=== PATIENT | male | born 1950 | race Hispanic/Latino ===

== ENCOUNTER 2019-10-04 20:14 | Inpatient (IN) | payer OTHER ==
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
--- OUTSIDE RECORDS SUMMARY | 2019-10-04 21:34 | XMS REPORT | Continuity of Care Document ---
Author Author [facility] t Organization [facility] Address [address] [place] [address] Phone Unavailable Care Team Providers Care Long Term Name Role Phone Unavailable Unavailable Payers Payer Name Policy Type Policy Number Effective Date Expiration Date S ource Problems This patient has no known problems. Allergies, Adverse Reactions, Alerts Allergy Name Allergy Type Status Severity Reaction(s) Onset Date Inacti ve Date Treating Clinician Comments Source No Known Allergies DA Active U 2014-02-12 00:00:00 [facility] Medications This patient has no known medications. Procedures This patient has no known procedures. Results Test Description Test Time Test Comments Results Result Comments Source BASIC METABOLIC PANEL 2019-08-18 16:20:00 Test Item SODIUM (test code = NA) 143 mEq/L 134-147 N POTASSIUM (test code = K) 3.0 mEq/L 3.4-5.0 L CHLORIDE (test code = CL) 104 mEq/L 100-108 N CARBON DIOXIDE (test code = CO2) 34 mEq/L 21-33 H ANION GAP (test code = GAP) 8 0-20 N GLUCOSE (test code = GLU) 89 mg/dL 70-110 N BLOOD UREA NITROGEN (test code = BUN) 21 mg/dL 7-18 H GLOMERULAR FILTRATION RATE (test code = GFR) 95.6 70-80 H Units of measure = ml/min/1.73 m2 CREATININE (test code = CREAT) 0.8 mg/dL 0.6-1.3 N CALCIUM (test code = CA) 8.4 mg/dL 8.0-10.5 N [id number] 16:20:00* Test Item Value Reference Range Interpretation Comments PHOSPHOROUS (test code = PHOS) 3.2 MG/DL 2.5-4.9 N [id number] 16:20:00* Test Item Value Reference Range Interpretation Comments MAGNESIUM (test code = MAG) 1.60 mg/dL 1.8-2.4 L BASIC METABOLIC [id number] 16:17:00* Test Item Value Reference Range Interpretation Comments SODIUM (test code = NA) 143 mEq/L 134-147 N POTASSIUM (test code = K) 3.0 mEq/L 3.4-5.0 L CHLORIDE (test code = CL) 104 mEq/L 100-108 N CARBON DIOXIDE (test code = CO2) 34 mEq/L 21-33 H ANION GAP (test code = GAP) 8 0-20 N GLUCOSE (test code = GLU) 89 mg/dL 70-110 N BLOOD UREA NITROGEN (test code = BUN) 21 mg/dL 7-18 H GLOMERULAR FILTRATION RATE (test code = GFR) 70-80 CREATININE (test code = CREAT) mg/dL 0.6-1.3 CALCIUM (test code = CA) 8.4 mg/dL 8.0-10.5 N [id number] 16:17:00* Test Item Value Reference Range Interpretation Comments PHOSPHOROUS (test code = PHOS) MG/DL 2.5-4.9 [id number] 16:17:00* Test Item Value Reference Range Interpretation Comments MAGNESIUM (test code = MAG) 1.60 mg/dL 1.8-2.4 L [id number] 12:29:00* Test Item Value Reference Range Interpretation Comments GLUBED (test code = GLUBED) 131 MG/DL 70-110 H Performed by 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 [facility] [id number] 06:52:00* Test Item Value Reference Range Interpretation Comments GLUBED (test code = GLUBED) 84 MG/DL 70-110 N Performed by 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 [facility] - XR CHEST 1 [id number] 06:35:00 FAX: Sherif Hickman MD [phone] [place]: St: ADM FAX: Izabel Fallon NP [phone] Name: DEYSI FRANCISCO [facility] [place] : 1950 Age/S: 69/M [address] [place] [address] Unit #: [id number] Loc: G[address] [place] [address] Phys: Izabel Fallon NP Acct: [id number] Dis Date: Status: ADM IN PHONE #: [phone] Exam Date: 08/18/2019 0550 FAX #: [phone] Reason: resp failure EXAMS: CPT CODE: [id number] XR CHEST 1 V 15195 EXAM: CR, XR chest one view: 08/18/2019, 0421 hours HISTORY: resp failure TECHNIQUE: 1 view of the chest. COMPARISON: 08/17/2019, 0409 hours FINDINGS: Tracheostomy tube, cardiomediastinal silhouette and osseous structures are stable. Previously seen catheter in the right apical chest is no longer visualized. There is no pneumothorax. Bilateral lung opacities, not significantly changed since prior study.. Lucency overlying the left upper abdomen pelvis stomach distended with air. IMPRESSION: 1. Previously seen catheter overlying the right apical chest is no longer present. Tracheostomy tube is stable. 2. Bilateral lung opacities, not significantly changed since prior study. SL: [[id number]] at 0635 Reported and signed by: Bryan Woo M.D. CC: Sherif Wren M.D.; Izabel Fallon NP Technologist: Derek Underwood RT(R) Trnscrd Date/Time/By: 08/18/2019 (35) : By: [email or web address] Orig Print D/T: S: 08/18/2019 (637) PAGE 1 Signed Report COMPREHENSIVE METABOLIC [id number] 05:52:00* Test Item Value Reference Range Interpretation Comments SODIUM (test code = NA) 143 mEq/L 134-147 N POTASSIUM (test code = K) 2.6 mEq/L 3.4-5.0 LL CHLORIDE (test code = CL) 104 mEq/L 100-108 N CARBON DIOXIDE (test code = CO2) 32 mEq/L 21-33 N ANION GAP (test code = GAP) 10 0-20 N GLUCOSE (test code = GLU) 78 mg/dL 70-110 N BLOOD UREA NITROGEN (test code = BUN) 23 mg/dL 7-18 H GLOMERULAR FILTRATION RATE (test code = GFR) 83.4 70-80 H Units of measure = ml/min/1.73 m2 CREATININE (test code = CREAT) 0.9 mg/dL 0.6-1.3 N TOTAL PROTEIN (test code = PROT) 6.6 g/dL 6.4-8.2 N ALBUMIN (test code = ALB) 1.80 g/dL 3.4-5.0 L CALCIUM (test code = CA) 8.3 mg/dL 8.0-10.5 N BILIRUBIN TOTAL (test code = BILT) 0.4 MG/DL <1.5 N SGOT/AST (test code = AST) 15 IUnit/L 15-37 N SGPT/ALT (test code = ALT) < 6 IUnit/L 15-65 L ALKALINE PHOSPHATASE TOTAL (test code = ALKP) 97 IUnit/L 20-125 N [id number] 05:52:00* Test Item Value Reference Range Interpretation Comments PHOSPHOROUS (test code = PHOS) 3.3 MG/DL 2.5-4.9 N [id number] 05:52:00* Test Item Value Reference Range Interpretation Comments MAGNESIUM (test code = MAG) 1.40 mg/dL 1.8-2.4 L CALCIUM [id number] 05:52:00* Test Item Value Reference Range Interpretation Comments CALCIUM IONIZED (test code = SEAMUS) 1.20 MMOL/L 1.12-1.32 N COMPREHENSIVE METABOLIC [id number] 05:39:00* Test Item Value Reference Range Interpretation Comments SODIUM (test code = NA) mEq/L 134-147 POTASSIUM (test code = K) mEq/L 3.4-5.0 CHLORIDE (test code = CL) mEq/L 100-108 CARBON DIOXIDE (test code = CO2) mEq/L 21-33 ANION GAP (test code = GAP) 0-20 GLUCOSE (test code = GLU) mg/dL 70-110 BLOOD UREA NITROGEN (test code = BUN) mg/dL 7-18 GLOMERULAR FILTRATION RATE (test code = GFR) 70-80 CREATININE (test code = CREAT) mg/dL 0.6-1.3 TOTAL PROTEIN (test code = PROT) g/dL 6.4-8.2 ALBUMIN (test code = ALB) g/dL 3.4-5.0 CALCIUM (test code = CA) mg/dL 8.0-10.5 BILIRUBIN TOTAL (test code = BILT) MG/DL <1.5 SGOT/AST (test code = AST) IUnit/L 15-37 SGPT/ALT (test code = ALT) IUnit/L 15-65 ALKALINE PHOSPHATASE TOTAL (test code = ALKP) IUnit/L 20-125 [id number] 05:39:00* Test Item Value Reference Range Interpretation Comments PHOSPHOROUS (test code = PHOS) MG/DL 2.5-4.9 [id number] 05:39:00* Test Item Value Reference Range Interpretation Comments MAGNESIUM (test code = MAG) mg/dL 1.8-2.4 CALCIUM [id number] 05:39:00* Test Item Value Reference Range Interpretation Comments CALCIUM IONIZED (test code = SEAMUS) 1.20 MMOL/L 1.12-1.32 N PROTHROMBIN [id number] 05:37:00* Test Item Value Reference Range Interpretation Comments PROTHROMBIN TIME PATIENT (test code = PTP) 13.9 SECONDS 9.3-12.9 H INTERNATIONAL NORMAL RATIO (test code = INR) 1.3 0.8-1.2 H TARGET INR BY INDICATION Indication INR1. Prophylaxis of venous thrombosis 2.0 - 3.0 (orthopedic surgery), Prophylaxis of venous thrombosis (other than high-risk surgery), Treatment of Deep Vein Thrombosis/Pulmonary Embolism, Prevention of systemic embolism - Tissue heart valves, Acute Myocardial Infarction (to prevent systemic embolism), Valvular heart disease, Atrial Fibrillation, Bileaflet mechanical valve in aortic position.2. Mechanical prosthetic valves (high risk), 2.5 - 3.5 Presence of Lupus Anticoagulant or Antiphospholipid Antibodies, Prevention of systemic embolism - Acute Myocardial Infarction (to prevent recurrent infarct). CBC W/AUTO [id number] 05:27:00* Test Item Value Reference Range Interpretation Comments WHITE BLOOD CELL (test code = WBC) 12.00 x10 3/uL 4.5-11.0 H RED BLOOD CELL (test code = RBC) 3.09 x10 6/uL 4.00-5.60 L HEMOGLOBIN (test code = HGB) 8.9 g/dL 12.5-16.9 L HEMATOCRIT (test code = HCT) 27.9 % 37.5-50.7 L MEAN CELL VOLUME (test code = MCV) 90.3 fL 81.0-99.0 N MEAN CELL HGB (test code = MCH) 28.8 pg 27.0-33.0 N MEAN CELL HGB CONCETRATION (test code = MCHC) 31.9 g/dL 33.0-37. 0 L RED CELL DISTRIBUTION WIDTH CV (test code = RDW) 14.6 % 11.5- 14.5 H RED CELL DISTRIBUTION WIDTH SD (test code = RDW-SD) 48.7 fL 37 .0-54.0 N PLATELET COUNT (test code = PLT) 370 x10 3/uL 150-400 N MEAN PLATELET VOLUME (test code = MPV) 9.5 fL 7.0-9.0 H NEUTROPHIL % (test code = NT%) 66.7 % 56.0-77.0 N IMMATURE GRANULOCYTE % (test code = IG%) 1.0 % 0.0-2.0 N LYMPHOCYTE % (test code = LY%) 18.1 % 14.0-32.0 N MONOCYTE % (test code = MO%) 9.6 % 4.8-9.0 H EOSINOPHIL % (test code = EO%) 4.3 % 0.3-3.7 H BASOPHIL % (test code = BA%) 0.3 % 0.0-2.0 N NUCLEATED RBC % (test code = NRBC%) 0.0 % 0-0 N NEUTROPHIL # (test code = NT#) 8.01 x10 3/uL 2.0-7.6 H IMMATURE GRANULOCYTE # (test code = IG#) 0.12 x10 3/uL 0.00-0.03 H LYMPHOCYTE # (test code = LY#) 2.17 x10 3/uL 1.0-3.8 N MONOCYTE # (test code = MO#) 1.15 x10 3/uL 0.1-0.8 H EOSINOPHIL # (test code = EO#) 0.51 x10 3/uL 0.0-0.2 H BASOPHIL # (test code = BA#) 0.04 x10 3/uL 0.0-0.2 N NUCLEATED RBC # (test code = NRBC#) 0.00 x10 3/uL 0.0-0.1 N MANUAL DIFF REQUIRED (test code = MDIFF) NO ARTERIAL BLOOD [id number] 04:44:00* Test Item Value Reference Range Interpretation Comments ARTERIAL BLOOD GAS PH (test code = PHA) 7.444 7.35-7.45 N ARTERIAL BLOOD GAS PCO2 (test code = PCO2A) 45.5 mmHg 35-45 H ARTERIAL BLOOD GAS PO2 (test code = PO2A) 131 mmHg 80-100 H BICARBONATE TOTAL HCO3 (test code = HCO3) 31.2 mmol/L 22.0-26.0 H BASE EXCESS (test code = SUNDAR) 7.0 mmol/L -4-4 H ABG O2 SATURATION (test code = SATA) 99 % 90-100 N FIO2 (test code = FIO2A) 40 % ABG DELIVERY (test code = KESHAV) Vent ABG VENT MODE (test code = MODEA) Other ABG TIDAL VOLUME (test code = TVA) 487 ml ABG PEEP (test code = PEEPA) 5 cmH2O ABG PRESSURE SUPPORT (test code = PSABG) 10 cmH2O Performed by 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 [facility] ABG TEMPERATURE (test code = TEMPA) 98.5 F ABG SITE (test code = SITEA) L Rad PREDICTED AA GRADIENT (test code = AP) 59 PREDICTED PO2 (test code = OP) 171 a/A RATIO (test code = RATIO) 0.57 TCO2 ARTERIAL (test code = TCO2A) 33 A-A GRADIENT (test code = AAGRADE) 100 [id number] 22:48:00* Test Item Value Reference Range Interpretation Comments GLUBED (test code = GLUBED) 116 MG/DL 70-110 H Performed by 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 [facility] [id number] 22:48:00* Test Item Value Reference Range Interpretation Comments GLUBED (test code = GLUBED) 82 MG/DL 70-110 N Performed by 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 [facility] [id number] 22:48:00* Test Item Value Reference Range Interpretation Comments GLUBED (test code = GLUBED) 74 MG/DL 70-110 N Performed by 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 [facility] [id number] 19:51:00* Test Item Value Reference Range Interpretation Comments GLUBED (test code = GLUBED) 66 MG/DL 70-110 L Performed by 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 [facility] [id number] 15:44:00* Test Item Value Reference Range Interpretation Comments GLUBED (test code = GLUBED) 130 MG/DL 70-110 H Performed by 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 [facility] - CT ABD PELVIS W/O [id number] 08:31:00 Name: DEYSI FRANCISCO [facility] : 1950 Age/S: 69 / M [address] [place] [address] Unit #: [id number] Loc: [place] [address] Phys: Samuel Bradshaw MD Acct: [id number] Dis Date: Status: ADM IN PHONE #: [phone] Exam Date: 08/17/2019527 FAX #: [phone] Reason: vomiting, r/o obstruction EXAMS: CPT CODE: [id number] CT ABD PELVIS W/O CONT 75420 CT abdomen pelvis without contrast: Multiplanar helical imaging acquired from diaphragm to symphysis pubis without IV contrast. Oral contrast was given. CT imaging performed at this location utilizes radiation dose optimization techniques which include one or more of the following: -Automated exposure control - Adjustment of the mA and/or kV according to patient size -Use of iterative reconstruction technique CT Radiation Dose DLP 758 mGy-cm HISTORY: Vomiting, evaluate for bowel obstruction. COMPARISON: None. FINDINGS: Atelectatic changes are found in each lung base. In addition there are bilateral hazy interstitial infiltrates in each lung base which could be pneumonia or edema. Trace right pleural fluid collection. 2.5 cm hypodense lesion in the lateral right lobe of the liver. Density measurement slightly greater than that appear fluid. This may be a cyst but ultrasound confirmation might be useful. No other focal liver lesion or dilated ducts. The gallbladder is absent. Spleen, pancreas and adrenal glands unremarkable. The abdominal aorta is normal caliber. Unenhanced kidneys unremarkable. No stone or hydron ephrosis in either kidney. A PEG tube is in place with attention b alloon in the gastric lumen. Oral contrast passes from the stomach to non dilated small bowel loops and into the distal colon without obstruction. There are scattered left colonic diverticula without diverticulitis. No f luid in the abdomen or pelvis. No retroperitoneal or pelvic adenopathy. Reis catheter in the bladder. The prostate is enlarged. Mild scoliosis with multiple level degenerative change in the thoracolumbar spine. No acute vertebral compression. IMPRESSION: 1. Distal colonic diverticulosis without diverticulitis. No evidence of bowel obstruction. 2. 2.5 cm hypodense lesion right lobe of the liver, suggest ultrasound to confirm possible cyst. 3. Cholecystectomy , prostate enlargement, PEG tube in place. 4. Bibasilar atelectasis. A dditional interstitial infiltrate in each PAGE 1 Sign ed Report (CONTINUED) Name: DEYSI FRANCISCO [facility] : 1950 Age/S: 69 / M [address] [place] [address] Blvd Unit #: [id number] Loc: [place] [address] Phys: Samuel Bradshaw MD Acct: [id number] Dis Date: Status: ADM IN PHONE #: [phone] Exam Date: 08/17/2019527 FAX #: [phone] Reason: vomiting, r/o obstruct ion EXAMS: CPT CODE: [id number] CT ABD PELVIS W/O CONT 51615 <Continued> lung base could be edema or pneumonia. SL: [id number] at 0831 Reported and signed by: Lebron Wharton M.D. CC: Sherif Wren M.D.; Samuel Bradshaw MD Technologist:Jethro De La Fuente, RT(R)(CT) CTDI: DLP: Trnscb Date/Time: 08/17/2019 (08) [email or web address] Orig Print D/T: S: 08/17/2019 (0834) PAGE 2 Signed Report - XR CHEST 1 [id number] 08:06:00 FAX: Sherif Hickman MD [phone] [place]: St: ADM FAX: Frances Lindsey NP [phone] Name: DEYSI FRANCISCO [facility] : 1950 Age/S: 69/M [address] [place] [address] Blvd Unit #: [id number] Loc: G[address] [place] [address] Phys: TrudygardeniaDrewFrances DATA WAREHOUSE SPECIALIST Acct: [id number] Dis Date: Status: ADM IN PHONE #: [phone] Exam Date: 08/17/2019545 FAX #: [phone] Reason: resp failure EXAMS: CPT CODE: [id number] XR CHEST 1 V 85808 PROCEDURE: CHEST SINGLE VIEW INDICATION: Respiratory failure COMPARISON: Multiple priors, most recent 08/16/2019 at 1906 hours FINDINGS: TUBES AND LINES: Tracheostomy tube tip is midline. Right subclavian central venous catheter retracted to the level of subclavian vein near the expected insertion site, stable in position as demonstrated 08/16/2019. Multiple EKG leads overlie the chest. CHEST: Extensive bilateral indistinct pulmonary opacities somewhat patchy in distribution are without significant change. Hemidiaphragms remain p artially visible. No pneumothorax or gross pleural effusion. The cardiomed iastinal silhouette is stable. IMPRESSION: 1. Stable exam. 2. Right central venous catheter tip near the expected subclavian insertion site. 3. Stable pulmonary opacities. SL: [id number] at 0806 Reported and signed by: Burton Mccoy M.D. CC: Sherif Wren M.D.; Frances Lindsey NP Technologist: RT Heath(Alexandrea) Trnscrd Date/Time/By: 08/17/2019 (805) : By: Ethan Orig Print D/T: S: 08/17/2019 (0319) PAGE 1 Signed Report BASIC METABOLIC [id number] 05:10:00* Test Item Value Reference Range Interpretation Comments SODIUM (test code = NA) 144 mEq/L 134-147 N POTASSIUM (test code = K) 3.1 mEq/L 3.4-5.0 L CHLORIDE (test code = CL) 106 mEq/L 100-108 N CARBON DIOXIDE (test code = CO2) 31 mEq/L 21-33 N ANION GAP (test code = GAP) 10 0-20 N GLUCOSE (test code = GLU) 83 mg/dL 70-110 N BLOOD UREA NITROGEN (test code = BUN) 34 mg/dL 7-18 H GLOMERULAR FILTRATION RATE (test code = GFR) 59.9 70-80 L Units of measure = ml/min/1.73 m2 CREATININE (test code = CREAT) 1.2 mg/dL 0.6-1.3 N CALCIUM (test code = CA) 8.5 mg/dL 8.0-10.5 N [id number] 05:10:00* Test Item Value Reference Range Interpretation Comments PHOSPHOROUS (test code = PHOS) 4.1 MG/DL 2.5-4.9 N [id number] 05:10:00* Test Item Value Reference Range Interpretation Comments MAGNESIUM (test code = MAG) 1.40 mg/dL 1.8-2.4 L CALCIUM [id number] 05:10:00* Test Item Value Reference Range Interpretation Comments CALCIUM IONIZED (test code = SEAMUS) 1.18 MMOL/L 1.12-1.32 N LACTIC [id number] 05:01:00* Test Item Value Reference Range Interpretation Comments LACTIC ACID (test code = LACT) 0.6 mmol/L 0.4-1.9 N [id number] 04:54:00* Test Item Value Reference Range Interpretation Comments GLUBED (test code = GLUBED) 77 MG/DL 70-110 N Performed by 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 [facility] BASIC METABOLIC [id number] 04:52:00* Test Item Value Reference Range Interpretation Comments SODIUM (test code = NA) mEq/L 134-147 POTASSIUM (test code = K) mEq/L 3.4-5.0 CHLORIDE (test code = CL) mEq/L 100-108 CARBON DIOXIDE (test code = CO2) mEq/L 21-33 ANION GAP (test code = GAP) 0-20 GLUCOSE (test code = GLU) mg/dL 70-110 BLOOD UREA NITROGEN (test code = BUN) mg/dL 7-18 GLOMERULAR FILTRATION RATE (test code = GFR) 70-80 CREATININE (test code = CREAT) mg/dL 0.6-1.3 CALCIUM (test code = CA) mg/dL 8.0-10.5 [id number] 04:52:00* Test Item Value Reference Range Interpretation Comments PHOSPHOROUS (test code = PHOS) MG/DL 2.5-4.9 [id number] 04:52:00* Test Item Value Reference Range Interpretation Comments MAGNESIUM (test code = MAG) mg/dL 1.8-2.4 CALCIUM [id number] 04:52:00* Test Item Value Reference Range Interpretation Comments CALCIUM IONIZED (test code = SEAMUS) 1.18 MMOL/L 1.12-1.32 N CBC W/AUTO [id number] 04:51:00* Test Item Value Reference Range Interpretation Comments WHITE BLOOD CELL (test code = WBC) 12.02 x10 3/uL 4.5-11.0 H RED BLOOD CELL (test code = RBC) 3.05 x10 6/uL 4.00-5.60 L HEMOGLOBIN (test code = HGB) 8.8 g/dL 12.5-16.9 L HEMATOCRIT (test code = HCT) 28.1 % 37.5-50.7 L MEAN CELL VOLUME (test code = MCV) 92.1 fL 81.0-99.0 N MEAN CELL HGB (test code = MCH) 28.9 pg 27.0-33.0 N MEAN CELL HGB CONCETRATION (test code = MCHC) 31.3 g/dL 33.0-37. 0 L RED CELL DISTRIBUTION WIDTH CV (test code = RDW) 14.9 % 11.5- 14.5 H RED CELL DISTRIBUTION WIDTH SD (test code = RDW-SD) 50.4 fL 37 .0-54.0 N PLATELET COUNT (test code = PLT) 324 x10 3/uL 150-400 N MEAN PLATELET VOLUME (test code = MPV) 9.6 fL 7.0-9.0 H NEUTROPHIL % (test code = NT%) 65.7 % 56.0-77.0 N IMMATURE GRANULOCYTE % (test code = IG%) 1.9 % 0.0-2.0 N LYMPHOCYTE % (test code = LY%) 18.6 % 14.0-32.0 N MONOCYTE % (test code = MO%) 9.8 % 4.8-9.0 H EOSINOPHIL % (test code = EO%) 3.6 % 0.3-3.7 N BASOPHIL % (test code = BA%) 0.4 % 0.0-2.0 N NUCLEATED RBC % (test code = NRBC%) 0.0 % 0-0 N NEUTROPHIL # (test code = NT#) 7.89 x10 3/uL 2.0-7.6 H IMMATURE GRANULOCYTE # (test code = IG#) 0.23 x10 3/uL 0.00-0.03 H LYMPHOCYTE # (test code = LY#) 2.24 x10 3/uL 1.0-3.8 N MONOCYTE # (test code = MO#) 1.18 x10 3/uL 0.1-0.8 H EOSINOPHIL # (test code = EO#) 0.43 x10 3/uL 0.0-0.2 H BASOPHIL # (test code = BA#) 0.05 x10 3/uL 0.0-0.2 N NUCLEATED RBC # (test code = NRBC#) 0.00 x10 3/uL 0.0-0.1 N MANUAL DIFF REQUIRED (test code = MDIFF) NO ARTERIAL BLOOD [id number] 04:36:00* Test Item Value Reference Range Interpretation Comments ARTERIAL BLOOD GAS PH (test code = PHA) 7.410 7.35-7.45 N ARTERIAL BLOOD GAS PCO2 (test code = PCO2A) 52.6 mmHg 35-45 H ARTERIAL BLOOD GAS PO2 (test code = PO2A) 149 mmHg 80-100 H BICARBONATE TOTAL HCO3 (test code = HCO3) 33.5 mmol/L 22.0-26.0 H BASE EXCESS (test code = SUNDAR) 9.0 mmol/L -4-4 H ABG O2 SATURATION (test code = SATA) 99 % 90-100 N FIO2 (test code = FIO2A) 40 % ABG DELIVERY (test code = KESHAV) Vent ABG VENT MODE (test code = MODEA) AC v con ABG VENT RESP RATE (test code = RRA) 24 /MIN ABG TIDAL VOLUME (test code = TVA) 450 ml ABG PEEP (test code = PEEPA) 5 cmH2O Performed by 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 [facility] ABG TEMPERATURE (test code = TEMPA) 97.8 F ABG SITE (test code = SITEA) L Rad PREDICTED AA GRADIENT (test code = AP) 57 PREDICTED PO2 (test code = OP) 164 a/A RATIO (test code = RATIO) 0.67 TCO2 ARTERIAL (test code = TCO2A) 35 A-A GRADIENT (test code = AAGRADE) 73 [id number] 23:38:00* Test Item Value Reference Range Interpretation Comments GLUBED (test code = GLUBED) 112 MG/DL 70-110 H Performed by 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 [facility] - XR CHEST 1 [id number] 19:31:00 FAX: Sherif Hickman MD [phone] [place]: St: ADM FAX: Frances Lindsey NP [phone] Name: DEYSI FRANCISCO [facility] : 1950 Age/S: 69/M [address] [place] [address] Unit #: [id number] Loc: G[address] [place] [address] Phys: Frances Lindsey NP Acct: [id number] Dis Date: Status: ADM IN PHONE #: [phone] Exam Date: 08/16/20191919 FAX #: [phone] Reason: right subclavian line assessment EXAMS: CPT CODE: [id number] XR CHEST 1 V 55857 SINGLE VIEW RADIOGRAPH CHEST INDICATION: right subclavian line assessment. Hemorrhagic stroke. TECHNIQUE: A single view frontal radiograph of the chest was obtained. COMPARISONS: Chest x-ray 08/16/2019 at 0440 hours, chest x-ray 08/15/2019 FINDINGS: There is a stable normally positioned tracheostomy cannula. A right subclavian access central venous catheter has been retracted with tip now overlying the clavicle, and no longer in a central venous location. This could be terminating in the right subclavian vein or soft tissues. There are surgical clips in right upper abdomen. There is no subdiaphragmatic free gas. The heart size appears normal. There is stable dense opacity in the right perihilar region and thickening of the right paratracheal stripe. There are diffuse severe reticulonodular and hazy pulmonary opacities that are not significantly changed from prior. There is no pneumothorax. There is a probable small left pleural effusion that is stable. IMPRESSION: 1. The right subclavian access central venous catheter has been retracted. The tip now overlies the right clavicle and is no longer central venous in location. This catheter could still be in the right subclavian vein or in the soft tissues. 2. Essentially stable diffuse reticulonodular and hazy pulmonary infiltrates. This could be multifocal pneumonia, edema or respiratory distress syndrome. 3. Stable small left pl eural effusion. at 1931 Reported and signed by: Michael Lugo D.O. PAGE 1 Signed Report (CONTINUED) FAX: Sherif Hickman MD [phone] [place]: St: ADM FAX: Frances Lindsey NP [phone] Name: DEYSI FRANCISCO [facility] : 1950 Age/S: 69/M [address] [place] [address] Blvd Unit #: [id number] Loc: [id number] [place] [address] Phys : Frances Lindsey NP Acct: [id number] Dis Date: Status: ADM IN PHONE #: [phone] Exam Date: 08/16/2019 1920 F AX #: [phone] Reason: right subclavian line assessment EXAMS: CPT CODE: [id number] XR CHEST 1 V 34585 <Continued> CC: Sherif Wren M.D.; Frances Lindsey NP Technologist: Peter Quan RT(R) Trnscrd Date/Time/By: 08/16/2019 (1930) : By: [email or web address] Orig Print D/T: S: 08/16/2019 (1933) PAGE 2 Signed Report [id number] 17:19:00* Test Item Value Reference Range Interpretation Comments GLUBED (test code = GLUBED) 81 MG/DL 70-110 N Performed by 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 [facility] [id number] 12:01:00* Test Item Value Reference Range Interpretation Comments GLUBED (test code = GLUBED) 102 MG/DL 70-110 N Performed by 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 [facility] [id number] 10:32:00* Test Item Value Reference Range Interpretation Comments GLUBED (test code = GLUBED) 125 MG/DL 70-110 H Performed by 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 [facility] - XR CHEST 1 [id number] 08:31:00 FAX: Sherif Hickman MD [phone] [place]: St: ADM FAX: Frances Lindsey NP [phone] Name: DEYSI FRANCISCO [facility] : 1950 Age/S: 69/M [address] [place] [address] Unit #: [id number] Loc: G.M314 [place] [address] Phys: Frances Lindsey NP Acct: [id number] Dis Date: Status: ADM IN PHONE #: [phone] Exam Date: 08/16/2019 0554 FAX #: [phone] Reason: resp failure EXAMS: CPT CODE: [id number] XR CHEST 1 V 99178 Clinical Indication: Respiratory failure. Comparison: 08/15/2019. Impression: Chest, single view. Stable position of support apparatus. Bilateral airspace opacities, not significantly changed since prior. No new pleural effusion or pneumothorax. Heart size normal. Overall appearance is similar to prior. SL: [id number] at 0831 Reported and signed by: Marcy Ortiz M.D. CC: Sherif Wren M.D.; Frances Lindsey NP Technologist: RT Farhana(Alexandrea) Trnscrd Date/Time/By: 08/16/2019 (830) : By: [id number] Orig Print D/T: S: 08/16/2019 (34) PAGE 1 Signed Report GLUBED 2019-08-16 08:20:00* Test Item Value Reference Range Interpretation Comments GLUBED (test code = GLUBED) 96 MG/DL 70-110 N Performed by 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 [facility] [id number] 07:23:00* Test Item Value Reference Range Interpretation Comments GLUBED (test code = GLUBED) 168 MG/DL 70-110 H Performed by 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 [facility] [id number] 06:24:00* Test Item Value Reference Range Interpretation Comments AMMONIA (test code = AMM) 24 umol/L 0-35 N BASIC METABOLIC [id number] 05:50:00* Test Item Value Reference Range Interpretation Comments SODIUM (test code = NA) 144 mEq/L 134-147 N POTASSIUM (test code = K) 3.1 mEq/L 3.4-5.0 L CHLORIDE (test code = CL) 106 mEq/L 100-108 N CARBON DIOXIDE (test code = CO2) 33 mEq/L 21-33 N ANION GAP (test code = GAP) 8 0-20 N GLUCOSE (test code = GLU) 96 mg/dL 70-110 N BLOOD UREA NITROGEN (test code = BUN) 44 mg/dL 7-18 H GLOMERULAR FILTRATION RATE (test code = GFR) 42.9 70-80 L Units of measure = ml/min/1.73 m2 CREATININE (test code = CREAT) 1.6 mg/dL 0.6-1.3 H CALCIUM (test code = CA) 8.4 mg/dL 8.0-10.5 N [id number] 05:50:00* Test Item Value Reference Range Interpretation Comments PHOSPHOROUS (test code = PHOS) 4.5 MG/DL 2.5-4.9 N [id number] 05:50:00* Test Item Value Reference Range Interpretation Comments MAGNESIUM (test code = MAG) 1.60 mg/dL 1.8-2.4 L CALCIUM [id number] 05:50:00* Test Item Value Reference Range Interpretation Comments CALCIUM IONIZED (test code = SEAMUS) 1.19 MMOL/L 1.12-1.32 N CBC W/AUTO [id number] 05:40:00* Test Item Value Reference Range Interpretation Comments WHITE BLOOD CELL (test code = WBC) 8.85 x10 3/uL 4.5-11.0 N RED BLOOD CELL (test code = RBC) 3.70 x10 6/uL 4.00-5.60 L HEMOGLOBIN (test code = HGB) 10.6 g/dL 12.5-16.9 L HEMATOCRIT (test code = HCT) 33.6 % 37.5-50.7 L MEAN CELL VOLUME (test code = MCV) 90.8 fL 81.0-99.0 N MEAN CELL HGB (test code = MCH) 28.6 pg 27.0-33.0 N MEAN CELL HGB CONCETRATION (test code = MCHC) 31.5 g/dL 33.0-37. 0 L RED CELL DISTRIBUTION WIDTH CV (test code = RDW) 15.2 % 11.5- 14.5 H RED CELL DISTRIBUTION WIDTH SD (test code = RDW-SD) 50.3 fL 37 .0-54.0 N PLATELET COUNT (test code = PLT) 266 x10 3/uL 150-400 N MEAN PLATELET VOLUME (test code = MPV) 9.8 fL 7.0-9.0 H NEUTROPHIL % (test code = NT%) 61.9 % 56.0-77.0 N IMMATURE GRANULOCYTE % (test code = IG%) 4.6 % 0.0-2.0 H LYMPHOCYTE % (test code = LY%) 17.1 % 14.0-32.0 N MONOCYTE % (test code = MO%) 12.0 % 4.8-9.0 H EOSINOPHIL % (test code = EO%) 3.7 % 0.3-3.7 N BASOPHIL % (test code = BA%) 0.7 % 0.0-2.0 N NUCLEATED RBC % (test code = NRBC%) 0.0 % 0-0 N NEUTROPHIL # (test code = NT#) 5.48 x10 3/uL 2.0-7.6 N IMMATURE GRANULOCYTE # (test code = IG#) 0.41 x10 3/uL 0.00-0.03 H LYMPHOCYTE # (test code = LY#) 1.51 x10 3/uL 1.0-3.8 N MONOCYTE # (test code = MO#) 1.06 x10 3/uL 0.1-0.8 H EOSINOPHIL # (test code = EO#) 0.33 x10 3/uL 0.0-0.2 H BASOPHIL # (test code = BA#) 0.06 x10 3/uL 0.0-0.2 N NUCLEATED RBC # (test code = NRBC#) 0.00 x10 3/uL 0.0-0.1 N MANUAL DIFF REQUIRED (test code = MDIFF) NO BASIC METABOLIC [id number] 05:39:00* Test Item Value Reference Range Interpretation Comments SODIUM (test code = NA) mEq/L 134-147 POTASSIUM (test code = K) mEq/L 3.4-5.0 CHLORIDE (test code = CL) mEq/L 100-108 CARBON DIOXIDE (test code = CO2) mEq/L 21-33 ANION GAP (test code = GAP) 0-20 GLUCOSE (test code = GLU) mg/dL 70-110 BLOOD UREA NITROGEN (test code = BUN) mg/dL 7-18 GLOMERULAR FILTRATION RATE (test code = GFR) 70-80 CREATININE (test code = CREAT) mg/dL 0.6-1.3 CALCIUM (test code = CA) mg/dL 8.0-10.5 [id number] 05:39:00* Test Item Value Reference Range Interpretation Comments PHOSPHOROUS (test code = PHOS) MG/DL 2.5-4.9 [id number] 05:39:00* Test Item Value Reference Range Interpretation Comments MAGNESIUM (test code = MAG) mg/dL 1.8-2.4 CALCIUM [id number] 05:39:00* Test Item Value Reference Range Interpretation Comments CALCIUM IONIZED (test code = SEAMUS) 1.19 MMOL/L 1.12-1.32 N ARTERIAL BLOOD [id number] 05:03:00* Test Item Value Reference Range Interpretation Comments ARTERIAL BLOOD GAS PH (test code = PHA) 7.370 7.35-7.45 N ARTERIAL BLOOD GAS PCO2 (test code = PCO2A) 53.3 mmHg 35-45 H ARTERIAL BLOOD GAS PO2 (test code = PO2A) 127 mmHg 80-100 H BICARBONATE TOTAL HCO3 (test code = HCO3) 30.7 mmol/L 22.0-26.0 H BASE EXCESS (test code = SUNDAR) 5.0 mmol/L -4-4 H ABG O2 SATURATION (test code = SATA) 99 % 90-100 N FIO2 (test code = FIO2A) 40 % ABG DELIVERY (test code = KESHAV) Vent ABG VENT MODE (test code = MODEA) AC v con ABG VENT RESP RATE (test code = RRA) 24 /MIN ABG TIDAL VOLUME (test code = TVA) 450 ml ABG PEEP (test code = PEEPA) 5 cmH2O Performed by 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 [facility] ABG TEMPERATURE (test code = TEMPA) 98.9 F ABG SITE (test code = SITEA) Art line PREDICTED AA GRADIENT (test code = AP) 57 PREDICTED PO2 (test code = OP) 164 a/A RATIO (test code = RATIO) 0.57 TCO2 ARTERIAL (test code = TCO2A) 32 A-A GRADIENT (test code = AAGRADE) 94 [id number] 17:42:00* Test Item Value Reference Range Interpretation Comments GLUBED (test code = GLUBED) 103 MG/DL 70-110 N Performed by 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 [facility] [id number] 17:08:00* Test Item Value Reference Range Interpretation Comments HAPTOGLOBIN (test code = HAPT) 280 mg/dL 32-363 Performed At: [facility] [id number] Sanjai MD Ph:[phone] [id number] 11:42:00* Test Item Value Reference Range Interpretation Comments GLUBED (test code = GLUBED) 143 MG/DL 70-110 H Performed by 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 [facility] - XR CHEST 1 [id number] 08:33:00 FAX: Sherif Hickman MD [phone] [place]: St: ADM FAX: Frances Lindsey NP [phone] Name: DEYSI FRANCISCO [facility] : 1950 Age/S: 69/M [address] [place] [address] Unit #: [id number] Loc: [address] [address] Phys: Frances Lindsey NP Acct: [id number] Dis Date: Status: ADM IN PHONE #: [phone] Exam Date: 08/15/2019613 FAX #: [phone] Reason: resp failure EXAMS: CPT CODE: [id number] XR CHEST 1 V 19063 PROCEDURE: CHEST SINGLE VIEW INDICATION: Respiratory failure COMPARISON: Multiple priors, most recent 08/14/2019 FINDINGS: TUBES AND LINES: Interval placement of tracheostomy tube, tip is midline in the tracheal air shadow. Right subclavian central venous catheter tip at the level of central SVC. EKG leads overlie the lower chest. CHEST: Bilateral ill-defined pulmonary opacities more dense in the central lung zones with air bronchograms present. Opacification of the lung bases with partial obscuration of the hemidiaphragms. No pneumothorax. The cardiomediastinal silhouette is stable. The pulmonary vasculature is indistinct. No acute skeletal abnormality. IMPRESSION: 1. Tracheostomy tube placement. 2. Otherwise stable exam with extensive bilateral interstitial and airspace opacities. RDS, edema, infection in the differential. SL: [id number] at 0833 R eported and signed by: Burton Mccoy M.D. CC: Sherif Mayfield; Frances Lindsey NP Technologist: RIAZ DelcidRYessi Trnscrd Date/Time/By: 08/15/2019 (832) : By: Ethan Orig Print D/T: S: 08/15/2019 (7416) PAGE 1 Signed Report BASIC METABOLIC [id number] 06:30:00* Test Item Value Reference Range Interpretation Comments SODIUM (test code = NA) 145 mEq/L 134-147 N POTASSIUM (test code = K) 3.1 mEq/L 3.4-5.0 L CHLORIDE (test code = CL) 106 mEq/L 100-108 N CARBON DIOXIDE (test code = CO2) 34 mEq/L 21-33 H ANION GAP (test code = GAP) 8 0-20 N GLUCOSE (test code = GLU) 100 mg/dL 70-110 N BLOOD UREA NITROGEN (test code = BUN) 46 mg/dL 7-18 H GLOMERULAR FILTRATION RATE (test code = GFR) 40.0 70-80 L Units of measure = ml/min/1.73 m2 CREATININE (test code = CREAT) 1.7 mg/dL 0.6-1.3 H CALCIUM (test code = CA) 8.6 mg/dL 8.0-10.5 N [id number] 06:30:00* Test Item Value Reference Range Interpretation Comments PHOSPHOROUS (test code = PHOS) 3.8 MG/DL 2.5-4.9 N [id number] 06:30:00* Test Item Value Reference Range Interpretation Comments MAGNESIUM (test code = MAG) 1.70 mg/dL 1.8-2.4 L CALCIUM [id number] 06:30:00* Test Item Value Reference Range Interpretation Comments CALCIUM IONIZED (test code = SEAMUS) 1.21 MMOL/L 1.12-1.32 N ARTERIAL BLOOD [id number] 05:59:00* Test Item Value Reference Range Interpretation Comments ARTERIAL BLOOD GAS PH (test code = PHA) 7.411 7.35-7.45 N ARTERIAL BLOOD GAS PCO2 (test code = PCO2A) 50.3 mmHg 35-45 H ARTERIAL BLOOD GAS PO2 (test code = PO2A) 88 mmHg 80-100 N BICARBONATE TOTAL HCO3 (test code = HCO3) 32.1 mmol/L 22.0-26.0 H BASE EXCESS (test code = SUNDAR) 7.0 mmol/L -4-4 H ABG O2 SATURATION (test code = SATA) 97 % 90-100 N FIO2 (test code = FIO2A) 40 % ABG DELIVERY (test code = KESHAV) Vent ABG VENT MODE (test code = MODEA) AC v con ABG VENT RESP RATE (test code = RRA) 24 /MIN ABG TIDAL VOLUME (test code = TVA) 450 ml ABG PEEP (test code = PEEPA) 5 cmH2O Performed by 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 [facility] ABG TEMPERATURE (test code = TEMPA) 97.7 F ABG SITE (test code = SITEA) Art line PREDICTED AA GRADIENT (test code = AP) 58 PREDICTED PO2 (test code = OP) 166 a/A RATIO (test code = RATIO) 0.39 TCO2 ARTERIAL (test code = TCO2A) 34 A-A GRADIENT (test code = AAGRADE) 137 [id number] 05:31:00* Test Item Value Reference Range Interpretation Comments GLUBED (test code = GLUBED) 103 MG/DL 70-110 N Performed by 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 [facility] BASIC METABOLIC [id number] 05:29:00* Test Item Value Reference Range Interpretation Comments SODIUM (test code = NA) 145 mEq/L 134-147 N POTASSIUM (test code = K) 3.1 mEq/L 3.4-5.0 L CHLORIDE (test code = CL) 106 mEq/L 100-108 N CARBON DIOXIDE (test code = CO2) 34 mEq/L 21-33 H ANION GAP (test code = GAP) 8 0-20 N GLUCOSE (test code = GLU) 100 mg/dL 70-110 N BLOOD UREA NITROGEN (test code = BUN) 46 mg/dL 7-18 H GLOMERULAR FILTRATION RATE (test code = GFR) 40.0 70-80 L Units of measure = ml/min/1.73 m2 CREATININE (test code = CREAT) 1.7 mg/dL 0.6-1.3 H CALCIUM (test code = CA) 8.6 mg/dL 8.0-10.5 N [id number] 05:29:00* Test Item Value Reference Range Interpretation Comments PHOSPHOROUS (test code = PHOS) 3.8 MG/DL 2.5-4.9 N [id number] 05:29:00* Test Item Value Reference Range Interpretation Comments MAGNESIUM (test code = MAG) 1.70 mg/dL 1.8-2.4 L CALCIUM [id number] 05:29:00* Test Item Value Reference Range Interpretation Comments CALCIUM IONIZED (test code = SEAMUS) MMOL/L 1.12-1.32 [id number] 05:28:00* Test Item Value Reference Range Interpretation Comments AMMONIA (test code = AMM) 20 umol/L 0-35 N CBC W/AUTO [id number] 04:55:00* Test Item Value Reference Range Interpretation Comments WHITE BLOOD CELL (test code = WBC) 13.58 x10 3/uL 4.5-11.0 H RED BLOOD CELL (test code = RBC) 3.19 x10 6/uL 4.00-5.60 L HEMOGLOBIN (test code = HGB) 9.3 g/dL 12.5-16.9 L HEMATOCRIT (test code = HCT) 29.2 % 37.5-50.7 L MEAN CELL VOLUME (test code = MCV) 91.5 fL 81.0-99.0 MEAN CELL HGB (test code = MCH) 29.2 pg 27.0-33.0 N MEAN CELL HGB CONCETRATION (test code = MCHC) 31.8 g/dL 33.0-37. 0 L RED CELL DISTRIBUTION WIDTH CV (test code = RDW) 15.3 % 11.5- 14.5 H RED CELL DISTRIBUTION WIDTH SD (test code = RDW-SD) 51.6 fL 37 .0-54.0 N PLATELET COUNT (test code = PLT) 270 x10 3/uL 150-400 N MEAN PLATELET VOLUME (test code = MPV) 9.8 fL 7.0-9.0 H NEUTROPHIL % (test code = NT%) 68.8 % 56.0-77.0 N IMMATURE GRANULOCYTE % (test code = IG%) 3.6 % 0.0-2.0 H LYMPHOCYTE % (test code = LY%) 13.2 % 14.0-32.0 L MONOCYTE % (test code = MO%) 10.7 % 4.8-9.0 H EOSINOPHIL % (test code = EO%) 3.1 % 0.3-3.7 N BASOPHIL % (test code = BA%) 0.6 % 0.0-2.0 N NUCLEATED RBC % (test code = NRBC%) 0.0 % 0-0 N NEUTROPHIL # (test code = NT#) 9.35 x10 3/uL 2.0-7.6 H IMMATURE GRANULOCYTE # (test code = IG#) 0.49 x10 3/uL 0.00-0.03 H LYMPHOCYTE # (test code = LY#) 1.79 x10 3/uL 1.0-3.8 N MONOCYTE # (test code = MO#) 1.45 x10 3/uL 0.1-0.8 H EOSINOPHIL # (test code = EO#) 0.42 x10 3/uL 0.0-0.2 H BASOPHIL # (test code = BA#) 0.08 x10 3/uL 0.0-0.2 N NUCLEATED RBC # (test code = NRBC#) 0.00 x10 3/uL 0.0-0.1 N MANUAL DIFF REQUIRED (test code = MDIFF) NO [id number] 23:30:00* Test Item Value Reference Range Interpretation Comments GLUBED (test code = GLUBED) 148 MG/DL 70-110 H Performed by 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 [facility] [id number] 20:08:00* Test Item Value Reference Range Interpretation Comments GLUBED (test code = GLUBED) 123 MG/DL 70-110 H Performed by 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 [facility] [id number] 12:52:00* Test Item Value Reference Range Interpretation Comments GLUBED (test code = GLUBED) 103 MG/DL 70-110 N Performed by 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 [facility] - XR CHEST 1 [id number] 08:08:00 FAX: Sherif Hickman MD [phone] [place]: St: [facility] FAX: Frances Lindsey NP [phone] Name: DEYSI FRANICSCO [facility] [place] : 1950 Age/S: 69/M [address] [place] [address] Unit #: [id number] Loc: G.M314 [place] [address] Phys: Frances Lindsey DATA WAREHOUSE SPECIALIST Acct: [id number] Dis Date: Status: ADM IN PHONE #: [phone] Exam Date: 08/14/2019 0746 FAX #: [phone] Reason: resp failure EXAMS: CPT CODE: [id number] XR CHEST 1 V 73984 Clinical Indication: Respiratory failure. Comparison: 08/13/2019. Impression: Chest, single view. Stable position of endotracheal tube. Right subclavian central venous catheter is in place with tip projecting to the superior vena cava. Bilateral airspace opacities, similar to prior. Small bilateral pleural effusions. No pneumothorax. Heart size is normal. No acute osseous abnormality. Overall appearance is stable from prior. SL: [id number] at 0808 Reported and signed by: Marcy Ortiz M.D. CC: Sherif Wren M.D.; Frances Lindsey NP Technologist: RT Keven(Alexandrea) Trnscrd Date/Time/By: 08/14/2019 (0808) : By: [id number] Orig Print D/T: S: 08/14/2019 (0811) PAGE 1 Signed Report ARTERIAL BLOOD GAS 2019-08-14 05:08:00* Test Item Value Reference Range Interpretation Comments ARTERIAL BLOOD GAS PH (test code = PHA) 7.342 7.35-7.45 L ARTERIAL BLOOD GAS PCO2 (test code = PCO2A) 57.2 mmHg 35-45 H ARTERIAL BLOOD GAS PO2 (test code = PO2A) 85 mmHg 80-100 N BICARBONATE TOTAL HCO3 (test code = HCO3) 31.0 mmol/L 22.0-26.0 H BASE EXCESS (test code = SUNDAR) 5.0 mmol/L -4-4 H ABG O2 SATURATION (test code = SATA) 95 % 90-100 N FIO2 (test code = FIO2A) 40 % ABG DELIVERY (test code = KESHAV) Vent ABG VENT MODE (test code = MODEA) AC v con ABG VENT RESP RATE (test code = RRA) 24 /MIN ABG TIDAL VOLUME (test code = TVA) 450 ml ABG PEEP (test code = PEEPA) 5 cmH2O Performed by 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 [facility] ABG TEMPERATURE (test code = TEMPA) 98.6 F ABG SITE (test code = SITEA) Art line PREDICTED AA GRADIENT (test code = AP) 56 PREDICTED PO2 (test code = OP) 160 a/A RATIO (test code = RATIO) 0.39 TCO2 ARTERIAL (test code = TCO2A) 33 A-A GRADIENT (test code = AAGRADE) 132 BASIC METABOLIC [id number] 04:06:00* Test Item Value Reference Range Interpretation Comments SODIUM (test code = NA) 146 mEq/L 134-147 N POTASSIUM (test code = K) 3.8 mEq/L 3.4-5.0 N CHLORIDE (test code = CL) 109 mEq/L 100-108 H CARBON DIOXIDE (test code = CO2) 31 mEq/L 21-33 N ANION GAP (test code = GAP) 10 0-20 N GLUCOSE (test code = GLU) 109 mg/dL 70-110 N BLOOD UREA NITROGEN (test code = BUN) 56 mg/dL 7-18 H GLOMERULAR FILTRATION RATE (test code = GFR) 29.7 70-80 L Units of measure = ml/min/1.73 m2 CREATININE (test code = CREAT) 2.2 mg/dL 0.6-1.3 H CALCIUM (test code = CA) 8.6 mg/dL 8.0-10.5 N HEPATIC FUNCTION [id number] 04:06:00* Test Item Value Reference Range Interpretation Comments TOTAL PROTEIN (test code = PROT) 7.0 g/dL 6.4-8.2 N ALBUMIN (test code = ALB) 1.80 g/dL 3.4-5.0 L BILIRUBIN TOTAL (test code = BILT) 0.4 MG/DL <1.5 N BILIRUBIN DIRECT (test code = BILD) 0.20 MG/DL 0.0-0.30 BILIRUBIN INDIRECT (test code = BILIND) 0.20 MG/DL SGOT/AST (test code = AST) 23 IUnit/L 15-37 N SGPT/ALT (test code = ALT) 11 IUnit/L 15-65 L ALKALINE PHOSPHATASE TOTAL (test code = ALKP) 170 IUnit/L 20-125 H [id number] 04:06:00* Test Item Value Reference Range Interpretation Comments PHOSPHOROUS (test code = PHOS) 4.7 MG/DL 2.5-4.9 N [id number] 04:06:00* Test Item Value Reference Range Interpretation Comments LIPASE (test code = LIP) 180 IUnit/L 73-393 N [id number] 04:06:00* Test Item Value Reference Range Interpretation Comments MAGNESIUM (test code = MAG) 1.70 mg/dL 1.8-2.4 L CALCIUM [id number] 04:06:00* Test Item Value Reference Range Interpretation Comments CALCIUM IONIZED (test code = SEAMUS) 1.24 MMOL/L 1.12-1.32 N [id number] 04:02:00* Test Item Value Reference Range Interpretation Comments AMMONIA (test code = AMM) 26 umol/L 0-35 N BASIC METABOLIC [id number] 03:53:00* Test Item Value Reference Range Interpretation Comments SODIUM (test code = NA) mEq/L 134-147 POTASSIUM (test code = K) mEq/L 3.4-5.0 CHLORIDE (test code = CL) mEq/L 100-108 CARBON DIOXIDE (test code = CO2) mEq/L 21-33 ANION GAP (test code = GAP) 0-20 GLUCOSE (test code = GLU) mg/dL 70-110 BLOOD UREA NITROGEN (test code = BUN) mg/dL 7-18 GLOMERULAR FILTRATION RATE (test code = GFR) 70-80 CREATININE (test code = CREAT) mg/dL 0.6-1.3 CALCIUM (test code = CA) mg/dL 8.0-10.5 HEPATIC FUNCTION [id number] 03:53:00* Test Item Value Reference Range Interpretation Comments TOTAL PROTEIN (test code = PROT) g/dL 6.4-8.2 ALBUMIN (test code = ALB) g/dL 3.4-5.0 BILIRUBIN TOTAL (test code = BILT) MG/DL <1.5 BILIRUBIN DIRECT (test code = BILD) MG/DL 0.0-0.30 SGOT/AST (test code = AST) IUnit/L 15-37 SGPT/ALT (test code = ALT) IUnit/L 15-65 ALKALINE PHOSPHATASE TOTAL (test code = ALKP) IUnit/L 20-125 [id number] 03:53:00* Test Item Value Reference Range Interpretation Comments PHOSPHOROUS (test code = PHOS) MG/DL 2.5-4.9 [id number] 03:53:00* Test Item Value Reference Range Interpretation Comments LIPASE (test code = LIP) IUnit/L 73-393 [id number] 03:53:00* Test Item Value Reference Range Interpretation Comments MAGNESIUM (test code = MAG) mg/dL 1.8-2.4 CALCIUM [id number] 03:53:00* Test Item Value Reference Range Interpretation Comments CALCIUM IONIZED (test code = SEAMUS) 1.24 MMOL/L 1.12-1.32 N CBC W/AUTO [id number] 03:48:00* Test Item Value Reference Range Interpretation Comments WHITE BLOOD CELL (test code = WBC) 13.65 x10 3/uL 4.5-11.0 H RED BLOOD CELL (test code = RBC) 3.33 x10 6/uL 4.00-5.60 L HEMOGLOBIN (test code = HGB) 9.7 g/dL 12.5-16.9 L HEMATOCRIT (test code = HCT) 31.6 % 37.5-50.7 L MEAN CELL VOLUME (test code = MCV) 94.9 fL 81.0-99.0 N MEAN CELL HGB (test code = MCH) 29.1 pg 27.0-33.0 N MEAN CELL HGB CONCETRATION (test code = MCHC) 30.7 g/dL 33.0-37. 0 L RED CELL DISTRIBUTION WIDTH CV (test code = RDW) 15.8 % 11.5- 14.5 H RED CELL DISTRIBUTION WIDTH SD (test code = RDW-SD) 54.5 fL 37 .0-54.0 H PLATELET COUNT (test code = PLT) 285 x10 3/uL 150-400 N MEAN PLATELET VOLUME (test code = MPV) 9.2 fL 7.0-9.0 H NEUTROPHIL % (test code = NT%) 75.5 % 56.0-77.0 N IMMATURE GRANULOCYTE % (test code = IG%) 2.1 % 0.0-2.0 H LYMPHOCYTE % (test code = LY%) 11.6 % 14.0-32.0 L MONOCYTE % (test code = MO%) 7.5 % 4.8-9.0 N EOSINOPHIL % (test code = EO%) 2.9 % 0.3-3.7 N BASOPHIL % (test code = BA%) 0.4 % 0.0-2.0 N NUCLEATED RBC % (test code = NRBC%) 0.1 % 0-0 H NEUTROPHIL # (test code = NT#) 10.31 x10 3/uL 2.0-7.6 H IMMATURE GRANULOCYTE # (test code = IG#) 0.29 x10 3/uL 0.00-0.03 H LYMPHOCYTE # (test code = LY#) 1.58 x10 3/uL 1.0-3.8 N MONOCYTE # (test code = MO#) 1.02 x10 3/uL 0.1-0.8 H EOSINOPHIL # (test code = EO#) 0.39 x10 3/uL 0.0-0.2 H BASOPHIL # (test code = BA#) 0.06 x10 3/uL 0.0-0.2 N NUCLEATED RBC # (test code = NRBC#) 0.02 x10 3/uL 0.0-0.1 N MANUAL DIFF REQUIRED (test code = MDIFF) NO [id number] 01:17:00* Test Item Value Reference Range Interpretation Comments GLUBED (test code = GLUBED) 109 MG/DL 70-110 N Performed by 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 [facility] [id number] 17:06:00* Test Item Value Reference Range Interpretation Comments GLUBED (test code = GLUBED) 100 MG/DL 70-110 N Performed by 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 [facility] [id number] 11:13:00* Test Item Value Reference Range Interpretation Comments GLUBED (test code = GLUBED) 122 MG/DL 70-110 H Performed by 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 [facility] [id number] 08:01:00* Test Item Value Reference Range Interpretation Comments GLUBED (test code = GLUBED) 72 MG/DL 70-110 N Performed by 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 [facility] - XR CHEST 1 [id number] 07:18:00 FAX: Sherif Hickman MD [phone] [place]: St: ADM FAX: Frances Lindsey NP [phone] Name: DEYSI FRANCISCO [facility] : 1950 Age/S: 69/M [address] [place] [address] Unit #: [id number] Loc: .[address] [address] Phys: Frances Lindsey NP Acct: [id number] Dis Date: Status: ADM IN PHONE #: [phone] Exam Date: 08/13/2019620 FAX #: [phone] Reason: resp failure EXAMS: CPT CODE: [id number] XR CHEST 1 V [id number] Chest view 08/13/2019 HISTORY: Respiratory failure Comparison is made to 08/12/2019 FINDINGS: The endotracheal tube and right jugular line are stable. Patchy airspace opacities and interstitial infiltrates throughout both lungs are not significantly changed, right greater than left. Bilateral pleural effusions are unchanged. IMPRESSION: Stable chest. SL: [id number] at 0718 Reported and signed by: Eric Orozco M.D. CC: Sherif Wren M.D.; Frances Lindsey NP Technologist: RT Anton(R) Trnscrd Date/Time/By: 08/13/2019 (717) : By: [email or web address] Orig Print D/T: S: 08/13/2019 (721) PAGE 1 Signed Report BASIC METABOLIC [id number] 06:23:00* Test Item Value Reference Range Interpretation Comments SODIUM (test code = NA) 150 mEq/L 134-147 H POTASSIUM (test code = K) 3.2 mEq/L 3.4-5.0 L CHLORIDE (test code = CL) 115 mEq/L 100-108 H CARBON DIOXIDE (test code = CO2) 31 mEq/L 21-33 N ANION GAP (test code = GAP) 7 0-20 N GLUCOSE (test code = GLU) 93 mg/dL 70-110 BLOOD UREA NITROGEN (test code = BUN) 63 mg/dL 7-18 H GLOMERULAR FILTRATION RATE (test code = GFR) 31.4 70-80 L Units of measure = ml/min/1.73 m2 CREATININE (test code = CREAT) 2.1 mg/dL 0.6-1.3 H CALCIUM (test code = CA) 8.5 mg/dL 8.0-10.5 N [id number] 06:23:00* Test Item Value Reference Range Interpretation Comments PHOSPHOROUS (test code = PHOS) 5.3 MG/DL 2.5-4.9 H [id number] 06:23:00* Test Item Value Reference Range Interpretation Comments MAGNESIUM (test code = MAG) 1.80 mg/dL 1.8-2.4 N CALCIUM [id number] 06:23:00* Test Item Value Reference Range Interpretation Comments CALCIUM IONIZED (test code = SEAMUS) 1.22 MMOL/L 1.12-1.32 N BASIC METABOLIC [id number] 06:13:00* Test Item Value Reference Range Interpretation Comments SODIUM (test code = NA) mEq/L 134-147 POTASSIUM (test code = K) mEq/L 3.4-5.0 CHLORIDE (test code = CL) mEq/L 100-108 CARBON DIOXIDE (test code = CO2) mEq/L 21-33 ANION GAP (test code = GAP) 0-20 GLUCOSE (test code = GLU) mg/dL 70-110 BLOOD UREA NITROGEN (test code = BUN) mg/dL 7-18 GLOMERULAR FILTRATION RATE (test code = GFR) 70-80 CREATININE (test code = CREAT) mg/dL 0.6-1.3 CALCIUM (test code = CA) mg/dL 8.0-10.5 [id number] 06:13:00* Test Item Value Reference Range Interpretation Comments PHOSPHOROUS (test code = PHOS) MG/DL 2.5-4.9 [id number] 06:13:00* Test Item Value Reference Range Interpretation Comments MAGNESIUM (test code = MAG) mg/dL 1.8-2.4 CALCIUM [id number] 06:13:00* Test Item Value Reference Range Interpretation Comments CALCIUM IONIZED (test code = SEAMUS) 1.22 MMOL/L 1.12-1.32 N CBC W/AUTO [id number] 06:01:00* Test Item Value Reference Range Interpretation Comments WHITE BLOOD CELL (test code = WBC) 13.71 x10 3/uL 4.5-11.0 H RED BLOOD CELL (test code = RBC) 3.00 x10 6/uL 4.00-5.60 L HEMOGLOBIN (test code = HGB) 8.9 g/dL 12.5-16.9 L HEMATOCRIT (test code = HCT) 28.6 % 37.5-50.7 L MEAN CELL VOLUME (test code = MCV) 95.3 fL 81.0-99.0 N MEAN CELL HGB (test code = MCH) 29.7 pg 27.0-33.0 N MEAN CELL HGB CONCETRATION (test code = MCHC) 31.1 g/dL 33.0-37. 0 L RED CELL DISTRIBUTION WIDTH CV (test code = RDW) 16.3 % 11.5- 14.5 H RED CELL DISTRIBUTION WIDTH SD (test code = RDW-SD) 57.0 fL 37 .0-54.0 H PLATELET COUNT (test code = PLT) 297 x10 3/uL 150-400 N MEAN PLATELET VOLUME (test code = MPV) 9.3 fL 7.0-9.0 H NEUTROPHIL % (test code = NT%) 75.5 % 56.0-77.0 N IMMATURE GRANULOCYTE % (test code = IG%) 1.2 % 0.0-2.0 N LYMPHOCYTE % (test code = LY%) 13.6 % 14.0-32.0 L MONOCYTE % (test code = MO%) 5.7 % 4.8-9.0 N EOSINOPHIL % (test code = EO%) 3.5 % 0.3-3.7 N BASOPHIL % (test code = BA%) 0.5 % 0.0-2.0 N NUCLEATED RBC % (test code = NRBC%) 0.2 % 0-0 H NEUTROPHIL # (test code = NT#) 10.35 x10 3/uL 2.0-7.6 H IMMATURE GRANULOCYTE # (test code = IG#) 0.17 x10 3/uL 0.00-0.03 H LYMPHOCYTE # (test code = LY#) 1.86 x10 3/uL 1.0-3.8 N MONOCYTE # (test code = MO#) 0.78 x10 3/uL 0.1-0.8 N EOSINOPHIL # (test code = EO#) 0.48 x10 3/uL 0.0-0.2 H BASOPHIL # (test code = BA#) 0.07 x10 3/uL 0.0-0.2 N NUCLEATED RBC # (test code = NRBC#) 0.03 x10 3/uL 0.0-0.1 N MANUAL DIFF REQUIRED (test code = MDIFF) NO ARTERIAL BLOOD [id number] 05:19:00* Test Item Value Reference Range Interpretation Comments ARTERIAL BLOOD GAS PH (test code = PHA) 7.351 7.35-7.45 N ARTERIAL BLOOD GAS PCO2 (test code = PCO2A) 51.4 mmHg 35-45 H ARTERIAL BLOOD GAS PO2 (test code = PO2A) 142 mmHg 80-100 H BICARBONATE TOTAL HCO3 (test code = HCO3) 28.6 mmol/L 22.0-26.0 H BASE EXCESS (test code = SUNDAR) 3.0 mmol/L -4-4 N ABG O2 SATURATION (test code = SATA) 99 % 90-100 N FIO2 (test code = FIO2A) 50 % ABG DELIVERY (test code = KESHAV) Vent ABG VENT MODE (test code = MODEA) AC v con ABG VENT RESP RATE (test code = RRA) 24 /MIN ABG TIDAL VOLUME (test code = TVA) 500 ml ABG PEEP (test code = PEEPA) 5 cmH2O Performed by 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 [facility] ABG TEMPERATURE (test code = TEMPA) 97.5 F ABG SITE (test code = SITEA) Art line PREDICTED AA GRADIENT (test code = AP) 76 PREDICTED PO2 (test code = OP) 218 a/A RATIO (test code = RATIO) 0.48 TCO2 ARTERIAL (test code = TCO2A) 30 A-A GRADIENT (test code = AAGRADE) 153 [id number] 00:32:00* Test Item Value Reference Range Interpretation Comments GLUBED (test code = GLUBED) 94 MG/DL 70-110 N Performed by 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 [facility] [id number] 18:42:00* Test Item Value Reference Range Interpretation Comments SODIUM (test code = NA) 150 mEq/L 134-147 H [id number] 18:26:00* Test Item Value Reference Range Interpretation Comments GLUBED (test code = GLUBED) 77 MG/DL 70-110 N Performed by 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 [facility] PROCALCITONIN (PCT)2019-08-12 14:39:00* Test Item Value Reference Range Interpretation Comments PROCALCITONIN (PCT) (test code = PROCAL) 6.54 ng/mL 0.00-0.05 H PROCALCITONIN (PCT) NORMAL RANGE (ADULT): <0.05 NG/ML. * a concentration <0.5 ng/mL represents a low risk of severe sepsis and/or septic shock.* a concentration >2 ng/mL represents a high risk of severe sepsis and/or septic shock.Nevertheless, concentrations <0.5 ng/mL do not exclude aninfection, on account of localized infections (withoutsystemic signs) which can be associated with such lowconcentrations, or a systemic infection in its initialstages (< 6 hours). Furthermore, increased procalcitonincan occur without infection. PCT concentrations between 0.5and 2.0 ng/mL should be interpreted taking into account thepatient's history. It is recommended to retest PCT within6-24 hours if any concentrations <2 ng/mL are obtained. [id number] 13:06:00* Test Item Value Reference Range Interpretation Comments SODIUM (test code = NA) 151 mEq/L 134-147 H [id number] 12:18:00* Test Item Value Reference Range Interpretation Comments GLUBED (test code = GLUBED) 94 MG/DL 70-110 N Performed by 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 [facility] CBC W/AUTO [id number] 11:20:00* Test Item Value Reference Range Interpretation Comments WHITE BLOOD CELL (test code = WBC) 18.05 x10 3/uL 4.5-11.0 H RED BLOOD CELL (test code = RBC) 2.81 x10 6/uL 4.00-5.60 L HEMOGLOBIN (test code = HGB) 8.1 g/dL 12.5-16.9 L HEMATOCRIT (test code = HCT) 26.5 % 37.5-50.7 L MEAN CELL VOLUME (test code = MCV) 94.3 fL 81.0-99.0 N MEAN CELL HGB (test code = MCH) 28.8 pg 27.0-33.0 N MEAN CELL HGB CONCETRATION (test code = MCHC) 30.6 g/dL 33.0-37. 0 L RED CELL DISTRIBUTION WIDTH CV (test code = RDW) 16.5 % 11.5- 14.5 H RED CELL DISTRIBUTION WIDTH SD (test code = RDW-SD) 55.9 fL 37 .0-54.0 H PLATELET COUNT (test code = PLT) 308 x10 3/uL 150-400 N MEAN PLATELET VOLUME (test code = MPV) 9.4 fL 7.0-9.0 H MANUAL DIFF REQUIRED (test code = MDIFF) YES WBC [id number] 11:20:00* Test Item Value Reference Range Interpretation Comments SEGMENTED NEUTROPHILS (test code = SEG) 83.4 % 37-69 H BAND NEUTROPHIL (test code = BAND) 2.8 % 0.0-10.0 N LYMPHOCYTE (test code = LYMPH) 4.6 % 23-55 L MONOCYTE (test code = MON) 2.8 % 0-10 N EOSINOPHIL (test code = EOS) 0.9 % 0.0-4.0 N BASOPHIL (test code = BASO) 4.6 % 0.0-2.0 H PROMYELOCYTE (test code = PROM) 0.9 % 0-0 H POLYCHROMASIA (test code = POLC) 1+ POIKILOCYTOSIS (test code = POIK) SLIGHT ANISOCYTOSIS (test code = ANISO) 1+ MICROCYTOSIS (test code = MICR) 1+ TARGET CELLS (test code = TGT) FEW ELLIPTOCYTES (test code = ELL) FEW PLATELET ESTIMATE (test code = PLTEST) Adequate THOUSAND ADEQUATE PLATELET MORPHOLOGY (test code = PLTMORPH) NORMAL CBC W/AUTO [id number] 11:15:00* Test Item Value Reference Range Interpretation Comments WHITE BLOOD CELL (test code = WBC) 18.05 x10 3/uL 4.5-11.0 H RED BLOOD CELL (test code = RBC) 2.81 x10 6/uL 4.00-5.60 L HEMOGLOBIN (test code = HGB) 8.1 g/dL 12.5-16.9 L HEMATOCRIT (test code = HCT) 26.5 % 37.5-50.7 L MEAN CELL VOLUME (test code = MCV) 94.3 fL 81.0-99.0 N MEAN CELL HGB (test code = MCH) 28.8 pg 27.0-33.0 N MEAN CELL HGB CONCETRATION (test code = MCHC) 30.6 g/dL 33.0-37. 0 L RED CELL DISTRIBUTION WIDTH CV (test code = RDW) 16.5 % 11.5- 14.5 H RED CELL DISTRIBUTION WIDTH SD (test code = RDW-SD) 55.9 fL 37 .0-54.0 H PLATELET COUNT (test code = PLT) 308 x10 3/uL 150-400 N MEAN PLATELET VOLUME (test code = MPV) 9.4 fL 7.0-9.0 H MANUAL DIFF REQUIRED (test code = MDIFF) YES WBC [id number] 11:15:00* Test Item Value Reference Range Interpretation Comments ANISOCYTOSIS (test code = ANISO) PLATELET ESTIMATE (test code = PLTEST) THOUSAND ADEQUATE CBC W/AUTO [id number] 11:15:00* Test Item Value Reference Range Interpretation Comments WHITE BLOOD CELL (test code = WBC) 18.05 x10 3/uL 4.5-11.0 H RED BLOOD CELL (test code = RBC) 2.81 x10 6/uL 4.00-5.60 L HEMOGLOBIN (test code = HGB) 8.1 g/dL 12.5-16.9 L HEMATOCRIT (test code = HCT) 26.5 % 37.5-50.7 L MEAN CELL VOLUME (test code = MCV) 94.3 fL 81.0-99.0 N MEAN CELL HGB (test code = MCH) 28.8 pg 27.0-33.0 N MEAN CELL HGB CONCETRATION (test code = MCHC) 30.6 g/dL 33.0-37. 0 L RED CELL DISTRIBUTION WIDTH CV (test code = RDW) 16.5 % 11.5- 14.5 H RED CELL DISTRIBUTION WIDTH SD (test code = RDW-SD) 55.9 fL 37 .0-54.0 H PLATELET COUNT (test code = PLT) 308 x10 3/uL 150-400 N MEAN PLATELET VOLUME (test code = MPV) 9.4 fL 7.0-9.0 H MANUAL DIFF REQUIRED (test code = MDIFF) YES WBC [id number] 11:15:00* Test Item Value Reference Range Interpretation Comments ANISOCYTOSIS (test code = ANISO) PLATELET ESTIMATE (test code = PLTEST) THOUSAND ADEQUATE LIPID PROFILE (CORONARY RISK)2019-08-12 10:18:00* Test Item Value Reference Range Interpretation Comments TRIGLYCERIDES (test code = TRIG) 280 mg/dL 40-150 H CHOLESTEROL (test code = CHOL) 71 mg/dL <200 CHOLESTEROL/HDL RATIO (test code = CHOLHDL) 7.89 RATIO 3.43-4.97 H RISK ASSOCIATED WITH CHOL/HDL RATIOS: RISK MALE FEMALE1/2 AVERAGE 3.43 3.27AVERAGE 4.97 4.442X AVERAGE 9.55 7.053X AVERAGE 23.39 11.04 NOTE THAT THE REFERENCE VALUE IS RELATEDTO RISK LEVELS RECOMMENDED BY THE NATL.HEART, LUNG, AND BLOOD INST. HDL CHOLESTEROL (test code = HDL) 9.0 mg/dL 32-72 L LIPOPROTEIN LDL (test code = LDL) 28 mg/dL 0-100 N <100 [id number] NEAR OPTIMAL/ABOVE [id number] HIGH>NL=074 VERY HIGH*Guidelines provided by the National Cholesterol EducationProgram Adult Treatment Panel III GAMMA GLUTAMYL [id number] 10:18:00* Test Item Value Reference Range Interpretation Comments GAMMA GLUTAMYL TRANSPEPTIDASE (test code = GGT) 13 UNITS/L 5-85 N Result is in INTERNATIONAL UNITS/LITER LACTIC DEHYDROGENASE(LDH)2019-08-12 10:18:00* Test Item Value Reference Range Interpretation Comments LACTIC DEHYDROGENASE(LDH) (test code = LDH) 191 IUnits/L 87-241 N T4 [id number] 10:18:00* Test Item Value Reference Range Interpretation Comments T4 FREE (test code = T4F) 0.9 ng/dL 0.77-1.61 N TSH REFLEX TO [id number] 10:18:00* Test Item Value Reference Range Interpretation Comments TSH REFLEX TO FT4 (test code = TSHREFLEX) 7.82 IU/mL 0.42-5.47 H LIPID PROFILE (CORONARY RISK)2019-08-12 09:59:00* Test Item Value Reference Range Interpretation Comments TRIGLYCERIDES (test code = TRIG) 280 mg/dL 40-150 H CHOLESTEROL (test code = CHOL) 71 mg/dL <200 CHOLESTEROL/HDL RATIO (test code = CHOLHDL) 7.89 RATIO 3.43-4.97 H RISK ASSOCIATED WITH CHOL/HDL RATIOS: RISK MALE FEMALE1/2 AVERAGE 3.43 3.27AVERAGE 4.97 4.442X AVERAGE 9.55 7.053X AVERAGE 23.39 11.04 NOTE THAT THE REFERENCE VALUE IS RELATEDTO RISK LEVELS RECOMMENDED BY THE NATL.HEART, LUNG, AND BLOOD INST. HDL CHOLESTEROL (test code = HDL) 9.0 mg/dL 32-72 L LIPOPROTEIN LDL (test code = LDL) 28 mg/dL 0-100 N <100 [id number] NEAR OPTIMAL/ABOVE [id number] HIGH>FE=196 VERY HIGH*Guidelines provided by the National Cholesterol EducationProgram Adult Treatment Panel III GAMMA GLUTAMYL [id number] 09:59:00* Test Item Value Reference Range Interpretation Comments GAMMA GLUTAMYL TRANSPEPTIDASE (test code = GGT) 13 UNITS/L 5-85 N Result is in INTERNATIONAL UNITS/LITER LACTIC DEHYDROGENASE(LDH)2019-08-12 09:59:00* Test Item Value Reference Range Interpretation Comments LACTIC DEHYDROGENASE(LDH) (test code = LDH) 191 IUnits/L 87-241 N T4 [id number] 09:59:00* Test Item Value Reference Range Interpretation Comments T4 FREE (test code = T4F) ng/dL 0.77-1.61 TSH REFLEX TO [id number] 09:59:00* Test Item Value Reference Range Interpretation Comments TSH REFLEX TO FT4 (test code = TSHREFLEX) 7.82 IU/mL 0.42-5.47 H HGBA1C%2019-08-12 09:58:00* Test Item Value Reference Range Interpretation Comments HGBA1C% (test code = HGBA1C%) 6.4 %A1C 4.8-6.0 H RETIC COUNT (AUTOMATED)2019-08-12 09:33:00* Test Item Value Reference Range Interpretation Comments RETIC COUNT (AUTOMATED) (test code = RETICA) 0.9 % 0.3-2.3 N - XR CHEST 1 [id number] 08:06:00 FAX: Sherif Hickman MD [phone] [place]: St: ADM FAX: Izabel Fallon NP [phone] Name: DEYSI FRANCISCO [facility] : 1950 Age/S: 69/M [address] [place] [address] Unit #: [id number] Loc: G.14 [place] [address] Phys: Izabel Fallon NP Acct: [id number] Dis Date: Status: ADM IN PHONE #: [phone] Exam Date: 08/12/2019727 FAX #: [phone] Reason: RESP FAILURE/PNEUMONIA EXAMS: CPT CODE: [id number] XR CHEST 1 V [id number] Chest single view 08/12/2019 HISTORY: Respiratory failure. Pneumonia Comparison is made to 08/11/2019 FINDINGS: Patchy airspace opacities and interstitial infiltrates throughout both lungs, right greater than left, are unchanged. Heart size is at the upper limits of normal. Aorta is within normal limits. Right subclavian line and endotracheal tube are stable. Gastric tube has been removed. IMPRESSION: 1. Stable bilateral pneumonia. 2. Removal of gastric tube. SL: [id number] Electronically Signed by Mega Orozco on 0 08/12/2019 at 0806 Reported and signed by: Jose Guadalupe Orozco M.D. CC: Sherif Wren M.D.; Izabel wright NP Technologist: Anali Thornton, RT(R); Radha Dunlap, RT (R) Trnscrd Date/Time/By: 08/12/2019 (805) : By: [email or web address] Or [employer] Print D/T: S: 08/12/2019 (808) PAGE 1 Signed Report COMPREHENSIVE METABOLIC [id number] 06:20:00* Test Item Value Reference Range Interpretation Comments SODIUM (test code = NA) 152 mEq/L 134-147 H POTASSIUM (test code = K) 3.4 mEq/L 3.4-5.0 N CHLORIDE (test code = CL) 117 mEq/L 100-108 H CARBON DIOXIDE (test code = CO2) 28 mEq/L 21-33 N ANION GAP (test code = GAP) 10 0-20 N GLUCOSE (test code = GLU) 71 mg/dL 70-110 N BLOOD UREA NITROGEN (test code = BUN) 59 mg/dL 7-18 H GLOMERULAR FILTRATION RATE (test code = GFR) 31.4 70-80 L Units of measure = ml/min/1.73 m2 CREATININE (test code = CREAT) 2.1 mg/dL 0.6-1.3 H TOTAL PROTEIN (test code = PROT) 6.5 g/dL 6.4-8.2 N ALBUMIN (test code = ALB) 1.80 g/dL 3.4-5.0 L CALCIUM (test code = CA) 8.4 mg/dL 8.0-10.5 N BILIRUBIN TOTAL (test code = BILT) 0.4 MG/DL <1.5 SGOT/AST (test code = AST) 21 IUnit/L 15-37 N SGPT/ALT (test code = ALT) 16 IUnit/L 15-65 ALKALINE PHOSPHATASE TOTAL (test code = ALKP) 162 IUnit/L 20-125 H [id number] 06:20:00* Test Item Value Reference Range Interpretation Comments PHOSPHOROUS (test code = PHOS) 4.4 MG/DL 2.5-4.9 N [id number] 06:20:00* Test Item Value Reference Range Interpretation Comments MAGNESIUM (test code = MAG) 2.00 mg/dL 1.8-2.4 N CALCIUM [id number] 06:20:00* Test Item Value Reference Range Interpretation Comments CALCIUM IONIZED (test code = SEAMUS) 1.21 MMOL/L 1.12-1.32 N COMPREHENSIVE METABOLIC [id number] 06:11:00* Test Item Value Reference Range Interpretation Comments SODIUM (test code = NA) mEq/L 134-147 POTASSIUM (test code = K) mEq/L 3.4-5.0 CHLORIDE (test code = CL) mEq/L 100-108 CARBON DIOXIDE (test code = CO2) mEq/L 21-33 ANION GAP (test code = GAP) 0-20 GLUCOSE (test code = GLU) mg/dL 70-110 BLOOD UREA NITROGEN (test code = BUN) mg/dL 7-18 GLOMERULAR FILTRATION RATE (test code = GFR) 70-80 CREATININE (test code = CREAT) mg/dL 0.6-1.3 TOTAL PROTEIN (test code = PROT) g/dL 6.4-8.2 ALBUMIN (test code = ALB) g/dL 3.4-5.0 CALCIUM (test code = CA) mg/dL 8.0-10.5 BILIRUBIN TOTAL (test code = BILT) MG/DL <1.5 SGOT/AST (test code = AST) IUnit/L 15-37 SGPT/ALT (test code = ALT) IUnit/L 15-65 ALKALINE PHOSPHATASE TOTAL (test code = ALKP) IUnit/L 20-125 [id number] 06:11:00* Test Item Value Reference Range Interpretation Comments PHOSPHOROUS (test code = PHOS) MG/DL 2.5-4.9 [id number] 06:11:00* Test Item Value Reference Range Interpretation Comments MAGNESIUM (test code = MAG) mg/dL 1.8-2.4 CALCIUM [id number] 06:11:00* Test Item Value Reference Range Interpretation Comments CALCIUM IONIZED (test code = SEAMUS) 1.21 MMOL/L 1.12-1.32 N PROTHROMBIN [id number] 06:11:00* Test Item Value Reference Range Interpretation Comments PROTHROMBIN TIME PATIENT (test code = PTP) 16.1 SECONDS 9.3-12.9 H INTERNATIONAL NORMAL RATIO (test code = INR) 1.5 0.8-1.2 H TARGET INR BY INDICATION Indication INR1. Prophylaxis of venous thrombosis 2.0 - 3.0 (orthopedic surgery), Prophylaxis of venous thrombosis (other than high-risk surgery), Treatment of Deep Vein Thrombosis/Pulmonary Embolism, Prevention of systemic embolism - Tissue heart valves, Acute Myocardial Infarction (to prevent systemic embolism), Valvular heart disease, Atrial Fibrillation, Bileaflet mechanical valve in aortic position.2. Mechanical prosthetic valves (high risk), 2.5 - 3.5 Presence of Lupus Anticoagulant or Antiphospholipid Antibodies, Prevention of systemic embolism - Acute Myocardial Infarction (to prevent recurrent infarct). CBC W/AUTO [id number] 06:03:00* Test Item Value Reference Range Interpretation Comments WHITE BLOOD CELL (test code = WBC) 18.05 x10 3/uL 4.5-11.0 H RED BLOOD CELL (test code = RBC) 2.81 x10 6/uL 4.00-5.60 L HEMOGLOBIN (test code = HGB) 8.1 g/dL 12.5-16.9 L HEMATOCRIT (test code = HCT) 26.5 % 37.5-50.7 L MEAN CELL VOLUME (test code = MCV) 94.3 fL 81.0-99.0 N MEAN CELL HGB (test code = MCH) 28.8 pg 27.0-33.0 N MEAN CELL HGB CONCETRATION (test code = MCHC) 30.6 g/dL 33.0-37. 0 L RED CELL DISTRIBUTION WIDTH CV (test code = RDW) 16.5 % 11.5- 14.5 H RED CELL DISTRIBUTION WIDTH SD (test code = RDW-SD) 55.9 fL 37 .0-54.0 H PLATELET COUNT (test code = PLT) 308 x10 3/uL 150-400 N MEAN PLATELET VOLUME (test code = MPV) 9.4 fL 7.0-9.0 H NEUTROPHIL % (test code = NT%) % 56.0-77.0 LYMPHOCYTE % (test code = LY%) % 14.0-32.0 NEUTROPHIL # (test code = NT#) x10 3/uL 2.0-7.6 LYMPHOCYTE # (test code = LY#) x10 3/uL 1.0-3.8 MANUAL DIFF REQUIRED (test code = MDIFF) ARTERIAL BLOOD [id number] 05:52:00* Test Item Value Reference Range Interpretation Comments ARTERIAL BLOOD GAS PH (test code = PHA) 7.350 7.35-7.45 N ARTERIAL BLOOD GAS PCO2 (test code = PCO2A) 47.1 mmHg 35-45 H ARTERIAL BLOOD GAS PO2 (test code = PO2A) 95 mmHg 80-100 N BICARBONATE TOTAL HCO3 (test code = HCO3) 26.0 mmol/L 22.0-26.0 N BASE EXCESS (test code = SUNDAR) 0.0 mmol/L -4-4 N ABG O2 SATURATION (test code = SATA) 97 % 90-100 N FIO2 (test code = FIO2A) 40 % ABG DELIVERY (test code = KESHAV) Vent ABG VENT MODE (test code = MODEA) AC v con ABG VENT RESP RATE (test code = RRA) 24 /MIN ABG TIDAL VOLUME (test code = TVA) 500 ml ABG PEEP (test code = PEEPA) 8 cmH2O Performed by 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 [facility] ABG TEMPERATURE (test code = TEMPA) 98.6 F ABG SITE (test code = SITEA) Art line PREDICTED AA GRADIENT (test code = AP) 59 PREDICTED PO2 (test code = OP) 169 a/A RATIO (test code = RATIO) 0.42 TCO2 ARTERIAL (test code = TCO2A) 27 A-A GRADIENT (test code = AAGRADE) 134 [id number] 00:44:00* Test Item Value Reference Range Interpretation Comments GLUBED (test code = GLUBED) 115 MG/DL 70-110 H Performed by 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 [facility] [id number] 23:37:00* Test Item Value Reference Range Interpretation Comments GLUBED (test code = GLUBED) 84 MG/DL 70-110 N Performed by 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 [facility] [id number] 13:57:00* Test Item Value Reference Range Interpretation Comments SODIUM (test code = NA) 153 mEq/L 134-147 H HGB [id number] 13:50:00* Test Item Value Reference Range Interpretation Comments HEMOGLOBIN (test code = HGB) 7.3 g/dL 12.5-16.9 L HEMATOCRIT (test code = HCT) 23.4 % 37.5-50.7 L [id number] 11:32:00* Test Item Value Reference Range Interpretation Comments GLUBED (test code = GLUBED) 144 MG/DL 70-110 H Performed by 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 [facility] CBC W/AUTO [id number] 08:13:00* Test Item Value Reference Range Interpretation Comments WHITE BLOOD CELL (test code = WBC) 17.37 x10 3/uL 4.5-11.0 H RED BLOOD CELL (test code = RBC) 2.46 x10 6/uL 4.00-5.60 L HEMOGLOBIN (test code = HGB) 7.1 g/dL 12.5-16.9 L HEMATOCRIT (test code = HCT) 23.6 % 37.5-50.7 L MEAN CELL VOLUME (test code = MCV) 95.9 fL 81.0-99.0 MEAN CELL HGB (test code = MCH) 28.9 pg 27.0-33.0 N MEAN CELL HGB CONCETRATION (test code = MCHC) 30.1 g/dL 33.0-37. 0 L RED CELL DISTRIBUTION WIDTH CV (test code = RDW) 17.0 % 11.5- 14.5 H RED CELL DISTRIBUTION WIDTH SD (test code = RDW-SD) 59.2 fL 37 .0-54.0 H PLATELET COUNT (test code = PLT) 344 x10 3/uL 150-400 N MEAN PLATELET VOLUME (test code = MPV) 9.4 fL 7.0-9.0 H NEUTROPHIL % (test code = NT%) 78.0 % 56.0-77.0 H IMMATURE GRANULOCYTE % (test code = IG%) 0.8 % 0.0-2.0 N LYMPHOCYTE % (test code = LY%) 13.8 % 14.0-32.0 L MONOCYTE % (test code = MO%) 4.1 % 4.8-9.0 L EOSINOPHIL % (test code = EO%) 2.9 % 0.3-3.7 N BASOPHIL % (test code = BA%) 0.4 % 0.0-2.0 N NUCLEATED RBC % (test code = NRBC%) 0.2 % 0-0 H NEUTROPHIL # (test code = NT#) 13.55 x10 3/uL 2.0-7.6 H IMMATURE GRANULOCYTE # (test code = IG#) 0.14 x10 3/uL 0.00-0.03 H LYMPHOCYTE # (test code = LY#) 2.39 x10 3/uL 1.0-3.8 N MONOCYTE # (test code = MO#) 0.72 x10 3/uL 0.1-0.8 N EOSINOPHIL # (test code = EO#) 0.50 x10 3/uL 0.0-0.2 H BASOPHIL # (test code = BA#) 0.07 x10 3/uL 0.0-0.2 N NUCLEATED RBC # (test code = NRBC#) 0.04 x10 3/uL 0.0-0.1 N MANUAL DIFF REQUIRED (test code = MDIFF) NO SLIDE REVIEWED, CONSISTENT WITH AUTO DIFF. COMPREHENSIVE METABOLIC [id number] 06:43:00* Test Item Value Reference Range Interpretation Comments SODIUM (test code = NA) 155 mEq/L 134-147 H POTASSIUM (test code = K) 3.7 mEq/L 3.4-5.0 N CHLORIDE (test code = CL) 120 mEq/L 100-108 H CARBON DIOXIDE (test code = CO2) 31 mEq/L 21-33 N ANION GAP (test code = GAP) 8 0-20 N GLUCOSE (test code = GLU) 91 mg/dL 70-110 N BLOOD UREA NITROGEN (test code = BUN) 52 mg/dL 7-18 H GLOMERULAR FILTRATION RATE (test code = GFR) 40.0 70-80 L Units of measure = ml/min/1.73 m2 CREATININE (test code = CREAT) 1.7 mg/dL 0.6-1.3 H TOTAL PROTEIN (test code = PROT) 6.4 g/dL 6.4-8.2 N ALBUMIN (test code = ALB) 1.70 g/dL 3.4-5.0 L CALCIUM (test code = CA) 8.4 mg/dL 8.0-10.5 N BILIRUBIN TOTAL (test code = BILT) 0.3 MG/DL <1.5 N SGOT/AST (test code = AST) 22 IUnit/L 15-37 N SGPT/ALT (test code = ALT) 9 IUnit/L 15-65 L ALKALINE PHOSPHATASE TOTAL (test code = ALKP) 140 IUnit/L 20-125 H [id number] 06:43:00* Test Item Value Reference Range Interpretation Comments PHOSPHOROUS (test code = PHOS) 3.6 MG/DL 2.5-4.9 N [id number] 06:43:00* Test Item Value Reference Range Interpretation Comments MAGNESIUM (test code = MAG) 2.10 mg/dL 1.8-2.4 N CALCIUM [id number] 06:43:00* Test Item Value Reference Range Interpretation Comments CALCIUM IONIZED (test code = SEAMUS) 1.24 MMOL/L 1.12-1.32 N PROTHROMBIN [id number] 06:17:00* Test Item Value Reference Range Interpretation Comments PROTHROMBIN TIME PATIENT (test code = PTP) 18.4 SECONDS 9.3-12.9 H INTERNATIONAL NORMAL RATIO (test code = INR) 1.7 0.8-1.2 H TARGET INR BY INDICATION Indication INR1. Prophylaxis of venous thrombosis 2.0 - 3.0 (orthopedic surgery), Prophylaxis of venous thrombosis (other than high-risk surgery), Treatment of Deep Vein Thrombosis/Pulmonary Embolism, Prevention of systemic embolism - Tissue heart valves, Acute Myocardial Infarction (to prevent systemic embolism), Valvular heart disease, Atrial Fibrillation, B[place]aflet mechanical valve in aortic position.2. Mechanical prosthetic valves (high risk), 2.5 - 3.5 Presence of Lupus Anticoagulant or Antiphospholipid Antibodies, Prevention of systemic embolism - Acute Myocardial Infarction (to prevent recurrent infarct). COMPREHENSIVE METABOLIC [id number] 06:11:00* Test Item Value Reference Range Interpretation Comments SODIUM (test code = NA) 155 mEq/L 134-147 H POTASSIUM (test code = K) 3.7 mEq/L 3.4-5.0 N CHLORIDE (test code = CL) 120 mEq/L 100-108 H CARBON DIOXIDE (test code = CO2) 31 mEq/L 21-33 N ANION GAP (test code = GAP) 8 0-20 N GLUCOSE (test code = GLU) 91 mg/dL 70-110 N BLOOD UREA NITROGEN (test code = BUN) 52 mg/dL 7-18 H GLOMERULAR FILTRATION RATE (test code = GFR) 40.0 70-80 L Units of measure = ml/min/1.73 m2 CREATININE (test code = CREAT) 1.7 mg/dL 0.6-1.3 H TOTAL PROTEIN (test code = PROT) 6.4 g/dL 6.4-8.2 N ALBUMIN (test code = ALB) 1.70 g/dL 3.4-5.0 L CALCIUM (test code = CA) 8.4 mg/dL 8.0-10.5 N BILIRUBIN TOTAL (test code = BILT) 0.3 MG/DL <1.5 N SGOT/AST (test code = AST) 22 IUnit/L 15-37 N SGPT/ALT (test code = ALT) 9 IUnit/L 15-65 L ALKALINE PHOSPHATASE TOTAL (test code = ALKP) 140 IUnit/L 20-125 H [id number] 06:11:00* Test Item Value Reference Range Interpretation Comments PHOSPHOROUS (test code = PHOS) 3.6 MG/DL 2.5-4.9 N [id number] 06:11:00* Test Item Value Reference Range Interpretation Comments MAGNESIUM (test code = MAG) 2.10 mg/dL 1.8-2.4 N CALCIUM [id number] 06:11:00* Test Item Value Reference Range Interpretation Comments CALCIUM IONIZED (test code = SEAMUS) MMOL/L 1.12-1.32 CBC W/AUTO [id number] 05:50:00* Test Item Value Reference Range Interpretation Comments WHITE BLOOD CELL (test code = WBC) 17.37 x10 3/uL 4.5-11.0 H RED BLOOD CELL (test code = RBC) 2.46 x10 6/uL 4.00-5.60 L HEMOGLOBIN (test code = HGB) 7.1 g/dL 12.5-16.9 L HEMATOCRIT (test code = HCT) 23.6 % 37.5-50.7 L MEAN CELL VOLUME (test code = MCV) 95.9 fL 81.0-99.0 MEAN CELL HGB (test code = MCH) 28.9 pg 27.0-33.0 N MEAN CELL HGB CONCETRATION (test code = MCHC) 30.1 g/dL 33.0-37. 0 L RED CELL DISTRIBUTION WIDTH CV (test code = RDW) 17.0 % 11.5- 14.5 H RED CELL DISTRIBUTION WIDTH SD (test code = RDW-SD) 59.2 fL 37 .0-54.0 H PLATELET COUNT (test code = PLT) 344 x10 3/uL 150-400 N MEAN PLATELET VOLUME (test code = MPV) 9.4 fL 7.0-9.0 H NEUTROPHIL % (test code = NT%) % 56.0-77.0 LYMPHOCYTE % (test code = LY%) % 14.0-32.0 NEUTROPHIL # (test code = NT#) x10 3/uL 2.0-7.6 LYMPHOCYTE # (test code = LY#) x10 3/uL 1.0-3.8 MANUAL DIFF REQUIRED (test code = MDIFF) [id number] 05:48:00* Test Item Value Reference Range Interpretation Comments GLUBED (test code = GLUBED) 86 MG/DL 70-110 N Performed by 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 [facility] - XR CHEST 1 [id number] 05:20:00 FAX: Sherif Hickman MD [phone] [place]: St: ADM FAX: Izabel Fallon NP [phone] Name: SABRA FRANCISCOAN [facility] : 1950 Age/S: 69/M [address] [place] [address] Unit #: [id number] Loc: .[address] [address] Phys: Izabel Fallon NP Acct: [id number] Dis Date: Status: ADM IN PHONE #: [phone] Exam Date: 08/11/2019512 FAX #: [phone] Reason: resp failure/aspiration pneumonia EXAMS: CPT CODE: [id number] XR CHEST 1 V 17925 Study: - XR CHEST 1 V 08/11/2019 5:00 AM Patient Name: DEYSI FRANCISCO MR: [id number] : 1950; Age: 69 years y/o Male Ordering Physician: Izabel Fallon NP Clinical Indication: resp failure/aspiration pneumonia Comparison: 08/10/2019 FINDINGS LUNGS: Stable hypoinflation associated with central pulmonary vascular congestion, small bilateral pleural effusions, and pat eliana pulmonary opacities consistent with pulmonary edema or pneumonia. No pneumothorax. HEART AND MEDIASTINUM: Stable mild cardiomegal y. LINES: The various lines and tubes are fairly stable. OSSEOUS STRUCTURES: No fracture, dislocation, or suspicious focal oss eous lesion. OTHER: None. IMPRESSION: Stable hypoinflation associated with central pulmonary vascular congestion, small bilateral pleural effusions, and patchy pulmonary opacities consistent with pulmonary edema or pneumonia. Stable mild cardiomegaly. SL: TPAINTER-H at 0520 Reported and signed by: David Alvarez M.D. PAGE 1 Signed Repo rt (CONTINUED) FAX: Sherif Hickman MD [phone] [place]: St: ADM FAX: Izabel Fallon NP [phone] ------ Name: DEYSI FRANCISCO [facility] : [birth year] Age/S: 69/M [address] [place] [address] Unit #: [id number] Loc: G.14 [place] [address] Phys: Izabel Fallon NP Acct: [id number] Dis Date: Status: ADM IN PHONE #: Exam Date: 08/11/2019512 FAX #: [phone] Reason: resp failure/aspiration pneumonia EXAMS: CPT CODE: [id number] XR CHEST 1 V 18443 <Continued> CC: Sherif Wren M.D.; Izabel Fallon NP Technologist: Julieth Rust RT(R) Trnscrd Date/Time/By: 08/11/2019 (519) : By: [email or web address] Orig Print D/T: S: 08/11/2019 (72) PAGE 2 Signed Report ARTERIAL BLOOD [id number] 04:39:00* Test Item Value Reference Range Interpretation Comments ARTERIAL BLOOD GAS PH (test code = PHA) 7.347 7.35-7.45 L ARTERIAL BLOOD GAS PCO2 (test code = PCO2A) 56.8 mmHg 35-45 H ARTERIAL BLOOD GAS PO2 (test code = PO2A) 196 mmHg 80-100 H BICARBONATE TOTAL HCO3 (test code = HCO3) 31.3 mmol/L 22.0-26.0 H BASE EXCESS (test code = SUNDAR) 6.0 mmol/L -4-4 H ABG O2 SATURATION (test code = SATA) 100 % 90-100 N FIO2 (test code = FIO2A) 70 % ABG DELIVERY (test code = KESHAV) Vent ABG VENT MODE (test code = MODEA) AC v con ABG VENT RESP RATE (test code = RRA) 24 /MIN ABG TIDAL VOLUME (test code = TVA) 500 ml ABG PEEP (test code = PEEPA) 8 cmH2O Performed by 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 [facility] ABG TEMPERATURE (test code = TEMPA) 97.9 F ABG SITE (test code = SITEA) Art line PREDICTED AA GRADIENT (test code = AP) 112 PREDICTED PO2 (test code = OP) 319 a/A RATIO (test code = RATIO) 0.45 TCO2 ARTERIAL (test code = TCO2A) 33 A-A GRADIENT (test code = AAGRADE) 235 Coronavirus 2019 nCoV [id number] 01:29:00* Test Item Value Reference Range Interpretation Comments Coronavirus 2019 nCoV Bedside (test code = COVNONPUIBED) Negative Negative Negative results should be treated as presumptive and, ifinconsistent with clinical signs and symptoms or necessaryfor patient management, should be tested with an alternativemolecular assay. Negative results do not preclude [id number] and should not be used as the sole basis forpatient management decisions. Negative results should beconsidered in the context of a patient's recent exposures,history, presence of clinical signs and symptoms consistentwith COVID-19. Acknowledged? YESCOMMENTS: DURAN ANG [id number] 00:40:00* Test Item Value Reference Range Interpretation Comments GLUBED (test code = GLUBED) 85 MG/DL 70-110 N Performed by 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 [facility] [id number] 00:07:00* Test Item Value Reference Range Interpretation Comments GLUBED (test code = GLUBED) 130 MG/DL 70-110 H Performed by 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 [facility] HGB [id number] 22:15:00* Test Item Value Reference Range Interpretation Comments HEMOGLOBIN (test code = HGB) 6.4 g/dL 12.5-16.9 LL HEMATOCRIT (test code = HCT) 22.1 % 37.5-50.7 L ARTERIAL BLOOD [id number] 12:58:00* Test Item Value Reference Range Interpretation Comments ARTERIAL BLOOD GAS PH (test code = PHA) 7.343 7.35-7.45 L ARTERIAL BLOOD GAS PCO2 (test code = PCO2A) 55.5 mmHg 35-45 H ARTERIAL BLOOD GAS PO2 (test code = PO2A) 108 mmHg 80-100 H BICARBONATE TOTAL HCO3 (test code = HCO3) 30.1 mmol/L 22.0-26.0 H BASE EXCESS (test code = SUNDAR) 4.0 mmol/L -4-4 N ABG O2 SATURATION (test code = SATA) 98 % 90-100 N FIO2 (test code = FIO2A) 70 % ABG DELIVERY (test code = KESHAV) Vent ABG VENT MODE (test code = MODEA) AC v con ABG VENT RESP RATE (test code = RRA) 24 /MIN ABG TIDAL VOLUME (test code = TVA) 500 ml ABG PEEP (test code = PEEPA) 8 cmH2O Performed by 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 [facility] ABG TEMPERATURE (test code = TEMPA) 98.6 F ABG SITE (test code = SITEA) Art line PREDICTED AA GRADIENT (test code = AP) 112 PREDICTED PO2 (test code = OP) 320 a/A RATIO (test code = RATIO) 0.25 TCO2 ARTERIAL (test code = TCO2A) 32 A-A GRADIENT (test code = AAGRADE) 325 [id number] 12:30:00* Test Item Value Reference Range Interpretation Comments GLUBED (test code = GLUBED) 135 MG/DL 70-110 H Performed by 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 [facility] [id number] 08:19:00* Test Item Value Reference Range Interpretation Comments GLUBED (test code = GLUBED) 100 MG/DL 70-110 N Performed by 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 [facility] COMPREHENSIVE METABOLIC [id number] 06:25:00* Test Item Value Reference Range Interpretation Comments SODIUM (test code = NA) 157 mEq/L 134-147 H POTASSIUM (test code = K) 4.1 mEq/L 3.4-5.0 N CHLORIDE (test code = CL) 123 mEq/L 100-108 H CARBON DIOXIDE (test code = CO2) 33 mEq/L 21-33 N ANION GAP (test code = GAP) 5 0-20 N GLUCOSE (test code = GLU) 97 mg/dL 70-110 N BLOOD UREA NITROGEN (test code = BUN) 47 mg/dL 7-18 H GLOMERULAR FILTRATION RATE (test code = GFR) 40.0 70-80 L Units of measure = ml/min/1.73 m2 CREATININE (test code = CREAT) 1.7 mg/dL 0.6-1.3 H TOTAL PROTEIN (test code = PROT) 7.2 g/dL 6.4-8.2 N ALBUMIN (test code = ALB) 2.00 g/dL 3.4-5.0 L CALCIUM (test code = CA) 8.4 mg/dL 8.0-10.5 N BILIRUBIN TOTAL (test code = BILT) 0.4 MG/DL <1.5 N SGOT/AST (test code = AST) 28 IUnit/L 15-37 N SGPT/ALT (test code = ALT) 17 IUnit/L 15-65 N ALKALINE PHOSPHATASE TOTAL (test code = ALKP) 202 IUnit/L 20-125 H [id number] 06:25:00* Test Item Value Reference Range Interpretation Comments PHOSPHOROUS (test code = PHOS) 3.7 MG/DL 2.5-4.9 [id number] 06:25:00* Test Item Value Reference Range Interpretation Comments MAGNESIUM (test code = MAG) 1.90 mg/dL 1.8-2.4 N CALCIUM [id number] 06:25:00* Test Item Value Reference Range Interpretation Comments CALCIUM IONIZED (test code = SEAMUS) 1.28 MMOL/L 1.12-1.32 N COMPREHENSIVE METABOLIC [id number] 06:07:00* Test Item Value Reference Range Interpretation Comments SODIUM (test code = NA) mEq/L 134-147 POTASSIUM (test code = K) mEq/L 3.4-5.0 CHLORIDE (test code = CL) mEq/L 100-108 CARBON DIOXIDE (test code = CO2) mEq/L 21-33 ANION GAP (test code = GAP) 0-20 GLUCOSE (test code = GLU) mg/dL 70-110 BLOOD UREA NITROGEN (test code = BUN) mg/dL 7-18 GLOMERULAR FILTRATION RATE (test code = GFR) 70-80 CREATININE (test code = CREAT) mg/dL 0.6-1.3 TOTAL PROTEIN (test code = PROT) g/dL 6.4-8.2 ALBUMIN (test code = ALB) g/dL 3.4-5.0 CALCIUM (test code = CA) mg/dL 8.0-10.5 BILIRUBIN TOTAL (test code = BILT) MG/DL <1.5 SGOT/AST (test code = AST) IUnit/L 15-37 SGPT/ALT (test code = ALT) IUnit/L 15-65 ALKALINE PHOSPHATASE TOTAL (test code = ALKP) IUnit/L 20-125 [id number] 06:07:00* Test Item Value Reference Range Interpretation Comments PHOSPHOROUS (test code = PHOS) MG/DL 2.5-4.9 [id number] 06:07:00* Test Item Value Reference Range Interpretation Comments MAGNESIUM (test code = MAG) mg/dL 1.8-2.4 CALCIUM [id number] 06:07:00* Test Item Value Reference Range Interpretation Comments CALCIUM IONIZED (test code = SEAMUS) 1.28 MMOL/L 1.12-1.32 N CBC W/AUTO [id number] 06:03:00* Test Item Value Reference Range Interpretation Comments WHITE BLOOD CELL (test code = WBC) 21.32 x10 3/uL 4.5-11.0 H RED BLOOD CELL (test code = RBC) 2.27 x10 6/uL 4.00-5.60 L HEMOGLOBIN (test code = HGB) 6.4 g/dL 12.5-16.9 LL HEMATOCRIT (test code = HCT) 22.7 % 37.5-50.7 L MEAN CELL VOLUME (test code = MCV) 100.0 fL 81.0-99.0 H MEAN CELL HGB (test code = MCH) 28.2 pg 27.0-33.0 N MEAN CELL HGB CONCETRATION (test code = MCHC) 28.2 g/dL 33.0-37. 0 L RED CELL DISTRIBUTION WIDTH CV (test code = RDW) 17.6 % 11.5- 14.5 H RED CELL DISTRIBUTION WIDTH SD (test code = RDW-SD) 64.2 fL 37 .0-54.0 H PLATELET COUNT (test code = PLT) 502 x10 3/uL 150-400 H MEAN PLATELET VOLUME (test code = MPV) 9.4 fL 7.0-9.0 H NEUTROPHIL % (test code = NT%) 78.4 % 56.0-77.0 H IMMATURE GRANULOCYTE % (test code = IG%) 1.2 % 0.0-2.0 N LYMPHOCYTE % (test code = LY%) 14.4 % 14.0-32.0 N MONOCYTE % (test code = MO%) 4.5 % 4.8-9.0 L EOSINOPHIL % (test code = EO%) 1.0 % 0.3-3.7 N BASOPHIL % (test code = BA%) 0.5 % 0.0-2.0 N NUCLEATED RBC % (test code = NRBC%) 0.3 % 0-0 H NEUTROPHIL # (test code = NT#) 16.68 x10 3/uL 2.0-7.6 H IMMATURE GRANULOCYTE # (test code = IG#) 0.26 x10 3/uL 0.00-0.03 H LYMPHOCYTE # (test code = LY#) 3.08 x10 3/uL 1.0-3.8 N MONOCYTE # (test code = MO#) 0.97 x10 3/uL 0.1-0.8 H EOSINOPHIL # (test code = EO#) 0.22 x10 3/uL 0.0-0.2 H BASOPHIL # (test code = BA#) 0.11 x10 3/uL 0.0-0.2 N NUCLEATED RBC # (test code = NRBC#) 0.07 x10 3/uL 0.0-0.1 N MANUAL DIFF REQUIRED (test code = MDIFF) NO SLIDE REVIEWED, CONSISTENT WITH AUTO DIFF. PROTHROMBIN [id number] 05:48:00* Test Item Value Reference Range Interpretation Comments PROTHROMBIN TIME PATIENT (test code = PTP) 18.8 SECONDS 9.3-12.9 H INTERNATIONAL NORMAL RATIO (test code = INR) 1.7 0.8-1.2 H TARGET INR BY INDICATION Indication INR1. Prophylaxis of venous thrombosis 2.0 - 3.0 (orthopedic surgery), Prophylaxis of venous thrombosis (other than high-risk surgery), Treatment of Deep Vein Thrombosis/Pulmonary Embolism, Prevention of systemic embolism - Tissue heart valves, Acute Myocardial Infarction (to prevent systemic embolism), Valvular heart disease, Atrial Fibrillation, Bileaflet mechanical valve in aortic position.2. Mechanical prosthetic valves (high risk), 2.5 - 3.5 Presence of Lupus Anticoagulant or Antiphospholipid Antibodies, Prevention of systemic embolism - Acute Myocardial Infarction (to prevent recurrent infarct). CBC W/AUTO [id number] 05:47:00* Test Item Value Reference Range Interpretation Comments WHITE BLOOD CELL (test code = WBC) 21.32 x10 3/uL 4.5-11.0 H RED BLOOD CELL (test code = RBC) 2.27 x10 6/uL 4.00-5.60 L HEMOGLOBIN (test code = HGB) 6.4 g/dL 12.5-16.9 LL HEMATOCRIT (test code = HCT) 22.7 % 37.5-50.7 L MEAN CELL VOLUME (test code = MCV) 100.0 fL 81.0-99.0 H MEAN CELL HGB (test code = MCH) 28.2 pg 27.0-33.0 N MEAN CELL HGB CONCETRATION (test code = MCHC) 28.2 g/dL 33.0-37. 0 L RED CELL DISTRIBUTION WIDTH CV (test code = RDW) 17.6 % 11.5- 14.5 H RED CELL DISTRIBUTION WIDTH SD (test code = RDW-SD) 64.2 fL 37 .0-54.0 H PLATELET COUNT (test code = PLT) 502 x10 3/uL 150-400 H MEAN PLATELET VOLUME (test code = MPV) 9.4 fL 7.0-9.0 H NEUTROPHIL % (test code = NT%) % 56.0-77.0 LYMPHOCYTE % (test code = LY%) % 14.0-32.0 NEUTROPHIL # (test code = NT#) x10 3/uL 2.0-7.6 LYMPHOCYTE # (test code = LY#) x10 3/uL 1.0-3.8 MANUAL DIFF REQUIRED (test code = MDIFF) ARTERIAL BLOOD [id number] 05:42:00* Test Item Value Reference Range Interpretation Comments ARTERIAL BLOOD GAS PH (test code = PHA) 7.292 7.35-7.45 L ARTERIAL BLOOD GAS PCO2 (test code = PCO2A) 64.4 mmHg 35-45 H ARTERIAL BLOOD GAS PO2 (test code = PO2A) 131 mmHg 80-100 H BICARBONATE TOTAL HCO3 (test code = HCO3) 31.4 mmol/L 22.0-26.0 H BASE EXCESS (test code = SUNDAR) 5.0 mmol/L -4-4 H ABG O2 SATURATION (test code = SATA) 99 % 90-100 N FIO2 (test code = FIO2A) 80 % ABG DELIVERY (test code = KESHAV) Vent ABG VENT MODE (test code = MODEA) AC v con ABG VENT RESP RATE (test code = RRA) 20 /MIN ABG TIDAL VOLUME (test code = TVA) 500 ml ABG PEEP (test code = PEEPA) 8 cmH2O Performed by 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 [facility] ABG TEMPERATURE (test code = TEMPA) 97.2 F ABG SITE (test code = SITEA) Art line PREDICTED AA GRADIENT (test code = AP) 128 PREDICTED PO2 (test code = OP) 365 a/A RATIO (test code = RATIO) 0.27 TCO2 ARTERIAL (test code = TCO2A) 33 A-A GRADIENT (test code = AAGRADE) 362 - XR CHEST 1 [id number] 05:33:00 FAX: Sherif Hickman MD [phone] [place]: St: ADM FAX: Izabel Fallon NP [phone] Name: DEYSI FRANCISCO [facility] : 1950 Age/S: 69/M [address] [place] [address] Unit #: [id number] Loc: G.M314 [place] [address] Phys: Izabel Fallon NP Acct: [id number] Dis Date: Status: ADM IN PHONE #: [phone] Exam Date: 08/10/2019 0519 FAX #: [phone] Reason: PNEUMONIA EXAMS: CPT CODE: [id number] XR CHEST 1 V 70967 Study: - XR CHEST 1 V 08/10/2019 5:00 AM Patient Name: DEYSI FRANCISCO MR: [id number] : 1950; Age: 69 years y/o Male Ordering Physician: Izabel Fallon NP Clinical Indication: PNEUMONIA Comparison: 08/09/2019 FINDINGS LUNGS: Stable hypoinflation associated with central pulmonary vascular congestion, small bilateral pleural effusions, and patchy bilateral pulmonary opacities consistent with pulmonary edema or pneumonia. No pneumothorax. HEART AND MEDIASTINUM: Stable mild cardiomegaly. LINES: The various lines and tubes are fairly stable in position. OSSEOUS STRUCTURES: No fracture, dislocation, or suspicious focal osseous lesion. OTHER: None. IMPRESSION: Stable hypoinflation associated with central pulmonary vascular congestion, small bilateral pleural effusions, and patchy bilateral pulmonary opacities consistent with pulmonary edema or pneumonia. Stable mild cardiomegaly. SL: TPAINTER- H at 0533 Repo rted and signed by: David Alvarez M.D. PAGE 1 Sig donovan Report (CONTINUED) FAX: Sherif Hickman MD [phone] [place]: St: ADM FAX: Izabel Fallon NP [phone] Name: DEYSI FRANCISCO [facility] D OB: 1950 Age/S: 69/M [address] [place] [address] Unit #: [id number] Loc: Fito14 [place] [address] Phys: Izabel Fallon NP Acct: [id number] D is Date: Status: ADM IN PHONE #: Exam Date: 08/10/2019518 FAX #: Reason: PNEUMONIA EXAMS: CPT CODE: [id number] XR CHEST 1 V 61484 <Continued> CC: Sherif Wren M.D.; Izabel Fallon NP Technologist: Julieth Rust RT(R) Trnscrd Date/Time/By: 08/10/2019 (0594) : By: [email or web address] Orig Print D/T: S: 08/10/2019 (3604) PAGE 2 Signed Report ARTERIAL BLOOD [id number] 00:12:00* Test Item Value Reference Range Interpretation Comments ARTERIAL BLOOD GAS PH (test code = PHA) 7.285 7.35-7.45 L ARTERIAL BLOOD GAS PCO2 (test code = PCO2A) 63.8 mmHg 35-45 H ARTERIAL BLOOD GAS PO2 (test code = PO2A) 79 mmHg 80-100 L BICARBONATE TOTAL HCO3 (test code = HCO3) 29.9 mmol/L 22.0-26.0 H BASE EXCESS (test code = SUNDAR) 3.0 mmol/L -4-4 N ABG O2 SATURATION (test code = SATA) 92 % 90-100 N FIO2 (test code = FIO2A) 80 % ABG DELIVERY (test code = KESHAV) Vent ABG VENT MODE (test code = MODEA) AC v con ABG VENT RESP RATE (test code = RRA) 20 /MIN ABG TIDAL VOLUME (test code = TVA) 500 ml ABG PEEP (test code = PEEPA) 8 cmH2O Performed by 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 [facility] ABG TEMPERATURE (test code = TEMPA) 100.6 F ABG SITE (test code = SITEA) Art line PREDICTED AA GRADIENT (test code = AP) 128 PREDICTED PO2 (test code = OP) 366 a/A RATIO (test code = RATIO) 0.16 TCO2 ARTERIAL (test code = TCO2A) 32 A-A GRADIENT (test code = AAGRADE) 415 [id number] 23:03:00* Test Item Value Reference Range Interpretation Comments GLUBED (test code = GLUBED) 88 MG/DL 70-110 N Performed by 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 [facility] BASIC METABOLIC [id number] 22:41:00* Test Item Value Reference Range Interpretation Comments SODIUM (test code = NA) 159 mEq/L 134-147 H POTASSIUM (test code = K) 3.5 mEq/L 3.4-5.0 N CHLORIDE (test code = CL) 126 mEq/L 100-108 H CARBON DIOXIDE (test code = CO2) 31 mEq/L 21-33 N ANION GAP (test code = GAP) 6 0-20 N GLUCOSE (test code = GLU) 99 mg/dL 70-110 N BLOOD UREA NITROGEN (test code = BUN) 39 mg/dL 7-18 H GLOMERULAR FILTRATION RATE (test code = GFR) 54.6 70-80 L Units of measure = ml/min/1.73 m2 CREATININE (test code = CREAT) 1.3 mg/dL 0.6-1.3 CALCIUM (test code = CA) 7.6 mg/dL 8.0-10.5 L BASIC METABOLIC [id number] 22:37:00* Test Item Value Reference Range Interpretation Comments SODIUM (test code = NA) 159 mEq/L 134-147 H POTASSIUM (test code = K) 3.5 mEq/L 3.4-5.0 N CHLORIDE (test code = CL) 126 mEq/L 100-108 H CARBON DIOXIDE (test code = CO2) 31 mEq/L 21-33 N ANION GAP (test code = GAP) 6 0-20 N GLUCOSE (test code = GLU) 99 mg/dL 70-110 N BLOOD UREA NITROGEN (test code = BUN) 39 mg/dL 7-18 H GLOMERULAR FILTRATION RATE (test code = GFR) 70-80 CREATININE (test code = CREAT) mg/dL 0.6-1.3 CALCIUM (test code = CA) 7.6 mg/dL 8.0-10.5 L - XR CHEST 1 [id number] 22:30:00 FAX: Sherif Hickman MD [phone] [place]: St: [facility] FAX: Adan Salazar [phone] Name: DEYSI FRANCISCO [facility] [place] : 1950 Age/S: 69/M [address] [place] [address] Unit #: [id number] Loc: G.M[address] [place] [address] Phys: Adan Maya MD Acct: [id number] Dis Date: Status: ADM IN PHONE #: [phone] Exam Date: 08/09/20192226 FAX #: [phone] Reason: CVL PLACEMENT EXAMS: CPT CODE: [id number] XR CHEST 1 V 38978 PROCEDURE: CHEST SINGLE VIEW 08/09/2019 2218 hours INDICATION: CVL PLACEMENT COMPARISON: Multiple priors, most recent 08/09/2019 at 1836 hours FINDINGS: TUBES AND LINES: Right subclavian central venous catheter has been placed, tip at the level of cavoatrial junction. Endotracheal tube approximately 5.4 cm above the thai. Enteric tube tip at the level of proximal stomach. EKG leads overlie the chest. CHEST: Extensive bilateral airspace opacities more dense in the mid and lower lung zones are redemonstrated. The hemidiaphragms are obscured. The heart borders are partially obscured. There is no pneumothorax. The cardiomediastinal silhouette is stable. No acute skeletal abnormality. IMPRESSION: 1. Right central venous catheter tip at the level of cavoatrial junction. No acute complication evident. 2. Extensive bilateral airspace opacities with mid and lower lung zone predominance. Edema suspected. Inflammation in the differential. 3. Pleural effusions not excluded. SL: MELISSA at 2230 Reported and signed by: Burton Mccoy M.D. CC: Sherif Wren M.D.; Adan Maya MD Technologist: Julieth Rust RT(R) Trnscrd Date/Time/By: 08/09/2019 (2229) : By: MichaelL Orig Print D/T: S: 08/09/2019 (3) PAGE 1 Signed Report ARTERIAL BLOOD [id number] 21:58:00* Test Item Value Reference Range Interpretation Comments ARTERIAL BLOOD GAS PH (test code = PHA) 7.275 7.35-7.45 L ARTERIAL BLOOD GAS PCO2 (test code = PCO2A) 71.1 mmHg 35-45 HH ARTERIAL BLOOD GAS PO2 (test code = PO2A) 84 mmHg 80-100 N BICARBONATE TOTAL HCO3 (test code = HCO3) 32.6 mmol/L 22.0-26.0 H BASE EXCESS (test code = SUNDAR) 6.0 mmol/L -4-4 H ABG O2 SATURATION (test code = SATA) 93 % 90-100 N FIO2 (test code = FIO2A) 80 % ABG DELIVERY (test code = KESHAV) Vent ABG VENT MODE (test code = MODEA) AC v con ABG VENT RESP RATE (test code = RRA) 20 /MIN ABG TIDAL VOLUME (test code = TVA) 450 ml ABG PEEP (test code = PEEPA) 8 cmH2O Performed by 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 [facility] ABG TEMPERATURE (test code = TEMPA) 100.6 F ABG SITE (test code = SITEA) Art line PREDICTED AA GRADIENT (test code = AP) 126 PREDICTED PO2 (test code = OP) 359 a/A RATIO (test code = RATIO) 0.17 TCO2 ARTERIAL (test code = TCO2A) 35 A-A GRADIENT (test code = AAGRADE) 401 PROCALCITONIN (PCT)2019-08-09 20:22:00* Test Item Value Reference Range Interpretation Comments PROCALCITONIN (PCT) (test code = PROCAL) 0.41 ng/mL 0.00-0.05 H PROCALCITONIN (PCT) NORMAL RANGE (ADULT): <0.05 NG/ML. * a concentration <0.5 ng/mL represents a low risk of severe sepsis and/or septic shock.* a concentration >2 ng/mL represents a high risk of severe sepsis and/or septic shock.Nevertheless, concentrations <0.5 ng/mL do not exclude aninfection, on account of localized infections (withoutsystemic signs) which can be associated with such lowconcentrations, or a systemic infection in its initialstages (< 6 hours). Furthermore, increased procalcitonincan occur without infection. PCT concentrations between 0.5and 2.0 ng/mL should be interpreted taking into account thepatient's history. It is recommended to retest PCT within6-24 hours if any concentrations <2 ng/mL are obtained. ARTERIAL BLOOD [id number] 19:42:00* Test Item Value Reference Range Interpretation Comments ARTERIAL BLOOD GAS PH (test code = PHA) 7.350 7.35-7.45 N ARTERIAL BLOOD GAS PCO2 (test code = PCO2A) 57.1 mmHg 35-45 H ARTERIAL BLOOD GAS PO2 (test code = PO2A) 82 mmHg 80-100 N BICARBONATE TOTAL HCO3 (test code = HCO3) 31.2 mmol/L 22.0-26.0 H BASE EXCESS (test code = SUNDAR) 6.0 mmol/L -4-4 H ABG O2 SATURATION (test code = SATA) 94 % 90-100 N FIO2 (test code = FIO2A) 80 % ABG DELIVERY (test code = KESHAV) Vent ABG VENT MODE (test code = MODEA) AC v con ABG VENT RESP RATE (test code = RRA) 20 /MIN ABG TIDAL VOLUME (test code = TVA) 450 ml ABG PEEP (test code = PEEPA) 8 cmH2O Performed by 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 [facility] ABG TEMPERATURE (test code = TEMPA) 100.6 F ABG SITE (test code = SITEA) R Rad PREDICTED AA GRADIENT (test code = AP) 130 PREDICTED PO2 (test code = OP) 371 a/A RATIO (test code = RATIO) 0.16 TCO2 ARTERIAL (test code = TCO2A) 33 A-A GRADIENT (test code = AAGRADE) 420 - XR CHEST 1 [id number] 18:54:00 FAX: Sherif Hickman MD [phone] [place]: St: [facility] FAX: Izabel Fallon NP [phone] Name: DEYSI FRANCISCO [facility] : 1950 Age/S: 69/M [address] [place] [address] Unit #: [id number] Loc: F[address] [place] [id number] Phys: Izabel Fallon NP Acct: [id number] Dis Date: Status: ADM IN PHONE #: [phone] Exam Date: 08/09/2019 184 FAX #: [phone] Reason: FEEDING TUBE PLACEMENT EXAMS: CPT CODE: [id number] XR CHEST 1 V 86159 Portable single view AP chest at 1829 hours INDICATION: Feeding tube placement Comparison: Prior study from 1342 hours today FINDINGS: Endotracheal tube tip once again seen over the thoracic inlet. Nasogastric tube has been advanced across gastroesophageal junction with tip projecting over the left upper quadrant of the abdomen. The cardiomediastinal silhouette is upper limits of normal for size. Pulmonary vascular congestion is present with moderate to severe pulmonary opacification appearing greatest in lung bases obscuring the diaphragms appearing worsened. No acute bony finding is seen. IM PRESSION: 1. Interval worsening of moderate to severe bilateral pulmona ry opacities consistent with edema and/or infection. 2. Bilater al pleural fluid not excluded. SL: SG-H at 1854 Reported and signed by: Moy Villanueva M.D. CC: Sherif Wren M.D.; Izabel Fallon NP Technologist: RT Christopher(Alexandrea)(M) Trnscrd Date/Time/By: 08/09/2019 (1853) : By: [email or web address] Orig Print D/T: S: 08/09/2019 (1856) PAGE 1 Signed Report [id number] 17:16:00* Test Item Value Reference Range Interpretation Comments GLUBED (test code = GLUBED) 126 MG/DL 70-110 H Performed by 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 [facility] BASIC METABOLIC [id number] 16:03:00* Test Item Value Reference Range Interpretation Comments SODIUM (test code = NA) 160 mEq/L 134-147 H POTASSIUM (test code = K) 4.1 mEq/L 3.4-5.0 N CHLORIDE (test code = CL) 125 mEq/L 100-108 H CARBON DIOXIDE (test code = CO2) 33 mEq/L 21-33 N ANION GAP (test code = GAP) 6 0-20 N GLUCOSE (test code = GLU) 120 mg/dL 70-110 H BLOOD UREA NITROGEN (test code = BUN) 42 mg/dL 7-18 H GLOMERULAR FILTRATION RATE (test code = GFR) 83.4 70-80 H Units of measure = ml/min/1.73 m2 CREATININE (test code = CREAT) 0.9 mg/dL 0.6-1.3 N CALCIUM (test code = CA) 9.5 mg/dL 8.0-10.5 N [id number] 16:03:00* Test Item Value Reference Range Interpretation Comments PHOSPHOROUS (test code = PHOS) 2.6 MG/DL 2.5-4.9 N [id number] 16:03:00* Test Item Value Reference Range Interpretation Comments MAGNESIUM (test code = MAG) 2.10 mg/dL 1.8-2.4 N LACTIC [id number] 15:52:00* Test Item Value Reference Range Interpretation Comments LACTIC ACID (test code = LACT) 1.6 mmol/L 0.4-1.9 N ARTERIAL BLOOD [id number] 15:07:00* Test Item Value Reference Range Interpretation Comments ARTERIAL BLOOD GAS PH (test code = PHA) 7.436 7.35-7.45 N ARTERIAL BLOOD GAS PCO2 (test code = PCO2A) 47.2 mmHg 35-45 H ARTERIAL BLOOD GAS PO2 (test code = PO2A) 49 mmHg 80-100 L BICARBONATE TOTAL HCO3 (test code = HCO3) 31.8 mmol/L 22.0-26.0 H BASE EXCESS (test code = SUNDAR) 8.0 mmol/L -4-4 H ABG O2 SATURATION (test code = SATA) 85 % 90-100 L FIO2 (test code = FIO2A) 60 % ABG DELIVERY (test code = KESHAV) Vent ABG VENT MODE (test code = MODEA) AC v con ABG VENT RESP RATE (test code = RRA) 20 /MIN ABG TIDAL VOLUME (test code = TVA) 450 ml ABG PEEP (test code = PEEPA) 5 cmH2O Performed by 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 [facility] ABG TEMPERATURE (test code = TEMPA) 98.6 F ABG SITE (test code = SITEA) R Rad PREDICTED AA GRADIENT (test code = AP) 96 PREDICTED PO2 (test code = OP) 275 a/A RATIO (test code = RATIO) 0.13 TCO2 ARTERIAL (test code = TCO2A) 33 A-A GRADIENT (test code = AAGRADE) 322 [id number] 14:41:00* Test Item Value Reference Range Interpretation Comments PREALBUMIN (test code = PREALB) 10.9 mg/dL 16.0-40.0 L Indication for Test: Malabsorption/MalnutritioVITAMIN D [id number] 14:41:00* Test Item Value Reference Range Interpretation Comments VITAMIN D 25-HYDROXY (test code = VITD25) 29.1 ng/mL 30-100 L Indication for Test: Malabsorption/Malnutritio- XR CHEST 1 [id number] 14:10:00 FAX: Sherif Hickman MD [phone] [place]: St: ADM FAX: Izabel Fallon NP [phone] Name: DEYSI FRANCISCO [facility] : 1950 Age/S: 69/M [address] [place] [address] Unit #: [id number] Loc: G.M314 [facility] [place] [address] Phys: Izabel Fallon NP Acct: [id number] Dis Date: Status: ADM IN PHONE #: [phone] Exam Date: 08/09/2019 1409 FAX #: [phone] Reason: POST INTUBATION EXAMS: CPT CODE: [id number] XR CHEST 1 V 83872 Single view chest: HISTORY: Intubation. FINDINGS: Endotracheal tube has been placed in the upper trachea with the tip about 5.5 cm above the thai. Retraction of the nasogastric tube with the tip remaining around the GE junction and the sidehole in the distal esophagus. Stable interstitial infiltrate throughout the left lung. Pro gression of right lung base infiltrate. No pneumothorax. IMPRESS ION: 1. Satisfactory intubation. 2. Retraction of the nasogastri c tube with the tip near the GE junction and the sidehole in the distal esophagus 3. Progression of right lung base infiltrate SL: [id number] at 1410 Reported and signed b y: Lebron Wharton M.D. CC: Sherif Wren M.D.; Izabel Fallon NP Technologist: Leeanna Alva, RT(R), RTT; Darling Benitez, RT (R)(M) Trnscrd Date/Time/By: 08/09/2019 (1410) : By: [email or web address] Orig Print D/T: S: 08/09/2019 (5149) PAGE 1 Signed Report [id number] 13:08:00* Test Item Value Reference Range Interpretation Comments GLUBED (test code = GLUBED) 146 MG/DL 70-110 H Performed by 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 [facility] ARTERIAL BLOOD [id number] 12:53:00* Test Item Value Reference Range Interpretation Comments ARTERIAL BLOOD GAS PH (test code = PHA) 7.451 7.35-7.45 H ARTERIAL BLOOD GAS PCO2 (test code = PCO2A) 45.6 mmHg 35-45 H ARTERIAL BLOOD GAS PO2 (test code = PO2A) 49 mmHg 80-100 L BICARBONATE TOTAL HCO3 (test code = HCO3) 31.8 mmol/L 22.0-26.0 H BASE EXCESS (test code = SUNDAR) 8.0 mmol/L -4-4 H ABG O2 SATURATION (test code = SATA) 86 % 90-100 L ABG DELIVERY (test code = KESHAV) Nrb mask ABG TEMPERATURE (test code = TEMPA) 98.6 F ABG SITE (test code = SITEA) L Rad TCO2 ARTERIAL (test code = TCO2A) 33 [id number] 11:18:00* Test Item Value Reference Range Interpretation Comments GLUBED (test code = GLUBED) 151 MG/DL 70-110 H Performed by 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 [facility] [id number] 10:42:00* Test Item Value Reference Range Interpretation Comments PREALBUMIN (test code = PREALB) 10.9 mg/dL 16.0-40.0 L Indication for Test: Malabsorption/MalnutritioVITAMIN D [id number] 10:42:00* Test Item Value Reference Range Interpretation Comments VITAMIN D 25-HYDROXY (test code = VITD25) ng/mL 30-100 Indication for Test: Malabsorption/[id number] 06:32:00* Test Item Value Reference Range Interpretation Comments GLUBED (test code = GLUBED) 143 MG/DL 70-110 H Performed by 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 [facility] PROTHROMBIN [id number] 06:06:00* Test Item Value Reference Range Interpretation Comments PROTHROMBIN TIME PATIENT (test code = PTP) 15.0 SECONDS 9.3-12.9 H INTERNATIONAL NORMAL RATIO (test code = INR) 1.4 0.8-1.2 H TARGET INR BY INDICATION Indication INR1. Prophylaxis of venous thrombosis 2.0 - 3.0 (orthopedic surgery), Prophylaxis of venous thrombosis (other than high-risk surgery), Treatment of Deep Vein Thrombosis/Pulmonary Embolism, Prevention of systemic embolism - Tissue heart valves, Acute Myocardial Infarction (to prevent systemic embolism), Valvular heart disease, Atrial Fibrillation, Bileaflet mechanical valve in aortic position.2. Mechanical prosthetic valves (high risk), 2.5 - 3.5 Presence of Lupus Anticoagulant or Antiphospholipid Antibodies, Prevention of systemic embolism - Acute Myocardial Infarction (to prevent recurrent infarct). [id number] 02:04:00* Test Item Value Reference Range Interpretation Comments GLUBED (test code = GLUBED) 120 MG/DL 70-110 H Performed by 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 [facility] Coronavirus 2019 nCoV [id number] 23:02:00* Test Item Value Reference Range Interpretation Comments Coronavirus 2019 nCoV Bedside (test code = COVNONPUIBED) Negative Negative Negative results should be treated as presumptive and, ifinconsistent with clinical signs and symptoms or necessaryfor patient management, should be tested with an alternativemolecular assay. Negative results do not preclude SZUI-HaD-5demdecodg and should not be used as the sole basis forpatient management decisions. Negative results should beconsidered in the context of a patient's recent exposures,history, presence of clinical signs and symptoms consistentwith COVID-19. Acknowledged? YESCOMMENTS: APPROVED BY [id number] 21:39:00* Test Item Value Reference Range Interpretation Comments GLUBED (test code = GLUBED) 157 MG/DL 70-110 H Performed by 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 [facility] [id number] 17:30:00* Test Item Value Reference Range Interpretation Comments GLUBED (test code = GLUBED) 140 MG/DL 70-110 H Performed by 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 [facility] - XR CHEST 1 [id number] 15:47:00 FAX: Sherif Hickman MD [phone] [place]: St: ADM FAX: Kamran Pang MD [phone] FAX: Akhil Causey NP [phone] Name: DEYSI FRANCISCO [facility] : 1950 Age/S: 69/M [address] [place] [address] Unit #: [id number] Loc: [address] [address] Phys: Akhil Causey NP Acct: [id number] Dis Date: Status: ADM IN ONE #: [phone] Exam Date: 08/08/2019 1534 FAX #: [phone] Reason: TUBE FEEDING PLACEMENT EXAMS: CPT CODE: [id number] XR CHEST 1 V 01067 EXAM: CR, XR chest one view: 08/08/2019, 1514 hours HISTORY: TUBE FEEDING PLACEM ENT TECHNIQUE: 1 view of the chest. COMPARISON: 07/17, 0024 hours FINDINGS: Single image of the lower chest and a bdomen is submitted. A nasogastric tube in place, tip in proximal stomach. Opacities in bilateral visualized lungs, stable since chest radiograph f rom 08/08/2019, 0824 hours. Visualized bowel gas pattern is n onspecific. No free air or abnormal intra-abdominal calcification is seen . Surgical clips in the right upper quadrant of the abdomen. Right s coliosis of the thoracolumbar spine noted. IMPRESSION: 1 . Nasogastric tube in place, tip in proximal stomach. SL: [JSYED-H] Electronically Signed by Mega Woo on 020 at 1547 Reported and signed by: Bryan Woo M.D. CC: Sherif Wren M.D.; Kamran Carlson MD; Akhil Causey NP Technolog ist: RT Peter(R) Trnscrd Date/Time/By : 08/08/2019 (1547) : By: [email or web address] Orig Print D/T: S: 08/08/2019 (155 0) PAGE 1 Signed Report [id number] 13:54:00* Test Item Value Reference Range Interpretation Comments GLUBED (test code = GLUBED) 126 MG/DL 70-110 H Performed by 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 [facility] - XR CHEST 1 [id number] 09:48:00 FAX: Sherif Hickman MD [phone] [place]: St: ADM FAX: Kamran Pang MD [phone] FAX: Akhil Causey NP [phone] Name: DEYSI FRANCISCO [facility] : 1950 Age/S: 69/M [address] [place] [address] Unit #: [id number] Loc: [address] [address] Phys: Akhil Causey NP Acct: [id number] Dis Date: Status: ADM IN PH ONE #: [phone] Exam Date: 08/08/2019920 FAX #: [phone] Reason: CONGESTED EXAMS: CPT CODE: [id number] XR CHEST 1 V 93995 Chest single v iew 08/08/2019 HISTORY: Congestion. Hemorrhagic stroke Comparison is made to 08/07/2019 FINDINGS: Gastric tube is stabl e. Increased right lower lobe airspace opacity is noted. Interstitial in filtrates and patchy airspace opacities throughout the left lung and right upper lobe are unchanged. Heart size is normal. Prominent aorta is note d. IMPRESSION: 1. Increasing right lower lobe pneumonia . 2. Otherwise unchanged moderate bilateral pneumonia. SL: [id number] at 0948 Reported and signed by: Eric Orozco M.D. CC: Sherif Wren M.D.; Kamran Carlson MD; Akhil Causey NP Technologist: RT Erasto(Alexandrea) Trnscrd Date/Time/By: 08/08/2019 (947) : By: [email or web address] Orig Print D/T: S: 08/08/2019 (4950) PAGE 1 Signed Report BASIC METABOLIC [id number] 08:04:00* Test Item Value Reference Range Interpretation Comments SODIUM (test code = NA) 156 mEq/L 134-147 H POTASSIUM (test code = K) 3.9 mEq/L 3.4-5.0 N CHLORIDE (test code = CL) 121 mEq/L 100-108 H CARBON DIOXIDE (test code = CO2) 31 mEq/L 21-33 N ANION GAP (test code = GAP) 8 0-20 N GLUCOSE (test code = GLU) 112 mg/dL 70-110 H BLOOD UREA NITROGEN (test code = BUN) 42 mg/dL 7-18 H GLOMERULAR FILTRATION RATE (test code = GFR) 73.9 70-80 N Units of measure = ml/min/1.73 m2 CREATININE (test code = CREAT) 1.0 mg/dL 0.6-1.3 N CALCIUM (test code = CA) 9.3 mg/dL 8.0-10.5 N CBC W/AUTO [id number] 07:38:00* Test Item Value Reference Range Interpretation Comments WHITE BLOOD CELL (test code = WBC) 11.98 x10 3/uL 4.5-11.0 H RED BLOOD CELL (test code = RBC) 2.71 x10 6/uL 4.00-5.60 L HEMOGLOBIN (test code = HGB) 7.5 g/dL 12.5-16.9 L HEMATOCRIT (test code = HCT) 25.8 % 37.5-50.7 L MEAN CELL VOLUME (test code = MCV) 95.2 fL 81.0-99.0 N MEAN CELL HGB (test code = MCH) 27.7 pg 27.0-33.0 N MEAN CELL HGB CONCETRATION (test code = MCHC) 29.1 g/dL 33.0-37. 0 L RED CELL DISTRIBUTION WIDTH CV (test code = RDW) 17.1 % 11.5- 14.5 H RED CELL DISTRIBUTION WIDTH SD (test code = RDW-SD) 59.0 fL 37 .0-54.0 H PLATELET COUNT (test code = PLT) 540 x10 3/uL 150-400 H MEAN PLATELET VOLUME (test code = MPV) 9.3 fL 7.0-9.0 H NEUTROPHIL % (test code = NT%) 65.2 % 56.0-77.0 N IMMATURE GRANULOCYTE % (test code = IG%) 1.3 % 0.0-2.0 N LYMPHOCYTE % (test code = LY%) 16.2 % 14.0-32.0 N MONOCYTE % (test code = MO%) 11.2 % 4.8-9.0 H EOSINOPHIL % (test code = EO%) 5.1 % 0.3-3.7 H BASOPHIL % (test code = BA%) 1.0 % 0.0-2.0 N NUCLEATED RBC % (test code = NRBC%) 0.0 % 0-0 N NEUTROPHIL # (test code = NT#) 7.82 x10 3/uL 2.0-7.6 H IMMATURE GRANULOCYTE # (test code = IG#) 0.15 x10 3/uL 0.00-0.03 H LYMPHOCYTE # (test code = LY#) 1.94 x10 3/uL 1.0-3.8 N MONOCYTE # (test code = MO#) 1.34 x10 3/uL 0.1-0.8 H EOSINOPHIL # (test code = EO#) 0.61 x10 3/uL 0.0-0.2 H BASOPHIL # (test code = BA#) 0.12 x10 3/uL 0.0-0.2 N NUCLEATED RBC # (test code = NRBC#) 0.00 x10 3/uL 0.0-0.1 N MANUAL DIFF REQUIRED (test code = MDIFF) NO [id number] 05:21:00* Test Item Value Reference Range Interpretation Comments GLUBED (test code = GLUBED) 129 MG/DL 70-110 H Performed by 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 [facility] [id number] 02:07:00* Test Item Value Reference Range Interpretation Comments GLUBED (test code = GLUBED) 155 MG/DL 70-110 H Performed by 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 [facility] - XR CHEST 1 [id number] 22:20:00 FAX: Sherif Hickman MD [phone] [place]: St: ADM FAX: Kamran Pang MD [phone] Name: DEYSI FRANCISCO [facility] : 1950 Age/S: 69/M [address] [place] [address] Unit #: [id number] Loc: [address] [address] Phys: Kamran Carlson MD Acct: [id number] Dis Date: Status: ADM IN PHONE #: [phone] Exam Date: 08/07/20192217 FAX #: [phone] Reason: FORCEFUL COUGH, THICK SECRETIONS EXAMS: CPT CODE: [id number] XR CHEST 1 V 43497 XR CHEST 1 VIEW HISTORY: FORCEFUL COUGH, THICK SECRETIONS. COMPARISON: CXR 08/06/2019. FINDINGS: Limited expiratory portable exam with evidence of diffuse bilateral infiltrate. With allowances given for positional differences, there has been no definite change since the comparison exam. No pleural fluid or pneumothorax. Heart size is grossly stable. No significant skeletal abnormality. Nasogastric tube noted, tip located over the stomach. IMPRESSION: Residual diffuse bilateral infiltrate, essentially stable in comparison to 08/06/2019. Stable nasogastric tube. SL: LS-H at 2220 Reported and signed by: Stu Pride M.D. CC: Sherif Wren M.D.; Kamran Carlson MD Technologist: RT Peter(R) Trnscrd Date/Time/By: 08/07/2019 (2219) : By: [email or web address] Orig Print D/T: S: 08/07/2019 (2222) PAGE 1 Signed Report [id number] 20:41:00* Test Item Value Reference Range Interpretation Comments GLUBED (test code = GLUBED) 141 MG/DL 70-110 H Performed by 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 [facility] - MRI BRAIN WO/W [id number] 18:54:00 FAX: Sherif Hickman MD [phone] [place]: St: ADM FAX: Kamran Pang MD [phone] FAX: Shavon Olsen DATA WAREHOUSE SPECIALIST Name: DYESI FRANCISCO [facility] : 1950 Age/S: 69/M [address] [place] [address] Unit #: [id number] Loc: [address] [address] Phys: Shavon Olsen NP Acct: [id number] Dis Date: Status: ADM IN PH ONE #: [phone] Exam Date: 08/07/20191758 FAX #: [phone] Reason: with STEALTH protocol EXAMS: CPT CODE: [id number] MR I BRAIN WO/W CONT 17076 BRAIN MRI WITH AND WITHOUT CONTRAST (STEALTH PROTOCOL) 08/07/2019. CLINICAL HISTO RY: Right cerebellar hemorrhage. Hemorrhagic stroke. AKA. Diabetes. COMPARISON STUDIES: Head CT from earlier today. ADMINISTERED CO NTRAST: 17 mL of Dotarem intravenously. FINDINGS: Limited T1 and g radient echo images of the brain and cerebellum with and without contrast were obtained after application of fiducials using the Stealth protocol fo r surgical planning. Again noted is an approximately 3.1 x 2.2 x 1 .6 cm (6 mL) intraparenchymal hematoma involving the inferomedial aspect o f the left cerebellar hemisphere with T2 hyperintense surrounding vasogeni c edema. No restricted diffusion is noted. This is on a background of involutional change and moderate to severe chronic periventricular and deep white matter small vessel ischemic disease. No hydrocephalus or mid line shift. The sella and the orbits are grossly unremarkable. Clear par anasal sinuses and mastoid air cells. IMPRESSION: 1. Rig ht inferomedial cerebellar hematoma in keeping with the CT findings. 2. Involutional change and chronic white matter small vessel ischemic disease. 3. No abnormal intracranial enhancement. 4. No evide nce of dural venous sinus thrombosis. SL: [id number] G04 at 1854 Reported and signed by: Vish Adler M.D. CC: Sherif Wren M.D.; Kamran Carlson MD; Shavon Olsen NP Technologist: RT Felipe(R)(CT) Trnscrd Date/Time/By: 08/07/2019 (1853) : By: [email or web address] Orig Print D/T: S: 08/07/2019 (1856) PAGE 1 Signed Report GLUBED 2019-08-07 17:54:00* Test Item Value Reference Range Interpretation Comments GLUBED (test code = GLUBED) 124 MG/DL 70-110 H Performed by 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 [facility] [id number] 14:03:00* Test Item Value Reference Range Interpretation Comments GLUBED (test code = GLUBED) 112 MG/DL 70-110 H Performed by 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 [facility] - CT HEAD/BRAIN W/O [id number] 13:54:00 Name: DEYSI FRANCISCO [facility] : 1950 Age/S: 69 / M [address] [place] [address] Unit #: [id number] Loc: [place] [address] Phys: Akhil Causey DATA WAREHOUSE SPECIALIST Acct: [id number] Dis Date: Status: ADM IN PHONE #: [phone] Exam Date: 08/07/2019 1321 FAX #: [phone] Reason: confusion EXAMS: CPT CODE: [id number] CT HEAD/BRAIN W/O CONT 95785 STUDY: - CT HEAD/BRAIN W/O CONT 08/07/2019 9:32 AM Ordering Physician: Akhil Causey NP Patient Name: DEYSI FRANCISCO MR: [id number] : 1950; Age: 69 years y/o Male Clinical Indication: confusion Comparison: August 04, 2019 CT head TECHNIQUE: Multiple contiguous transaxial noncontrast CT images were obtained through the head. Coronal and sagittal reformatted images were prepared. DOSE: CT imaging performed at this location utilizes radiation dose optimization technique which includes one or more of the followin) Automated exposure control; 2) Adjustment of the mA and/or kV according to patient's size; 3) Use of iterative reconstruction techniques. 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 Hemorrhage within the right inferior medial cerebellar hemisphere w ith adjacent hypodensity measures 2.5 x 3.3 x 4.2 cm (CC X AP X cameron sverse). VENTRICLES: Mild effacement of the 4th ventricle. No hydrocephalus. PARANASAL SINUSES: Moderate mucosal thickening within the left sphenoid sinus. Mild rightward convexity of the nasal se ptum. A nasogastric tube is partially imaged. MASTOIDS: Adeel ar. ORBITS: The visualized portions of the orbits are normal. SOFT TISSUES: No significant abnormality. PAGE 1 Signed Report (CONTINUED) Name: DEYSI FRANCISCO [facility] : 1950 Age/S: 69 / M [address] [place] [address] Unit #: [id number] Loc: [place] [address] Phys: Akhil Causey DATA WAREHOUSE SPECIALIST Acct: [id number] Dis Date: Status: ADM IN PHONE #: [phone] Exam Date: 1321 FAX #: [phone] Reason: confusion EXAMS: CPT CODE: [id number] CT HEAD/BRAIN W/O CONT 00969 <Continued> SKULL: No acute fracture or suspicious osseous lesion. IMPRESSION: 1. 2.5 x 3.3 x 4.2 cm hemorrhage in the right inferior medial cerebellar hemisphere, similar to prior exam given differences in technique. 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 MRI can be considered for further evaluation. 2. Mild effacement of the 4th ventricle, no hydrocephalus. SL: [id number] at 4647 Reported and signed by: Robert Guzman M.D. CC: Sherif Wren M.D.; Kamran Carlson MD; Akhil Causey NP Technologist:RT Dominick(R) CTDI: DLP: Trnscb Date/Time: 08/07/2019 (2253) t.[email or web address].[email or web address] Orig Print D/T: S: 08/07/2019 (2848) PAGE 2 Signed Report [id number] 09:49:00* Test Item Value Reference Range Interpretation Comments GLUBED (test code = GLUBED) 157 MG/DL 70-110 H Performed by 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 [facility] COMPREHENSIVE METABOLIC [id number] 07:58:00* Test Item Value Reference Range Interpretation Comments SODIUM (test code = NA) 155 mEq/L 134-147 H POTASSIUM (test code = K) 3.6 mEq/L 3.4-5.0 N CHLORIDE (test code = CL) 120 mEq/L 100-108 H CARBON DIOXIDE (test code = CO2) 30 mEq/L 21-33 N ANION GAP (test code = GAP) 9 0-20 N GLUCOSE (test code = GLU) 115 mg/dL 70-110 H BLOOD UREA NITROGEN (test code = BUN) 39 mg/dL 7-18 H GLOMERULAR FILTRATION RATE (test code = GFR) 95.6 70-80 H Units of measure = ml/min/1.73 m2 CREATININE (test code = CREAT) 0.8 mg/dL 0.6-1.3 TOTAL PROTEIN (test code = PROT) 7.9 g/dL 6.4-8.2 N ALBUMIN (test code = ALB) 2.30 g/dL 3.4-5.0 L CALCIUM (test code = CA) 9.7 mg/dL 8.0-10.5 N BILIRUBIN TOTAL (test code = BILT) 0.4 MG/DL <1.5 SGOT/AST (test code = AST) 22 IUnit/L 15-37 N SGPT/ALT (test code = ALT) 17 IUnit/L 15-65 N ALKALINE PHOSPHATASE TOTAL (test code = ALKP) 143 IUnit/L 20-125 H CBC W/AUTO [id number] 07:50:00* Test Item Value Reference Range Interpretation Comments WHITE BLOOD CELL (test code = WBC) 10.67 x10 3/uL 4.5-11.0 N RED BLOOD CELL (test code = RBC) 2.70 x10 6/uL 4.00-5.60 L HEMOGLOBIN (test code = HGB) 7.6 g/dL 12.5-16.9 L HEMATOCRIT (test code = HCT) 25.3 % 37.5-50.7 L MEAN CELL VOLUME (test code = MCV) 93.7 fL 81.0-99.0 N MEAN CELL HGB (test code = MCH) 28.1 pg 27.0-33.0 N MEAN CELL HGB CONCETRATION (test code = MCHC) 30.0 g/dL 33.0-37. 0 L RED CELL DISTRIBUTION WIDTH CV (test code = RDW) 17.0 % 11.5- 14.5 H RED CELL DISTRIBUTION WIDTH SD (test code = RDW-SD) 57.8 fL 37 .0-54.0 H PLATELET COUNT (test code = PLT) 508 x10 3/uL 150-400 H MEAN PLATELET VOLUME (test code = MPV) 9.3 fL 7.0-9.0 H NEUTROPHIL % (test code = NT%) 63.9 % 56.0-77.0 N IMMATURE GRANULOCYTE % (test code = IG%) 1.4 % 0.0-2.0 N LYMPHOCYTE % (test code = LY%) 17.2 % 14.0-32.0 N MONOCYTE % (test code = MO%) 10.6 % 4.8-9.0 H EOSINOPHIL % (test code = EO%) 5.9 % 0.3-3.7 H BASOPHIL % (test code = BA%) 1.0 % 0.0-2.0 N NUCLEATED RBC % (test code = NRBC%) 0.0 % 0-0 N NEUTROPHIL # (test code = NT#) 6.81 x10 3/uL 2.0-7.6 N IMMATURE GRANULOCYTE # (test code = IG#) 0.15 x10 3/uL 0.00-0.03 H LYMPHOCYTE # (test code = LY#) 1.84 x10 3/uL 1.0-3.8 N MONOCYTE # (test code = MO#) 1.13 x10 3/uL 0.1-0.8 H EOSINOPHIL # (test code = EO#) 0.63 x10 3/uL 0.0-0.2 H BASOPHIL # (test code = BA#) 0.11 x10 3/uL 0.0-0.2 N NUCLEATED RBC # (test code = NRBC#) 0.00 x10 3/uL 0.0-0.1 N MANUAL DIFF REQUIRED (test code = MDIFF) NO [id number] 06:57:00* Test Item Value Reference Range Interpretation Comments GLUBED (test code = GLUBED) 130 MG/DL 70-110 H Performed by 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 [facility] [id number] 04:49:00* Test Item Value Reference Range Interpretation Comments GLUBED (test code = GLUBED) 119 MG/DL 70-110 H Performed by 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 [facility] [id number] 00:37:00* Test Item Value Reference Range Interpretation Comments GLUBED (test code = GLUBED) 103 MG/DL 70-110 N Performed by 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 [facility] [id number] 23:53:00* Test Item Value Reference Range Interpretation Comments GLUBED (test code = GLUBED) 113 MG/DL 70-110 H Performed by 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 [facility] [id number] 13:32:00* Test Item Value Reference Range Interpretation Comments GLUBED (test code = GLUBED) 108 MG/DL 70-110 N Performed by 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 [facility] - XR CHEST 1 [id number] 09:40:00 FAX: Roberto Landeros MD [place]: St: ADM FAX: Sherif Hickman MD [phone] FAX: Kamran Pang MD [phone] Name: DEYSI FRANCISCO [facility] : 1950 Age/S: 69/M [address] [place] [address] Unit #: [id number] Loc: [address] [address] Phys: Roberto Landeros MD Acct: [id number] Dis Date: Status: ADM IN ONE #: [phone] Exam Date: 08/06/2019926 FAX #: [phone] Reason: FEEDING TUBE PLACEMENT EXAMS: CPT CODE: [id number] XR CHEST 1 V 97900 Study: - XR C HEST 1 V 08/06/2019 7:24 AM Patient Name: DEYSI FRANCISCO MR: [id number] : 1950; Age: 69 years y/o Male Ordering Physician: Fadi Landeros MD Clinical Indication: FEEDING TUBE PLACEMENT Comparison: August 06, 2019 x-ray FINDINGS LUNG S: Interstitial and mild airspace opacities are seen bilaterally. HEART AND MEDIASTINUM: Normal size heart. LINES: The nasogastric t ube tip overlies the stomach. OSSEOUS STRUCTURES: Mild sp inal degenerative change without fracture, dislocation, or focal osseous l esion. OTHER: Cholecystomy clips are seen in the right upper quadr ant IMPRESSION: The nasogastric tube t ip overlies the stomach. Mild bilateral airspace opacities, representin g pulmonary edema and/or pneumonia SL: [id number] Electronically Signed by Mega Guzman on 07/17 at 0940 Reported and signed by: Juan Hi PAGE 1 Signed Report (DARIA NUED) FAX: Roberto Landeros MD [place]: St: ADM FAX : Sherif Hickman MD [phone] FAX: Kamran Pang MD [phone] Name: DEYSI FRANCISCO [facility] : 1950 Age/S: 69/M [address] [place] [address] Unit #: [id number] Loc: [address] [address] Phys: Roberto Landeros MD Acct: [id number] Dis Date: Status: ADM IN PHONE #: [phone] Exam Date: 08/06/2019926 FAX #: [phone] Reason: FEEDING TUBE PLACEMENT EXAMS: CPT CODE: [id number] XR CHEST 1 V 65113 <Continued> CC: Roberto Landeros MD; Sherif Wren M.D.; Kamran Carlson MD Technologist: Carmen Boyer, RT(R); ERIN Burnett RT(R) Trnscrd Date/Time/By: 08/06/2019 (0940) : By: [email or web address] Orig Print D/T: S: 08/06/2019 (0943) PAGE 2 Signed Report [id number] 09:20:00* Test Item Value Reference Range Interpretation Comments GLUBED (test code = GLUBED) 121 MG/DL 70-110 H Performed by 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 [facility] CBC W/AUTO [id number] 08:38:00* Test Item Value Reference Range Interpretation Comments WHITE BLOOD CELL (test code = WBC) 11.16 x10 3/uL 4.5-11.0 H RED BLOOD CELL (test code = RBC) 2.60 x10 6/uL 4.00-5.60 L HEMOGLOBIN (test code = HGB) 7.3 g/dL 12.5-16.9 L HEMATOCRIT (test code = HCT) 24.4 % 37.5-50.7 L MEAN CELL VOLUME (test code = MCV) 93.8 fL 81.0-99.0 N MEAN CELL HGB (test code = MCH) 28.1 pg 27.0-33.0 N MEAN CELL HGB CONCETRATION (test code = MCHC) 29.9 g/dL 33.0-37. 0 L RED CELL DISTRIBUTION WIDTH CV (test code = RDW) 17.1 % 11.5- 14.5 H RED CELL DISTRIBUTION WIDTH SD (test code = RDW-SD) 58.3 fL 37 .0-54.0 H PLATELET COUNT (test code = PLT) 420 x10 3/uL 150-400 H MEAN PLATELET VOLUME (test code = MPV) 9.2 fL 7.0-9.0 H NEUTROPHIL % (test code = NT%) 68.2 % 56.0-77.0 N IMMATURE GRANULOCYTE % (test code = IG%) 1.4 % 0.0-2.0 N LYMPHOCYTE % (test code = LY%) 16.9 % 14.0-32.0 N MONOCYTE % (test code = MO%) 8.6 % 4.8-9.0 N EOSINOPHIL % (test code = EO%) 4.1 % 0.3-3.7 H BASOPHIL % (test code = BA%) 0.8 % 0.0-2.0 N NUCLEATED RBC % (test code = NRBC%) 0.0 % 0-0 N NEUTROPHIL # (test code = NT#) 7.60 x10 3/uL 2.0-7.6 N IMMATURE GRANULOCYTE # (test code = IG#) 0.16 x10 3/uL 0.00-0.03 H LYMPHOCYTE # (test code = LY#) 1.89 x10 3/uL 1.0-3.8 N MONOCYTE # (test code = MO#) 0.96 x10 3/uL 0.1-0.8 H EOSINOPHIL # (test code = EO#) 0.46 x10 3/uL 0.0-0.2 H BASOPHIL # (test code = BA#) 0.09 x10 3/uL 0.0-0.2 N NUCLEATED RBC # (test code = NRBC#) 0.00 x10 3/uL 0.0-0.1 N MANUAL DIFF REQUIRED (test code = MDIFF) NO COMPREHENSIVE METABOLIC [id number] 07:07:00* Test Item Value Reference Range Interpretation Comments SODIUM (test code = NA) 152 mEq/L 134-147 H POTASSIUM (test code = K) 4.1 mEq/L 3.4-5.0 N CHLORIDE (test code = CL) 118 mEq/L 100-108 H CARBON DIOXIDE (test code = CO2) 29 mEq/L 21-33 N ANION GAP (test code = GAP) 9 0-20 N GLUCOSE (test code = GLU) 122 mg/dL 70-110 H BLOOD UREA NITROGEN (test code = BUN) 45 mg/dL 7-18 H GLOMERULAR FILTRATION RATE (test code = GFR) 66.2 70-80 L Units of measure = ml/min/1.73 m2 CREATININE (test code = CREAT) 1.1 mg/dL 0.6-1.3 N TOTAL PROTEIN (test code = PROT) 7.3 g/dL 6.4-8.2 N ALBUMIN (test code = ALB) 2.00 g/dL 3.4-5.0 L CALCIUM (test code = CA) 9.1 mg/dL 8.0-10.5 N BILIRUBIN TOTAL (test code = BILT) 0.3 MG/DL <1.5 N SGOT/AST (test code = AST) 27 IUnit/L 15-37 SGPT/ALT (test code = ALT) 16 IUnit/L 15-65 N ALKALINE PHOSPHATASE TOTAL (test code = ALKP) 145 IUnit/L 20-125 H [id number] 07:07:00* Test Item Value Reference Range Interpretation Comments PHOSPHOROUS (test code = PHOS) 4.0 MG/DL 2.5-4.9 [id number] 07:07:00* Test Item Value Reference Range Interpretation Comments MAGNESIUM (test code = MAG) 2.20 mg/dL 1.8-2.4 N CALCIUM [id number] 07:07:00* Test Item Value Reference Range Interpretation Comments CALCIUM IONIZED (test code = SEAMUS) 1.18 MMOL/L 1.12-1.32 N COMPREHENSIVE METABOLIC [id number] 07:06:00* Test Item Value Reference Range Interpretation Comments SODIUM (test code = NA) 152 mEq/L 134-147 H POTASSIUM (test code = K) 4.1 mEq/L 3.4-5.0 N CHLORIDE (test code = CL) 118 mEq/L 100-108 H CARBON DIOXIDE (test code = CO2) 29 mEq/L 21-33 N ANION GAP (test code = GAP) 9 0-20 N GLUCOSE (test code = GLU) 122 mg/dL 70-110 H BLOOD UREA NITROGEN (test code = BUN) 45 mg/dL 7-18 H GLOMERULAR FILTRATION RATE (test code = GFR) 66.2 70-80 L Units of measure = ml/min/1.73 m2 CREATININE (test code = CREAT) 1.1 mg/dL 0.6-1.3 N TOTAL PROTEIN (test code = PROT) 7.3 g/dL 6.4-8.2 N ALBUMIN (test code = ALB) 2.00 g/dL 3.4-5.0 L CALCIUM (test code = CA) 9.1 mg/dL 8.0-10.5 N BILIRUBIN TOTAL (test code = BILT) 0.3 MG/DL <1.5 N SGOT/AST (test code = AST) 27 IUnit/L 15-37 SGPT/ALT (test code = ALT) 16 IUnit/L 15-65 N ALKALINE PHOSPHATASE TOTAL (test code = ALKP) 145 IUnit/L 20-125 H [id number] 07:06:00* Test Item Value Reference Range Interpretation Comments PHOSPHOROUS (test code = PHOS) 4.0 MG/DL 2.5-4.9 [id number] 07:06:00* Test Item Value Reference Range Interpretation Comments MAGNESIUM (test code = MAG) 2.20 mg/dL 1.8-2.4 N CALCIUM [id number] 07:06:00* Test Item Value Reference Range Interpretation Comments CALCIUM IONIZED (test code = SEAMUS) MMOL/L 1.12-1.32 - XR CHEST 1 [id number] 06:55:00 FAX: Roberto Landeros MD [place]: St: ADM FAX: Sherif Hickman MD [phone] FAX: Kamran Pang MD [phone] Name: DEYSI FRANCISCO [facility] John Dubois : 1950 Age/S: 69/M [address] [place] [address] Bl Unit #: [id number] Loc: [facility] [place] [address] Phys: Roberto Landeros MD Acct: [id number] Dis Date: Status: ADM IN ONE #: [phone] Exam Date: 08/06/2019 0649 FAX #: [phone] Reason: pneumonia EXAMS: CPT CODE: [id number] XR CHEST 1 V 19069 EXAM: Single view AP chest. EXAM DATE: 08/06/2019 at 0616 hours CLINICAL HISTORY: pneumonia COMPARISON: August 05, 2019 0549 hours Endotracheal tube, and enteric tube are no longer identif ied. Cardiomediastinal silhouette is unchanged. Bilateral pulmonary opacities are again identified and not significantly changed when consider ing differences in patient positioning and image technique. Osseous structures are unchanged. IMPRESSION: Bilateral pulmonary opacit ies not significantly changed compared to the prior exam. at 0655 Reported and signed by: Kala Palma M.D. CC: Roberto Landeros MD; Sherif Roberts cia, M.D.; Kamran Carlson MD Technologist: Anali Thornton RT(R); Radha Dunlap RT(R) Trnnyrd Date/Time/By: 08/06/2019 (0606) : By: Lisa Orig Print D/T: S: 08/06/2019 (0645) PAGE 1 Signed Report PROTHROMBIN [id number] 06:46:00* Test Item Value Reference Range Interpretation Comments PROTHROMBIN TIME PATIENT (test code = PTP) 16.2 SECONDS 9.3-12.9 H INTERNATIONAL NORMAL RATIO (test code = INR) 1.5 0.8-1.2 H TARGET INR BY INDICATION Indication INR1. Prophylaxis of venous thrombosis 2.0 - 3.0 (orthopedic surgery), Prophylaxis of venous thrombosis (other than high-risk surgery), Treatment of Deep Vein Thrombosis/Pulmonary Embolism, Prevention of systemic embolism - Tissue heart valves, Acute Myocardial Infarction (to prevent systemic embolism), Valvular heart disease, Atrial Fibrillation, Bileaflet mechanical valve in aortic position.2. Mechanical prosthetic valves (high risk), 2.5 - 3.5 Presence of Lupus Anticoagulant or Antiphospholipid Antibodies, Prevention of systemic embolism - Acute Myocardial Infarction (to prevent recurrent infarct). [id number] 06:44:00* Test Item Value Reference Range Interpretation Comments GLUBED (test code = GLUBED) 127 MG/DL 70-110 H Performed by 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 [facility] ARTERIAL BLOOD [id number] 05:24:00* Test Item Value Reference Range Interpretation Comments ARTERIAL BLOOD GAS PH (test code = PHA) 7.411 7.35-7.45 N ARTERIAL BLOOD GAS PCO2 (test code = PCO2A) 41.5 mmHg 35-45 N ARTERIAL BLOOD GAS PO2 (test code = PO2A) 146 mmHg 80-100 H BICARBONATE TOTAL HCO3 (test code = HCO3) 26.5 mmol/L 22.0-26.0 H BASE EXCESS (test code = SUNDAR) 2.0 mmol/L -4-4 N ABG O2 SATURATION (test code = SATA) 99 % 90-100 N ABG DELIVERY (test code = KESHAV) Cannula ABG TEMPERATURE (test code = TEMPA) 97.6 F ABG SITE (test code = SITEA) R Rad TCO2 ARTERIAL (test code = TCO2A) 28 [id number] 00:01:00* Test Item Value Reference Range Interpretation Comments GLUBED (test code = GLUBED) 96 MG/DL 70-110 N Performed by 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 [facility] [id number] 19:32:00* Test Item Value Reference Range Interpretation Comments GLUBED (test code = GLUBED) 99 MG/DL 70-110 N Performed by 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 [facility] [id number] 18:31:00* Test Item Value Reference Range Interpretation Comments GLUBED (test code = GLUBED) 100 MG/DL 70-110 N Performed by 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 [facility] BASIC METABOLIC [id number] 17:50:00* Test Item Value Reference Range Interpretation Comments SODIUM (test code = NA) 151 mEq/L 134-147 H POTASSIUM (test code = K) 4.2 mEq/L 3.4-5.0 N CHLORIDE (test code = CL) 116 mEq/L 100-108 H CARBON DIOXIDE (test code = CO2) 27 mEq/L 21-33 N ANION GAP (test code = GAP) 12 0-20 N GLUCOSE (test code = GLU) 105 mg/dL 70-110 N BLOOD UREA NITROGEN (test code = BUN) 47 mg/dL 7-18 H GLOMERULAR FILTRATION RATE (test code = GFR) 54.6 70-80 L Units of measure = ml/min/1.73 m2 CREATININE (test code = CREAT) 1.3 mg/dL 0.6-1.3 N CALCIUM (test code = CA) 9.3 mg/dL 8.0-10.5 N CBC W/AUTO [id number] 17:38:00* Test Item Value Reference Range Interpretation Comments WHITE BLOOD CELL (test code = WBC) 16.20 x10 3/uL 4.5-11.0 H RED BLOOD CELL (test code = RBC) 2.62 x10 6/uL 4.00-5.60 L HEMOGLOBIN (test code = HGB) 7.4 g/dL 12.5-16.9 L HEMATOCRIT (test code = HCT) 24.8 % 37.5-50.7 L MEAN CELL VOLUME (test code = MCV) 94.7 fL 81.0-99.0 N MEAN CELL HGB (test code = MCH) 28.2 pg 27.0-33.0 N MEAN CELL HGB CONCETRATION (test code = MCHC) 29.8 g/dL 33.0-37. 0 L RED CELL DISTRIBUTION WIDTH CV (test code = RDW) 17.2 % 11.5- 14.5 H RED CELL DISTRIBUTION WIDTH SD (test code = RDW-SD) 57.8 fL 37 .0-54.0 H PLATELET COUNT (test code = PLT) 395 x10 3/uL 150-400 N MEAN PLATELET VOLUME (test code = MPV) 9.2 fL 7.0-9.0 H NEUTROPHIL % (test code = NT%) 71.5 % 56.0-77.0 N IMMATURE GRANULOCYTE % (test code = IG%) 1.2 % 0.0-2.0 N LYMPHOCYTE % (test code = LY%) 13.0 % 14.0-32.0 L MONOCYTE % (test code = MO%) 8.6 % 4.8-9.0 N EOSINOPHIL % (test code = EO%) 4.8 % 0.3-3.7 H BASOPHIL % (test code = BA%) 0.9 % 0.0-2.0 N NUCLEATED RBC % (test code = NRBC%) 0.0 % 0-0 N NEUTROPHIL # (test code = NT#) 11.60 x10 3/uL 2.0-7.6 H IMMATURE GRANULOCYTE # (test code = IG#) 0.19 x10 3/uL 0.00-0.03 H LYMPHOCYTE # (test code = LY#) 2.11 x10 3/uL 1.0-3.8 N MONOCYTE # (test code = MO#) 1.39 x10 3/uL 0.1-0.8 H EOSINOPHIL # (test code = EO#) 0.77 x10 3/uL 0.0-0.2 H BASOPHIL # (test code = BA#) 0.14 x10 3/uL 0.0-0.2 N NUCLEATED RBC # (test code = NRBC#) 0.00 x10 3/uL 0.0-0.1 N MANUAL DIFF REQUIRED (test code = MDIFF) NO [id number] 14:18:00* Test Item Value Reference Range Interpretation Comments GLUBED (test code = GLUBED) 101 MG/DL 70-110 N Performed by 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 [facility] [id number] 08:22:00* Test Item Value Reference Range Interpretation Comments GLUBED (test code = GLUBED) 98 MG/DL 70-110 N Performed by 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 [facility] - XR CHEST 1 [id number] 06:52:00 FAX: Roberto Landeros MD [place]: St: ADM FAX: Sherif Hickman MD [phone] FAX: Kamran Pang MD [phone] Name: DEYSI FRANCISCO [facility] : 1950 Age/S: 69/M [address] [place] [address] Bl Unit #: [id number] Loc: G.M[address] [place] [address] Phys: Roberto Landeros MD Acct: [id number] Dis Date: Status: ADM IN PH ONE #: [phone] Exam Date: 08/05/2019620 FAX #: [phone] Reason: pneumonia EXAMS: CPT CODE: [id number] XR CHEST 1 V 66973 EXAM: CR, XR chest one view: 08/05/2019, 0548 hours HISTORY: pneumonia TECHNIQUE: 1 view of the chest. COMPARISON: 08/04/2019, 0537 h ours FINDINGS: Endotracheal tube, nasogastric tube, heart, mediastinum and osseous structures are stable. Elevated le ft hemidiaphragm with persistent bilateral lung opacities, mildly worsened since prior study. There is pleural effusion or pneumothorax. IMPRESSION: 1. Stable life support line. 2. Bila teral lung opacities, mildly worsened. SL: [JSYED-H] at 0652 Reported and signed by: Bryan Woo M.D. CC: Jose Guadalupe Landeros MD; Sherif Wren M.D.; Kamran Carlson MD Technologist: Anali Hilton RT(R); Radha Dunlap RT(R) Trnnyrd Date/Time/By: 08/05/2019 (06 52) : By: [email or web address] Orig Print D/T: S: 08/05/2019 (6349) PAGE 1 Signed Report COMPREHENSIVE METABOLIC [id number] 05:59:00* Test Item Value Reference Range Interpretation Comments SODIUM (test code = NA) 151 mEq/L 134-147 H POTASSIUM (test code = K) 4.2 mEq/L 3.4-5.0 N CHLORIDE (test code = CL) 115 mEq/L 100-108 H CARBON DIOXIDE (test code = CO2) 26 mEq/L 21-33 N ANION GAP (test code = GAP) 14 0-20 N GLUCOSE (test code = GLU) 94 mg/dL 70-110 BLOOD UREA NITROGEN (test code = BUN) 45 mg/dL 7-18 H GLOMERULAR FILTRATION RATE (test code = GFR) 50.1 70-80 L Units of measure = ml/min/1.73 m2 CREATININE (test code = CREAT) 1.4 mg/dL 0.6-1.3 H TOTAL PROTEIN (test code = PROT) 7.2 g/dL 6.4-8.2 N ALBUMIN (test code = ALB) 2.00 g/dL 3.4-5.0 L CALCIUM (test code = CA) 9.4 mg/dL 8.0-10.5 N BILIRUBIN TOTAL (test code = BILT) 0.3 MG/DL <1.5 N SGOT/AST (test code = AST) 17 IUnit/L 15-37 N SGPT/ALT (test code = ALT) 15 IUnit/L 15-65 N ALKALINE PHOSPHATASE TOTAL (test code = ALKP) 126 IUnit/L 20-125 H [id number] 05:59:00* Test Item Value Reference Range Interpretation Comments PHOSPHOROUS (test code = PHOS) 6.1 MG/DL 2.5-4.9 H [id number] 05:59:00* Test Item Value Reference Range Interpretation Comments MAGNESIUM (test code = MAG) 2.10 mg/dL 1.8-2.4 N CALCIUM [id number] 05:59:00* Test Item Value Reference Range Interpretation Comments CALCIUM IONIZED (test code = SEAMUS) 1.16 MMOL/L 1.12-1.32 N COMPREHENSIVE METABOLIC [id number] 05:37:00* Test Item Value Reference Range Interpretation Comments SODIUM (test code = NA) mEq/L 134-147 POTASSIUM (test code = K) mEq/L 3.4-5.0 CHLORIDE (test code = CL) mEq/L 100-108 CARBON DIOXIDE (test code = CO2) mEq/L 21-33 ANION GAP (test code = GAP) 0-20 GLUCOSE (test code = GLU) mg/dL 70-110 BLOOD UREA NITROGEN (test code = BUN) mg/dL 7-18 GLOMERULAR FILTRATION RATE (test code = GFR) 70-80 CREATININE (test code = CREAT) mg/dL 0.6-1.3 TOTAL PROTEIN (test code = PROT) g/dL 6.4-8.2 ALBUMIN (test code = ALB) g/dL 3.4-5.0 CALCIUM (test code = CA) mg/dL 8.0-10.5 BILIRUBIN TOTAL (test code = BILT) MG/DL <1.5 SGOT/AST (test code = AST) IUnit/L 15-37 SGPT/ALT (test code = ALT) IUnit/L 15-65 ALKALINE PHOSPHATASE TOTAL (test code = ALKP) IUnit/L 20-125 [id number] 05:37:00* Test Item Value Reference Range Interpretation Comments PHOSPHOROUS (test code = PHOS) MG/DL 2.5-4.9 [id number] 05:37:00* Test Item Value Reference Range Interpretation Comments MAGNESIUM (test code = MAG) mg/dL 1.8-2.4 CALCIUM [id number] 05:37:00* Test Item Value Reference Range Interpretation Comments CALCIUM IONIZED (test code = SEAMUS) 1.16 MMOL/L 1.12-1.32 N PROTHROMBIN [id number] 05:34:00* Test Item Value Reference Range Interpretation Comments PROTHROMBIN TIME PATIENT (test code = PTP) 15.0 SECONDS 9.3-12.9 H INTERNATIONAL NORMAL RATIO (test code = INR) 1.4 0.8-1.2 H TARGET INR BY INDICATION Indication INR1. Prophylaxis of venous thrombosis 2.0 - 3.0 (orthopedic surgery), Prophylaxis of venous thrombosis (other than high-risk surgery), Treatment of Deep Vein Thrombosis/Pulmonary Embolism, Prevention of systemic embolism - Tissue heart valves, Acute Myocardial Infarction (to prevent systemic embolism), Valvular heart disease, Atrial Fibrillation, Bileaflet mechanical valve in aortic position.2. Mechanical prosthetic valves (high risk), 2.5 - 3.5 Presence of Lupus Anticoagulant or Antiphospholipid Antibodies, Prevention of systemic embolism - Acute Myocardial Infarction (to prevent recurrent infarct). CBC W/AUTO [id number] 05:27:00* Test Item Value Reference Range Interpretation Comments WHITE BLOOD CELL (test code = WBC) 16.47 x10 3/uL 4.5-11.0 H RED BLOOD CELL (test code = RBC) 2.55 x10 6/uL 4.00-5.60 L HEMOGLOBIN (test code = HGB) 7.1 g/dL 12.5-16.9 L HEMATOCRIT (test code = HCT) 24.5 % 37.5-50.7 L MEAN CELL VOLUME (test code = MCV) 96.1 fL 81.0-99.0 MEAN CELL HGB (test code = MCH) 27.8 pg 27.0-33.0 N MEAN CELL HGB CONCETRATION (test code = MCHC) 29.0 g/dL 33.0-37. 0 L RED CELL DISTRIBUTION WIDTH CV (test code = RDW) 17.2 % 11.5- 14.5 H RED CELL DISTRIBUTION WIDTH SD (test code = RDW-SD) 59.4 fL 37 .0-54.0 H PLATELET COUNT (test code = PLT) 387 x10 3/uL 150-400 N MEAN PLATELET VOLUME (test code = MPV) 9.4 fL 7.0-9.0 H NEUTROPHIL % (test code = NT%) 69.2 % 56.0-77.0 N IMMATURE GRANULOCYTE % (test code = IG%) 1.3 % 0.0-2.0 N LYMPHOCYTE % (test code = LY%) 12.7 % 14.0-32.0 L MONOCYTE % (test code = MO%) 10.3 % 4.8-9.0 H EOSINOPHIL % (test code = EO%) 5.5 % 0.3-3.7 H BASOPHIL % (test code = BA%) 1.0 % 0.0-2.0 N NUCLEATED RBC % (test code = NRBC%) 0.0 % 0-0 N NEUTROPHIL # (test code = NT#) 11.40 x10 3/uL 2.0-7.6 H IMMATURE GRANULOCYTE # (test code = IG#) 0.22 x10 3/uL 0.00-0.03 H LYMPHOCYTE # (test code = LY#) 2.09 x10 3/uL 1.0-3.8 N MONOCYTE # (test code = MO#) 1.69 x10 3/uL 0.1-0.8 H EOSINOPHIL # (test code = EO#) 0.90 x10 3/uL 0.0-0.2 H BASOPHIL # (test code = BA#) 0.17 x10 3/uL 0.0-0.2 N NUCLEATED RBC # (test code = NRBC#) 0.00 x10 3/uL 0.0-0.1 N MANUAL DIFF REQUIRED (test code = MDIFF) NO ARTERIAL BLOOD [id number] 05:10:00* Test Item Value Reference Range Interpretation Comments ARTERIAL BLOOD GAS PH (test code = PHA) 7.284 7.35-7.45 L ARTERIAL BLOOD GAS PCO2 (test code = PCO2A) 61.3 mmHg 35-45 H ARTERIAL BLOOD GAS PO2 (test code = PO2A) 103 mmHg 80-100 H BICARBONATE TOTAL HCO3 (test code = HCO3) 29.2 mmol/L 22.0-26.0 H BASE EXCESS (test code = SUNDAR) 2.0 mmol/L -4-4 N ABG O2 SATURATION (test code = SATA) 97 % 90-100 N FIO2 (test code = FIO2A) 40 % ABG DELIVERY (test code = KESHAV) Vent ABG VENT MODE (test code = MODEA) AC v con ABG VENT RESP RATE (test code = RRA) 16 /MIN ABG TIDAL VOLUME (test code = TVA) 500 ml ABG PEEP (test code = PEEPA) 5 cmH2O Performed by 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 [facility] ABG TEMPERATURE (test code = TEMPA) 97.9 F ABG SITE (test code = SITEA) R Brach PREDICTED AA GRADIENT (test code = AP) 55 PREDICTED PO2 (test code = OP) 157 a/A RATIO (test code = RATIO) 0.49 TCO2 ARTERIAL (test code = TCO2A) 31 A-A GRADIENT (test code = AAGRADE) 109 [id number] 23:46:00* Test Item Value Reference Range Interpretation Comments GLUBED (test code = GLUBED) 103 MG/DL 70-110 N Performed by 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 [facility] [id number] 20:20:00* Test Item Value Reference Range Interpretation Comments GLUBED (test code = GLUBED) 108 MG/DL 70-110 N Performed by 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 [facility] COMPREHENSIVE METABOLIC [id number] 07:21:00* Test Item Value Reference Range Interpretation Comments SODIUM (test code = NA) 147 mEq/L 134-147 N POTASSIUM (test code = K) 3.6 mEq/L 3.4-5.0 N CHLORIDE (test code = CL) 113 mEq/L 100-108 H CARBON DIOXIDE (test code = CO2) 30 mEq/L 21-33 N ANION GAP (test code = GAP) 8 0-20 N GLUCOSE (test code = GLU) 151 mg/dL 70-110 H BLOOD UREA NITROGEN (test code = BUN) 28 mg/dL 7-18 H GLOMERULAR FILTRATION RATE (test code = GFR) 83.4 70-80 H Units of measure = ml/min/1.73 m2 CREATININE (test code = CREAT) 0.9 mg/dL 0.6-1.3 TOTAL PROTEIN (test code = PROT) 7.9 g/dL 6.4-8.2 N ALBUMIN (test code = ALB) 2.30 g/dL 3.4-5.0 L CALCIUM (test code = CA) 8.7 mg/dL 8.0-10.5 N BILIRUBIN TOTAL (test code = BILT) 0.4 MG/DL <1.5 N SGOT/AST (test code = AST) 24 IUnit/L 15-37 N SGPT/ALT (test code = ALT) 22 IUnit/L 15-65 N ALKALINE PHOSPHATASE TOTAL (test code = ALKP) 149 IUnit/L 20-125 H [id number] 07:21:00* Test Item Value Reference Range Interpretation Comments PHOSPHOROUS (test code = PHOS) 3.6 MG/DL 2.5-4.9 N [id number] 07:21:00* Test Item Value Reference Range Interpretation Comments MAGNESIUM (test code = MAG) 1.90 mg/dL 1.8-2.4 N CALCIUM [id number] 07:21:00* Test Item Value Reference Range Interpretation Comments CALCIUM IONIZED (test code = SEAMUS) 1.21 MMOL/L 1.12-1.32 N COMPREHENSIVE METABOLIC [id number] 07:00:00* Test Item Value Reference Range Interpretation Comments SODIUM (test code = NA) mEq/L 134-147 POTASSIUM (test code = K) mEq/L 3.4-5.0 CHLORIDE (test code = CL) mEq/L 100-108 CARBON DIOXIDE (test code = CO2) mEq/L 21-33 ANION GAP (test code = GAP) 0-20 GLUCOSE (test code = GLU) mg/dL 70-110 BLOOD UREA NITROGEN (test code = BUN) mg/dL 7-18 GLOMERULAR FILTRATION RATE (test code = GFR) 70-80 CREATININE (test code = CREAT) mg/dL 0.6-1.3 TOTAL PROTEIN (test code = PROT) g/dL 6.4-8.2 ALBUMIN (test code = ALB) g/dL 3.4-5.0 CALCIUM (test code = CA) mg/dL 8.0-10.5 BILIRUBIN TOTAL (test code = BILT) MG/DL <1.5 SGOT/AST (test code = AST) IUnit/L 15-37 SGPT/ALT (test code = ALT) IUnit/L 15-65 ALKALINE PHOSPHATASE TOTAL (test code = ALKP) IUnit/L 20-125 [id number] 07:00:00* Test Item Value Reference Range Interpretation Comments PHOSPHOROUS (test code = PHOS) MG/DL 2.5-4.9 [id number] 07:00:00* Test Item Value Reference Range Interpretation Comments MAGNESIUM (test code = MAG) mg/dL 1.8-2.4 CALCIUM [id number] 07:00:00* Test Item Value Reference Range Interpretation Comments CALCIUM IONIZED (test code = SEAMUS) 1.21 MMOL/L 1.12-1.32 N - XR CHEST 1 [id number] 06:47:00 FAX: Mark Rich MD [phone] [place]: St: [facility] FAX: Sherif Hickman MD [phone] FAX: Kamran Pang MD [phone] Name: DEYSI FRANCISCO [facility] : 1950 Age/S: 69/M [address] [place] [address] Unit #: [id number] Loc: [address] [place] [address] Phys: Mark Walsh MD Acct: [id number] Dis Date: Status: ADM IN PH ONE #: [phone] Exam Date: 08/04/2019614 FAX #: [phone] Reason: S/P INTUBATION EXAMS: CPT CODE: [id number] XR CHEST 1 V 74876 EXAM: CR, XR chest one view: 08/04/2019, 0537 hours HISTORY: S/P INTUBATION TECHNIQUE: 1 view of the chest. COMPARISON: 08/02/2019, 2 134 hours FINDINGS: An endotracheal tube has been place, ti p 2.8 cm above thai. Lower end of the nasogastric tube in distal stomac h, tip excluded from the current image. Cardiomediastinal silhouet te and osseous structures are stable There is no pleural effusion or pneum othorax. Bilateral pulmonary infiltrate, worse in the right lung with inte rval worsening on the right. IMPRESSION: 1. Bilat eral pulmonary infiltrate, worse in the right with interval worsening on the right. Stable nasogastric tube. Interval intubation, tip of endotr acheal tube 2.8 cm above thai. SL: [JSYED- H] at 0647 Reported and signed by: Bryan Woo M.D. CC: Antoine Walsh MD; Sherif Wren M.D.; Kamran Carlson MD Technologist: Julieth rutherford RT(R) Trnscrd Date/Time/By: 08/04/2019 ( 47) : By: [email or web address] Orig Print D/T: S: 08/04/2019 (0616) PAGE 1 Signed Report PROTHROMBIN [id number] 06:42:00* Test Item Value Reference Range Interpretation Comments PROTHROMBIN TIME PATIENT (test code = PTP) 17.1 SECONDS 9.3-12.9 H INTERNATIONAL NORMAL RATIO (test code = INR) 1.6 0.8-1.2 H TARGET INR BY INDICATION Indication INR1. Prophylaxis of venous thrombosis 2.0 - 3.0 (orthopedic surgery), Prophylaxis of venous thrombosis (other than high-risk surgery), Treatment of Deep Vein Thrombosis/Pulmonary Embolism, Prevention of systemic embolism - Tissue heart valves, Acute Myocardial Infarction (to prevent systemic embolism), Valvular heart disease, Atrial Fibrillation, Bileaflet mechanical valve in aortic position.2. Mechanical prosthetic valves (high risk), 2.5 - 3.5 Presence of Lupus Anticoagulant or Antiphospholipid Antibodies, Prevention of systemic embolism - Acute Myocardial Infarction (to prevent recurrent infarct). CBC W/AUTO [id number] 06:35:00* Test Item Value Reference Range Interpretation Comments WHITE BLOOD CELL (test code = WBC) 19.37 x10 3/uL 4.5-11.0 H RED BLOOD CELL (test code = RBC) 2.82 x10 6/uL 4.00-5.60 L HEMOGLOBIN (test code = HGB) 7.9 g/dL 12.5-16.9 L HEMATOCRIT (test code = HCT) 26.2 % 37.5-50.7 L MEAN CELL VOLUME (test code = MCV) 92.9 fL 81.0-99.0 N MEAN CELL HGB (test code = MCH) 28.0 pg 27.0-33.0 N MEAN CELL HGB CONCETRATION (test code = MCHC) 30.2 g/dL 33.0-37. 0 L RED CELL DISTRIBUTION WIDTH CV (test code = RDW) 17.0 % 11.5- 14.5 H RED CELL DISTRIBUTION WIDTH SD (test code = RDW-SD) 55.8 fL 37 .0-54.0 H PLATELET COUNT (test code = PLT) 435 x10 3/uL 150-400 H MEAN PLATELET VOLUME (test code = MPV) 9.4 fL 7.0-9.0 H NEUTROPHIL % (test code = NT%) 79.0 % 56.0-77.0 H IMMATURE GRANULOCYTE % (test code = IG%) 1.6 % 0.0-2.0 N LYMPHOCYTE % (test code = LY%) 9.1 % 14.0-32.0 L MONOCYTE % (test code = MO%) 9.0 % 4.8-9.0 N EOSINOPHIL % (test code = EO%) 0.7 % 0.3-3.7 N BASOPHIL % (test code = BA%) 0.6 % 0.0-2.0 N NUCLEATED RBC % (test code = NRBC%) 0.0 % 0-0 N NEUTROPHIL # (test code = NT#) 15.29 x10 3/uL 2.0-7.6 H IMMATURE GRANULOCYTE # (test code = IG#) 0.31 x10 3/uL 0.00-0.03 H LYMPHOCYTE # (test code = LY#) 1.77 x10 3/uL 1.0-3.8 N MONOCYTE # (test code = MO#) 1.75 x10 3/uL 0.1-0.8 H EOSINOPHIL # (test code = EO#) 0.13 x10 3/uL 0.0-0.2 N BASOPHIL # (test code = BA#) 0.12 x10 3/uL 0.0-0.2 N NUCLEATED RBC # (test code = NRBC#) 0.00 x10 3/uL 0.0-0.1 N MANUAL DIFF REQUIRED (test code = MDIFF) NO ARTERIAL BLOOD [id number] 06:32:00* Test Item Value Reference Range Interpretation Comments ARTERIAL BLOOD GAS PH (test code = PHA) 7.326 7.35-7.45 L ARTERIAL BLOOD GAS PCO2 (test code = PCO2A) 61.0 mmHg 35-45 H ARTERIAL BLOOD GAS PO2 (test code = PO2A) 388 mmHg 80-100 H BICARBONATE TOTAL HCO3 (test code = HCO3) 31.8 mmol/L 22.0-26.0 H BASE EXCESS (test code = SUNDAR) 6.0 mmol/L -4-4 H ABG O2 SATURATION (test code = SATA) 100 % 90-100 N FIO2 (test code = FIO2A) 100 % ABG DELIVERY (test code = KESHAV) Vent ABG VENT MODE (test code = MODEA) AC v con ABG VENT RESP RATE (test code = RRA) 16 /MIN ABG TIDAL VOLUME (test code = TVA) 450 ml ABG PEEP (test code = PEEPA) 5 cmH2O Performed by 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 [facility] ABG TEMPERATURE (test code = TEMPA) 98.8 F ABG SITE (test code = SITEA) R Brach PREDICTED AA GRADIENT (test code = AP) 166 PREDICTED PO2 (test code = OP) 474 a/A RATIO (test code = RATIO) 0.61 TCO2 ARTERIAL (test code = TCO2A) 34 A-A GRADIENT (test code = AAGRADE) 252 UA RFLX MICR CULT IF [id number] 01:02:00* Test Item Value Reference Range Interpretation Comments UA COLOR (test code = COLU) YELLOW YEL/STRAW UA APPEARANCE (test code = APPU) SL CLOUDY CLEAR UA GLUCOSE DIPSTICK (test code = DGLUU) NEGATIVE NEGATIVE UA BILIRUBIN DIPSTICK (test code = BILU) NEGATIVE NEGATIVE UA KETONE DIPSTICK (test code = KETU) NEGATIVE NEGATIVE UA SPECIFIC GRAVITY (test code = SGU) 1.013 1.005-1.030 N UA BLOOD DIPSTICK (test code = DEIDRA) 1+ NEGATIVE A UA PH DIPSTICK (test code = INDIRA) 5.0 5.0-7.0 N UA PROTEIN DIPSTICK (test code = PROU) 1+ NEGATIVE A UA UROBILINIOGEN DIPSTICK (test code = URO) 0.2 mg/dL 0.2-1.0 UA NITRITE DIPSTICK (test code = LINNEA) NEGATIVE NEGATIVE UA LEUKOCYTE ESTERASE DIPSTICK (test code = LEUU) 2+ NEGA TIVE A UA WBC (test code = WBCU) 21-50 WBC/HPF 0-3 A UA RBC (test code = RBCU) 4-10 RBC/HPF 0-3 UA WBC NO REFLEX (test code = WBCUCL) 21-50 WBC/HPF 0-3 A UA BACTERIA (test code = BACU) TRACE /HPF NONE SEEN UA SQUAMOUS CELLS (test code = SQU) 0-5 /HPF NONE SEEN UA HYALINE CAST (test code = HYALU) 6-10 /LPF NONE SEEN UA MUCUS (test code = MUCU) TRACE /LPF NONE SEEN UA YEAST (BUDDING) (test code = YEASTUBD) 2+ /HPF NONE A Indication for culture: Sev. Sepsis-no other srcSpecimen Description: CLEAN CATCHPROCALCITONIN (PCT)2019-08-03 18:43:00* Test Item Value Reference Range Interpretation Comments PROCALCITONIN (PCT) (test code = PROCAL) 0.19 ng/mL 0.00-0.05 H PROCALCITONIN (PCT) NORMAL RANGE (ADULT): <0.05 NG/ML. * a concentration <0.5 ng/mL represents a low risk of severe sepsis and/or septic shock.* a concentration >2 ng/mL represents a high risk of severe sepsis and/or septic shock.Nevertheless, concentrations <0.5 ng/mL do not exclude aninfection, on account of localized infections (withoutsystemic signs) which can be associated with such lowconcentrations, or a systemic infection in its initialstages (< 6 hours). Furthermore, increased procalcitonincan occur without infection. PCT concentrations between 0.5and 2.0 ng/mL should be interpreted taking into account thepatient's history. It is recommended to retest PCT within6-24 hours if any concentrations <2 ng/mL are obtained. [id number] 18:24:00* Test Item Value Reference Range Interpretation Comments GLUBED (test code = GLUBED) 139 MG/DL 70-110 H Performed by 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 [facility] HGB [id number] 12:57:00* Test Item Value Reference Range Interpretation Comments HEMOGLOBIN (test code = HGB) 8.3 g/dL 12.5-16.9 L HEMATOCRIT (test code = HCT) 26.9 % 37.5-50.7 L [id number] 12:49:00* Test Item Value Reference Range Interpretation Comments GLUBED (test code = GLUBED) 119 MG/DL 70-110 H Performed by 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 [facility] BASIC METABOLIC [id number] 06:46:00* Test Item Value Reference Range Interpretation Comments SODIUM (test code = NA) 142 mEq/L 134-147 N POTASSIUM (test code = K) 3.3 mEq/L 3.4-5.0 L CHLORIDE (test code = CL) 107 mEq/L 100-108 N CARBON DIOXIDE (test code = CO2) 31 mEq/L 21-33 N ANION GAP (test code = GAP) 7 0-20 N GLUCOSE (test code = GLU) 107 mg/dL 70-110 N BLOOD UREA NITROGEN (test code = BUN) 24 mg/dL 7-18 H GLOMERULAR FILTRATION RATE (test code = GFR) 111.5 70-80 H Units of measure = ml/min/1.73 m2 CREATININE (test code = CREAT) 0.7 mg/dL 0.6-1.3 N CALCIUM (test code = CA) 8.7 mg/dL 8.0-10.5 N [id number] 06:46:00* Test Item Value Reference Range Interpretation Comments MAGNESIUM (test code = MAG) 1.90 mg/dL 1.8-2.4 N - CT HEAD/BRAIN W/O [id number] 06:43:00 Name: DEYSI FRANCISCO [facility] John Dubois : 1950 Age/S: 69 / M [address] [place] [address] Blvd Unit #: [id number] Loc: [place] [address] Phys: Quiana Moore DO Acct: [id number] Dis Date: Status: ADM IN PHONE #: [phone] Exam Date: 08/03/2019 0416 FAX #: [phone] Reason: f/u hemorrhage EXAMS: CPT CODE: [id number] CT HEAD/BRAIN W/O CONT 16405 CT head without contrast 09/02/2019 HISTORY: Hemorrhagic stroke follow-up PROCEDURE: Multiple axial images from the skull base to the skull vertex were obtained without contrast. Coronal and sagittal reconstructed images were performed CT imaging performed at this location utilizes radiation dose optimization techniques which include one or more of the following: -Automated exposure control -Adjustment of the mA and/or kV according to patient size - Use of iterative reconstruction technique CT Radiation Dose DLP 591.22 mGy-cm Comparison is made to 08/02/2019 FINDINGS: Right cerebellar hemorrhage is not significantly changed measuring 4.1 x 3.7 x 1.9 cm. There is mass effect on the 4th ventricle. No new hemorrhage is present. No new infarct is noted. There is mild atrophy. There are mild white matter hypodensities. The visualized right mastoid air cells are clear. There is stable mild left mastoid fluid. Left sph enoid sinus air-fluid level is unchanged. Right nasal septal deviation an d right bony nasal spur are noted. IMPRESSION: 1. Unchanged 4.1 cm hemorrhage in right cerebellum. Mild mass effect on 4 th ventricle without hydrocephalus. 2. Mild atrophy and mild chronic mi crovascular ischemic changes. 3. No new hemorrhage. No new infarct. SL: [id number] at 0643 Reported and signed by: Eric Orozco M.D. CC: Sherif Wren M.D.; Quiana Moore DO Technologist:RT Yen(R) CTDI: DLP: Trnscb Date/Time: 08/03/19 (0643) [id number] Orig Print D/T: S: 08/03/2019 (0626) PAGE 1 Signed Report CBC W/AUTO [id number] 06:21:00* Test Item Value Reference Range Interpretation Comments WHITE BLOOD CELL (test code = WBC) 17.11 x10 3/uL 4.5-11.0 H RED BLOOD CELL (test code = RBC) 2.80 x10 6/uL 4.00-5.60 L HEMOGLOBIN (test code = HGB) 7.7 g/dL 12.5-16.9 L HEMATOCRIT (test code = HCT) 25.6 % 37.5-50.7 L MEAN CELL VOLUME (test code = MCV) 91.4 fL 81.0-99.0 N MEAN CELL HGB (test code = MCH) 27.5 pg 27.0-33.0 N MEAN CELL HGB CONCETRATION (test code = MCHC) 30.1 g/dL 33.0-37. 0 L RED CELL DISTRIBUTION WIDTH CV (test code = RDW) 16.1 % 11.5- 14.5 H RED CELL DISTRIBUTION WIDTH SD (test code = RDW-SD) 52.4 fL 37 .0-54.0 N PLATELET COUNT (test code = PLT) 403 x10 3/uL 150-400 H MEAN PLATELET VOLUME (test code = MPV) 9.7 fL 7.0-9.0 H NEUTROPHIL % (test code = NT%) 71.7 % 56.0-77.0 N IMMATURE GRANULOCYTE % (test code = IG%) 2.5 % 0.0-2.0 H LYMPHOCYTE % (test code = LY%) 12.6 % 14.0-32.0 L MONOCYTE % (test code = MO%) 9.3 % 4.8-9.0 H EOSINOPHIL % (test code = EO%) 3.4 % 0.3-3.7 N BASOPHIL % (test code = BA%) 0.5 % 0.0-2.0 N NUCLEATED RBC % (test code = NRBC%) 0.0 % 0-0 N NEUTROPHIL # (test code = NT#) 12.27 x10 3/uL 2.0-7.6 H IMMATURE GRANULOCYTE # (test code = IG#) 0.43 x10 3/uL 0.00-0.03 H LYMPHOCYTE # (test code = LY#) 2.15 x10 3/uL 1.0-3.8 N MONOCYTE # (test code = MO#) 1.59 x10 3/uL 0.1-0.8 H EOSINOPHIL # (test code = EO#) 0.58 x10 3/uL 0.0-0.2 H BASOPHIL # (test code = BA#) 0.09 x10 3/uL 0.0-0.2 N NUCLEATED RBC # (test code = NRBC#) 0.00 x10 3/uL 0.0-0.1 N MANUAL DIFF REQUIRED (test code = MDIFF) NO [id number] 23:08:00* Test Item Value Reference Range Interpretation Comments MAGNESIUM (test code = MAG) 1.80 mg/dL 1.8-2.4 N - XR CHEST 1 [id number] 23:01:00 FAX: Sherif Hickman MD [phone] [place]: St: ADM FAX: Saulo Buenrostro DO [phone] Name: DEYSI FRANCISCO [facility] : 1950 Age/S: 69/M [address] [place] [address] Unit #: [id number] Loc: [place] [address] Phys: Saulo Varma DO Acct: [id number] Dis Date: Status: ADM IN PHONE #: [phone] Exam Date: 08/02/20192141 FAX #: [phone] Reason: sepsis; COVID+ 07/25/2019 EXAMS: CPT CODE: [id number] XR CHEST 1 V 97144 Chest, single view dated 08/02/2019. HISTORY: Sepsis. Comparison is made to a prior study dated 02/13/2014. A nasogastric tube is present with the tip positioned in the gastric body. A left jugular hemodialysis catheter is present with the tip positioned in the superior vena cava. A pneumothorax is not identified. The heart is normal in size. The cardiomediastinal shadow is stable. Lung volumes are decreased. Bilateral pulmonary infiltrates are identified. No acute pleural space abnormalities are detected. IMPRESSION: 1. Bilateral pulmonary infiltrates, concerning for pneumonia. SL: 131 at 2301 Reported and signed by: Kaveh Graham M.D. CC: Sherif Wren M.D.; Saulo Varma DO Technologist: RT Peter(R); RT Anton(R) Trnscrd Date/Time/By: (2300) : By: Tj Orig Print D/T: S: 08/02/2019 (4972) PAGE 1 Signed Report - CT HEAD/BRAIN W/O [id number] 22:48:00 Name: DEYSI FRANCISCO [facility] : 1950 Age/S: 69 / M [address] [place] [address] Unit #: [id number] Loc: [place] [address] Phys: Jesus Varma DO Acct: [id number] Di s Date: Status: ADM IN PHONE #: Exam Date: 08/02/20192221 FAX #: Reason: hemorrhagic stroke seen on CT head at outside f EXAMS: CPT CODE: [id number] CT HEAD/BRAIN W/O CONT [address] HEAD INDICATION: hemorrhagic stroke seen on CT head at outside facility. TECHNIQUE: Unenhanced CT was performed from the skull vertex to the foramen magnum with axial, coronal and sagittal reconstructions. CT imaging performed at this location utilizes radiation dose optimization te betty which includes one or more of the followin) Automated exposure control; 2) Adjustment of the mA and/or kV according to patient's size; 3) Use of iterative reconstruction techniques. DLP (mGy-cm): 665 COMPARISONS: None. FINDINGS: There is mucous re tention cyst or polyp in the anterior right ethmoid sinus. There is mild right maxillary sinus mucosal thickening. There is retained fluid in the left sphenoid sinus. There are bilateral mastoid air cell effusion s. There is a catheter entering the left nasal airway. There is no acute depressed skull fracture. There is a 4.1 x 3 .7 x 1.9 cm (14.4 mL) acute intraparenchymal hemorrhage within the posteri or medial right cerebellar hemisphere. There is mild mass effect u ten the 4th ventricle but no hydrocephalus. The right foramen of Luschka is effaced. There is partial effacement of the foramen of Magendie. The left foramen of Luschka appears widely patent. There is no intraventricul ar hemorrhage. There is mild generalized brain parenchymal volume loss. There is a mild burden of presumed chronic small vessel ischemic h ypodense lesions in the white matter. There is no herniation or impending herniation. The cerebellar tonsils terminate above the foramen mag num. IMPRESSION: 1. There is a 4.1 x 3.7 x 1. 9 cm (14.4 mL) acute intraparenchymal hemorrhage within the posterior me dial right cerebellar hemisphere. Consider follow-up MRI of the brain without and with contrast to PAGE 1 Signed Report (CONTINUED) Name: DEYSI FRANCISCO [facility] : 1950 Age/S: 69 / M [address] [facility] Unit #: [id number] Loc: [place] [address] Phys: Saulo Varma DO Acct: [id number] Dis Date: Status: ADM IN PHONE #: [phone] Exam Date: 08/02/20192221 FAX #: [phone] Reason: hemorrhagic stroke seen on CT head at outside f EXAMS: CPT CODE: [id number] CT HEAD/BRAIN W/O CONT 76179 < Continued> exclude the possibility of an underlying mass. Neurosurgical consultation is recommended. 2. There is mild mass effect upon the 4th ventricle but no hydrocephalus. The right foramen of Luschka is effaced. There is partial effacement of the foramen of Magendie. The left foramen of Luschka appears widely patent. There is no intraventricular hemorrhage. 3. There is no cerebral herniation or impending herniation. This report contains findings that may be critical to patient care. The findings were discussed with Saulo Varma DO. The call was initiated at 08/02/2019 10:43PM DINING ROOM ATTENDANT. at 8 Reported and signed by: Michael Lugo D.O. CC: Sherif Wren M.D.; Saulo Varma DO Technologist:Lindy Esqueda, RT(R) CTDI: DLP: Trnscb Date/Time: 08/02/2019 (2247) [email or web address] Orig Print D/T: S: 08/02/2019 (0524) PAGE 2 Signed Report CBC W/AUTO [id number] 22:16:00* Test Item Value Reference Range Interpretation Comments WHITE BLOOD CELL (test code = WBC) 17.13 x10 3/uL 4.5-11.0 H RED BLOOD CELL (test code = RBC) 2.97 x10 6/uL 4.00-5.60 L HEMOGLOBIN (test code = HGB) 8.3 g/dL 12.5-16.9 L HEMATOCRIT (test code = HCT) 26.4 % 37.5-50.7 L MEAN CELL VOLUME (test code = MCV) 88.9 fL 81.0-99.0 N MEAN CELL HGB (test code = MCH) 27.9 pg 27.0-33.0 N MEAN CELL HGB CONCETRATION (test code = MCHC) 31.4 g/dL 33.0-37. 0 L RED CELL DISTRIBUTION WIDTH CV (test code = RDW) 16.0 % 11.5- 14.5 H RED CELL DISTRIBUTION WIDTH SD (test code = RDW-SD) 49.9 fL 37 .0-54.0 N PLATELET COUNT (test code = PLT) 395 x10 3/uL 150-400 N MEAN PLATELET VOLUME (test code = MPV) 9.2 fL 7.0-9.0 H NEUTROPHIL % (test code = NT%) 66.5 % 56.0-77.0 N IMMATURE GRANULOCYTE % (test code = IG%) 3.5 % 0.0-2.0 H LYMPHOCYTE % (test code = LY%) 15.4 % 14.0-32.0 N MONOCYTE % (test code = MO%) 9.1 % 4.8-9.0 H EOSINOPHIL % (test code = EO%) 4.7 % 0.3-3.7 H BASOPHIL % (test code = BA%) 0.8 % 0.0-2.0 N NUCLEATED RBC % (test code = NRBC%) 0.0 % 0-0 N NEUTROPHIL # (test code = NT#) 11.39 x10 3/uL 2.0-7.6 H IMMATURE GRANULOCYTE # (test code = IG#) 0.60 x10 3/uL 0.00-0.03 H LYMPHOCYTE # (test code = LY#) 2.64 x10 3/uL 1.0-3.8 N MONOCYTE # (test code = MO#) 1.56 x10 3/uL 0.1-0.8 H EOSINOPHIL # (test code = EO#) 0.81 x10 3/uL 0.0-0.2 H BASOPHIL # (test code = BA#) 0.13 x10 3/uL 0.0-0.2 N NUCLEATED RBC # (test code = NRBC#) 0.00 x10 3/uL 0.0-0.1 N MANUAL DIFF REQUIRED (test code = MDIFF) NO SLIDE REVIEWED, CONSISTENT WITH AUTO DIFF. BASIC METABOLIC [id number] 22:08:00* Test Item Value Reference Range Interpretation Comments SODIUM (test code = NA) 139 mEq/L 134-147 N POTASSIUM (test code = K) 3.2 mEq/L 3.4-5.0 L CHLORIDE (test code = CL) 103 mEq/L 100-108 N CARBON DIOXIDE (test code = CO2) 31 mEq/L 21-33 N ANION GAP (test code = GAP) 8 0-20 N GLUCOSE (test code = GLU) 130 mg/dL 70-110 H BLOOD UREA NITROGEN (test code = BUN) 26 mg/dL 7-18 H GLOMERULAR FILTRATION RATE (test code = GFR) 111.5 70-80 H Units of measure = ml/min/1.73 m2 CREATININE (test code = CREAT) 0.7 mg/dL 0.6-1.3 N CALCIUM (test code = CA) 8.8 mg/dL 8.0-10.5 N HEPATIC FUNCTION [id number] 22:08:00* Test Item Value Reference Range Interpretation Comments TOTAL PROTEIN (test code = PROT) 7.6 g/dL 6.4-8.2 N ALBUMIN (test code = ALB) 2.40 g/dL 3.4-5.0 L BILIRUBIN TOTAL (test code = BILT) 0.4 MG/DL <1.5 N BILIRUBIN DIRECT (test code = BILD) 0.10 MG/DL 0.0-0.30 N BILIRUBIN INDIRECT (test code = BILIND) 0.30 MG/DL SGOT/AST (test code = AST) 31 IUnit/L 15-37 N SGPT/ALT (test code = ALT) 28 IUnit/L 15-65 N ALKALINE PHOSPHATASE TOTAL (test code = ALKP) 175 IUnit/L 20-125 H [id number] 22:08:00* Test Item Value Reference Range Interpretation Comments TROPONIN-I (test code = TROPI) < 0.015 ng/mL 0.000-0.045 N Negative: <= 0.045 Positive: >= 0.046 Correlation with serial results, other cardiac markers andclinical findings is necessary to determine the clinicalsignificance of this result. Results using different methodologies should not be comparedto one another as quantitative results may vary by method. LACTIC [id number] 22:06:00* Test Item Value Reference Range Interpretation Comments LACTIC ACID (test code = LACT) 0.7 mmol/L 0.4-1.9 N Coronavirus 2019 nCoV [id number] 22:00:00* Test Item Value Reference Range Interpretation Comments [facility]test [facility] = [id number]) Negative Negative Negative results should be treated as presumptive and, ifinconsistent with clinical signs and symptoms or necessaryfor patient management, should be tested with an alternativemolecular assay. Negative results do not preclude ZIZO-KjZ-[id number] and should not be used as the sole basis forpatient management decisions. Negative results should beconsidered in the context of a patient's recent exposures,history, presence of clinical signs and symptoms consistentwith COVID-19. Acknowledged? YESPROTHROMBIN [id number] 21:56:00* Test Item Value Reference Range Interpretation Comments PROTHROMBIN TIME PATIENT (test code = PTP) 13.7 SECONDS 9.3-12.9 H INTERNATIONAL NORMAL RATIO (test code = INR) 1.3 0.8-1.2 H TARGET INR BY INDICATION Indication INR1. Prophylaxis of venous thrombosis 2.0 - 3.0 (orthopedic surgery), Prophylaxis of venous thrombosis (other than high-risk surgery), Treatment of Deep Vein Thrombosis/Pulmonary Embolism, Prevention of systemic embolism - Tissue heart valves, Acute Myocardial Infarction (to prevent systemic embolism), Valvular heart disease, Atrial Fibrillation, Bileaflet mechanical valve in aortic position.2. Mechanical prosthetic valves (high risk), 2.5 - 3.5 Presence of Lupus Anticoagulant or Antiphospholipid Antibodies, Prevention of systemic embolism - Acute Myocardial Infarction (to prevent recurrent infarct). CBC W/AUTO [id number] 21:51:00* Test Item Value Reference Range Interpretation Comments WHITE BLOOD CELL (test code = WBC) 17.13 x10 3/uL 4.5-11.0 H RED BLOOD CELL (test code = RBC) 2.97 x10 6/uL 4.00-5.60 L HEMOGLOBIN (test code = HGB) 8.3 g/dL 12.5-16.9 L HEMATOCRIT (test code = HCT) 26.4 % 37.5-50.7 L MEAN CELL VOLUME (test code = MCV) 88.9 fL 81.0-99.0 N MEAN CELL HGB (test code = MCH) 27.9 pg 27.0-33.0 N MEAN CELL HGB CONCETRATION (test code = MCHC) 31.4 g/dL 33.0-37. 0 L RED CELL DISTRIBUTION WIDTH CV (test code = RDW) 16.0 % 11.5- 14.5 H RED CELL DISTRIBUTION WIDTH SD (test code = RDW-SD) 49.9 fL 37 .0-54.0 N PLATELET COUNT (test code = PLT) 395 x10 3/uL 150-400 N MEAN PLATELET VOLUME (test code = MPV) 9.2 fL 7.0-9.0 H NEUTROPHIL % (test code = NT%) % 56.0-77.0 LYMPHOCYTE % (test code = LY%) % 14.0-32.0 NEUTROPHIL # (test code = NT#) x10 3/uL 2.0-7.6 LYMPHOCYTE # (test code = LY#) x10 3/uL 1.0-3.8 MANUAL DIFF REQUIRED (test code = MDIFF)
--- NOTE | 2019-10-04 22:19 | Diagnostic Imaging Report ---
ADDENDUM #1 After review of patient's outside clinical report, it was brought to my attention that it was already a known subacute right cerebellar vascular insult. Discussed with ER physician Dr. Teixeira by phone at 10:40 PM on 10/04/2019. Signed by: Dr. Tatyana Escalante M.D. on 10/04/2019 10:49 PM ORIGINAL REPORT EXAMINATION: Head CT without contrast. HISTORY:Status post fall. COMPARISON:None. TECHNIQUE: Multidetector axial images were obtained from the foramen magnum to the vertex without contrast. The images were reconstructed using brain and bone algorithms. Thin section brain images were reformatted into coronal and sagittal planes. Dose modulation, iterative reconstruction, and/or weight based adjustment of the mA/kV was utilized to reduce the radiation dose to as low as reasonably achievable. Intravenous contrast: None IMAGE QUALITY: Acceptable. FINDINGS: Skull/scalp: No lytic or blastic. lesions. No surgical changes. Parenchyma: Focal hypodensity in the dorsal and inferior aspect of right cerebellar hemisphere with regional mass effect is concerning for evolving acute/subacute vascular insult in right PICA territory. Nonspecific bilateral frontoparietal patchy white matter hypodensity are likely related to small vessel ischemic changes. No acute hemorrhage or mass. Arteries: No density suggestive of thrombosis. Dural sinuses: No abnormal density suggestive of thrombosis. Ventricles: Mild compensated dilatation due to volume loss. No hydrocephalus. Extra-axial spaces: No abnormal density. Brain volume: Generalized age-related cerebral volume loss. Craniocervical junction: No mass, Chiari malformation, or basilar invagination. Sella: No mass. Paranasal/mastoid sinuses: Partial opacification of left mastoid air cells. Small polyp/retention cyst in the inferior aspect of right frontal sinus. IMPRESSION: 1. Focal hypodensity in the dorsal and inferior aspect of right cerebellar hemisphere raises concern for evolving acute/subacute vascular insult in right PICA territory. 2. Mild supratentorial white matter microvascular ischemic changes. 3. Generalized age-related cerebral volume loss. Recommendation: Neurology consultation. CTA of the head and neck for further assessment. Findings informed to ER physician Dr. Teixeira by phone at 10:10 PM on 10/04/2019. Signed by: Dr. Tatyana Escalante M.D. on 10/04/2019 10:15 PM
[2019-10-04] MEDS ORDERED: METOPROLOL TARTRATE INJ 1 MG/ML VIAL IV ONE (22:30)
[2019-10-04 22:34] LABS: BASOPHILS # (AUTO) 0.1 (0.0-0.1); BASOPHILS % 0.4 % (0.0-1.0); EOSINOPHILS # (AUTO) 0.4 (0.0-0.4); EOSINOPHILS % 1.4 % (0.0-6.0); HEMATOCRIT 28.5 % (38.2-49.6); HEMOGLOBIN 8.9 g/dL (14.0-18.0); LYMPHOCYTES # (AUTO) 2.4 (1.0-3.2); LYMPHOCYTES % 9.8 % (18.0-39.1); MEAN CORPUSCULAR HGB CONC 31.2 g/dL (31-35); MEAN CORPUSCULAR VOLUME 92.8 fL (81-99); MONOCYTES # (AUTO) 1.8 (0.2-0.8); MONOCYTES % 7.3 % (4.4-11.3); NEUTROPHILS # (AUTO) 19.7 (2.1-6.9); NEUTROPHILS % 80.4 % (38.7-80.0); PLATELET COUNT 376 x10e3/uL (140-360); RED BLOOD COUNT 3.07 x10e6/uL (4.3-5.7); RED CELL DISTRIBUTION WIDTH 15.3 % (11.7-14.4)
[2019-10-04 22:44] LABS: INR 1.04; PROTHROMBIN TIME 14.1 seconds (11.9-14.5)
[2019-10-04 22:45] LABS: PARTIAL THROMBOPLASTIN TIME 22.2 seconds (23.8-35.5)
[2019-10-04] MEDS ORDERED: CEFEPIME 2 GM/NS 0.9% 100 ML 100 ML IV ONE (22:45)
[2019-10-04 22:53] LABS: ALANINE AMINOTRANSFERASE 11 IU/L (0-55); ALBUMIN 3.1 g/dL (3.5-5.0); ALBUMIN/GLOBULIN RATIO 0.6 (0.8-2.0); ALKALINE PHOSPHATASE 143 IU/L (40-150); ANION GAP 17.5 mmol/L (8-16); BLOOD UREA NITROGEN 43 mg/dL (7-26); BUN/CREATININE RATIO 37 (6-25); CALCIUM 10.3 mg/dL (8.4-10.2); CARBON DIOXIDE 36 mmol/L (22-29); CHLORIDE 98 mmol/L (98-107); CREATINE KINASE 20 IU/L (30-200); CREATININE, SERUM 1.17 mg/dL (0.72-1.25); EST GLOMERULAR FILTRATION RATE > 60 ML/MIN (60-); GLUCOSE 110 mg/dL (74-118); POTASSIUM 3.5 mmol/L (3.5-5.1); SODIUM 148 mmol/L (136-145)
--- NOTE | 2019-10-04 22:59 | Diagnostic Imaging Report ---
History: Status post fall. Comparison studies: None Technique: Axial images were obtained through the cervical region.. Coronal and sagittal images reconstructed from the axial data. Dose modulation, iterative reconstruction, and/or weight based adjustment of the mA/kV was utilized to reduce the radiation dose to as low as reasonably achievable. Intravenous contrast: None Findings: Fractures: None. Soft tissue injuries: None. Atlantoaxial articulation: Intact. Alignment: Normal lordosis. No scoliosis. No subluxation. Cervicomedullary junction: No abnormalities. The foramen magnum is patent. Soft tissues: No abnormalities. Vertebrae: Nonspecific diffuse heterogeneous bone marrow density of the visualized spine may be related to osseous demineralization, underlying lymphoproliferative/myeloproliferative disorder or metastasis in appropriate clinical setting. Degenerative changes: C3-C4: Posterior disc osteophyte complex results in mild canal stenosis. C5-C6: Mild degenerative disc disease. Posterior disc osteophyte complex results in mild canal stenosis. Mild right foraminal stenosis due to uncovertebral arthrosis. C6-C7: Mild right and moderate left foraminal stenosis due to facet and uncovertebral arthrosis. Incidental finding: Evolving subacute vascular insult in right cerebellar hemisphere in right PICA territory as detailed in prior CT head from same day. Partial opacification of left more than right mastoid air cells. Groundglass opacification in bilateral lung apices. Tracheostomy tube noted in position. IMPRESSION: 1. No acute cervical spine fracture or dislocation. 2. Ligament, spinal cord and or vascular abnormalities cannot be excluded on the basis of this examination. 3. Multilevel cervical spondylosis as detailed above. Signed by: Dr. Tatyana Escalante M.D. on 10/04/2019 10:56 PM
[2019-10-04 23:45] LABS: BILIRUBIN,URINE SMALL (NEGATIVE); CLARITY,URINE CLOUDY (CLEAR); COLOR,URINE RED (YELLOW); KETONES,URINE NEGATIVE (NEGATIVE); LEUKOCYTE ESTERASE ,URINE LARGE (NEGATIVE); NITRITE,URINE POSITIVE (NEGATIVE); PROTEIN,URINE DIPSTICK >=300 (NEGATIVE); RBC,URINE >50 /HPF (0-5); URINE UROBILINOGEN 0.2 mg/dL (0.2 - 1); WBC,URINE (MAN) 21-50 /HPF (0-5)
[2019-10-04] MEDS ORDERED: ACETAMINOPHEN 325 MG/10 ML UDC PEG ONE (23:45)
[2019-10-04 23:46] LABS: BACTERIA,URINE MODERATE /HPF; EPITHELIAL CELLS,URINE FEW /LPF
--- NOTE | 2019-10-04 23:51 | NUR ---
Multiple attemps to call the [facility] at this time. No answer at this time
[2019-10-05] VITALS (9 sets, daily range): BP systolic 99–165; BP diastolic 59–96
[2019-10-05] MEDS ORDERED: HYDRALAZINE HCL 20 MG/ML VIAL IV PRN
[2019-10-05] MEDS ORDERED: DEXTROSE 50% SYRINGE 50 ML IV PRN
--- NOTE | 2019-10-05 00:03 | Diagnostic Imaging Report ---
EXAMINATION: CHEST SINGLE (PORTABLE) INDICATION: Cough COMPARISON: None FINDINGS: TUBES and LINES: Partially visualized gastrostomy catheter retention balloon in the left upper abdomen.. LUNGS: Low left lung volume. Scattered patchy haziness in both lungs. PLEURA: No pleural effusion or pneumothorax. HEART AND MEDIASTINUM: The cardiomediastinal silhouette is unremarkable. BONES AND SOFT TISSUES: No acute osseous lesion. Soft tissues are unremarkable. UPPER ABDOMEN: No free air under the diaphragm. IMPRESSION: Findings compatible with multifocal pneumonia. Signed by: Michael Cifuentes DO on 10/04/2019 11:59 PM
--- OUTSIDE RECORDS SUMMARY | 2019-10-05 00:06 | XMS REPORT | Continuity of Care Document ---
Author Author [facility] t Organization [facility] Address [address] [place] [address] Phone Unavailable Care Team Providers Care Fund Director Name Role Phone SEVERINO BRAY Atttien Unavailable SEVERINO BRAY Unavailable Payers Payer Name Policy Type Policy Number Effective Date Expiration Date S ource Problems This patient has no known problems. Allergies, Adverse Reactions, Alerts Allergy Name Allergy Type Status Severity Reaction(s) Onset Date Inacti ve Date Treating Clinician Comments Source No Known Allergies DA Active U 2014-02-12 00:00:00 [facility] Medications This patient has no known medications. Procedures This patient has no known procedures. Results Test Description Test Time Test Comments Results Result Comments Source CHEST SINGLE (PORTABLE) 2019-10-04 23:58:00 [facility] [address], [place] [address] Patient Name: DEYSI FRANCISCO MR #: [id number] : 1950 Age/Sex: 69/M Req #: [id number] Adm Physician: SEVERINO BRAY MD Ordered by: DINAH RAY MD Report #: [id number] Location: [facility] Room/Bed: [place] [address] Procedure: [id number] DX/CHEST SINGLE (PORTABLE) Exam Date: Exam Time: REPORT STATUS: Signed EXAMINATION: CHEST SINGLE (PORTABLE) INDICATION: Cough COMPARISON: None FINDINGS: TUBES and LINES: Partially visualized gastrostomy catheter retention balloon in the left upper abdomen.. LUNGS: Low left lung volume. Scattered patchy haziness in both lungs. PLEURA: No pleural effusion or pneumothorax. HEART AND MEDIASTINUM: The cardiomediastinal silhouette is unremarkable. BONES AND SOFT TISSUES: No acute osseous lesion. Soft tissues are unremarkable. UPPER ABDOMEN: No free air under the diaphragm. IMPRESSION: Findings compatible with multifocal pneumonia. Signed by: Michael Tinoco DO on 10/04/2019 11:59 PM Dictated By: MICHAEL TINOCO DO 58 Transcribed By: AWILDA on 10/04/192358 COPY TO: DINAH RAY MD CT CERVICAL SPINE WO 2019-10-04 22:49:00 [place] [address] Patient Name: DEYSI FRANCISCO MR #: [id number] : 1950 Age/Sex: 69/M Req #: [id number] Adm Physician: Ordered by: DINAH RAY MD Report #: [id number] Location: ER Room/Bed: Procedure: [id number] CT/CT CERVICAL SPINE WO Exam Date: 10/04/19 Exam Time: 2124 REPORT STATUS: Signed History: Status post fall. Comparison studies: None Technique: Axial images were obtained through the cervical region.. Coronal and sagittal images reconstructed from the axial data. Dose modulation, iterative reconstruction, and/or weight based adjustment of the mA/kV was utilized to reduce the radiation dose to as low as reasonably achievable. Intravenous contrast: None Findings: Fractures: None. Soft tissue injuries: None. Atlantoaxial articulation: Intact. Alignment: Normal lordosis. No scoliosis. No subluxation. Cervicomedullary junction: No abnormalities. The foramen magnum is patent. Soft tissues: No abnormalities. Vertebrae: Nonspecific diffuse heterogeneous bone marrow density of the visualized spine may be related to osseous demineralization, underlying lymphoproliferative/myeloproliferative disorder or metastasis in appropriate clinical setting. Degenerative changes: C3-C4: Posterior disc osteophyte complex results in mild canal stenosis. C5-C6: Mild degenerative disc disease. Posterior disc osteophyte complex results in mild canal stenosis. Mild right foraminal stenosis due to uncovertebral arthrosis. C6-C7: Mild right and moderate left foraminal stenosis due to facet and uncovertebral arthrosis. Incidental finding: Evolving subacute vascular insult in right cerebellar hemisphere in right PICA territory as detailed in prior CT head from same day. Partial opacification of left more than right mastoid air cells. Groundglass opacification in bilateral lung apices. Tracheostomy tube noted in position. IMPRESSION: 1. No acute cervical spine fracture or dislocation. 2. Ligament, spinal cord and or vascular abnormalities cannot be excluded on the basis of this examination. 3. Multilevel cervical spondylosis as detailed above. Signed by: Dr. Ravindra Escalante M.D. on 10/04/2019 10:56 PM Dictated By: RAVINDRA ESCALANTE MD 55 Transcribed By: AWILDA on 10/04/192255 COPY TO: DINAH RAY MD CT BRAIN WO 2019-10-04 22:04:00 [place] [address] Patient Name: DEYSI FRANCISCO MR #: [id number] : 1950 Age/Sex: 69/M Req #: [id number] Adm Physician: Ordered by: DINAH RAY MD Report #: [id number] Location: ER Room/Bed: Procedure: [id number] CT/CT BRAIN WO Exam Date: 10/04/19 Exam Time: 2124 REPORT STATUS: Signed ADDENDUM #1 After review of patient's outside clinical report, it was brought to my attention that it was already a known subacute right cerebellar vascular insult. Discussed with ER physician Dr. Ray by phone at 10:40 PM on 10/04/2019. Signed by: Dr. Ravindra Escalante M.D. on 10/04/2019 10:49 PM ORIGINAL REPORT EXAMINATION: Head CT without contrast. HISTORY:Status post fall. COMPARISON:None. TECHNIQUE: Multidetector axial images were obtained from the foramen magnum to the vertex without contrast. The images were reconstructed using brain and bone algorithms. Thin section brain images were reformatted into coronal and sagittal planes. Dose modulation, iterative reconstruction, and/or weight based adjustment of the mA/kV was utilized to reduce the radiation dose to as low as reasonably achievable. Intravenous contrast: None IMAGE QUALITY: Acceptable. FINDINGS: Skull/scalp: No lytic or blastic. lesions. No surgical changes. Parenchyma: Focal hypodensity in the dorsal and inferior aspect of right cerebellar hemisphere with regional mass effect is concerning for evolving acute/subacute vascular insult in right PICA territory. Nonspecific bilateral frontoparietal patchy white matter hypodensity are likely related to small vessel ischemic changes. No acute hemorrhage or mass. Arteries: No density suggestive of thrombosis. Dural sinuses: No abnormal density suggestive of thrombosis. Ventricles: Mild compensated dilatation due to volume loss. No hydrocephalus. Extra-axial spaces: No abnormal density. Brain volume: Generalized age-related cerebral volume loss. Craniocervical junction: No mass, Chiari malformation, or basilar invagination. Sella: No mass. Paranasal/mastoid sinuses: Partial opacification of left mastoid air cells. Small polyp/retention cyst in the inferior aspect of right frontal sinus. IMPRESSION: 1. Focal hypodensity in the dorsal and inferior aspect of right cerebellar hemisphere raises concern for evolving acute/subacute vascular insult in right PICA territory. 2. Mild supratentorial white matter microvascular ischemic garcia ges. 3. Generalized age-related cerebral volume loss. Recommendation: Neurology consultation. CTA of the head and neck for further assessment. Findings informed to ER physician Dr. Ray by phone at 10:10 PM on 10/04/2019. Signed by: Dr. Ravindra Escalante M.D. on 10/04/2019 10:15 PM Dictated By: RAVINDRA ESCALANTE MD 48 Transcribed By: AWILDA on 10/04/192214 COPY TO: DINAH RAY MD BASIC METABOLIC PANEL 2019-08-18 16:20:00 Test Item [...] code = CA) 8.4 mg/dL 8.0-10.5 N [id number] 16:20:00* Test Item Value Reference Range Interpretation Comments PHOSPHOROUS (test code = PHOS) 3.2 MG/DL 2.5-4.9 N [id number] 16:20:00* Test Item Value Reference Range Interpretation Comments MAGNESIUM (test code = MAG) 1.60 mg/dL 1.8-2.4 L BASIC METABOLIC [id number] 16:17:00* Test Item Value Reference Range Interpretation [...] code = CA) 8.4 mg/dL 8.0-10.5 N [id number] 16:17:00* Test Item Value Reference Range Interpretation Comments PHOSPHOROUS (test code = PHOS) MG/DL 2.5-4.9 [id number] 16:17:00* Test Item Value Reference Range Interpretation Comments MAGNESIUM (test code = MAG) 1.60 mg/dL 1.8-2.4 L [id number] 12:29:00* Test Item Value Reference Range Interpretation Comments GLUBED (test code = GLUBED) 131 MG/DL 70-110 H Performed by certified tubing mill operator at [facility] [id number] 06:52:00* Test Item Value Reference Range Interpretation Comments GLUBED (test code = GLUBED) 84 MG/DL 70-110 N Performed by certified tubing mill operator at [facility] - XR CHEST 1 [id number] 06:35:00 FAX: Sherif Hickman MD [phone] [place]: St: [facility] FAX: Izabel Faloln NP [phone] Name: DEYSI FRANCISCO [facility] : 1950 Age/S: 69/M [address] [place] [address] Unit #: [id number] Loc: [address] [place] [address] Phys: Izabel Fallon MANAGER WATER Acct: [id number] Dis Date: Status: ADM IN PHONE #: [phone] Exam Date: 08/18/2019 0550 FAX #: [phone] Reason: resp failure EXAMS: CPT CODE: [id number] XR CHEST 1 V 17109 EXAM: CR, XR chest one view: 08/18/2019, [...] Wren M.D.; Izabel Fallon NP Technologist: RT Nicole(Alexandrea) Trnscrd Date/Time/By: 08/18/2019 (0635) : By: [email or web address] Orig Print D/T: S: 08/18/2019 (0638) PAGE 1 Signed Report COMPREHENSIVE METABOLIC [id number] 05:52:00* Test Item Value Reference Range Interpretation [...] code = ALKP) 97 IUnit/L 20-125 N [id number] 05:52:00* Test Item Value Reference Range Interpretation Comments PHOSPHOROUS (test code = PHOS) 3.3 MG/DL 2.5-4.9 N [id number] 05:52:00* Test Item Value Reference Range Interpretation Comments MAGNESIUM (test code = MAG) 1.40 mg/dL 1.8-2.4 L CALCIUM [id number] 05:52:00* Test Item Value Reference Range Interpretation Comments CALCIUM IONIZED (test code = SEAMUS) 1.20 MMOL/L 1.12-1.32 N COMPREHENSIVE METABOLIC [id number] 05:39:00* Test Item Value Reference Range Interpretation [...] TOTAL (test code = ALKP) IUnit/L 20-125 [id number] 05:39:00* Test Item Value Reference Range Interpretation Comments PHOSPHOROUS (test code = PHOS) MG/DL 2.5-4.9 [id number] 05:39:00* Test Item Value Reference Range Interpretation Comments MAGNESIUM (test code = MAG) mg/dL 1.8-2.4 CALCIUM [id number] 05:39:00* Test Item Value Reference Range Interpretation Comments CALCIUM IONIZED (test code = SEAMUS) 1.20 MMOL/L 1.12-1.32 N PROTHROMBIN [id number] 05:37:00* Test Item Value Reference Range Interpretation [...] Infarction (to prevent recurrent infarct). CBC W/AUTO [id number] 05:27:00* Test Item Value Reference Range Interpretation [...] (test code = MDIFF) NO ARTERIAL BLOOD [id number] 04:44:00* Test Item Value Reference Range Interpretation [...] = PSABG) 10 cmH2O Performed by certified tubing mill operator at [facility] ABG TEMPERATURE (test code = TEMPA) 98.5 F ABG SITE (test code = SITEA) L Rad PREDICTED AA GRADIENT (test code = AP) 59 PREDICTED PO2 (test code = OP) 171 a/A RATIO (test code = RATIO) 0.57 TCO2 ARTERIAL (test code = TCO2A) 33 A-A GRADIENT (test code = AAGRADE) 100 [id number] 22:48:00* Test Item Value Reference Range Interpretation Comments GLUBED (test code = GLUBED) 116 MG/DL 70-110 H Performed by certified tubing mill operator at [facility] [id number] 22:48:00* Test Item Value Reference Range Interpretation Comments GLUBED (test code = GLUBED) 82 MG/DL 70-110 N Performed by certified tubing mill operator at [facility] [id number] 22:48:00* Test Item Value Reference Range Interpretation Comments GLUBED (test code = GLUBED) 74 MG/DL 70-110 N Performed by certified tubing mill operator at [facility] [id number] 19:51:00* Test Item Value Reference Range Interpretation Comments GLUBED (test code = GLUBED) 66 MG/DL 70-110 L Performed by certified tubing mill operator at [facility] [id number] 15:44:00* Test Item Value Reference Range Interpretation Comments GLUBED (test code = GLUBED) 130 MG/DL 70-110 H Performed by certified tubing mill operator at [facility] - CT ABD PELVIS W/O [id number] 08:31:00 Name: DEYSI FRANCISCO [place] : 1950 Age/S: 69 / M [address] [place] [address] Blvd Unit #: [id number] Loc: [place] [address] Phys: Samuel Bradshaw MD Acct: [id number] Dis Date: Status: ADM IN PHONE #: [phone] Exam Date: 08/17/2019527 FAX #: [phone] Reason: vomiting, r/o obstruction EXAMS: CPT CODE: [id number] CT ABD PELVIS W/O CONT 90868 CT abdomen pelvis without contrast: Multiplanar helical [...] Sign ed Report (CONTINUED) Name: DEYSI FRANCISCO [facility] : 1950 Age/S: 69 / M [address] [place] [address] Blvd Unit #: [id number] Loc: [place] [address] Phys: Samuel Bradshaw MD Acct: [id number] Dis Date: Status: ADM IN PHONE #: [phone] Exam Date: 08/17/2019527 FAX #: [phone] Reason: vomiting, r/o obstruct ion EXAMS: CPT CODE: [id number] CT ABD PELVIS W/O CONT 21885 <Continued> lung base could be edema or pneumonia. SL: [id number] at 0831 Reported and signed by: Lebron Wharton M.D. CC: Sherif Wren M.D.; Samuel Bradshaw MD Technologist:RT Luis(R)(CT) CTDI: DLP: Trnscb Date/Time: 08/17/2019 (0831) [email or web address] Orig Print D/T: S: 08/17/2019 (0834) PAGE 2 Signed Report - XR CHEST 1 [id number] 08:06:00 FAX: Sherif Hickman MD [phone] [place]: St: ADM FAX: Frances Lindsey NP [phone] Name: DEYSI FRANCISCO [facility] [place] : 1950 Age/S: 69/M [address] [place] [address] Unit #: [id number] Loc: [address] [place] [address] Phys: Frances Lindsey MANAGER WATER Acct: [id number] Dis Date: Status: ADM IN PHONE #: [phone] Exam Date: 08/17/2019 0546 FAX #: [phone] Reason: resp failure EXAMS: CPT CODE: [id number] XR CHEST 1 V 52050 PROCEDURE: CHEST SINGLE VIEW INDICATION: Respiratory failure [...] insertion site. 3. Stable pulmonary opacities. SL: [id number] at 0806 Reported and signed by: Burton Mccoy M.D. CC: Sherif Wren M.D.; Frances Lindsey NP Technologist: RT Heath(Alexandrea) Trnscrd Date/Time/By: 08/17/2019 (805) : By: [email or web address] Orig Print D/T: S: 08/17/2019 (808) PAGE 1 Signed Report BASIC METABOLIC [id number] 05:10:00* Test Item Value Reference Range Interpretation [...] code = CA) 8.5 mg/dL 8.0-10.5 N [id number] 05:10:00* Test Item Value Reference Range Interpretation Comments PHOSPHOROUS (test code = PHOS) 4.1 MG/DL 2.5-4.9 N [id number] 05:10:00* Test Item Value Reference Range Interpretation Comments MAGNESIUM (test code = MAG) 1.40 mg/dL 1.8-2.4 L CALCIUM [id number] 05:10:00* Test Item Value Reference Range Interpretation Comments CALCIUM IONIZED (test code = SEAMUS) 1.18 MMOL/L 1.12-1.32 N LACTIC [id number] 05:01:00* Test Item Value Reference Range Interpretation Comments LACTIC ACID (test code = LACT) 0.6 mmol/L 0.4-1.9 N [id number] 04:54:00* Test Item Value Reference Range Interpretation Comments GLUBED (test code = GLUBED) 77 MG/DL 70-110 N Performed by certified tubing mill operator at [facility] BASIC METABOLIC [id number] 04:52:00* Test Item Value Reference Range Interpretation [...] CALCIUM (test code = CA) mg/dL 8.0-10.5 [id number] 04:52:00* Test Item Value Reference Range Interpretation Comments PHOSPHOROUS (test code = PHOS) MG/DL 2.5-4.9 [id number] 04:52:00* Test Item Value Reference Range Interpretation Comments MAGNESIUM (test code = MAG) mg/dL 1.8-2.4 CALCIUM [id number] 04:52:00* Test Item Value Reference Range Interpretation Comments CALCIUM IONIZED (test code = SEAMUS) 1.18 MMOL/L 1.12-1.32 N CBC W/AUTO [id number] 04:51:00* Test Item Value Reference Range Interpretation [...] (test code = MDIFF) NO ARTERIAL BLOOD [id number] 04:36:00* Test Item Value Reference Range Interpretation [...] = PEEPA) 5 cmH2O Performed by certified tubing mill operator at [facility] ABG TEMPERATURE (test code = TEMPA) 97.8 F ABG SITE (test code = SITEA) L Rad PREDICTED AA GRADIENT (test code = AP) 57 PREDICTED PO2 (test code = OP) 164 a/A RATIO (test code = RATIO) 0.67 TCO2 ARTERIAL (test code = TCO2A) 35 A-A GRADIENT (test code = AAGRADE) 73 [id number] 23:38:00* Test Item Value Reference Range Interpretation Comments GLUBED (test code = GLUBED) 112 MG/DL 70-110 H Performed by certified tubing mill operator at [facility] - XR CHEST 1 [id number] 19:31:00 FAX: Sherif Hickman MD [phone] [place]: St: [facility] FAX: Frances Lindsey NP [phone] Name: DEYSI FRANCISCO [facility] : 1950 Age/S: 69/M [address] [place] [address] Unit #: [id number] Loc: [address] [place] [address] Phys: Frances Lindsey NP Acct: [id number] Dis Date: Status: ADM IN PHONE #: [phone] Exam Date: 08/16/20191919 FAX #: [phone] Reason: right subclavian line assessment EXAMS: CPT CODE: [id number] XR CHEST 1 V 87167 SINGLE VIEW RADIOGRAPH CHEST INDICATION: right subclavian [...] Signed Report (CONTINUED) FAX: Sherif Hickman MD [phone] [place]: St: ADM FAX: Frances Lindsey NP Name: DEYSI FRANCISCO [facility] : 1950 Age/S: 69/M [address] [place] [address] Unit #: [id number] Loc: [address] [place] [address] Phys : Frances Lindsey NP Acct: [id number] Dis Date: Status: ADM IN PHONE #: [phone] Exam Date: 08/16/2019 1920 F AX #: [phone] Reason: right subclavian line assessment EXAMS: CPT CODE: [id number] XR CHEST 1 V 96731 <Continued> CC: Sherif Wren M.D.; Frances Lindsey NP Technologist: RT Porsha(R) Nery Date/Time/By: 08/16/2019 (1930) : By: [email or web address] Orig Print D/T: S: 08/16/2019 (1933) PAGE 2 Signed Report [id number] 17:19:00* Test Item Value Reference Range Interpretation Comments GLUBED (test code = GLUBED) 81 MG/DL 70-110 N Performed by certified tubing mill operator at [facility] [id number] 12:01:00* Test Item Value Reference Range Interpretation Comments GLUBED (test code = GLUBED) 102 MG/DL 70-110 N Performed by certified tubing mill operator at [facility] [id number] 10:32:00* Test Item Value Reference Range Interpretation Comments GLUBED (test code = GLUBED) 125 MG/DL 70-110 H Performed by certified tubing mill operator at [facility] - XR CHEST 1 [id number] 08:31:00 FAX: Sherif Hickman MD [phone] [place]: St: ADM FAX: Frances Lindsey NP [phone] Name: DEYSI FRANCISCO [facility] : 1950 Age/S: 69/M [address] [place] [address] Unit #: [id number] Loc: [address] [place] [address] Phys: Frances Lindsey NP Acct: [id number] Dis Date: Status: ADM IN PHONE #: [phone] Exam Date: 08/16/2019 0539 FAX #: [phone] Reason: resp failure EXAMS: CPT CODE: [id number] XR CHEST 1 V 83175 Clinical Indication: Respiratory failure. Comparison: 08/15/2019. Impression: Chest, single view. Stable position of support apparatus. Bilateral airspace opacities, not significantly changed since prior. No new pleural effusion or pneumothorax. Heart size normal. Overall appearance is similar to prior. SL: [id number] at 0831 Reported and signed by: Marcy Ortiz M.D. CC: Sherif Wren M.D.; Frances Lindsey NP Technologist: RT Farhana(R) Trnscrd Date/Time/By: 08/16/2019 (31) : By: [email or web address] Orig Print D/T: S: 08/16/2019 (9463) PAGE 1 Signed Report GLUBED 2019-08-16 08:20:00* Test Item Value Reference Range Interpretation Comments GLUBED (test code = GLUBED) 96 MG/DL 70-110 N Performed by certified tubing mill operator at [facility] [id number] 07:23:00* Test Item Value Reference Range Interpretation Comments GLUBED (test code = GLUBED) 168 MG/DL 70-110 H Performed by certified tubing mill operator at [facility] [id number] 06:24:00* Test Item Value Reference Range Interpretation Comments AMMONIA (test code = AMM) 24 umol/L 0-35 N BASIC METABOLIC [id number] 05:50:00* Test Item Value Reference Range Interpretation [...] code = CA) 8.4 mg/dL 8.0-10.5 N [id number] 05:50:00* Test Item Value Reference Range Interpretation Comments PHOSPHOROUS (test code = PHOS) 4.5 MG/DL 2.5-4.9 N [id number] 05:50:00* Test Item Value Reference Range Interpretation Comments MAGNESIUM (test code = MAG) 1.60 mg/dL 1.8-2.4 L CALCIUM [id number] 05:50:00* Test Item Value Reference Range Interpretation Comments CALCIUM IONIZED (test code = SEAMUS) 1.19 MMOL/L 1.12-1.32 N CBC W/AUTO [id number] 05:40:00* Test Item Value Reference Range Interpretation [...] (test code = MDIFF) NO BASIC METABOLIC [id number] 05:39:00* Test Item Value Reference Range Interpretation [...] CALCIUM (test code = CA) mg/dL 8.0-10.5 [id number] 05:39:00* Test Item Value Reference Range Interpretation Comments PHOSPHOROUS (test code = PHOS) MG/DL 2.5-4.9 [id number] 05:39:00* Test Item Value Reference Range Interpretation Comments MAGNESIUM (test code = MAG) mg/dL 1.8-2.4 CALCIUM [id number] 05:39:00* Test Item Value Reference Range Interpretation Comments CALCIUM IONIZED (test code = SEAMUS) 1.19 MMOL/L 1.12-1.32 N ARTERIAL BLOOD [id number] 05:03:00* Test Item Value Reference Range Interpretation [...] = PEEPA) 5 cmH2O Performed by certified tubing mill operator at [facility] ABG TEMPERATURE (test code = TEMPA) 98.9 F ABG SITE (test code = SITEA) Art line PREDICTED AA GRADIENT (test code = AP) 57 PREDICTED PO2 (test code = OP) 164 a/A RATIO (test code = RATIO) 0.57 TCO2 ARTERIAL (test code = TCO2A) 32 A-A GRADIENT (test code = AAGRADE) 94 [id number] 17:42:00* Test Item Value Reference Range Interpretation Comments GLUBED (test code = GLUBED) 103 MG/DL 70-110 N Performed by certified tubing mill operator at [facility] [id number] 17:08:00* Test Item Value Reference Range Interpretation Comments HAPTOGLOBIN (test code = HAPT) 280 mg/dL 32-363 Performed At: [facility] [id number] Sanjai MD Ph:[phone] [id number] 11:42:00* Test Item Value Reference Range Interpretation Comments GLUBED (test code = GLUBED) 143 MG/DL 70-110 H Performed by certified tubing mill operator at [facility] - XR CHEST 1 [id number] 08:33:00 FAX: Sherif Hickman MD [phone] [place]: St: ADM FAX: Frances Lindsey NP [phone] Name: DEYSI FRANCISCO [facility] : 1950 Age/S: 69/M [address] [place] [address] Blvd Unit #: [id number] Loc: [address] [place] [address] Phys: Frances Lindsey MANAGER WATER Acct: [id number] Dis Date: Status: ADM IN PHONE #: [phone] Exam Date: 08/15/2019613 FAX #: [phone] Reason: resp failure EXAMS: CPT CODE: [id number] XR CHEST 1 V 29121 PROCEDURE: CHEST SINGLE VIEW INDICATION: Respiratory failure [...] RDS, edema, infection in the differential. SL: [id number] at 0833 R eported and signed by: Burton Mccoy M.D. CC: Sherif Mayfield; Frances Lindsey NP Technologist: RT Farhana(R) Trnscrd Date/Time/By: 08/15/2019 (0833) : By: Ethan Orig Print D/T: S: 08/15/2019 (2855) PAGE 1 Signed Report BASIC METABOLIC [id number] 06:30:00* Test Item Value Reference Range Interpretation [...] code = CA) 8.6 mg/dL 8.0-10.5 N [id number] 06:30:00* Test Item Value Reference Range Interpretation Comments PHOSPHOROUS (test code = PHOS) 3.8 MG/DL 2.5-4.9 N [id number] 06:30:00* Test Item Value Reference Range Interpretation Comments MAGNESIUM (test code = MAG) 1.70 mg/dL 1.8-2.4 L CALCIUM [id number] 06:30:00* Test Item Value Reference Range Interpretation Comments CALCIUM IONIZED (test code = SEAMUS) 1.21 MMOL/L 1.12-1.32 N ARTERIAL BLOOD [id number] 05:59:00* Test Item Value Reference Range Interpretation [...] = PEEPA) 5 cmH2O Performed by certified tubing mill operator at [facility] ABG TEMPERATURE (test code = TEMPA) 97.7 F ABG SITE (test code = SITEA) Art line PREDICTED AA GRADIENT (test code = AP) 58 PREDICTED PO2 (test code = OP) 166 a/A RATIO (test code = RATIO) 0.39 TCO2 ARTERIAL (test code = TCO2A) 34 A-A GRADIENT (test code = AAGRADE) 137 [id number] 05:31:00* Test Item Value Reference Range Interpretation Comments GLUBED (test code = GLUBED) 103 MG/DL 70-110 N Performed by certified tubing mill operator at [facility] BASIC METABOLIC [id number] 05:29:00* Test Item Value Reference Range Interpretation [...] code = CA) 8.6 mg/dL 8.0-10.5 N [id number] 05:29:00* Test Item Value Reference Range Interpretation Comments PHOSPHOROUS (test code = PHOS) 3.8 MG/DL 2.5-4.9 N [id number] 05:29:00* Test Item Value Reference Range Interpretation Comments MAGNESIUM (test code = MAG) 1.70 mg/dL 1.8-2.4 L CALCIUM [id number] 05:29:00* Test Item Value Reference Range Interpretation Comments CALCIUM IONIZED (test code = SEAMUS) MMOL/L 1.12-1.32 [id number] 05:28:00* Test Item Value Reference Range Interpretation Comments AMMONIA (test code = AMM) 20 umol/L 0-35 N CBC W/AUTO [id number] 04:55:00* Test Item Value Reference Range Interpretation [...] DIFF REQUIRED (test code = MDIFF) NO [id number] 23:30:00* Test Item Value Reference Range Interpretation Comments GLUBED (test code = GLUBED) 148 MG/DL 70-110 H Performed by certified tubing mill operator at [facility] [id number] 20:08:00* Test Item Value Reference Range Interpretation Comments GLUBED (test code = GLUBED) 123 MG/DL 70-110 H Performed by certified tubing mill operator at [facility] [id number] 12:52:00* Test Item Value Reference Range Interpretation Comments GLUBED (test code = GLUBED) 103 MG/DL 70-110 N Performed by certified tubing mill operator at [facility] - XR CHEST 1 [id number] 08:08:00 FAX: Sherif Hickman MD [phone] [place]: St: [facility] FAX: Frances Lindsey NP [phone] Name: DEYSI FRANCISCO [facility] : 1950 Age/S: 69/M [address] [place] [address] Unit #: [id number] Loc: G.M314 [place] [address] Phys: Frances Lindsey MANAGER WATER Acct: [id number] Dis Date: Status: ADM IN PHONE #: [phone] Exam Date: 08/14/2019745 FAX #: [phone] Reason: resp failure EXAMS: CPT CODE: [id number] XR CHEST 1 V 51012 Clinical Indication: Respiratory failure. Comparison: 08/13/2019. Impression: Chest, single view. Stable position of endotracheal tube. Right subclavian central venous catheter is in place with tip projecting to the superior vena cava. Bilateral airspace opacities, similar to prior. Small bilateral pleural effusions. No pneumothorax. Heart size is normal. No acute osseous abnormality. Overall appearance is stable from prior. SL: [id number] at 0808 Reported and signed by: Marcy Ortiz M.D. CC: Sherif Wren M.D.; Frances Lindsey NP Technologist: RT Keven(Alexandrea) Trnscrd Date/Time/By: 08/14/2019 (0808) : By: [email or web address] Orig Print D/T: S: 08/14/2019 (0811) PAGE [...] = PEEPA) 5 cmH2O Performed by certified tubing mill operator at [facility] ABG TEMPERATURE (test code = TEMPA) 98.6 F ABG SITE (test code = SITEA) Art line PREDICTED AA GRADIENT (test code = AP) 56 PREDICTED PO2 (test code = OP) 160 a/A RATIO (test code = RATIO) 0.39 TCO2 ARTERIAL (test code = TCO2A) 33 A-A GRADIENT (test code = AAGRADE) 132 BASIC METABOLIC [id number] 04:06:00* Test Item Value Reference Range Interpretation [...] CA) 8.6 mg/dL 8.0-10.5 N HEPATIC FUNCTION [id number] 04:06:00* Test Item Value Reference Range Interpretation [...] code = ALKP) 170 IUnit/L 20-125 H [id number] 04:06:00* Test Item Value Reference Range Interpretation Comments PHOSPHOROUS (test code = PHOS) 4.7 MG/DL 2.5-4.9 N [id number] 04:06:00* Test Item Value Reference Range Interpretation Comments LIPASE (test code = LIP) 180 IUnit/L 73-393 N [id number] 04:06:00* Test Item Value Reference Range Interpretation Comments MAGNESIUM (test code = MAG) 1.70 mg/dL 1.8-2.4 L CALCIUM [id number] 04:06:00* Test Item Value Reference Range Interpretation Comments CALCIUM IONIZED (test code = SEAMUS) 1.24 MMOL/L 1.12-1.32 N [id number] 04:02:00* Test Item Value Reference Range Interpretation Comments AMMONIA (test code = AMM) 26 umol/L 0-35 N BASIC METABOLIC [id number] 03:53:00* Test Item Value Reference Range Interpretation [...] code = CA) mg/dL 8.0-10.5 HEPATIC FUNCTION [id number] 03:53:00* Test Item Value Reference Range Interpretation Comments TOTAL PROTEIN (test code = PROT) g/dL 6.4-8.2 ALBUMIN (test code = ALB) g/dL 3.4-5.0 BILIRUBIN TOTAL (test code = BILT) MG/DL <1.5 BILIRUBIN DIRECT (test code = BILD) MG/DL 0.0-0.30 SGOT/AST (test code = AST) IUnit/L 15-37 SGPT/ALT (test code = ALT) IUnit/L 15-65 ALKALINE PHOSPHATASE TOTAL (test code = ALKP) IUnit/L 20-125 [id number] 03:53:00* Test Item Value Reference Range Interpretation Comments PHOSPHOROUS (test code = PHOS) MG/DL 2.5-4.9 [id number] 03:53:00* Test Item Value Reference Range Interpretation Comments LIPASE (test code = LIP) IUnit/L 73-393 [id number] 03:53:00* Test Item Value Reference Range Interpretation Comments MAGNESIUM (test code = MAG) mg/dL 1.8-2.4 CALCIUM [id number] 03:53:00* Test Item Value Reference Range Interpretation Comments CALCIUM IONIZED (test code = SEAMUS) 1.24 MMOL/L 1.12-1.32 N CBC W/AUTO [id number] 03:48:00* Test Item Value Reference Range Interpretation [...] DIFF REQUIRED (test code = MDIFF) NO [id number] 01:17:00* Test Item Value Reference Range Interpretation Comments GLUBED (test code = GLUBED) 109 MG/DL 70-110 N Performed by certified tubing mill operator at [facility] [id number] 17:06:00* Test Item Value Reference Range Interpretation Comments GLUBED (test code = GLUBED) 100 MG/DL 70-110 N Performed by certified tubing mill operator at [facility] [id number] 11:13:00* Test Item Value Reference Range Interpretation Comments GLUBED (test code = GLUBED) 122 MG/DL 70-110 H Performed by certified tubing mill operator at [facility] [id number] 08:01:00* Test Item Value Reference Range Interpretation Comments GLUBED (test code = GLUBED) 72 MG/DL 70-110 N Performed by certified tubing mill operator at [facility] - XR CHEST 1 [id number] 07:18:00 FAX: Sherif Hickman MD [phone] [place]: St: ADM FAX: Frances Lindsey NP [phone] Name: DEYSI FRANCISCO [facility] : 1950 Age/S: 69/M [address] [place] [address] Blvd Unit #: [id number] Loc: G.M314 [place] [address] Phys: Frances Lindsey MANAGER WATER Acct: [id number] Dis Date: Status: ADM IN PHONE #: [phone] Exam Date: 08/13/2019620 FAX #: [phone] Reason: resp failure EXAMS: CPT CODE: [id number] XR CHEST 1 V 49297 Chest view 08/13/2019 HISTORY: Respiratory failure Comparison is made to 08/12/2019 FINDINGS: The endotracheal tube and right jugular line are stable. Patchy airspace opacities and interstitial infiltrates throughout both lungs are not significantly changed, right greater than left. Bilateral pleural effusions are unchanged. IMPRESSION: Stable chest. SL: [id number] at 0718 Reported and signed by: Eric Orozco M.D. CC: Sherif Wren M.D.; Frances Lindsey NP Technologist: RT Anton(Alexandrea) Trnscrd Date/Time/By: 08/13/2019 (717) : By: [email or web address] Orig Print D/T: S: 08/13/2019 (5250) PAGE 1 Signed Report BASIC METABOLIC [id number] 06:23:00* Test Item Value Reference Range Interpretation [...] code = CA) 8.5 mg/dL 8.0-10.5 N [id number] 06:23:00* Test Item Value Reference Range Interpretation Comments PHOSPHOROUS (test code = PHOS) 5.3 MG/DL 2.5-4.9 H [id number] 06:23:00* Test Item Value Reference Range Interpretation Comments MAGNESIUM (test code = MAG) 1.80 mg/dL 1.8-2.4 N CALCIUM [id number] 06:23:00* Test Item Value Reference Range Interpretation Comments CALCIUM IONIZED (test code = SEAMUS) 1.22 MMOL/L 1.12-1.32 N BASIC METABOLIC [id number] 06:13:00* Test Item Value Reference Range Interpretation [...] CALCIUM (test code = CA) mg/dL 8.0-10.5 [id number] 06:13:00* Test Item Value Reference Range Interpretation Comments PHOSPHOROUS (test code = PHOS) MG/DL 2.5-4.9 [id number] 06:13:00* Test Item Value Reference Range Interpretation Comments MAGNESIUM (test code = MAG) mg/dL 1.8-2.4 CALCIUM [id number] 06:13:00* Test Item Value Reference Range Interpretation Comments CALCIUM IONIZED (test code = SEAMUS) 1.22 MMOL/L 1.12-1.32 N CBC W/AUTO [id number] 06:01:00* Test Item Value Reference Range Interpretation [...] (test code = MDIFF) NO ARTERIAL BLOOD [id number] 05:19:00* Test Item Value Reference Range Interpretation [...] = PEEPA) 5 cmH2O Performed by certified tubing mill operator at [facility] ABG TEMPERATURE (test code = TEMPA) 97.5 F ABG SITE (test code = SITEA) Art line PREDICTED AA GRADIENT (test code = AP) 76 PREDICTED PO2 (test code = OP) 218 a/A RATIO (test code = RATIO) 0.48 TCO2 ARTERIAL (test code = TCO2A) 30 A-A GRADIENT (test code = AAGRADE) 153 [id number] 00:32:00* Test Item Value Reference Range Interpretation Comments GLUBED (test code = GLUBED) 94 MG/DL 70-110 N Performed by certified tubing mill operator at [facility] [id number] 18:42:00* Test Item Value Reference Range Interpretation Comments SODIUM (test code = NA) 150 mEq/L 134-147 H [id number] 18:26:00* Test Item Value Reference Range Interpretation Comments GLUBED (test code = GLUBED) 77 MG/DL 70-110 N Performed by certified tubing mill operator at [facility] PROCALCITONIN (PCT)2019-08-12 14:39:00* Test Item Value Reference [...] if any concentrations <2 ng/mL are obtained. [id number] 13:06:00* Test Item Value Reference Range Interpretation Comments SODIUM (test code = NA) 151 mEq/L 134-147 H [id number] 12:18:00* Test Item Value Reference Range Interpretation Comments GLUBED (test code = GLUBED) 94 MG/DL 70-110 N Performed by certified tubing mill operator at [facility] CBC W/AUTO [id number] 11:20:00* Test Item Value Reference Range Interpretation [...] REQUIRED (test code = MDIFF) YES WBC [id number] 11:20:00* Test Item Value Reference Range Interpretation [...] (test code = PLTMORPH) NORMAL CBC W/AUTO [id number] 11:15:00* Test Item Value Reference Range Interpretation [...] REQUIRED (test code = MDIFF) YES WBC [id number] 11:15:00* Test Item Value Reference Range Interpretation Comments ANISOCYTOSIS (test code = ANISO) PLATELET ESTIMATE (test code = PLTEST) THOUSAND ADEQUATE CBC W/AUTO [id number] 11:15:00* Test Item Value Reference Range Interpretation [...] REQUIRED (test code = MDIFF) YES WBC [id number] 11:15:00* Test Item Value Reference Range Interpretation [...] = LDL) 28 mg/dL 0-100 N <100 [id number] NEAR OPTIMAL/ABOVE [id number] CGDLUVXFLZ794-414 HIGH>DI=401 VERY HIGH*Guidelines provided by the National Cholesterol EducationProgram Adult Treatment Panel III GAMMA GLUTAMYL [id number] 10:18:00* Test Item Value Reference Range Interpretation Comments GAMMA GLUTAMYL TRANSPEPTIDASE (test code = GGT) 13 UNITS/L 5-85 N Result is in INTERNATIONAL UNITS/LITER LACTIC DEHYDROGENASE(LDH)2019-08-12 10:18:00* Test Item Value Reference Range Interpretation Comments LACTIC DEHYDROGENASE(LDH) (test code = LDH) 191 IUnits/L 87-241 N T4 [id number] 10:18:00* Test Item Value Reference Range Interpretation Comments T4 FREE (test code = T4F) 0.9 ng/dL 0.77-1.61 N TSH REFLEX TO [id number] 10:18:00* Test Item Value Reference Range Interpretation [...] = LDL) 28 mg/dL 0-100 N <100 [id number] NEAR OPTIMAL/ABOVE [id number] GUONFBUQIM770-579 HIGH>KG=015 VERY HIGH*Guidelines provided by the National Cholesterol EducationProgram Adult Treatment Panel III GAMMA GLUTAMYL [id number] 09:59:00* Test Item Value Reference Range Interpretation Comments GAMMA GLUTAMYL TRANSPEPTIDASE (test code = GGT) 13 UNITS/L 5-85 N Result is in INTERNATIONAL UNITS/LITER LACTIC DEHYDROGENASE(LDH)2019-08-12 09:59:00* Test Item Value Reference Range Interpretation Comments LACTIC DEHYDROGENASE(LDH) (test code = LDH) 191 IUnits/L 87-241 N T4 [id number] 09:59:00* Test Item Value Reference Range Interpretation Comments T4 FREE (test code = T4F) ng/dL 0.77-1.61 TSH REFLEX TO [id number] 09:59:00* Test Item Value Reference Range Interpretation [...] % 0.3-2.3 N - XR CHEST 1 [id number] 08:06:00 FAX: Sherif Hickman MD [phone] [place]: GC St: ADM FAX: Izabel Fallon NP [phone] Name: DEYSI FRANCISCO [facility] : 1950 Age/S: 69/M [address] [place] [address] Blvd Unit #: [id number] Loc: G.14 [place] [address] Phys: Izabel Fallon NP Acct: [id number] Dis Date: Status: ADM IN PHONE #: [phone] Exam Date: 08/12/2019727 FAX #: [phone] Reason: RESP FAILURE/PNEUMONIA EXAMS: CPT CODE: [id number] XR CHEST 1 V 07762 Chest single view 08/12/2019 HISTORY: Respiratory failure. [...] pneumonia. 2. Removal of gastric tube. SL: [id number] Electronically Signed by Mega Orozco on 0 08/12/2019 at 0806 Reported and signed by: Jose Guadalupe Orozco M.D. CC: Sherif Wren M.D.; Izabel wright NP Technologist: Anali Thornton, RT(R); Radha Dunlap RT (R) Trnkyrd Date/Time/By: 08/12/2019 (805) : By: [email or web address] Or ig Print D/T: S: 08/12/2019 (0809) PAGE 1 Signed Report COMPREHENSIVE METABOLIC [id number] 06:20:00* Test Item Value Reference Range Interpretation [...] code = ALKP) 162 IUnit/L 20-125 H [id number] 06:20:00* Test Item Value Reference Range Interpretation Comments PHOSPHOROUS (test code = PHOS) 4.4 MG/DL 2.5-4.9 N [id number] 06:20:00* Test Item Value Reference Range Interpretation Comments MAGNESIUM (test code = MAG) 2.00 mg/dL 1.8-2.4 N CALCIUM [id number] 06:20:00* Test Item Value Reference Range Interpretation Comments CALCIUM IONIZED (test code = SEAMUS) 1.21 MMOL/L 1.12-1.32 N COMPREHENSIVE METABOLIC [id number] 06:11:00* Test Item Value Reference Range Interpretation [...] TOTAL (test code = ALKP) IUnit/L 20-125 [id number] 06:11:00* Test Item Value Reference Range Interpretation Comments PHOSPHOROUS (test code = PHOS) MG/DL 2.5-4.9 [id number] 06:11:00* Test Item Value Reference Range Interpretation Comments MAGNESIUM (test code = MAG) mg/dL 1.8-2.4 CALCIUM [id number] 06:11:00* Test Item Value Reference Range Interpretation Comments CALCIUM IONIZED (test code = SEAMUS) 1.21 MMOL/L 1.12-1.32 N PROTHROMBIN [id number] 06:11:00* Test Item Value Reference Range Interpretation [...] Infarction (to prevent recurrent infarct). CBC W/AUTO [id number] 06:03:00* Test Item Value Reference Range Interpretation [...] REQUIRED (test code = MDIFF) ARTERIAL BLOOD [id number] 05:52:00* Test Item Value Reference Range Interpretation [...] = PEEPA) 8 cmH2O Performed by certified tubing mill operator at [facility] ABG TEMPERATURE (test code = TEMPA) 98.6 F ABG SITE (test code = SITEA) Art line PREDICTED AA GRADIENT (test code = AP) 59 PREDICTED PO2 (test code = OP) 169 a/A RATIO (test code = RATIO) 0.42 TCO2 ARTERIAL (test code = TCO2A) 27 A-A GRADIENT (test code = AAGRADE) 134 [id number] 00:44:00* Test Item Value Reference Range Interpretation Comments GLUBED (test code = GLUBED) 115 MG/DL 70-110 H Performed by certified tubing mill operator at [facility] [id number] 23:37:00* Test Item Value Reference Range Interpretation Comments GLUBED (test code = GLUBED) 84 MG/DL 70-110 N Performed by certified tubing mill operator at [facility] [id number] 13:57:00* Test Item Value Reference Range Interpretation Comments SODIUM (test code = NA) 153 mEq/L 134-147 H HGB [id number] 13:50:00* Test Item Value Reference Range Interpretation Comments HEMOGLOBIN (test code = HGB) 7.3 g/dL 12.5-16.9 L HEMATOCRIT (test code = HCT) 23.4 % 37.5-50.7 L [id number] 11:32:00* Test Item Value Reference Range Interpretation Comments GLUBED (test code = GLUBED) 144 MG/DL 70-110 H Performed by certified tubing mill operator at [facility] CBC W/AUTO [id number] 08:13:00* Test Item Value Reference Range Interpretation [...] REVIEWED, CONSISTENT WITH AUTO DIFF. COMPREHENSIVE METABOLIC [id number] 06:43:00* Test Item Value Reference Range Interpretation [...] code = ALKP) 140 IUnit/L 20-125 H [id number] 06:43:00* Test Item Value Reference Range Interpretation Comments PHOSPHOROUS (test code = PHOS) 3.6 MG/DL 2.5-4.9 N [id number] 06:43:00* Test Item Value Reference Range Interpretation Comments MAGNESIUM (test code = MAG) 2.10 mg/dL 1.8-2.4 N CALCIUM [id number] 06:43:00* Test Item Value Reference Range Interpretation Comments CALCIUM IONIZED (test code = SEAMUS) 1.24 MMOL/L 1.12-1.32 N PROTHROMBIN [id number] 06:17:00* Test Item Value Reference Range Interpretation [...] Infarction (to prevent recurrent infarct). COMPREHENSIVE METABOLIC [id number] 06:11:00* Test Item Value Reference Range Interpretation [...] code = ALKP) 140 IUnit/L 20-125 H [id number] 06:11:00* Test Item Value Reference Range Interpretation Comments PHOSPHOROUS (test code = PHOS) 3.6 MG/DL 2.5-4.9 N [id number] 06:11:00* Test Item Value Reference Range Interpretation Comments MAGNESIUM (test code = MAG) 2.10 mg/dL 1.8-2.4 N CALCIUM [id number] 06:11:00* Test Item Value Reference Range Interpretation Comments CALCIUM IONIZED (test code = SEAMUS) MMOL/L 1.12-1.32 CBC W/AUTO [id number] 05:50:00* Test Item Value Reference Range Interpretation [...] MANUAL DIFF REQUIRED (test code = MDIFF) [id number] 05:48:00* Test Item Value Reference Range Interpretation Comments GLUBED (test code = GLUBED) 86 MG/DL 70-110 N Performed by certified tubing mill operator at [facility] - XR CHEST 1 [id number] 05:20:00 FAX: Sherif Hickman MD [phone] [place]: St: ADM FAX: Izabel Fallon NP [phone] Name: DEYSI FRANCISCO [facility] : 1950 Age/S: 69/M [address] [place] [address] Unit #: [id number] Loc: [address] [address] Phys: Izabel Fallon NP Acct: [id number] Dis Date: Status: ADM IN PHONE #: [phone] Exam Date: 08/11/2019512 FAX #: [phone] Reason: resp failure/aspiration pneumonia EXAMS: CPT CODE: [id number] XR CHEST 1 V 82119 Study: - XR CHEST 1 V 08/11/2019 5:00 AM Patient Name: DEYSI FRANCISCO MR: [id number] : 1950; Age: 69 years y/o Male [...] Repo rt (CONTINUED) FAX: Sherif Hickman MD [place]: St: ADM FAX: Izabel Fallon NP [phone] ------ Name: DEYSI FRANCISCO [facility] : [birth year] Age/S: 69/M [address] [place] [address] Unit #: [id number] Loc: G.M314 [place] [address] Phys: Izabel Fallon NP Acct: [id number] Dis Date: Status: ADM IN PHONE #: Exam Date: 08/11/2019512 FAX #: [phone] Reason: resp failure/aspiration pneumonia EXAMS: CPT CODE: [id number] XR CHEST 1 V 20036 <Continued> CC: Sherif Wren M.D.; Izabel Fallon NP Technologist: Julieth Rust RT(R) Trnscrd Date/Time/By: 08/11/2019 (519) : By: [email or web address] Orig Print D/T: S: 08/11/2019 (0524) PAGE 2 Signed Report ARTERIAL BLOOD [id number] 04:39:00* Test Item Value Reference Range Interpretation [...] = PEEPA) 8 cmH2O Performed by certified tubing mill operator at [facility] ABG TEMPERATURE (test code = TEMPA) 97.9 F ABG SITE (test code = SITEA) Art line PREDICTED AA GRADIENT (test code = AP) 112 PREDICTED PO2 (test code = OP) 319 a/A RATIO (test code = RATIO) 0.45 TCO2 ARTERIAL (test code = TCO2A) 33 A-A GRADIENT (test code = AAGRADE) 235 Coronavirus 2018 nCoV [id number] 01:29:00* Test Item Value Reference Range Interpretation Comments Coronavirus 2018 nCoV Bedside (test code = COVNONPUIBED) Negative Negative Negative results should be treated as presumptive and, ifinconsistent with clinical signs and symptoms or necessaryfor patient management, should be tested with an alternativemolecular assay. Negative results do not preclude QEDF-KpS-5covnpgjdc and should not be used as the sole basis forpatient management decisions. Negative results should beconsidered in the context of a patient's recent exposures,history, presence of clinical signs and symptoms consistentwith COVID-19. Acknowledged? YESCOMMENTS: DURAN ANG [id number] 00:40:00* Test Item Value Reference Range Interpretation Comments GLUBED (test code = GLUBED) 85 MG/DL 70-110 N Performed by certified tubing mill operator at [facility] [id number] 00:07:00* Test Item Value Reference Range Interpretation Comments GLUBED (test code = GLUBED) 130 MG/DL 70-110 H Performed by certified tubing mill operator at [facility] HGB [id number] 22:15:00* Test Item Value Reference Range Interpretation Comments HEMOGLOBIN (test code = HGB) 6.4 g/dL 12.5-16.9 LL HEMATOCRIT (test code = HCT) 22.1 % 37.5-50.7 L ARTERIAL BLOOD [id number] 12:58:00* Test Item Value Reference Range Interpretation [...] = PEEPA) 8 cmH2O Performed by certified tubing mill operator at [facility] ABG TEMPERATURE (test code = TEMPA) 98.6 F ABG SITE (test code = SITEA) Art line PREDICTED AA GRADIENT (test code = AP) 112 PREDICTED PO2 (test code = OP) 320 a/A RATIO (test code = RATIO) 0.25 TCO2 ARTERIAL (test code = TCO2A) 32 A-A GRADIENT (test code = AAGRADE) 325 [id number] 12:30:00* Test Item Value Reference Range Interpretation Comments GLUBED (test code = GLUBED) 135 MG/DL 70-110 H Performed by certified tubing mill operator at [facility] [id number] 08:19:00* Test Item Value Reference Range Interpretation Comments GLUBED (test code = GLUBED) 100 MG/DL 70-110 N Performed by certified tubing mill operator at [facility] COMPREHENSIVE METABOLIC [id number] 06:25:00* Test Item Value Reference Range Interpretation [...] code = ALKP) 202 IUnit/L 20-125 H [id number] 06:25:00* Test Item Value Reference Range Interpretation Comments PHOSPHOROUS (test code = PHOS) 3.7 MG/DL 2.5-4.9 [id number] 06:25:00* Test Item Value Reference Range Interpretation Comments MAGNESIUM (test code = MAG) 1.90 mg/dL 1.8-2.4 N CALCIUM [id number] 06:25:00* Test Item Value Reference Range Interpretation Comments CALCIUM IONIZED (test code = SEAMUS) 1.28 MMOL/L 1.12-1.32 N COMPREHENSIVE METABOLIC [id number] 06:07:00* Test Item Value Reference Range Interpretation [...] TOTAL (test code = ALKP) IUnit/L 20-125 [id number] 06:07:00* Test Item Value Reference Range Interpretation Comments PHOSPHOROUS (test code = PHOS) MG/DL 2.5-4.9 [id number] 06:07:00* Test Item Value Reference Range Interpretation Comments MAGNESIUM (test code = MAG) mg/dL 1.8-2.4 CALCIUM [id number] 06:07:00* Test Item Value Reference Range Interpretation Comments CALCIUM IONIZED (test code = SEAMUS) 1.28 MMOL/L 1.12-1.32 N CBC W/AUTO [id number] 06:03:00* Test Item Value Reference Range Interpretation [...] SLIDE REVIEWED, CONSISTENT WITH AUTO DIFF. PROTHROMBIN [id number] 05:48:00* Test Item Value Reference Range Interpretation [...] Infarction (to prevent recurrent infarct). CBC W/AUTO [id number] 05:47:00* Test Item Value Reference Range Interpretation [...] REQUIRED (test code = MDIFF) ARTERIAL BLOOD [id number] 05:42:00* Test Item Value Reference Range Interpretation [...] = PEEPA) 8 cmH2O Performed by certified tubing mill operator at [facility] ABG TEMPERATURE (test code = TEMPA) 97.2 F ABG SITE (test code = SITEA) Art line PREDICTED AA GRADIENT (test code = AP) 128 PREDICTED PO2 (test code = OP) 365 a/A RATIO (test code = RATIO) 0.27 TCO2 ARTERIAL (test code = TCO2A) 33 A-A GRADIENT (test code = AAGRADE) 362 - XR CHEST 1 [id number] 05:33:00 FAX: Sherif Hickman MD [phone] [place]: St: ADM FAX: Izabel Fallon NP [phone] Name: DEYSI FRANCISCO [facility] : 1950 Age/S: 69/M [address] [place], [place] [address] Unit #: [id number] Loc: G.M314 [place] [address] Phys: Izabel Fallon NP Acct: [id number] Dis Date: Status: ADM IN PHONE #: [phone] Exam Date: 08/10/2019518 FAX #: [phone] Reason: PNEUMONIA EXAMS: CPT CODE: [id number] XR CHEST 1 V 71194 Study: - XR CHEST 1 V 08/10/2019 5:00 AM Patient Name: DEYSI FRANCISCO MR: [id number] : 1950; Age: 69 years y/o Male [...] Stable mild cardiomegaly. SL: TPAINTER- H at 8492 Repo rted and signed by: David Alvarez M.D. PAGE 1 Sig donovan Report (CONTINUED) FAX: Sherif Hickman MD [place]: St: ADM FAX: Izabel Fallon NP [phone] Name: DEYSI FRANCISCO [facility] OB: 1950 Age/S: 69/M [address] [place] [address] Unit #: [id number] Loc: G.M314 [place] [address] Phys: Izabel Fallon NP Acct: [id number] D is Date: Status: ADM IN PHONE #: Exam Date: 08/10/2019518 FAX #: [phone] Reason: PNEUMONIA EXAMS: CPT CODE: [id number] XR CHEST 1 V 62193 <Continued> CC: Sherif Wren M.D.; Izabel Fallon NP Technologist: RT Heath(Alexandrea) Trnjacklyn Date/Time/By: 08/10/2019 (0233) : By: [email or web address] Orig Print D/T: S: 08/10/2019 (8998) PAGE 2 Signed Report ARTERIAL BLOOD [id number] 00:12:00* Test Item Value Reference Range Interpretation [...] = PEEPA) 8 cmH2O Performed by certified tubing mill operator at [facility] ABG TEMPERATURE (test code = TEMPA) 100.6 F ABG SITE (test code = SITEA) Art line PREDICTED AA GRADIENT (test code = AP) 128 PREDICTED PO2 (test code = OP) 366 a/A RATIO (test code = RATIO) 0.16 TCO2 ARTERIAL (test code = TCO2A) 32 A-A GRADIENT (test code = AAGRADE) 415 [id number] 23:03:00* Test Item Value Reference Range Interpretation Comments GLUBED (test code = GLUBED) 88 MG/DL 70-110 N Performed by certified tubing mill operator at [facility] BASIC METABOLIC [id number] 22:41:00* Test Item Value Reference Range Interpretation [...] CA) 7.6 mg/dL 8.0-10.5 L BASIC METABOLIC [id number] 22:37:00* Test Item Value Reference Range Interpretation [...] mg/dL 8.0-10.5 L - XR CHEST 1 [id number] 22:30:00 FAX: Sherif Hickman MD [phone] [place]: St: ADM FAX: Adan Salazar [phone] Name: DEYSI FRANCISCO [facility] : 1950 Age/S: 69/M [address] [place] [address] Unit #: [id number] Loc: G.M314 [place] [address] Phys: Adan Maya MD Acct: [id number] Dis Date: Status: ADM IN PHONE #: [phone] Exam Date: 08/09/20192226 FAX #: [phone] Reason: CVL PLACEMENT EXAMS: CPT CODE: [id number] XR CHEST 1 V 59373 PROCEDURE: CHEST SINGLE VIEW 08/09/2019 2218 hours [...] Pleural effusions not excluded. SL: MELISSA at 2229 Reported and signed by: Burton Mccoy M.D. CC: Sherif Wren M.D.; Adan Maya MD Technologist: Julieth Rust RT(R) Trnscrd Date/Time/By: 08/09/2019 (2229) : By: Ethan [facility] Print D/T: S: 08/09/2019 (2232) PAGE 1 Signed Report ARTERIAL BLOOD [id number] 21:58:00* Test Item Value Reference Range Interpretation [...] = PEEPA) 8 cmH2O Performed by certified tubing mill operator at [facility] ABG TEMPERATURE (test code = TEMPA) 100.6 [...] concentrations <2 ng/mL are obtained. ARTERIAL BLOOD [id number] 19:42:00* Test Item Value Reference Range Interpretation [...] = PEEPA) 8 cmH2O Performed by certified tubing mill operator at [facility] ABG TEMPERATURE (test code = TEMPA) 100.6 F ABG SITE (test code = SITEA) R Rad PREDICTED AA GRADIENT (test code = AP) 130 PREDICTED PO2 (test code = OP) 371 a/A RATIO (test code = RATIO) 0.16 TCO2 ARTERIAL (test code = TCO2A) 33 A-A GRADIENT (test code = AAGRADE) 420 - XR CHEST 1 [id number] 18:54:00 FAX: Sherif Hickman MD [phone] [place]: St: ADM FAX: Izabel Fallon NP [phone] Name: DEYSI FRANCISCO [facility] [place] : 1950 Age/S: 69/M [address] [place] [address] Unit #: [id number] Loc: G.14 [place] [address] Phys: Izabel Fallon NP Acct: [id number] Dis Date: Status: ADM IN PHONE #: [phone] Exam Date: 08/09/2019 1846 FAX #: [phone] Reason: FEEDING TUBE PLACEMENT EXAMS: CPT CODE: [id number] XR CHEST 1 V 10938 Portable single view AP chest at 1829 [...] Christopher(Alexandrea)(M) Trnscrd Date/Time/By: 08/09/2019 (1853) : By: Montrell.[email or web address] Orig Print D/T: S: 08/09/2019 (1856) PAGE 1 Signed Report [id number] 17:16:00* Test Item Value Reference Range Interpretation Comments GLUBED (test code = GLUBED) 126 MG/DL 70-110 H Performed by certified tubing mill operator at [facility] BASIC METABOLIC [id number] 16:03:00* Test Item Value Reference Range Interpretation [...] code = CA) 9.5 mg/dL 8.0-10.5 N [id number] 16:03:00* Test Item Value Reference Range Interpretation Comments PHOSPHOROUS (test code = PHOS) 2.6 MG/DL 2.5-4.9 N [id number] 16:03:00* Test Item Value Reference Range Interpretation Comments MAGNESIUM (test code = MAG) 2.10 mg/dL 1.8-2.4 N LACTIC [id number] 15:52:00* Test Item Value Reference Range Interpretation Comments LACTIC ACID (test code = LACT) 1.6 mmol/L 0.4-1.9 N ARTERIAL BLOOD [id number] 15:07:00* Test Item Value Reference Range Interpretation [...] = PEEPA) 5 cmH2O Performed by certified tubing mill operator at [facility] ABG TEMPERATURE (test code = TEMPA) 98.6 F ABG SITE (test code = SITEA) R Rad PREDICTED AA GRADIENT (test code = AP) 96 PREDICTED PO2 (test code = OP) 275 a/A RATIO (test code = RATIO) 0.13 TCO2 ARTERIAL (test code = TCO2A) 33 A-A GRADIENT (test code = AAGRADE) 322 [id number] 14:41:00* Test Item Value Reference Range Interpretation Comments PREALBUMIN (test code = PREALB) 10.9 mg/dL 16.0-40.0 L Indication for Test: Malabsorption/MalnutritioVITAMIN D [id number] 14:41:00* Test Item Value Reference Range Interpretation Comments VITAMIN D 25-HYDROXY (test code = VITD25) 29.1 ng/mL 30-100 L Indication for Test: Malabsorption/Malnutritio- XR CHEST 1 [id number] 14:10:00 FAX: Sherif Hickman MD [phone] [place]: St: ADM FAX: Izabel Fallon NP [phone] Name: DEYSI FRANCISCO [facility] : 1950 Age/S: 69/M [address] [place] [address] Unit #: [id number] Loc: G.M314 [facility] [place] [address] Phys: Izabel Fallon NP Acct: [id number] Dis Date: Status: ADM IN PHONE #: [phone] Exam Date: 08/09/2019 1409 FAX #: [phone] Reason: POST INTUBATION EXAMS: CPT CODE: [id number] XR CHEST 1 V 57802 Single view chest: HISTORY: Intubation. FINDINGS: Endotracheal [...] Progression of right lung base infiltrate SL: [id number] at 1410 Reported and signed b sean: Lebron Wharton M.D. CC: Sherif Wren M.D.; Izabel Fallon NP Technologist: Leeanna Alva, RT(R), RTT; Darling Benitez, RT (R)(M) Trnscrd Date/Time/By: 08/09/2019 (1410) : By: BekaETG Orig Print D/T: S: 08/09/2019 (9091) PAGE 1 Signed Report [id number] 13:08:00* Test Item Value Reference Range Interpretation Comments GLUBED (test code = GLUBED) 146 MG/DL 70-110 H Performed by certified tubing mill operator at [facility] ARTERIAL BLOOD [id number] 12:53:00* Test Item Value Reference Range Interpretation [...] TCO2 ARTERIAL (test code = TCO2A) 33 [id number] 11:18:00* Test Item Value Reference Range Interpretation Comments GLUBED (test code = GLUBED) 151 MG/DL 70-110 H Performed by certified tubing mill operator at [facility] [id number] 10:42:00* Test Item Value Reference Range Interpretation Comments PREALBUMIN (test code = PREALB) 10.9 mg/dL 16.0-40.0 L Indication for Test: Malabsorption/MalnutritioVITAMIN D 54-[id number] 10:42:00* Test Item Value Reference Range Interpretation Comments VITAMIN D 25-HYDROXY (test code = VITD25) ng/mL 30-100 Indication for Test: Malabsorption/[id number] 06:32:00* Test Item Value Reference Range Interpretation Comments GLUBED (test code = GLUBED) 143 MG/DL 70-110 H Performed by certified tubing mill operator at [facility] PROTHROMBIN [id number] 06:06:00* Test Item Value Reference Range Interpretation [...] Acute Myocardial Infarction (to prevent recurrent infarct). [id number] 02:04:00* Test Item Value Reference Range Interpretation Comments GLUBED (test code = GLUBED) 120 MG/DL 70-110 H Performed by certified tubing mill operator at [facility] Coronavirus 2019 nCoV [id number] 23:02:00* Test Item Value Reference Range Interpretation Comments Coronavirus 2019 nCoV Bedside (test code = COVNONPUIBED) Negative Negative Negative results should be treated as presumptive and, ifinconsistent with clinical signs and symptoms or necessaryfor patient management, should be tested with an alternativemolecular assay. Negative results do not preclude LIXM-WrX-3ulfasjjbi and should not be used as the sole basis forpatient management decisions. Negative results should beconsidered in the context of a patient's recent exposures,history, presence of clinical signs and symptoms consistentwith COVID-19. Acknowledged? YESCOMMENTS: APPROVED BY [id number] 21:39:00* Test Item Value Reference Range Interpretation Comments GLUBED (test code = GLUBED) 157 MG/DL 70-110 H Performed by certified tubing mill operator at [facility] [id number] 17:30:00* Test Item Value Reference Range Interpretation Comments GLUBED (test code = GLUBED) 140 MG/DL 70-110 H Performed by certified tubing mill operator at [facility] - XR CHEST 1 [id number] 15:47:00 FAX: Sherif Hickman MD [phone] [place]: St: ADM FAX: Kamran Pang MD [phone] FAX: Akhil Causey MANAGER WATER [phone] Name: DEYSI FRANCISCO [facility] : 1950 Age/S: 69/M [address] [place] [address] Unit #: [id number] Loc: [address] [address] Phys: Marium,Akhil ELDER Acct: [id number] Dis Date: Status: ADM IN ONE #: [phone] Exam Date: 08/08/2019 1534 FAX #: [phone] Reason: TUBE FEEDING PLACEMENT EXAMS: CPT CODE: [id number] XR CHEST 1 V 29409 EXAM: CR, XR chest one view: 08/08/2019, [...] 020 at 1547 Reported and signed by: Bryna Woo M.D. CC: Sherif Wren M.D.; Kamran Carlson MD; Akhil Causey NP Technolog ist: RT Peter(R) Trnscrd Date/Time/By : 08/08/2019 (1547) : By: [email or web address] Orig Print D/T: S: 08/08/2019 (155 0) PAGE 1 Signed Report [id number] 13:54:00* Test Item Value Reference Range Interpretation Comments GLUBED (test code = GLUBED) 126 MG/DL 70-110 H Performed by certified tubing mill operator at [facility] - XR CHEST 1 [id number] 09:48:00 FAX: Sherif Hickman MD [phone] [place]: St: ADM FAX: Kamran Pang MD [phone] FAX: Akhil Causey NP [phone] Name: DEYSI FRANCISCO [facility] : 1950 Age/S: 69/M [address] [place] [address] Blvd Unit #: [id number] Loc: [address] [address] Phys: Akhil Causey NP Acct: [id number] Dis Date: Status: ADM IN PH ONE #: [phone] Exam Date: 08/08/2019920 FAX #: [phone] Reason: CONGESTED EXAMS: CPT CODE: [id number] XR CHEST 1 V 05190 Chest single v iew 08/08/2019 HISTORY: Congestion. [...] 2. Otherwise unchanged moderate bilateral pneumonia. SL: [id number] at 0948 Reported and signed by: Eric Orozco M.D. CC: Sherif Wren M.D.; Kamran Carlson MD; Akhil Causey NP Technologist: RT Erasto(R) Trnscrd Date/Time/By: 08/08/2019 (947) : By: [email or web address] Orig Print D/T: S: 08/08/2019 (1571) PAGE 1 Signed Report BASIC METABOLIC [id number] 08:04:00* Test Item Value Reference Range Interpretation [...] CA) 9.3 mg/dL 8.0-10.5 N CBC W/AUTO [id number] 07:38:00* Test Item Value Reference Range Interpretation [...] DIFF REQUIRED (test code = MDIFF) NO [id number] 05:21:00* Test Item Value Reference Range Interpretation Comments GLUBED (test code = GLUBED) 129 MG/DL 70-110 H Performed by certified tubing mill operator at [facility] [id number] 02:07:00* Test Item Value Reference Range Interpretation Comments GLUBED (test code = GLUBED) 155 MG/DL 70-110 H Performed by certified tubing mill operator at [facility] - XR CHEST 1 [id number] 22:20:00 FAX: Sherif Hickman MD [phone] [place]: St: ADM FAX: Kamran Pang MD [phone] Name: DEYSI FRANCISCO [facility] : 1950 Age/S: 69/M [address] [place] [address] Unit #: [id number] Loc: [address] [address] Phys: Kamran Carlson MD Acct: [id number] Dis Date: Status: ADM IN PHONE #: [phone] Exam Date: 08/07/20192217 FAX #: [phone] Reason: FORCEFUL COUGH, THICK SECRETIONS EXAMS: CPT CODE: [id number] XR CHEST 1 V 50303 XR CHEST 1 VIEW HISTORY: FORCEFUL COUGH, [...] Sherif Wren M.D.; Kamran Carlson MD Technologist: Keisha Nicolas, RT(R) Trnkyrd Date/Time/By: 08/07/2019 (2219) : By: [email or web address] Orig Print D/T: S: 08/07/2019 (9108) PAGE 1 Signed Report [id number] 20:41:00* Test Item Value Reference Range Interpretation Comments GLUBED (test code = GLUBED) 141 MG/DL 70-110 H Performed by certified tubing mill operator at [facility] - MRI BRAIN WO/W [id number] 18:54:00 FAX: Sherif Hickman MD [phone] [place]: St: ADM FAX: Kamran Pang MD [phone] FAX: Shavon Olsen NP Name: MARYAM,DEYSI [facility] : 1950 Age/S: 69/M [address] [place] [address] Unit #: [id number] Loc: [address] [address] Phys: Shavon Olsen NP Acct: [id number] Dis Date: Status: ADM IN ONE #: [phone] Exam Date: 08/07/2019 175 FAX #: [phone] Reason: with STEALTH protocol EXAMS: CPT CODE: [id number] MR I BRAIN WO/W CONT 65374 BRAIN MRI WITH AND WITHOUT CONTRAST (STEALTH [...] nce of dural venous sinus thrombosis. SL: [id number] G04 at 185 Reported and signed by: Vish Adler M.D. CC: Sherif Wren M.D.; Kamran Carlson MD; Shavon Olsen NP Technologist: RT Felipe(R)(CT) Trnkyrd Date/Time/By: 08/07/2019 (1853) : By: Montrlel .[email or web address] Orig Print D/T: S: 08/07/2019 (1856) PAGE 1 Signed Report GLUBED 2019-08-07 17:54:00* Test Item Value Reference Range Interpretation Comments GLUBED (test code = GLUBED) 124 MG/DL 70-110 H Performed by certified tubing mill operator at [facility] [id number] 14:03:00* Test Item Value Reference Range Interpretation Comments GLUBED (test code = GLUBED) 112 MG/DL 70-110 H Performed by certified tubing mill operator at [facility] - CT HEAD/BRAIN W/O [id number] 13:54:00 Name: DEYSI FRANCISCO [facility] : 1950 Age/S: 69 / M [address] [place], [place] [address]vd Unit #: [id number] Loc: [facility] [address] Phys: Akhil Causey MANAGER WATER Acct: [id number] Dis Date: Status: ADM IN PHONE #: [phone] Exam Date: 08/07/2019 1321 FAX #: [phone] Reason: confusion EXAMS: CPT CODE: [id number] CT HEAD/BRAIN W/O CONT 62722 STUDY: - CT HEAD/BRAIN W/O CONT 08/07/2019 9:32 AM Ordering Physician: Akhil Causey NP Patient Name: DEYSI FRANCISCO MR: [id number] : 1950; Age: 69 years y/o Male [...] x 4.2 cm (CC X AP X bray sverse). VENTRICLES: Mild effacement of the 4th ventricle. No hydrocephalus. PARANASAL SINUSES: Moderate mucosal thickening within the left sphenoid sinus. Mild rightward convexity of the nasal se ptum. A nasogastric tube is partially imaged. MASTOIDS: Adeel ar. ORBITS: The visualized portions of the orbits are normal. SOFT TISSUES: No significant abnormality. PAGE 1 Signed Report (CONTINUED) Name: DEYSI FRANCISCO [facility] : 1950 Age/S: 69 / M [address] [place] [address] Blvd Unit #: [id number] Loc: [place] [address] Phys: Akhil Causey NP Acct: [id number] Dis Date: Status: ADM IN PHONE #: [phone] Exam Date: 1321 FAX #: [phone] Reason: confusion EXAMS: CPT CODE: [id number] CT HEAD/BRAIN W/O CONT 76008 <Continued> SKULL: No acute fracture or suspicious osseous lesion. IMPRESSION: 1. 2.5 x 3.3 x 4.2 cm hemorrhage in the right inferior medial cerebellar hemisphere, similar to prior exam given differences in technique. 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 MRI can be considered for further evaluation. 2. Mild effacement of the 4th ventricle, no hydrocephalus. SL: [id number] at 1354 Reported and signed by: Robert Guzman M.D. CC: Sherif Wren M.D.; Kamran Carlson MD; Akhil Causey NP Technologist:Rogelio Cantor RT(R) CTDI: DLP: Trnscb Date/Time: 08/07/2019 (2307) [email or web address] Orig Print D/T: S: 08/07/2019 (8302) PAGE 2 Signed Report [id number] 09:49:00* Test Item Value Reference Range Interpretation Comments GLUBED (test code = GLUBED) 157 MG/DL 70-110 H Performed by certified tubing mill operator at [facility] COMPREHENSIVE METABOLIC [id number] 07:58:00* Test Item Value Reference Range Interpretation [...] ALKP) 143 IUnit/L 20-125 H CBC W/AUTO [id number] 07:50:00* Test Item Value Reference Range Interpretation [...] DIFF REQUIRED (test code = MDIFF) NO [id number] 06:57:00* Test Item Value Reference Range Interpretation Comments GLUBED (test code = GLUBED) 130 MG/DL 70-110 H Performed by certified tubing mill operator at [facility] [id number] 04:49:00* Test Item Value Reference Range Interpretation Comments GLUBED (test code = GLUBED) 119 MG/DL 70-110 H Performed by certified tubing mill operator at [facility] [id number] 00:37:00* Test Item Value Reference Range Interpretation Comments GLUBED (test code = GLUBED) 103 MG/DL 70-110 N Performed by certified tubing mill operator at [facility] [id number] 23:53:00* Test Item Value Reference Range Interpretation Comments GLUBED (test code = GLUBED) 113 MG/DL 70-110 H Performed by certified tubing mill operator at [facility] [id number] 13:32:00* Test Item Value Reference Range Interpretation Comments GLUBED (test code = GLUBED) 108 MG/DL 70-110 N Performed by certified tubing mill operator at [facility] - XR CHEST 1 [id number] 09:40:00 FAX: Roberto Landeros MD [place]: GC St: ADM FAX: Sherif Hickman MD [phone] FAX: Kamran Pang MD [phone] Name: DEYSI FRANCISCO [facility] John Dubois : 1950 Age/S: 69/M [address] [place] [address] Unit #: [id number] Loc: [address] [address] Phys: Roberto Landeros MD Acct: [id number] Dis Date: Status: ADM IN ONE #: [phone] Exam Date: 08/06/2019926 FAX #: [phone] Reason: FEEDING TUBE PLACEMENT EXAMS: CPT CODE: [id number] XR CHEST 1 V 69322 Study: - XR C HEST 1 V 08/06/2019 7:24 AM Patient Name: DEYSI FRANCISCO MR: [id number] : 1950; Age: 69 years y/o Male [...] representin g pulmonary edema and/or pneumonia SL: [id number] Electronically Signed by Mega Guzman on 07/17 at 0940 Reported and signed by: Juan Hi PAGE 1 Signed Report (DARIA NUDHIRAJ) FAX: Roberto Landeros MD [place]: St: ADM FAX : Sherif Hickman MD [phone] FAX: Kamran Pang MD [phone] Name: DEYSI FRANCISCO [facility] : 1950 Age/S: 69/M [address] [place] [address] Unit #: [id number] Loc: [address] [address] Phys: Roberto Landeros MD Acct: [id number] Dis Date: Status: ADM IN PHONE #: [phone] Exam Date: 08/06/2019926 FAX #: [phone] Reason: FEEDING TUBE PLACEMENT EXAMS: CPT CODE: [id number] XR CHEST 1 V 68790 <Continued> CC: Roberto Landeros MD; Sherif Wren M.D.; Kamran Carlson MD Technologist: Carmen Boyer, RT(R); ERIN Burnett RT(R) Trnscrd Date/Time/By: 08/06/2019 (09) : By: [email or web address] Orig Print D/T: S: 08/06/2019 (0944) PAGE 2 Signed Report [id number] 09:20:00* Test Item Value Reference Range Interpretation Comments GLUBED (test code = GLUBED) 121 MG/DL 70-110 H Performed by certified tubing mill operator at [facility] CBC W/AUTO [id number] 08:38:00* Test Item Value Reference Range Interpretation [...] (test code = MDIFF) NO COMPREHENSIVE METABOLIC [id number] 07:07:00* Test Item Value Reference Range Interpretation [...] code = ALKP) 145 IUnit/L 20-125 H [id number] 07:07:00* Test Item Value Reference Range Interpretation Comments PHOSPHOROUS (test code = PHOS) 4.0 MG/DL 2.5-4.9 [id number] 07:07:00* Test Item Value Reference Range Interpretation Comments MAGNESIUM (test code = MAG) 2.20 mg/dL 1.8-2.4 N CALCIUM [id number] 07:07:00* Test Item Value Reference Range Interpretation Comments CALCIUM IONIZED (test code = SEAMUS) 1.18 MMOL/L 1.12-1.32 N COMPREHENSIVE METABOLIC [id number] 07:06:00* Test Item Value Reference Range Interpretation [...] code = ALKP) 145 IUnit/L 20-125 H [id number] 07:06:00* Test Item Value Reference Range Interpretation Comments PHOSPHOROUS (test code = PHOS) 4.0 MG/DL 2.5-4.9 [id number] 07:06:00* Test Item Value Reference Range Interpretation Comments MAGNESIUM (test code = MAG) 2.20 mg/dL 1.8-2.4 N CALCIUM [id number] 07:06:00* Test Item Value Reference Range Interpretation Comments CALCIUM IONIZED (test code = SEAMUS) MMOL/L 1.12-1.32 - XR CHEST 1 [id number] 06:55:00 FAX: Roberto Landeros MD [place]: St: ADM FAX: Sherif Hickman MD [phone] FAX: Kamran Pang MD [phone] Name: DEYSI FRANCISCO [facility] : 1950 Age/S: 69/M [address] Unit #: [id number] Loc: G.M330 [place] [address] Phys: Roberto Landeros MD Acct: [id number] Dis Date: Status: ADM IN ONE #: [phone] Exam Date: 08/06/2019 0649 FAX #: [phone] Reason: pneumonia EXAMS: CPT CODE: [id number] XR CHEST 1 V 87436 EXAM: Single view AP chest. EXAM DATE: [...] cia, M.D.; Kamran Carlson MD Technologist: Anali Thornton, RT(R); Radha Dunlap RT(R) Trnkyrd Date/Time/By: 08/06/2019 (0655) : By: BekaCER Orig Print D/T: S: 08/06/2019 (0658) PAGE 1 Signed Report PROTHROMBIN [id number] 06:46:00* Test Item Value Reference Range Interpretation [...] Acute Myocardial Infarction (to prevent recurrent infarct). [id number] 06:44:00* Test Item Value Reference Range Interpretation Comments GLUBED (test code = GLUBED) 127 MG/DL 70-110 H Performed by certified tubing mill operator at [facility] ARTERIAL BLOOD [id number] 05:24:00* Test Item Value Reference Range Interpretation [...] TCO2 ARTERIAL (test code = TCO2A) 28 [id number] 00:01:00* Test Item Value Reference Range Interpretation Comments GLUBED (test code = GLUBED) 96 MG/DL 70-110 N Performed by certified tubing mill operator at [facility] [id number] 19:32:00* Test Item Value Reference Range Interpretation Comments GLUBED (test code = GLUBED) 99 MG/DL 70-110 N Performed by certified tubing mill operator at [facility] [id number] 18:31:00* Test Item Value Reference Range Interpretation Comments GLUBED (test code = GLUBED) 100 MG/DL 70-110 N Performed by certified tubing mill operator at [facility] BASIC METABOLIC [id number] 17:50:00* Test Item Value Reference Range Interpretation [...] CA) 9.3 mg/dL 8.0-10.5 N CBC W/AUTO [id number] 17:38:00* Test Item Value Reference Range Interpretation [...] DIFF REQUIRED (test code = MDIFF) NO [id number] 14:18:00* Test Item Value Reference Range Interpretation Comments GLUBED (test code = GLUBED) 101 MG/DL 70-110 N Performed by certified tubing mill operator at [facility] [id number] 08:22:00* Test Item Value Reference Range Interpretation Comments GLUBED (test code = GLUBED) 98 MG/DL 70-110 N Performed by certified tubing mill operator at [facility] - XR CHEST 1 [id number] 06:52:00 FAX: Roberto Landeros MD [place]: St: ADM FAX: Sherif Hickman MD [phone] FAX: Kamran Pang MD [phone] Name: DEYSI FRANCISCO [facility] : 1950 Age/S: 69/M [address] [place] [address] Unit #: [id number] Loc: [address] [place] [address] Phys: Roberto Landeros MD Acct: [id number] Dis Date: Status: ADM IN ONE #: [phone] Exam Date: 08/05/2019620 FAX #: [phone] Reason: pneumonia EXAMS: CPT CODE: [id number] XR CHEST 1 V 62579 EXAM: CR, XR chest one view: 08/05/2019, [...] Wren M.D.; Kamran Carlson MD Technologist: Anali Hilton, RT(R); Radha Dunlap RT(R) Trnkyrd Date/Time/By: 08/05/2019 (06 52) : By: [email or web address] Orig Print D/T: S: 08/05/2019 (0698) PAGE 1 Signed Report COMPREHENSIVE METABOLIC [id number] 05:59:00* Test Item Value Reference Range Interpretation [...] code = ALKP) 126 IUnit/L 20-125 H [id number] 05:59:00* Test Item Value Reference Range Interpretation Comments PHOSPHOROUS (test code = PHOS) 6.1 MG/DL 2.5-4.9 H [id number] 05:59:00* Test Item Value Reference Range Interpretation Comments MAGNESIUM (test code = MAG) 2.10 mg/dL 1.8-2.4 N CALCIUM [id number] 05:59:00* Test Item Value Reference Range Interpretation Comments CALCIUM IONIZED (test code = SEAMUS) 1.16 MMOL/L 1.12-1.32 N COMPREHENSIVE METABOLIC [id number] 05:37:00* Test Item Value Reference Range Interpretation [...] TOTAL (test code = ALKP) IUnit/L 20-125 [id number] 05:37:00* Test Item Value Reference Range Interpretation Comments PHOSPHOROUS (test code = PHOS) MG/DL 2.5-4.9 [id number] 05:37:00* Test Item Value Reference Range Interpretation Comments MAGNESIUM (test code = MAG) mg/dL 1.8-2.4 CALCIUM [id number] 05:37:00* Test Item Value Reference Range Interpretation Comments CALCIUM IONIZED (test code = SEAMUS) 1.16 MMOL/L 1.12-1.32 N PROTHROMBIN [id number] 05:34:00* Test Item Value Reference Range Interpretation [...] Infarction (to prevent recurrent infarct). CBC W/AUTO [id number] 05:27:00* Test Item Value Reference Range Interpretation [...] (test code = MDIFF) NO ARTERIAL BLOOD [id number] 05:10:00* Test Item Value Reference Range Interpretation [...] = PEEPA) 5 cmH2O Performed by certified tubing mill operator at [facility] ABG TEMPERATURE (test code = TEMPA) 97.9 F ABG SITE (test code = SITEA) R Brach PREDICTED AA GRADIENT (test code = AP) 55 PREDICTED PO2 (test code = OP) 157 a/A RATIO (test code = RATIO) 0.49 TCO2 ARTERIAL (test code = TCO2A) 31 A-A GRADIENT (test code = AAGRADE) 109 [id number] 23:46:00* Test Item Value Reference Range Interpretation Comments GLUBED (test code = GLUBED) 103 MG/DL 70-110 N Performed by certified tubing mill operator at [facility] [id number] 20:20:00* Test Item Value Reference Range Interpretation Comments GLUBED (test code = GLUBED) 108 MG/DL 70-110 N Performed by certified tubing mill operator at [facility] COMPREHENSIVE METABOLIC [id number] 07:21:00* Test Item Value Reference Range Interpretation [...] code = ALKP) 149 IUnit/L 20-125 H [id number] 07:21:00* Test Item Value Reference Range Interpretation Comments PHOSPHOROUS (test code = PHOS) 3.6 MG/DL 2.5-4.9 N [id number] 07:21:00* Test Item Value Reference Range Interpretation Comments MAGNESIUM (test code = MAG) 1.90 mg/dL 1.8-2.4 N CALCIUM [id number] 07:21:00* Test Item Value Reference Range Interpretation Comments CALCIUM IONIZED (test code = SEAMUS) 1.21 MMOL/L 1.12-1.32 N COMPREHENSIVE METABOLIC [id number] 07:00:00* Test Item Value Reference Range Interpretation [...] TOTAL (test code = ALKP) IUnit/L 20-125 [id number] 07:00:00* Test Item Value Reference Range Interpretation Comments PHOSPHOROUS (test code = PHOS) MG/DL 2.5-4.9 [id number] 07:00:00* Test Item Value Reference Range Interpretation Comments MAGNESIUM (test code = MAG) mg/dL 1.8-2.4 CALCIUM [id number] 07:00:00* Test Item Value Reference Range Interpretation Comments CALCIUM IONIZED (test code = SEAMUS) 1.21 MMOL/L 1.12-1.32 N - XR CHEST 1 [id number] 06:47:00 FAX: Mark Rich MD [phone] [place]: St: ADM FAX: Sherif Hickman MD [phone] FAX: Kamran Pang MD [phone] Name: DEYSI FRANCISCO [facility] : 1950 Age/S: 69/M [address] [place] [address] Unit #: [id number] Loc: G.30 [place] [address] Phys: Mark Walsh MD Acct: [id number] Dis Date: Status: ADM IN PH ONE #: [phone] Exam Date: 08/04/2019 0615 FAX #: [phone] Reason: S/P INTUBATION EXAMS: CPT CODE: [id number] XR CHEST 1 V 95786 EXAM: CR, XR chest one view: 08/04/2019, [...] Technologist: Julieth rutherford RT(R) Trnscrd Date/Time/By: 08/04/2019 (06 47) : By: [email or web address] Orig Print D/T: S: 08/04/2019 (0651) PAGE 1 Signed Report PROTHROMBIN [id number] 06:42:00* Test Item Value Reference Range Interpretation [...] Infarction (to prevent recurrent infarct). CBC W/AUTO [id number] 06:35:00* Test Item Value Reference Range Interpretation [...] (test code = MDIFF) NO ARTERIAL BLOOD [id number] 06:32:00* Test Item Value Reference Range Interpretation [...] = PEEPA) 5 cmH2O Performed by certified tubing mill operator at [facility] ABG TEMPERATURE (test code = TEMPA) 98.8 F ABG SITE (test code = SITEA) R Brach PREDICTED AA GRADIENT (test code = AP) 166 PREDICTED PO2 (test code = OP) 474 a/A RATIO (test code = RATIO) 0.61 TCO2 ARTERIAL (test code = TCO2A) 34 A-A GRADIENT (test code = AAGRADE) 252 UA RFLX MICR CULT IF [id number] 01:02:00* Test Item Value Reference Range Interpretation [...] if any concentrations <2 ng/mL are obtained. [id number] 18:24:00* Test Item Value Reference Range Interpretation Comments GLUBED (test code = GLUBED) 139 MG/DL 70-110 H Performed by certified tubing mill operator at [facility] HGB [id number] 12:57:00* Test Item Value Reference Range Interpretation Comments HEMOGLOBIN (test code = HGB) 8.3 g/dL 12.5-16.9 L HEMATOCRIT (test code = HCT) 26.9 % 37.5-50.7 L [id number] 12:49:00* Test Item Value Reference Range Interpretation Comments GLUBED (test code = GLUBED) 119 MG/DL 70-110 H Performed by certified tubing mill operator at [facility] BASIC METABOLIC [id number] 06:46:00* Test Item Value Reference Range Interpretation [...] code = CA) 8.7 mg/dL 8.0-10.5 N [id number] 06:46:00* Test Item Value Reference Range Interpretation Comments MAGNESIUM (test code = MAG) 1.90 mg/dL 1.8-2.4 N - CT HEAD/BRAIN W/O [id number] 06:43:00 Name: DEYSI FRANCISCO [facility] : 1950 Age/S: 69 / M [address] [place] [address] Unit #: [id number] Loc: [place] [address] Phys: Quiana Moore DO Acct: [id number] Dis Date: Status: ADM IN PHONE #: [phone] Exam Date: 08/03/2019 0416 FAX #: [phone] Reason: f/u hemorrhage EXAMS: CPT CODE: [id number] CT HEAD/BRAIN W/O CONT 15951 CT head without contrast 09/02/2019 HISTORY: Hemorrhagic [...] No new hemorrhage. No new infarct. SL: [id number] at 0643 Reported and signed by: Eric Orozco M.D. CC: Sherif Wren M.D.; Quiana Moore DO Technologist:Scarlett Esqueda, RT(R) CTDI: DLP: Trnscb Date/Time: 08/03/19 20 (0643) [id number] Orig Print D/T: S: 08/03/2019 (0646) PAGE 1 Signed Report CBC W/AUTO [id number] 06:21:00* Test Item Value Reference Range Interpretation [...] DIFF REQUIRED (test code = MDIFF) NO [id number] 23:08:00* Test Item Value Reference Range Interpretation Comments MAGNESIUM (test code = MAG) 1.80 mg/dL 1.8-2.4 N - XR CHEST 1 [id number] 23:01:00 FAX: Sherif Hickman MD [phone] [place]: St: ADM FAX: Saulo Buenrostro DO [phone] Name: MARYAMDEYSI COATES [facility] : 1950 Age/S: 69/M [address] [place] [address] Unit #: [id number] Loc: [place] [address] Phys: Saulo Varma DO Acct: [id number] Dis Date: Status: ADM IN PHONE #: [phone] Exam Date: 08/02/20192141 FAX #: [phone] Reason: sepsis; COVID+ 07/25/2019 EXAMS: CPT CODE: [id number] XR CHEST 1 V 48420 Chest, single view dated 08/02/2019. HISTORY: Sepsis. [...] Sherif Wren M.D.; Saulo Varma DO Technologist: Keisha Nicolas, RT(R); Anali Thornton, RT(R) Trnkyrd Date/Time/By: (2300) : By: Tj Orig Print D/T: S: 08/02/2019 (7519) PAGE 1 Signed Report - CT HEAD/BRAIN W/O [id number] 22:48:00 Name: DEYSI FRANCISCO [facility] : 1950 Age/S: 69 / M [address] [place] [address] Unit #: [id number] Loc: [place] [address] Phys: Jesus Varma DO Acct: [id number] Di s Date: Status: ADM IN PHONE #: Exam Date: 08/02/20192221 FAX #: Reason: hemorrhagic stroke seen on CT head at outside f EXAMS: CPT CODE: [id number] CT HEAD/BRAIN W/O CONT [address] HEAD INDICATION: hemorrhagic stroke seen on CT head at outside facility. TECHNIQUE: Unenhanced CT was performed from the skull vertex to the foramen magnum with axial, coronal and sagittal reconstructions. CT imaging performed at this location utilizes radiation dose [facility] which includes one or more of the [...] 1 Signed Report (CONTINUED) Name: DEYSI FRANCISCO [facility] : 1950 Age/S: 69 / M [address] [facility] Unit #: [id number] Loc: [place] [address] Phys: Saulo Varma DO Acct: [id number] Dis Date: Status: ADM IN PHONE #: [phone] Exam Date: 08/02/20192221 FAX #: [phone] Reason: hemorrhagic stroke seen on CT head at outside f EXAMS: CPT CODE: [id number] CT HEAD/BRAIN W/O CONT 93216 < Continued> exclude the possibility of an [...] The call was initiated at 08/02/2019 10:43PM CHUTE OPERATOR. at 2248 Reported and signed by: Michael Lugo D.O. CC: Sherif Wren M.D.; Saulo Varma DO Technologist:Lindy Esqueda, RT(R) CTDI: DLP: Trnscb Date/Time: 08/02/2019 (2939) [id number] Orig Print D/T: S: 08/02/2019 (8926) PAGE 2 Signed Report CBC W/AUTO [id number] 22:16:00* Test Item Value Reference Range Interpretation [...] REVIEWED, CONSISTENT WITH AUTO DIFF. BASIC METABOLIC [id number] 22:08:00* Test Item Value Reference Range Interpretation [...] CA) 8.8 mg/dL 8.0-10.5 N HEPATIC FUNCTION [id number] 22:08:00* Test Item Value Reference Range Interpretation [...] code = ALKP) 175 IUnit/L 20-125 H [id number] 22:08:00* Test Item Value Reference Range Interpretation Comments TROPONIN-I (test code = TROPI) < 0.015 ng/mL 0.000-0.045 N Negative: <= 0.045 Positive: >= 0.046 Correlation with serial results, other cardiac markers andclinical findings is necessary to determine the clinicalsignificance of this result. Results using different methodologies should not be comparedto one another as quantitative results may vary by method. LACTIC [id number] 22:06:00* Test Item Value Reference Range Interpretation Comments LACTIC ACID (test code = LACT) 0.7 mmol/L 0.4-1.9 N Coronavirus 2019 nCoV [id number] 22:00:00* Test Item Value Reference Range Interpretation Comments Coronavirus 2019 nCoV Bedside (test code = [id number]) Negative Negative Negative results should be treated as presumptive and, ifinconsistent with clinical signs and symptoms or necessaryfor patient management, should be tested with an alternativemolecular assay. Negative results do not preclude HXBR-LqE-7ikqfezxqm and should not be used as the sole basis forpatient management decisions. Negative results should beconsidered in the context of a patient's recent exposures,history, presence of clinical signs and symptoms consistentwith COVID-19. Acknowledged? YESPROTHROMBIN [id number] 21:56:00* Test Item Value Reference Range Interpretation [...] Infarction (to prevent recurrent infarct). CBC W/AUTO [id number] 21:51:00* Test Item Value Reference Range Interpretation [...]
[2019-10-05] MEDS: VANCOMYCIN 1GM/NS 250 ML 250 ML IV SCH ×3 (00:22→12:30)
[2019-10-05] MEDS: SODIUM CHLORIDE 0.9% 1000ML 1,000 ML IV SCH ×2 (00:22→07:53)
[2019-10-05] MEDS ORDERED: ACETAMINOPHEN325 M1 PEG (04:14)
[2019-10-05] MEDS ORDERED: GLIMEPIRIDE2 MG PEG (04:14)
[2019-10-05] MEDS ORDERED: RIVASTIGMINE1.5 MG PEG (04:14)
[2019-10-05] MEDS ORDERED: AMLODIPINE BESYL5 MG PEG (04:14)
[2019-10-05] MEDS ORDERED: HYDRALAZINE HCL25 MG PEG (04:14)
[2019-10-05] MEDS ORDERED: IPRAT-ALBUT 0.5-3 ML ENDO (04:14)
[2019-10-05] MEDS ORDERED: COREG12.5 MG PEG (04:14)
[2019-10-05] MEDS ORDERED: ADMELOG100 UNIT/1 SQ (04:14)
[2019-10-05] MEDS ORDERED: LORAZEPAM2 MG/1 M1 SC (04:14)
[2019-10-05] MEDS ORDERED: TRANSDERM-SCOP1 EACH TD (04:14)
[2019-10-05] MEDS ORDERED: CLONIDINE HCL0.1 MG PEG (04:14)
[2019-10-05] MEDS ORDERED: LEVETIRACE500 MG/51 PEG (04:14)
[2019-10-05] MEDS ORDERED: DOXAZOSIN MESYLA2 MG PEG (04:14)
[2019-10-05] MEDS ORDERED: CEFEPIME HCL 2 GM/SOD CHL 0.9% 100 ML BAG IV SCH ×2 (06:00→14:00)
[2019-10-05 06:16] LABS: BASOPHILS # (AUTO) 0.1 (0.0-0.1); BASOPHILS % 0.4 % (0.0-1.0); EOSINOPHILS # (AUTO) 0.2 (0.0-0.4); EOSINOPHILS % 0.9 % (0.0-6.0); HEMATOCRIT 25.9 % (38.2-49.6); HEMOGLOBIN 7.8 g/dL (14.0-18.0); LYMPHOCYTES # (AUTO) 3.1 (1.0-3.2); LYMPHOCYTES % 13.4 % (18.0-39.1); MEAN CORPUSCULAR HEMOGLOBIN 28.4 pg (28-32); MEAN CORPUSCULAR HGB CONC 30.1 g/dL (31-35); MEAN CORPUSCULAR VOLUME 94.2 fL (81-99); MONOCYTES # (AUTO) 1.8 (0.2-0.8); MONOCYTES % 7.7 % (4.4-11.3); NEUTROPHILS # (AUTO) 17.8 (2.1-6.9); NEUTROPHILS % 76.8 % (38.7-80.0); PLATELET COUNT 371 x10e3/uL (140-360); RED BLOOD COUNT 2.75 x10e6/uL (4.3-5.7); RED CELL DISTRIBUTION WIDTH 15.2 % (11.7-14.4)
[2019-10-05 06:43] LABS: ALBUMIN 2.6 g/dL (3.5-5.0); ALBUMIN/GLOBULIN RATIO 0.6 (0.8-2.0); ANION GAP 12.8 mmol/L (8-16); CALCIUM 9.3 mg/dL (8.4-10.2); CREATININE, SERUM 1.19 mg/dL (0.72-1.25)
--- NOTE | 2019-10-05 07:00 | NUR ---
PT HX OF COVID POSITIVE; COVID PENDING NOW. SBAR REPORT RECEIVED FROM Rustam BHAT RN. PT RECEIVED RESTING IN BED IN NO ACUTE DISTRESS WITH PEG TUBE IN PLACE, FERREIRA CATHETER PATENT AND DRAINING. PT SPEAKS PRIMARILY GUATEMALAN AND SOME YEMENI. PT IS ABLE TO FOLLOW COMMANDS AND TO MAKE NEEDS KNOWN. PT DENIES NEEDS. PT WAS EDUCATED ON FALL RISK PRECAUTIONS. CALL LIGHT AND BELONGINGS PLACED NEARBY. WILL CONTINUE TO MONITOR.
[2019-10-05 07:20] LABS: POTASSIUM 2.8 mmol/L (3.5-5.1)
[2019-10-05 07:22] LABS: CREATINE KINASE MB 0.9 ng/mL (0-5.0)
[2019-10-05] MEDS: INSULIN REGULAR, HUMAN 100 UNIT/1 ML 3ML VIAL SQ SCH ×4 (07:30→21:00)
[2019-10-05] MEDS ORDERED: POTASSIUM CHLORIDE 20MEQ/100ML 200 ML IV ONE (07:30)
[2019-10-05 07:52] LABS: ANISOCYTOSIS SLIGHT; EOSINOPHILS % (MANUAL) 1 % (0-7); LYMPHOCYTES % (MANUAL) 14 % (19-48); MONOCYTES % (MANUAL) 13 % (3.4-9.0); NEUTROPHILS % (MANUAL) 72 % (40-74); PLATELET ESTIMATE SLIGHTLY INCREASED; PLATELET MORPHOLOGY COMMENT NORMAL; RBC MORPHOLOGY COMMENT NORMAL
--- NOTE | 2019-10-05 08:00 | NUR ---
KATHY, PT'S DAUGHTER AND PRIMARY POINT OF CONTACT, CAN BE REACHED AT [phone]
[2019-10-05] MEDS ORDERED: ALBUTEROL/IPRATROPIUM 3 ML NEB NEB PRN (08:30)
[2019-10-05] MEDS: CARVEDILOL 12.5 MG TAB PEG SCH ×3 (09:00→17:35)
[2019-10-05] MEDS ORDERED: ACETAMINOPHEN 325 MG TAB PO PRN (09:45)
[2019-10-05] MEDS: FAMOTIDINE 20 MG/2 ML VIAL IV SCH ×3 (09:45→17:31)
[2019-10-05] MEDS ORDERED: ONDANSETRON HCL INJ 2MG/ML 2ML 2 MG/ML VIAL IV PRN (09:45)
[2019-10-05] MEDS: RIVASTIGMINE TARTRATE 1.5 MG CAP PEG SCH ×3 (10:30→17:35)
[2019-10-05] MEDS: LEVETIRACETAM ORAL SOLUTION 500 MG/5 ML SOLN PEG SCH ×2 (10:30→17:35)
--- NOTE | 2019-10-05 10:52 | History and Physical ---
The patient was admitted from [facility]. The patient is a poor historian. History is obtained from medical record sent from the skilled facility at [facility]. The patient is status post fall at the facility, brought into the emergency room. HISTORY OF PRESENT ILLNESS: The patient is a 69-year-old male with COVID-19 infection associated with respiratory failure. The patient had pneumonia at that time. He was intubated on ventilator support and then subsequently failure to extubate. The patient subsequently had a tracheostomy placed and PEG tube placed, and was transferred to long-term acute care at that time. At that time, he has left lower lobe pneumonia with multidrug resistant organism post COVID-19 viral pneumonia infection. The patient also had a right cerebral hemorrhage that was old. There was no surgical intervention. He has dysphagia. The patient also placed on medication for seizure at that time. The timeline of this admission is not available at this time. The patient currently had a lot of secretion through the tracheostomy. He is on trach collar. He does have a PEG tube. The patient has generalized weakness as well. On admission here, the patient's CT scan showed that he had a subacute nonhemorrhagic cerebellar bleed, but very small, nonsignificant. The blood work found that the patient's WBC was 24.5 thousand. He does have a left shift. The potassium level was 2.8. His renal function seemed slightly dehydrated. Urinalysis showed cloudy urine with greater than 50 wbc and moderate bacteria. His coronavirus PCR is still pending at this time. The patient placed on antibiotics, admitted to the hospital. Consultation with Dr. Varner, Infectious Disease and Dr. Sandoval, coil builder. The patient is otherwise stable. The chest x-ray showed compatible with multifocal pneumonia. The patient on antibiotic at this time and admitted to the hospital for treatment. Medical record will be requested. PAST MEDICAL HISTORY: 1. COVID-19 infection. 2. Respiratory failure. 3. Pneumonia. 4. Multidrug resistant organism. 5. Tracheostomy. 6. PEG tube placement. 7. Small right cerebellar hemorrhage nonsignificant. 8. Progressive weight loss. 9. Medical debility. 10. Urinary tract infection. 11. PEG tube feeding. 12. Diabetes type 2. 13. Seizure disorder. 14. Hypertension. SOCIAL HISTORY: The patient does not smoke or drink alcohol. ALLERGIES: NO KNOWN ALLERGIES. HOME MEDICATIONS: Currently reviewed. Medication from the retirement is reviewed and at this time will be adjusted. PHYSICAL EXAMINATION: VITAL SIGNS: Temperature is 99.4, blood pressure on admission was 202/118, now is 127/77, pulse rate is 84, respirations 22. HEENT: The patient has tracheostomy with significant thick secretion. The head mild bruises on the forehead area. No laceration. PULMONARY: Diminished breath sounds bilaterally with rhonchi. Tracheostomy with significant thick mucus output. CARDIOVASCULAR: Regular rate and rhythm. ABDOMEN: Soft. PEG tube in place. EXTREMITIES: No cyanosis or edema. The patient is wearing diaper. NEUROLOGIC: Very limited at this time, but the patient is moving all extremities. Overall, the patient is very weak. LABORATORY DATA: WBC is 24.5, hemoglobin is 8.9, hematocrit is 28.5, and platelet is 376. Chemistry; sodium is 148, potassium 3.5, chloride 98, bicarb 36, BUN 43, creatinine 1.7, glucose is 110. Urinalysis shows significant cloudy urine with bacteria infection wbc. Coronavirus PCR is still pending. Chest x-ray showed multifocal pneumonia. IMPRESSION: 1. Multifocal pneumonia, healthcare acquired pneumonia associated with thick mucus output from the tracheostomy. 2. Respiratory failure with tracheostomy. The patient had COVID-19 infection previously, but test now is still pending. 3. Acute kidney injury, most likely dehydration. 4. Urinary tract infection with probable urinary retention. 5. Medical debility with progressive decline. 6. PEG tube feeding. 7. Small insignificant right cerebellar hemorrhage. 8. Progressive weight loss. PLAN: IV antibiotics. IV fluid rehydration. Replace electrolytes. Consultation with Dr. Varner and Dr. Sandoval. Repeat lab work. Turn the patient. Skin care. Decubitus prevention. Aspiration precaution. Resume some patient's home medication. Insulin sliding scale coverage. Seizure precaution. Repeat lab work in the morning. Adjust the patient's medication accordingly. MD GINA Tate/MODL /[id number]
--- NOTE | 2019-10-05 10:57 | Consultation ---
DATE OF CONSULTATION: REASON FOR CONSULT: The patient has a tracheostomy. The patient was sent from [facility] for increasing secretion. HISTORY OF PRESENT ILLNESS: Mr. Atkinson is a 69-year-old male, who had COVID pneumonia few months ago, was transferred to [facility] for further care. He has a history of stroke and he had a trach and PEG placed. He was transferred to LT initially and then was transferred here. The patient has dysphagia with a history of cerebral hemorrhage. According to the [facility] note, the patient has a history of right cerebellar hemorrhage, hemiparesis, and recent COVID pneumonia. He had ARDS and required tracheostomy. The patient was treated with Keppra for seizures over there. He was transferred to [facility] for further care. He is currently awake and alert. Moving all four extremities. He has increasing secretions from the trach and hence, possibly the chest x-ray, which was done in the emergency room, showing possible multifocal pneumonia versus the residual from the COVID-19 pneumonia he had. He had a CT head done, which showed focal hypodensity in the dorsal inferior aspect of right cerebellar hemisphere, which is possibly a subacute stroke and the records at [facility] shows that the patient has subacute stroke. REVIEW OF SYSTEMS: The patient is having shortness of breath. Denying any chest pain. A detailed review of system cannot be elicited as the patient cannot talk much with the tracheostomy. FAMILY AND SOCIAL HISTORY: He does not smoke. Does not drink. PHYSICAL EXAMINATION: VITAL SIGNS: Temperature 99.1, pulse of 84, and blood pressure 127/77. CHEST: Clear to auscultation. HEART: S1-S2 audible. ABDOMEN: Soft, nontender. The patient has a tracheostomy. LABORATORY DATA: White count of 23,000, hemoglobin 7.8, platelets 371. Chemistry; sodium 148, potassium 2.8, BUN 43 and creatinine 1.19. ASSESSMENT/PLAN: Mr. Atkinson is a 69-year-old male, who was initially treated with COVID-19 pneumonia at [facility] transferred to [facility] and then to [facility]. The patient has a tracheostomy as he required prolonged weaning after developing acute respiratory distress syndrome secondary to COVID-19 pneumonia. Also, has history of right cerebellar hemorrhage, which is chronic. PLAN: At this point, continue the patient on IV antibiotics. Once the secretions are improved, then consider downsizing the trach and possible PMV use. Agree with IV cefepime and vancomycin, nebulizer treatment and COVID-19 will be ruled out again. Thank you for this consult. MD STACIE Blandon/EVA /[id number]
[2019-10-05] MEDS: SOD CHL 0.45%/POT CHL 20MEQ 1,000 ML IV SCH ×2 (13:29→23:29)
[2019-10-05] MEDS: ALBUTEROL/IPRATROPIUM 3 ML NEB NEB SCH ×2 (13:40→19:00)
--- NOTE | 2019-10-05 13:47 | NUR ---
WOUND CARE CONSULT YO MALE HX OF CONTUSION ,FEVER DARRYL 12 0N STRICT PUP STATUS AND INTERVENTIONS AND ALTERNATING PRESSURE MATTRESS LABS: WBC- 23.13 HGB- 7.8 GLUCOSE-111 SKIN ASSESSMENT COMPLETE PATIENT PRESENTS WITH SACRO GLUTEAL STAGE 2 ULCERATION MEASURES 6CM X13CM X0.2CM CLEAN RED WOUND BASE MINIMAL SEROSANGUINEOUS DRAINAGE RECOMMENDATIONS: NURSING TO CONTINUE TO MONITOR PATIENT AND KEEP SKIN CLEAN AND FREE FROM LOOSE STOOL OR IRRITATING MOISTURE AND CONTINUE TO FOLLOW STRICT PUP INTERVENTIONS NURSING TO CONTINUE TO GET PATIENT OUT OF BED FOR MEALS AND MUCH TOLERATED NURSING TO CLEAN SACRO GLUTEAL STAGE 2 ULCERATION WITH NORMAL SALINE DAILY AND APPLY VENELEX OINTMENT AND COVER WITH ALLEVYN FOAM DRESSING Addendum: 10/05/19 at 1401 by Jaden Fernandes RN Amended: Links added.
[2019-10-05 14:27] LABS: CREATINE KINASE MB 0.9 ng/mL (0-5.0)
[2019-10-05] MEDS: CEFEPIME 1GM/NS 0.9% 50 ML 50 ML IV SCH ×2 (15:10→23:30)
--- NOTE | 2019-10-05 18:42 | NUR ---
PT PULLED OUT PEG TUBE. DRY DRESSING APPLIED. CALL PLACED TO DR. BRAY. LEFT DETAILED VM. AWAITING A RETURN CALL.
--- NOTE | 2019-10-05 19:29 | Consultation ---
DATE OF CONSULTATION: REASON FOR CONSULTATION: Pneumonia. HISTORY OF PRESENT ILLNESS: This patient is a 69-year-old male, history of COVID-19 several months ago back in April. He was treated, had a trach, had PEG. He was in LTAC and then from there he went to skilled care facility. He has come in with shortness of breath and fever. He was brought here. He is being admitted. The patient is not a good source of information. He is just not feeling well. PAST MEDICAL HISTORY: As above. PAST SURGICAL HISTORY: Tracheostomy. ALLERGIES: NKA. SOCIAL HISTORY: There is no smoking, drug abuse, or drug abuse. FAMILY HISTORY: Otherwise unremarkable. REVIEW OF SYSTEMS: He is just having problem with shortness of breath as well as aspiration. LABORATORY DATA: Reviewed. White count 24 and hemoglobin 8.9. His sodium 148, potassium 2.8, and creatinine 1.19. MEDICATIONS: He is currently on cefepime and vancomycin. PHYSICAL EXAMINATION: GENERAL: He is currently alert. VITAL SIGNS: Stable, currently afebrile. HEENT: He is not icteric. NECK: Supple. CHEST: Rhonchi. HEART: S1, S2. ABDOMEN: Soft. Bowel sounds present. EXTREMITIES: No edema. SKIN: No rash. When he first came here, he was 101. IMPRESSION: Sepsis on admission, aspiration pneumonia. I agree with antibiotic as ordered. Vancomycin and cefepime. Recheck CBC. Recheck Chem panel. We will follow. MD JULIA Bryant/EVA /[id number]
[2019-10-05] MEDS ORDERED: METOPROLOL TARTRATE INJ 1 MG/ML VIAL IV SCH (19:30)
--- NOTE | 2019-10-05 19:53 | NUR ---
Pharmacy recommends IV Metoprolol to be changed from 10mg every 6 hours to 5 mg every [address] Westbrook notified for order clarification. New orders received to change medication to Metoprolol 5 mg IV every 6 hours.
[2019-10-05] MEDS ORDERED: LEVETIRACETAM 500MG/5ML VIAL 750 MG in SODIUM CHLORIDE 0.9% 100 ML 100 ML IV SCH (20:00)
[2019-10-05] MEDS: DOXAZOSIN MESYLATE 2 MG TAB PEG SCH (21:00)
[2019-10-05] MEDS ORDERED: POTASSIUM CHLORIDE 20MEQ/100ML 100 ML IV SCH (21:15)
[2019-10-05] MEDS ORDERED: POTASSIUM CHLORIDE 20MEQ/100ML 100 ML IV ONE (23:15)
[2019-10-05] MEDS: METOPROLOL TARTRATE INJ 1 MG/ML VIAL IV SCH (23:30)
[2019-10-06] VITALS (8 sets, daily range): BP systolic 154–187; BP diastolic 89–98
[2019-10-06] MEDS: LEVETIRACETAM 500MG/5ML VIAL 750 MG in SODIUM CHLORIDE 0.9% 100 ML 100 ML IV SCH ×3 (00:37→21:00)
--- NOTE | 2019-10-06 01:05 | Consultation ---
DATE OF CONSULTATION: 10/05/2019 GI Consult Note REASON FOR CONSULT: The patient pulled out the PEG tube. HISTORY OF PRESENTING ILLNESS: A 69-year-old male, who is a [facility] resident. Chronic respiratory failure, status post tracheostomy, oropharyngeal dysphagia, status post gastrostomy. He got admitted, currently being treated for pneumonia. He is being seen by Infectious Disease as well as Pulmonary Service. He had a PEG tube, which was placed long ago, he pulled it out. GI is being consulted for replacement of the PEG tube. When I saw the patient at the bedside, gastrocutaneous fistula is completely closed. The G-tube cannot be placed at the bedside. REVIEW OF SYSTEMS: Unobtainable. PAST MEDICAL HISTORY: COVID-19 infection in the recent past, chronic respiratory failure, recurrent pneumonia, oropharyngeal dysphagia, recurrent urinary tract infection, type 2 diabetes, seizure disorder, hypertension, and dementia. PAST SURGICAL HISTORY: PEG placement, tracheostomy. FAMILY HISTORY: Noncontributory. SOCIAL HISTORY: retirement resident. No smoking, alcohol, or any illicit drug use. ALLERGIES: NONE. MEDICATIONS: Reviewed as per MAR. He is not on any anticoagulants. PHYSICAL EXAMINATION: VITAL SIGNS: Temperature 99, pulse 90, respirations 18-26, blood pressure 165/79, oxygen saturation 100%, on trach collar. GENERAL: Not in any apparent distress. HEENT: Eyes open. Nods his head. Oral mucosa is moist. Tracheostomy site is clean. LUNGS: Bilateral scattered rales. ABDOMEN: Soft, nondistended, and nontender. Gastrocutaneous fistula is almost closed. No bleeding or any discharge. No palpable mass or hernia. Positive bowel sounds. EXTREMITIES: Warm. No leg edema. LABORATORY DATA: COVID-19 not detected. Sodium 148, potassium 2.8, chloride 101, bicarb 37, BUN 43 and creatinine 1.1, glucose 111. WBC down to 23.13 from 24.47, hemoglobin 7.8 down from 8.9, hematocrit 25.9, platelet count 371. Urinalysis shows leukocyte esterase large, multiple wbc's and rbc's. PT 14.1, INR 1.04. IMAGING: CT of the chest x-ray showed multifocal pneumonia. No acute cervical spine fracture or dislocation. CT scan of the brain, suggestive of, 1. Focal hypodensity in the dorsal and inferior aspect of the right cerebellar hemisphere raises the concern for evolving acute or subacute vascular insult, right PICA territory. 2. Mild supratentorial white matter microvascular ischemic changes. 3. Generalized age-related cerebral volume loss. IMPRESSION: The patient currently being treated for multifocal pneumonia, status post tracheostomy for chronic respiratory failure, status post gastrostomy for oropharyngeal dysphagia. The patient has pulled out his PEG tube. Gastrocutaneous fistula is closed. PLAN: Continue current medical management. EGD with PEG replacement tomorrow. Jj Nam MD SA/MODL /[id number]
[2019-10-06] MEDS: VANCOMYCIN 1GM/NS 250 ML 250 ML IV SCH ×2 (02:03→12:31)
[2019-10-06] MEDS ORDERED: POTASSIUM CHLORIDE 20MEQ/100ML 100 ML IV ONE (03:00)
[2019-10-06] MEDS: SOD CHL 0.45%/POT CHL 20MEQ 1,000 ML IV SCH ×2 (04:30→15:13)
[2019-10-06] MEDS: CEFEPIME 1GM/NS 0.9% 50 ML 50 ML IV SCH ×3 (06:14→22:09)
[2019-10-06] MEDS: METOPROLOL TARTRATE INJ 1 MG/ML VIAL IV SCH ×4 (06:14→17:18)
[2019-10-06] MEDS: ALBUTEROL/IPRATROPIUM 3 ML NEB NEB SCH ×4 (06:40→21:45)
--- NOTE | 2019-10-06 06:55 | NUR ---
SBAR REPORT RECEIVED FROM RAMILA,PM SHIFT RN. PT RECEIVED RESTING IN BED IN NO ACUTE DISTRESS. PT IS PRIMARY SLOVENIAN SPEAKING AND HAS A TRACH IN PLACE WHICH POSES A COMMUNICATION BARRIER. RESPIRATORY THERAPY WAS PAGED FOR TRACH CARE. DIAPER CHECKED AND FOUND DRY. IV INTACT. CALL LIGHT PLACED NEARBY. WILL CONTINUE TO MONITOR.
[2019-10-06] MEDS: INSULIN REGULAR, HUMAN 100 UNIT/1 ML 3ML VIAL SQ SCH ×4 (07:30→21:00)
[2019-10-06 07:33] LABS: BASOPHILS # (AUTO) 0.1 (0.0-0.1); BASOPHILS % 0.6 % (0.0-1.0); EOSINOPHILS # (AUTO) 0.5 (0.0-0.4); EOSINOPHILS % 3.4 % (0.0-6.0); HEMOGLOBIN 7.6 g/dL (14.0-18.0); LYMPHOCYTES # (AUTO) 2.2 (1.0-3.2); LYMPHOCYTES % 15.5 % (18.0-39.1); MEAN CORPUSCULAR HEMOGLOBIN 28.8 pg (28-32); MEAN CORPUSCULAR HGB CONC 30.4 g/dL (31-35); MEAN CORPUSCULAR VOLUME 94.7 fL (81-99); MONOCYTES # (AUTO) 1.1 (0.2-0.8); MONOCYTES % 7.6 % (4.4-11.3); NEUTROPHILS # (AUTO) 10.1 (2.1-6.9); NEUTROPHILS % 72.4 % (38.7-80.0); PLATELET COUNT 377 x10e3/uL (140-360); RED BLOOD COUNT 2.64 x10e6/uL (4.3-5.7); RED CELL DISTRIBUTION WIDTH 14.9 % (11.7-14.4)
[2019-10-06 07:57] LABS: PHOSPHORUS 3.8 MG/DL (2.3-4.7)
[2019-10-06 08:01] LABS: ANION GAP 16.4 mmol/L (8-16); BLOOD UREA NITROGEN 35 mg/dL (7-26); BUN/CREATININE RATIO 31 (6-25); CALCIUM 9.5 mg/dL (8.4-10.2); CARBON DIOXIDE 30 mmol/L (22-29); CHLORIDE 107 mmol/L (98-107); CREATININE, SERUM 1.12 mg/dL (0.72-1.25); EST GLOMERULAR FILTRATION RATE > 60 ML/MIN (60-); GLUCOSE 86 mg/dL (74-118); POTASSIUM 3.4 mmol/L (3.5-5.1); SODIUM 150 mmol/L (136-145)
[2019-10-06] MEDS: HYDRALAZINE HCL 20 MG/ML VIAL IV PRN ×2 (08:09→23:00)
[2019-10-06] MEDS: FAMOTIDINE 20 MG/2 ML VIAL IV SCH ×2 (08:12→17:17)
[2019-10-06] MEDS: RIVASTIGMINE TARTRATE 1.5 MG CAP PEG SCH ×2 (08:12→17:17)
--- NOTE | 2019-10-06 08:30 | NUR ---
PT OFF THE FLOOR FOR PROCEDURE
--- NOTE | 2019-10-06 09:30 | NUR ---
PT BACK TO FLOOR FROM EGD WITH BIOPSY AND PEG TUBE REPLACEMENT. OXYGEN AND FLUIDS RECONNECTED. START MEDS/WATER PER PEG IN 4HRS PER VERBAL ORDER FROM DR. RUCKER.
--- NOTE | 2019-10-06 10:00 | NUR ---
K=3.4. call placed to Dr. Cal Bray for orders. Addendum: 10/06/19 at 1243 by Sahara Lambert RN PER DR. BRAY, NO ELECTROLYTE REPLACEMENT REQUIRED
[2019-10-06] MEDS: BALSAM PERU/CASTOR OIL 60 GM OINT...G. TP SCH (10:09)
[2019-10-06] MEDS ORDERED: LIDOCAINE HCL 2% LOCAL INJ 5 ML SDV VIAL INJ ONE (14:17)
[2019-10-06] MEDS ORDERED: PROPOFOL IV EMULSION 10 MG/ML 20 ML VIAL ONE (14:17)
--- NOTE | 2019-10-06 14:19 | NUR ---
infectious disease progress note patient seen and examined chart reviewed patient in the medical floor PHYSICAL EXAMINATION: Vitals stable with no fever GENERAL: He is currently alert. VITAL SIGNS: Stable, currently afebrile. HEENT: He is not icteric. NECK: Supple. CHEST: Rhonchi. HEART: S1, S2. ABDOMEN: Soft. Bowel sounds present. EXTREMITIES: No edema. SKIN: No rash. Blood cultures showing gram-positive cocci identification and sensitivities are pending his white count has improved significantly When he first came here, he was 101. IMPRESSION: Sepsis on admission, aspiration pneumonia. Bacteremia not so sure of stroke versus infections continue with antibiotic as ordered We will recheck vancomycin trough Recheck CBC I agree with antibiotic as ordered. Vancomycin and cefepime. Recheck CBC. Recheck Chem panel. We will follow.
--- NOTE | 2019-10-06 14:23 | Progress Note ---
DATE: SUBJECTIVE: The patient has improved breathing much better. COVID-19 test has been negative. I will downsize the trach. PHYSICAL EXAMINATION: VITAL SIGNS: Temperature 97.6, pulse of 92, blood pressure 139/77, respiratory rate of 18, and O2 saturation 99% on 6 L. HEENT: Head is atraumatic. CHEST: Clear. ABDOMEN: Soft. NEUROLOGICAL: Awake and alert. LABORATORY DATA: Reviewed. The patient will get PEG replacement. ASSESSMENT/PLAN: Mr. Atkinson is a 69-year-old male, who has a history of cerebellar hemorrhage, which was chronic. He was at [facility], known to me from [facility]. The patient required tracheostomy for prolonged weaning. PLAN: Currently, he is doing very well. He is able to use his speech well. I will downsize the tracheostomy tube to 6 cuffed Shiley, which was done and he tolerated the procedure well. Continue the patient on current treatment. MD STACIE Blandon/EVA /[id number]
--- NOTE | 2019-10-06 17:27 | NUR ---
Nutrition Intervention Note RD Recommendation(s) for Physician: -Recommend Glucerna 1.5 @ goal rate of 55 mL/hr (provides 1980 kcal, 109 g protein) -Water flush of 165 mL q 4 hr or per MD Plan of Care: RD following, monitoring for tolerance and adequacy, tube feed recommendation Nutrition reason for involvement: consult for tube feeding and nutrition risk trigger RD Assessment (10/06/19) Pt is a 69 year old male admitted with contusion of head, fever, indwelling catheter present on admission, pneumonia, and UTI. Pt is primarily Eritrean speaking and is a poor historian per chart. Pt has a trach and PEG tube and previously had COVID-19. Pt had pulled out his PEG tube last night and it was replaced this morning. There are no previous weights in chart; therefore, unable to assess weight status at this time. Pt did not have a height in chart; therefore, spoke to RN. RN stated pt is 5 foot 10 inches tall. Recommendations provided. Will continue to monitor Principal Problems/Diagnoses: contusion of head, fever, indwelling catheter present on admission, pneumonia, UTI PMH: COVID-19 infection, Respiratory failure, Pneumonia, Multidrug resistant organism, Tracheostomy, PEG tube placement, Small right cerebellar hemorrhage nonsignificant, Progressive weight loss, Medical debility, Urinary tract infection, PEG tube feeding, Diabetes type 2, Seizure disorder, Hypertension. GI: last recorded BM 10/05 Skin: stage 2 sacro gluteal pressure ulcer Labs: (10/05) Na 150, K 3.4, BUN 35, Cr 1.12, Glu 86 Meds: metoprolol, antibiotics, pepcid, insulin, zofran Ht: 70 inches (per RN) Wt: 168.5 lbs BMI: 24.2 kg/m2 IBW: 166 lbs Malnutrition Evaluation (10/06/19) Unable to assess. Will re-evaluate at follow-up as appropriate. Energy intake: Unable to assess Weight loss: Unable to assess Fat loss: unable to evaluate Muscle loss: unable to evaluate Supporting Evidence: Fluid accumulation: unable to evaluate Functional Status: unable to evaluate Nutrition Prescription (Diet Order): NPO Estimated Nutritional Needs: Calories: 5730-6440 calories/day (25-30 kcal/kg CBW Protein: 77-115 g protein/day (1.0-1.5 g pro/kg CBW) Fluid: 8978-5257 mL/day (25-30 mL/kg CBW) Diet Adequacy: Not meeting calorie needs, Not meeting protein needs Pt is NPO Tolerance: pt is NPO Diet Education Needs Assessment: Diet education not indicated Nutrition Care Level: low Nutrition Diagnosis: Swallowing difficulty related to chronic respiratory failure/tracheostomy as evidenced by pt requiring enteral nutrition. Goal: Patient will meet 75-100% of estimated needs by follow up Progress: N/A Interventions: -Composition, Rate, Route, Collaboration with other providers Monitoring/Evaluation: -Total energy intake, Total protein intake, Formula/Solution, Weight change Signed: Geri Jamil RD, LD
--- NOTE | 2019-10-06 18:14 | Operative Report ---
DATE OF PROCEDURE: SURGEON: Luis Enrique Sandoval MD PREPROCEDURE DIAGNOSIS: Chronic tracheostomy. POSTPROCEDURE DIAGNOSIS: Chronic tracheostomy. PROCEDURE PERFORMED: Tracheostomy tube change. PROCEDURE IN DETAIL: The patient was placed supine. A Shiley 8 cuffed tracheostomy was removed and it was replaced by Shiley 6 cuffed tracheostomy. The patient tolerated the procedure well. COMPLICATIONS: None. MD STACIE Blandon/MODL /[id number]
[2019-10-06] MEDS: DOXAZOSIN MESYLATE 2 MG TAB PEG SCH (21:00)
[2019-10-07] VITALS (8 sets, daily range): BP systolic 148–182; BP diastolic 89–98
[2019-10-07] MEDS: METOPROLOL TARTRATE INJ 1 MG/ML VIAL IV SCH ×4 (00:30→18:42)
[2019-10-07] MEDS: HYDRALAZINE HCL 20 MG/ML VIAL IV PRN (02:39)
[2019-10-07] MEDS: SOD CHL 0.45%/POT CHL 20MEQ 1,000 ML IV SCH ×2 (02:40→10:05)
[2019-10-07] MEDS: ALBUTEROL/IPRATROPIUM 3 ML NEB NEB SCH ×6 (03:20→19:50)
[2019-10-07] MEDS: CEFEPIME 1GM/NS 0.9% 50 ML 50 ML IV SCH ×3 (06:26→22:34)
--- NOTE | 2019-10-07 06:44 | NUR ---
Entered pt room and found pt with tc sitting on chest. Pt in no distress, no c/o noted. trach collar replaced and rt notified and in to see pt at bedside. No s/sx of distress, pt remain at baseline
[2019-10-07] MEDS: INSULIN REGULAR, HUMAN 100 UNIT/1 ML 3ML VIAL SQ SCH ×4 (07:30→20:37)
[2019-10-07] MEDS: LEVETIRACETAM 500MG/5ML VIAL 750 MG in SODIUM CHLORIDE 0.9% 100 ML 100 ML IV SCH ×2 (10:02→20:38)
[2019-10-07] MEDS: FAMOTIDINE 20 MG/2 ML VIAL IV SCH ×2 (10:02→18:40)
[2019-10-07] MEDS: BALSAM PERU/CASTOR OIL 60 GM OINT...G. TP SCH (10:02)
[2019-10-07] MEDS: RIVASTIGMINE TARTRATE 1.5 MG CAP PEG SCH ×2 (10:02→18:40)
--- NOTE | 2019-10-07 12:35 | NUR ---
RECEIVED ORDER FOR SNF EVAL BUT PT IS ALREADY AT SNF([facility]) AND WILL RETURN THERE PER DAUGHTER CLIFTON. MESSAGE SENT TO DR BRAY ASKING CLARIFICATION OF THE ORDER, WILL FOLLOW UP NEEDED.
[2019-10-07] MEDS: VANCOMYCIN 1GM/NS 250 ML 250 ML IV SCH ×2 (15:28)
[2019-10-07] MEDS: DOXAZOSIN MESYLATE 2 MG TAB PEG SCH (20:38)
[2019-10-08] VITALS (9 sets, daily range): BP systolic 146–175; BP diastolic 89–118
[2019-10-08] MEDS: ALBUTEROL/IPRATROPIUM 3 ML NEB NEB SCH ×3 (00:15→18:55)
[2019-10-08] MEDS: METOPROLOL TARTRATE INJ 1 MG/ML VIAL IV SCH ×5 (01:49→23:33)
[2019-10-08] MEDS: SOD CHL 0.45%/POT CHL 20MEQ 1,000 ML IV SCH ×3 (04:38→19:25)
--- NOTE | 2019-10-08 06:45 | NUR ---
DAILY FERREIRA CARE PROVIDED
[2019-10-08] MEDS: CEFEPIME 1GM/NS 0.9% 50 ML 50 ML IV SCH ×3 (07:01→22:57)
[2019-10-08] MEDS: INSULIN REGULAR, HUMAN 100 UNIT/1 ML 3ML VIAL SQ SCH ×4 (07:30→21:00)
--- NOTE | 2019-10-08 07:35 | NUR ---
REPORT GIVEN TO DAYSHIFT NURSE. ALERT AND RESTING IN BED. NO SIGNS IV INFILTRATION. BED LOCKED AND IN LOW POSITION. CALL LIGHT WITHIN REACH. BED ALARM ACTIVATED.
[2019-10-08] MEDS: BALSAM PERU/CASTOR OIL 60 GM OINT...G. TP SCH (08:57)
[2019-10-08] MEDS: LEVETIRACETAM 500MG/5ML VIAL 750 MG in SODIUM CHLORIDE 0.9% 100 ML 100 ML IV SCH ×2 (08:57→22:56)
[2019-10-08] MEDS: RIVASTIGMINE TARTRATE 1.5 MG CAP PEG SCH ×2 (08:57→16:37)
[2019-10-08] MEDS: FAMOTIDINE 20 MG/2 ML VIAL IV SCH ×2 (08:57→16:37)
[2019-10-08] MEDS ORDERED: IRON SUCROSE 100 MG in SODIUM CHLORIDE 0.9% 100 ML 100 ML IV ONE (11:30)
[2019-10-08] MEDS: ACETAMINOPHEN 325 MG/10 ML UDC NG PRN (13:31)
--- NOTE | 2019-10-08 15:17 | Progress Note ---
DATE: SUBJECTIVE: The patient was seen and evaluated. Available labs and notes reviewed. Discussed with Dr. Varner in details. REVIEW OF SYSTEMS: Unable to obtain review of systems secondary to the patient's medical condition. The patient with a trach collar. PHYSICAL EXAMINATION: VITAL SIGNS: Temperature 98.3, pulse of 109, respiration 18, and blood pressure 150/89. GENERAL: Comfortable in bed. No acute distress. Trach collar, feeding tube. CV: S1, S2. CHEST: Equal expansion. Decreased breath sounds. No acute distress. ABDOMEN: Soft. Positive bowel sounds. EXTREMITIES: Contracted. MEDICATIONS: Reviewed. From Infectious Disease point of view patient on cefepime. LABORATORY STUDIES: White count of 13.96 on 10/06/2019. No new CBC or BMP. MICROBIOLOGY: No new microbiology studies available. IMAGING: No new imaging studies available. ASSESSMENT AND PLAN: This is a pleasant 69-year-old gentleman, complicated past medical history includin. Respiratory failure. 2. Status post fall. 3. Dysphagia. 4. Urinary tract infection with Pseudomonas, Proteus and yeast. 5. Contaminated blood culture. 6. Continue with cefepime, PEG tube is planned to be replaced prior to discharge. Also, the patient is going to get his trach downsized to 6 by Pulmonology. Continue with wound care. Discharge planning in progress. Dictated by Krishan Mckeon PA-C (Al) Darrin Varner MD /MODL /[id number]
--- NOTE | 2019-10-08 19:22 | NUR ---
Report given to oncoming nurse of patient's status. Resting in bed. No s/s of acute distress noted. Side rails upx2, call light within reach, bed alarm on.
[2019-10-08] MEDS: DOXAZOSIN MESYLATE 2 MG TAB PEG SCH (22:56)
[2019-10-09] VITALS (8 sets, daily range): BP systolic 154–170; BP diastolic 92–117
[2019-10-09] MEDS: SOD CHL 0.45%/POT CHL 20MEQ 1,000 ML IV SCH (02:30)
[2019-10-09] MEDS: METOPROLOL TARTRATE INJ 1 MG/ML VIAL IV SCH ×3 (05:26→17:11)
[2019-10-09] MEDS: CEFEPIME 1GM/NS 0.9% 50 ML 50 ML IV SCH ×3 (05:27→21:16)
[2019-10-09 06:56] LABS: BASOPHILS # (AUTO) 0.1 (0.0-0.1); BASOPHILS % 0.7 % (0.0-1.0); EOSINOPHILS # (AUTO) 0.4 (0.0-0.4); EOSINOPHILS % 3.9 % (0.0-6.0); HEMATOCRIT 25.2 % (38.2-49.6); HEMOGLOBIN 7.8 g/dL (14.0-18.0); LYMPHOCYTES # (AUTO) 2.6 (1.0-3.2); LYMPHOCYTES % 24.8 % (18.0-39.1); MEAN CORPUSCULAR HEMOGLOBIN 28.7 pg (28-32); MEAN CORPUSCULAR VOLUME 92.6 fL (81-99); MONOCYTES # (AUTO) 0.7 (0.2-0.8); MONOCYTES % 6.9 % (4.4-11.3); NEUTROPHILS # (AUTO) 6.3 (2.1-6.9); NEUTROPHILS % 61.5 % (38.7-80.0); PLATELET COUNT 478 x10e3/uL (140-360); RED BLOOD COUNT 2.72 x10e6/uL (4.3-5.7); RED CELL DISTRIBUTION WIDTH 14.6 % (11.7-14.4)
[2019-10-09] MEDS: INSULIN REGULAR, HUMAN 100 UNIT/1 ML 3ML VIAL SQ SCH ×4 (07:30→20:37)
[2019-10-09 07:39] LABS: ALANINE AMINOTRANSFERASE 9 IU/L (0-55); ALBUMIN 2.7 g/dL (3.5-5.0); ALBUMIN/GLOBULIN RATIO 0.6 (0.8-2.0); ALKALINE PHOSPHATASE 92 IU/L (40-150); ANION GAP 18.9 mmol/L (8-16); BLOOD UREA NITROGEN 16 mg/dL (7-26); BUN/CREATININE RATIO 18 (6-25); CALCIUM 9.3 mg/dL (8.4-10.2); CARBON DIOXIDE 23 mmol/L (22-29); CHLORIDE 109 mmol/L (98-107); EST GLOMERULAR FILTRATION RATE > 60 ML/MIN (60-); GLUCOSE 71 mg/dL (74-118); SODIUM 148 mmol/L (136-145)
[2019-10-09 07:46] LABS: POTASSIUM 2.9 mmol/L (3.5-5.1)
[2019-10-09 08:10] LABS: MAGNESIUM 1.4 MG/DL (1.3-2.1); PHOSPHORUS 3.6 MG/DL (2.3-4.7)
--- NOTE | 2019-10-09 08:20 | NUR ---
Paged Dr. Dariana philip this time to notify him of K-2.9, waiting for callback.
[2019-10-09] MEDS: ALBUTEROL/IPRATROPIUM 3 ML NEB NEB SCH ×4 (08:40→19:35)
[2019-10-09] MEDS: IRON SUCROSE 100 MG in SODIUM CHLORIDE 0.9% 100 ML 100 ML IV SCH (09:51)
[2019-10-09] MEDS: LEVETIRACETAM 500MG/5ML VIAL 750 MG in SODIUM CHLORIDE 0.9% 100 ML 100 ML IV SCH ×2 (09:51→20:06)
[2019-10-09] MEDS: FAMOTIDINE 20 MG/2 ML VIAL IV SCH ×2 (09:52→17:10)
[2019-10-09] MEDS: RIVASTIGMINE TARTRATE 1.5 MG CAP PEG SCH ×2 (09:52→17:10)
[2019-10-09] MEDS ORDERED: POTASSIUM CHLORIDE 20 MEQ TAB CR PO ONE (10:15)
[2019-10-09] MEDS ORDERED: MAGNESIUM SULFATE 2GM/50ML 50 ML IV ONE (10:30)
--- NOTE | 2019-10-09 10:47 | NUR ---
CALLED AND SPOKE WITH DAUGHTER SHE STATES WANTS [facility], WILL FAX PACKET, PASRR AND COVID FORM, AND COMPLETED RTF TO PUT AT NURSES STATION.
[2019-10-09] MEDS: BALSAM PERU/CASTOR OIL 60 GM OINT...G. TP SCH (11:26)
--- NOTE | 2019-10-09 11:48 | NUR ---
EDUCATED ABOUT IMM, SIGNED, FILED IN CHART, WITH COPY LEFT WITH FAMILY AT BEDSIDE.
[2019-10-09] MEDS: POTASSIUM CHLORIDE 60 MEQ in SODIUM CHLORIDE 0.45% 1,000 ML IV SCH ×2 (12:52→21:18)
[2019-10-09] MEDS: HYDRALAZINE HCL 10 MG TAB PO SCH (17:10)
--- NOTE | 2019-10-09 19:25 | Progress Note ---
DATE: 10/07/2019 SUBJECTIVE: The patient was seen and evaluated. Available labs and notes reviewed. Discussed with Dr. Varner. Please refer to chart for more information. REVIEW OF SYSTEMS: Unable to obtain review of systems secondary to the patient's medical condition. PHYSICAL EXAMINATION: VITAL SIGNS: Temperature 98.4, pulse 93, respiration 18, and blood pressure 168/98. GENERAL: Comfortable in bed, trach collar. No interaction with me. position on the right side. CV: S1, S2. CHEST: Equal expansion, decreased breath sounds. No acute distress. ABDOMEN: Soft. Positive bowel sounds. HEENT: Trach collar, moist. EXTREMITIES: No significant edema. MEDICATIONS: Reviewed from ID point of view, the patient is on cefepime and vancomycin IV. LABORATORY STUDIES: White count of 13.96, improving from 24.47, hemoglobin 7.6, platelet 377. Creatinine 1.12. Serology: Coronavirus, PCR, COVID-19 not detected. MICROBIOLOGY STUDIES: Blood culture one shows coag-negative staph and one is negative on 10/03. Urine culture shows Pseudomonas aeruginosa, Proteus mirabilis and yeast. IMAGING: Chest x-ray showed compatible with multifocal pneumonia. CT of the brain with concern for focal hypodensity in dorsal and inferior aspect of the right cerebral hemisphere raises concern for evolving acute/subacute vascular insult in the right PICA territory. He also had a CT of the spine showed no acute cervical spine fracture or dislocation. ASSESSMENT AND PLAN: 1. Fever, resolved. 2. Abnormal blood culture, which shows coagulase negative staph. 3. History of a fall with a head injury-see the MRI above. 4. Respiratory failure-resolved on trach collar. 5. Debility, the patient not much interaction in bed and pretty much bedbound. 6. Leukocytosis, improving. 7. Anemia. 8. Electrolyte abnormalities. 9. The patient is on cefepime and vancomycin IV. Discussed with Dr. Varner. Please refer to electronic orders and chart for more information. Dictated by Krishan Mckeon PA-C (Al) Darrin Varner MD /MODL /[id number]
--- NOTE | 2019-10-09 19:30 | Progress Note ---
DATE: 10/09/2019 SUBJECTIVE: The patient is seen and evaluated. Available labs and notes reviewed. Discussed with Dr. Varner in details. REVIEW OF SYSTEMS: The patient nods head occasionally, however, unable to obtain review of systems. Discussed with staff. No new events. MEDICATIONS: Reviewed and from ID point of view, the patient is on cefepime. PHYSICAL EXAMINATION: GENERAL: Awake, no acute distress, response some. CV: S1 and S2. CHEST: Equal expansion. Decreased breath sounds. No acute distress. ABDOMEN: Soft. Feeding tube. No acute distress. HEENT: Moist. No pallor. No JVD. LABORATORY STUDIES: White count of 10.31, improved from 24.47, hemoglobin 7.8, and platelet 478. No new BMP available. MICROBIOLOGY: Blood culture, coag-negative staph. Urine culture shows Pseudomonas aeruginosa, Proteus mirabilis and yeast. RADIOLOGY STUDIES: No new radiology studies available. ASSESSMENT AND PLAN: 1. Respiratory failure, resolved. 2. Status post fall. 3. Dysphagia. 4. Urinary tract infection with Pseudomonas and Proteus and yeast. 5. Contaminated blood culture. 6. Continue with antibiotics at this point. Discharge planning noted to senior care facility, however, actually patient's family decided to the different facility. PEG tube supposed to be replaced prior to transfer. Continue to monitor the patient clinically and follow with the labs. Discussed with Dr. Varner in details. Dictated by Krishan Mckeon PA-C (Al) Darrin Varner MD /MODL /[id number]
[2019-10-09] MEDS: DOXAZOSIN MESYLATE 2 MG TAB PEG SCH (21:15)
[2019-10-10] VITALS (8 sets, daily range): BP systolic 143–179; BP diastolic 89–115
[2019-10-10] MEDS: ALBUTEROL/IPRATROPIUM 3 ML NEB NEB SCH ×4 (00:30→19:35)
[2019-10-10] MEDS: METOPROLOL TARTRATE INJ 1 MG/ML VIAL IV SCH ×4 (00:34→17:09)
[2019-10-10] MEDS: ACETAMINOPHEN 325 MG/10 ML UDC NG PRN (00:46)
--- NOTE | 2019-10-10 00:50 | NUR ---
Pt pulled IV out and removed stat lock for Reis catheter. Pt continuously points to his knees and states "hurt". Repositioned pillow under pt's knees. Tylenol given for pain. Residual checked and is currently 60 ml. Tube feeding held. After starting IV, pt began to vomit through his mouth and trach. Pt suctioned with Yankauer and rapid response called because the pt appeared to be in distress.
--- NOTE | 2019-10-10 01:10 | NUR ---
Rapid response team at bedside. Pt's trach suctioned by respiratory. New orders received for EKG, CXR, and sputum culture. Tube feeding is still being held. Will continue to closely monitor pt.
--- NOTE | 2019-10-10 02:54 | Diagnostic Imaging Report ---
EXAMINATION: CHEST SINGLE (PORTABLE) INDICATION: poss aspiration COMPARISON: Radiograph dated 10/04/2019. FINDINGS: Shallow inspiration limits evaluation. The chin projects over the lung apices limiting evaluation of the lung apices. Question new confluent opacity at the left base. Subtle reticulonodular opacities at the right costophrenic angle. Heart size is accentuated by shallow lung volumes. IMPRESSION: Limited exam due to patient positioning and shallow inspiration. Confluent opacity at the left base could represent any combination of pleural effusion, atelectasis, and/or pneumonia, including aspiration as an etiology. Subtle new reticulonodular opacities at the right costophrenic angle could represent an additional focus of infection or atelectasis. Signed by: Cal Ramirez MD on 10/10/2019 2:51 AM
[2019-10-10] MEDS: CEFEPIME 1GM/NS 0.9% 50 ML 50 ML IV SCH ×3 (05:35→23:17)
--- NOTE | 2019-10-10 05:45 | NUR ---
Pt lying in bed resting quietly with eyes closed. Breathing regular and unlabored. No distress noted. Will continue to monitor.
--- NOTE | 2019-10-10 06:30 | NUR ---
Spoke to Dr. Westbrook via phone. Notified of the rapid response and CXR results. New orders received. Will continue to monitor pt.
[2019-10-10] MEDS: METOCLOPRAMIDE HCL 10 MG/2ML VIAL IV PRN ×3 (06:52→19:12)
--- NOTE | 2019-10-10 06:54 | NUR ---
Pt repositioned in bed in high jones's position. Tube feeding resumed at 30 ml/hr per MD orders. Reglan 5 mg IV given prior to restarting. Pt alert and awake. No distress noted. No further needs at this time.
[2019-10-10 07:25] LABS: ANION GAP 15.5 mmol/L (8-16); BLOOD UREA NITROGEN 15 mg/dL (7-26); BUN/CREATININE RATIO 17 (6-25); CARBON DIOXIDE 23 mmol/L (22-29); CHLORIDE 110 mmol/L (98-107); CREATININE, SERUM 0.89 mg/dL (0.72-1.25); EST GLOMERULAR FILTRATION RATE > 60 ML/MIN (60-); GLUCOSE 90 mg/dL (74-118); POTASSIUM 3.5 mmol/L (3.5-5.1); SODIUM 145 mmol/L (136-145)
[2019-10-10] MEDS: INSULIN REGULAR, HUMAN 100 UNIT/1 ML 3ML VIAL SQ SCH ×4 (07:30→20:36)
[2019-10-10 07:38] LABS: MAGNESIUM 1.8 MG/DL (1.3-2.1); PHOSPHORUS 2.5 MG/DL (2.3-4.7)
[2019-10-10] MEDS: FAMOTIDINE 20 MG/2 ML VIAL IV SCH ×2 (09:47→17:09)
[2019-10-10] MEDS: RIVASTIGMINE TARTRATE 1.5 MG CAP PEG SCH ×2 (09:47→17:09)
[2019-10-10] MEDS: IRON SUCROSE 100 MG in SODIUM CHLORIDE 0.9% 100 ML 100 ML IV SCH (09:47)
[2019-10-10] MEDS: LEVETIRACETAM 500MG/5ML VIAL 750 MG in SODIUM CHLORIDE 0.9% 100 ML 100 ML IV SCH ×2 (09:47→20:23)
[2019-10-10] MEDS: POTASSIUM CHLORIDE 60 MEQ in SODIUM CHLORIDE 0.45% 1,000 ML IV SCH ×2 (09:47→20:23)
[2019-10-10] MEDS: HYDRALAZINE HCL 10 MG TAB PO SCH ×2 (09:55→17:09)
[2019-10-10] MEDS: BALSAM PERU/CASTOR OIL 60 GM OINT...G. TP SCH (09:55)
--- NOTE | 2019-10-10 14:06 | NUR ---
infectious disease progress note [id number] seen and examined chart reviewed. October 09, 2022 Case discussed with medical team prepare the patient with no new complaints at present time. He seems to be better his cough seems to be better status post trach he patient is seen and evaluated. Available labs and notes reviewed. Discussed with Dr. Varner in details. REVIEW OF SYSTEMS: The patient nods head occasionally, however, unable to obtain review of systems. Discussed with staff. No new events. MEDICATIONS: Reviewed and from ID point of view, the patient is on cefepime. PHYSICAL EXAMINATION: GENERAL: Awake, no acute distress, response some. CV: S1 and S2. CHEST: Equal expansion. Decreased breath sounds. No acute distress. ABDOMEN: Soft. Feeding tube. No acute distress. HEENT: Moist. No pallor. No JVD. LABORATORY STUDIES: White count of 10.31, improved from 24.47, hemoglobin 7.8, and platelet 478. No new BMP available. MICROBIOLOGY: Blood culture, coag-negative staph. Urine culture shows Pseudomonas aeruginosa, Proteus mirabilis and yeast. RADIOLOGY STUDIES: No new radiology studies available. ASSESSMENT AND PLAN: Aspiration pneumonia better care for 5 days of antibiotic. Continue supportive care continue with PT OT trach hygiene 1. Respiratory failure, resolved. 2. Status post fall. 3. Dysphagia. 4. Urinary tract infection with Pseudomonas and Proteus and yeast. 5. Contaminated blood culture. 6. Continue with antibiotics at this point. Discharge planning noted to [facility] can change to oral antibiotic to finish 5 days total can change to oral Augmentin
[2019-10-10] MEDS: DOXAZOSIN MESYLATE 2 MG TAB PEG SCH (20:23)
--- NOTE | 2019-10-10 22:28 | NUR ---
Patient arrived safely to room 202. Trach collar in place at 5L. Tube feedings at 30 ml/hr. Reis catheter patent and draining to gravity, bag hung below bladder. Patient resting quietly in bed, respirations even and unlabored, no s/s of distress at this time. Bed locked and in lowest position, side rails upx3, alarm on, call light placed within reach. All safety measures in place.
--- NOTE | 2019-10-10 22:30 | NUR ---
Pt transferred to room 202. Bedside report given to SERGIO Alves. Care transferred.
[2019-10-11] MEDS: ALBUTEROL/IPRATROPIUM 3 ML NEB NEB SCH ×3 (00:35→11:40)
[2019-10-11] MEDS: METOPROLOL TARTRATE INJ 1 MG/ML VIAL IV SCH ×2 (01:04→05:23)
[2019-10-11 04:00] VITALS: BP 169/106
[2019-10-11] MEDS: POTASSIUM CHLORIDE 60 MEQ in SODIUM CHLORIDE 0.45% 1,000 ML IV SCH (04:12)
[2019-10-11] MEDS: CEFEPIME 1GM/NS 0.9% 50 ML 50 ML IV SCH (05:23)
[2019-10-11] MEDS: IRON SUCROSE 100 MG in SODIUM CHLORIDE 0.9% 100 ML 100 ML IV SCH (06:39)
--- NOTE | 2019-10-11 07:01 | NUR ---
RECEIVED BEDSIDE SHIFT REPORT FROM PM RN. TRACH COLLAR IN PLACE AT 5L. TUBE FEEDINGS AT 30 ML/HR. FERREIRA CATHETER PATENT AND DRAINING TO GRAVIRT, BAG HUNG BELOW BLADDER. ALL SAFETY MEASURES IN PLACE. PT IN STABLE CONDITION.
[2019-10-11] MEDS: INSULIN REGULAR, HUMAN 100 UNIT/1 ML 3ML VIAL SQ SCH ×2 (07:30→11:30)
--- NOTE | 2019-10-11 07:54 | NUR ---
USP FACILITY DISCHARGE INFORMATION PATIENT HAS BEEN ACCEPTED TO: NAME: MARY ADDRESS:[id number] [facility] ACCEPTING SENIOR LOAN OFFICER:MARIELA GUZMAN MD:[facility] ROOM:[id number] NURSE CALL REPORT TO: [phone] IMM SIGNED AND OBTAINED (if applicable): IMM THE FOLLOWING DOCUMENTS MUST ACCOMPANY PATIENT FOR TRANSFER: COPIED CHART: PACKET AT STATION 2
[2019-10-11 08:02] VITALS: BP 173/108
[2019-10-11 08:10] VITALS: BP 173/108
[2019-10-11] MEDS: LEVETIRACETAM 500MG/5ML VIAL 750 MG in SODIUM CHLORIDE 0.9% 100 ML 100 ML IV SCH (08:45)
[2019-10-11] MEDS: RIVASTIGMINE TARTRATE 1.5 MG CAP PEG SCH (08:45)
[2019-10-11] MEDS: FAMOTIDINE 20 MG/2 ML VIAL IV SCH (08:45)
[2019-10-11] MEDS: HYDRALAZINE HCL 10 MG TAB PO SCH (08:45)
--- NOTE | 2019-10-11 08:49 | Diagnostic Imaging Report ---
EXAMINATION: CHEST SINGLE (PORTABLE) INDICATION: Aspiration COMPARISON: Chest radiograph 10/10/2019 and 10/04/2019 FINDINGS: LINES/TUBES:Tracheostomy tube unchanged. EKG leads overlie the chest. LUNGS:The lungs are moderately inflated. Unchanged bilateral patchy opacities. PLEURA:No pleural effusion or pneumothorax. MEDIASTINUM:The cardiomediastinal silhouette appears unchanged in size and shape. BONES/SOFT TISSUES:No acute osseous injury. Residual oral contrast material in the stomach. ABDOMEN:No free air under the diaphragm. IMPRESSION: Unchanged patchy bilateral opacities may represent multifocal pneumonia in the proper clinical setting. Signed by: Alejandro Lucas MD on 10/11/2019 8:45 AM
[2019-10-11 11:32] VITALS: BP 177/95
--- NOTE | 2019-10-11 13:29 | NUR ---
infectious disease progress note Patient seen and examined chart reviewed The patient seems to be a lot more alert more comfortable his breathing seems to be better No new complaints Discussed with medical team. Awake, no acute distress, looks more comfortable HEENT normocephalic Neck with a trach CV: S1 and S2. CHEST: Equal expansion. Decreased breath sounds. No acute distress. ABDOMEN: Soft. Feeding tube. No acute distress. HEENT: Moist. No pallor. No JVD. LABORATORY STUDIES: White count of 10.31, improved from 24.47, hemoglobin 7.8, and platelet 478. No new BMP available. MICROBIOLOGY: Blood culture, coag-negative staph. Urine culture shows Pseudomonas aeruginosa, Proteus mirabilis and yeast. RADIOLOGY STUDIES: No new radiology studies available. ASSESSMENT AND PLAN: 1. Respiratory failure, resolved. 2. Status post fall. 3. Dysphagia. 4. Urinary tract infection with Pseudomonas and Proteus and yeast. 5. Contaminated blood culture. 6. Continue with antibiotics at this point. [facility], however, actually patient's family decided to the different facility. PEG tube supposed to be replaced prior to transfer. Continue to monitor the patient clinically and follow with the labs bacteremia coagulase negative staph contamination Patient is colonized with gram-negative Patient received more than 5 days of antibiotic of a discharge to nursing facility with no antibiotic But he would need aggressive care for his trach PT OT
--- NOTE | 2019-10-12 12:03 | Diagnostic Imaging Report ---
PROCEDURE: X-RAY MODIFIED BARIUM SWALLOW COMPARISON: None. INDICATION: Aspiration Radiation Details: Fluoroscopy time: 2.7 minutes Cumulative dose: 10.4 mGy DISCUSSION: Fluoroscopic examination was performed in conjunction with speech pathology during swallowing a variety of thin and thick liquid consistencies. Provided images demonstrate laryngeal penetration and aspiration. CONCLUSION: Modified barium swallow demonstrating laryngeal penetration and aspiration. Please refer to the speech pathology report for further details. Signed by: Alejandro Lucas MD on 10/12/2019 12:00 PM
== END 2019-10-11 15:21 | DRG 871 ==
LOC: ER 20:35 → ERHOLD 23:57 → MED/SURG3 10-05 02:38 → MED/SURG2 10-10 22:25
PROVIDERS: ADMIT Internal Medicine; ATTEND Internal Medicine
PROC: 0B21XFZ Change Tracheostomy Device in Trachea, External Approach (ICD-10-PCS; principal; 2019-10-06 09:00)
DX: A41.9 Sepsis, unspecified organism (principal); J69.0 Pneumonitis due to inhalation of food and vomit; J18.9 Pneumonia, unspecified organism; I61.4 Nontraumatic intracerebral hemorrhage in cerebellum; T83.511A Infection and inflammatory reaction due to indwelling urethral catheter, initial encounter; J96.10 Chronic respiratory failure, unspecified whether with hypoxia or hypercapnia; N17.9 Acute kidney failure, unspecified; N39.0 Urinary tract infection, site not specified; R65.20 Severe sepsis without septic shock; S00.03XA Contusion of scalp, initial encounter; W06.XXXA Fall from bed, initial encounter; Y92.122 Bedroom in nursing home as the place of occurrence of the external cause; Z93.1 Gastrostomy status; Z93.0 Tracheostomy status; E86.0 Dehydration; R63.4 Abnormal weight loss; R13.12 Dysphagia, oropharyngeal phase; Z11.59 Encounter for screening for other viral diseases; Z86.19 Personal history of other infectious and parasitic diseases; Z74.01 Bed confinement status; G93.89 Other specified disorders of brain; B96.5 Pseudomonas (aeruginosa) (mallei) (pseudomallei) as the cause of diseases classified elsewhere
CPT/HCPCS: 36415; 43239; 43246; 70450; 71045; 72125; 74230; 80048; 80053; 81001; 82550; 82553; 82607; 82746; 82948; 83540; 83605; 83735; 84100; 84466; 84484; 85025; 85610; 85730; 87040; 87070; 87071; 87086; 87186; 87205; 88305; 88312; 93041; 94640; 96360; 97139; 99285; J0360; J0692; J1756; J2001; J2405; J2765; J3370; J3475; J3480; J7030; U0002

== ENCOUNTER 2019-10-14 04:10 | Emergency (ER) | payer MEDICARE, OTHER ==
[~2019-10-14] VITALS: Ht 170.2 cm; Wt 70.3 kg
[~2019-10-14 04:10] MED LIST: ACETAMINOPHEN325 M1 PEG; ADMELOG100 UNIT/1 SQ; AMLODIPINE BESYL5 MG PEG; CLONIDINE HCL0.1 MG PEG; COREG12.5 MG PEG; DOXAZOSIN MESYLA2 MG PEG; GLIMEPIRIDE2 MG PEG; HYDRALAZINE HCL25 MG PEG; IPRAT-ALBUT 0.5-3 ML ENDO; LEVETIRACE500 MG/51 PEG; LORAZEPAM2 MG/1 M1 SC; RIVASTIGMINE1.5 MG PEG; TRANSDERM-SCOP1 EACH TD
--- NOTE | 2019-10-14 04:36 | Emergency Department Note ---
History of Present Illnes History of Present Illness Chief Complaint: Head/Face Trauma History of Present Illness This is a 69 year old male PRESENTS TO THE ER VIA [facility] S/P UNWITNESSED FALL AROUND 0300; PT STATES HE WAS REACHED OVER FOR REMOTE WHEN HE FELL OUT OF BED; APPROX 4CM LACERATION NOTED TO FOREHEAD; LACERATION IS WELL APPROXIMATED; MINIMAL BLEEDING NOTED; DENIES TAKING BLOOD THINNERS; NAD NOTED AT THIS TIME; . 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 Any updates have been documented here. Past Medical History Recent Fever: No Clinical Suspicion of Infectio: No New/Unexplained Change in Ment: No Past Medical History: Hypertension, Diabetes, CVA, UTI's, Anemia Other Medical History: COVID-19 SEZURES RESP. FAILURE DEMENTIA HX OF MULTIPLE FALLS Other Surgery: PEG PLACEMENT, TRACH PLACEMENT Social History Smoking Cessation: Unknown if ever smoked Counseling Performed: No Alcohol Use: None Any Illegal Drug Use: No Physically hurt or threatened: No Other Any Pre-Existing Lines (PICC,: No Review of Systems Review of Systems Constitutional: Reports no symptoms EENTM: Reports no symptoms Cardiovascular: Reports no symptoms Respiratory: Reports no symptoms Gastrointestinal: Reports no symptoms Genitourinary: Reports no symptoms Musculoskeletal: Reports as per HPI Integumentary: Reports as per HPI Neurological: Reports no symptoms Psychological: Reports no symptoms Endocrine: Reports no symptoms Hematological/Lymphatic: Reports no symptoms Physical Exam Related Data Allergies: Coded Allergies: No Known Allergies (Unverified , 10/04/19) Triage Vital Signs Vital Signs Date Time Temp Pulse Resp B/P (MAP) Pulse Ox O2 Delivery O2 Flow Rate FiO2 10/14/19 04:10 98.4 102 17 130/93 98 Trach Collar 4.0 Vital signs reviewed: Yes Physical Exam CONSTITUTIONAL Constitutional: Present well-developed, Present well-nourished HENT HENT: Present normocephalic, Present oropharynx clear/moist, Present nose n ormal, Present other (4cm superificial laceration to forehead, well approximated no active bleeding) HENT L/R: Present left ext ear normal, Present right ext ear normal EYES Eyes: Reports PERRL, Reports conjunctivae normal NECK Neck: Present ROM normal, Present other (trach in place) PULMONARY Pulmonary: Present effort normal, Present breath sounds normal CARDIOVASCULAR Cardiovascular: Present regular rhythm, Present heart sounds normal, Present capillary refill normal, Present normal rate GASTROINTESTINAL Abdominal: Present soft, Present nontender, Present bowel sounds normal GENITOURINARY Genitourinary: Present exam deferred SKIN Skin: Present warm, Present dry MUSCULOSKELETAL Musculoskeletal: Present ROM normal NEUROLOGICAL Neurological: Present alert, Present oriented x 3, Present no gross motor or sensory deficits PSYCHOLOGICAL Psychological: Present mood/affect normal, Present judgement normal Results Imaging Imaging results reviewed: Yes Impressions Procedure: [id number] CT/CT CERVICAL SPINE WO Exam Date: 10/14/19 Exam Time: 0500 REPORT STATUS: Signed History: Fall. Comparison studies: CT cervical spine from 10/04/2019. Technique: Axial images were obtained through the cervical region.. Coronal and sagittal images reconstructed from the axial data. Dose modulation, iterative reconstruction, and/or weight based adjustment of the mA/kV was utilized to reduce the radiation dose to as low as reasonably achievable. Intravenous contrast: None Findings: Fractures: None. Soft tissue injuries: None. Atlantoaxial articulation: Intact. Alignment: Normal lordosis. No scoliosis. No subluxation. Cervicomedullary junction: No abnormalities. The foramen magnum is patent. Soft tissues: No abnormalities. Vertebrae: Nonspecific diffuse heterogeneous bone marrow density of the visualized spine may be related to osseous demineralization, underlying lymphoproliferative/myeloproliferative disorder or metastasis in appropriate clinical setting. Degenerative changes: C3-C4: Posterior disc osteophyte complex results in mild canal stenosis. C5-C6: Mild degenerative disc disease. Posterior disc osteophyte complex results in mild canal stenosis. Mild right foraminal stenosis due to uncovertebral arthrosis. C6-C7: Mild right and moderate left foraminal stenosis due to facet and uncovertebral arthrosis. Incidental finding: Evolving subacute vascular insult in right cerebellar hemisphere in PICA territory. Partial opacification of left more than right mastoid air cells. Groundglass opacification in bilateral lung apices. Tracheostomy tube noted in position. IMPRESSION: 1. No acute cervical spine abnormalities. 2. Ligament, spinal cord and or vascular abnormalities cannot be excluded on the basis of this examination. 3. Multilevel cervical spondylosis as detailed above. Signed by: Dr. Tatyana Khan M.D. on 10/14/2019 5:27 AM Dictated By: TATYANA KHAN MD 6 Transcribed By: AWILDA on 10/14/19526 COPY TO: DINAH RAY MD~ EXAMINATION: Head CT without contrast. HISTORY:Fall. COMPARISON:CT brain from 10/04/2019. TECHNIQUE: Multidetector axial images were obtained from the foramen magnum to the vertex without contrast. The images were reconstructed using brain and bone algorithms. Thin section brain images were reformatted into coronal and sagittal planes. Dose modulation, iterative reconstruction, and/or weight based adjustment of the mA/kV was utilized to reduce the radiation dose to as low as reasonably achievable. Intravenous contrast: None IMAGE QUALITY: Acceptable. FINDINGS: Skull/scalp: Mild right frontal scalp soft tissue edema/hematoma and laceration. No radiopaque foreign body or soft tissue emphysema. No acute depressed or displaced calvarial fracture. No lytic or blastic. lesions. No surgical changes. Parenchyma: Evolving focal hypodensity in the right dorsal and inferior aspect of the cerebellar hemisphere represents known vascular insult in right pica territory. Nonspecific bilateral frontoparietal patchy white matter hypodensity are likely related to small vessel ischemic changes. No acute hemorrhage or mass. No acute hemorrhage, mass or acute major vascular territorial infarct. Arteries: No density suggestive of thrombosis. Dural sinuses: No abnormal density suggestive of thrombosis. Ventricles: Mild compensated dilatation due to volume loss. No hydrocephalus. Extra-axial spaces: No abnormal density. Brain volume: Generalized age-related cerebral volume loss. Craniocervical junction: No mass, Chiari malformation, or basilar invagination. Sella: No mass. Paranasal/mastoid sinuses: Partial opacification of left mastoid air cells. Small polyp/retention cyst in right frontal sinus. IMPRESSION: 1. Mild right frontal scalp soft tissue edema/hematoma and laceration. No acute fracture. 2. No acute posttraumatic intracranial abnormality. 3. Evolving subacute vascular insult in right cerebellar hemisphere in right PICA territory. 4. Mild supratentorial white matter microvascular ischemic changes. 5. Generalized age-related cerebral volume loss. Signed by: Dr. Tatyana Khan M.D. on 10/14/2019 5:22 AM Dictated By: TATYANA KHAN MD 1 Transcribed By: AWILDA on 10/14/19521 COPY TO: DINAH RAY MD~ Procedures Laceration Laceration: Laceration 1 Site: other (forehead) Side: right Size (cm): 4 Description: linear Depth: simple, single layer Pre-repair: wound exposed, irrigated extensively, deep structures intact Skin layer closed with: other (dermabond) Size (cm): 4-0 Number of sutures: 0 Technique: other (dermabond) Assessment & Plan Medical Decision Making MDM Patient status post fall out of bed at correction with 4 cm superficial laceration to forehead patient denies LOC states the fall happened about 2:[address] C-spine ordered to eval for intracranial injury skull fracture or cervical fracture. Laceration repaired with Dermabond see procedure note Assessment & Plan Final Impression: (1) Laceration of forehead (2) Contusion of forehead Depart Disposition: DIS TO RETIREMENT BED Last Vital Signs Date Time Temp Pulse Resp B/P (MAP) Pulse Ox O2 Delivery O2 Flow Rate FiO2 10/14/19 04:10 98.4 102 17 130/93 98 Trach Collar 4.0 Home Meds Reported Medications Acetaminophen (ACETAMINOPHEN) 325 Mg Tablet, 650 MG PEG Q4HR PRN for Mild Pain (1-3) or Fever>100.8 for 5 Days, TAB 10/05/19 Lorazepam (LORAZEPAM) 2 Mg/1 Ml Vial, 0.5 MG SC Q6H PRN for AGITATION, VIAL 10/05/19 Carvedilol (COREG) 12.5 Mg Tab, 12.5 MG PEG BID for HTN HOLD SBP<110, DBP<60, HR<60 10/05/19 Amlodipine Besylate (AMLODIPINE BESYLATE) 5 Mg Tablet, 2.5 MG PEG HS for HTN, #30 TAB HOLD SBP<110, DBP<60, HR <60 10/05/19 Doxazosin Mesylate (DOXAZOSIN MESYLATE) 2 Mg Tablet, 4 MG PEG HS for BPH, #30 TAB 10/05/19 Ipratropium/Albuterol Sulfate (IPRAT-ALBUT 0.5-3(2.5) MG/3 ML) 3 Ml Ampul.neb, 3 ML ENDO Q4HR PRN for SHORTNESS OF BREATH PRN SOB/WHEEZING 10/05/19 Hydralazine Hcl (HYDRALAZINE HCL) 25 Mg Tab, 25 MG PEG Q8HR for HTN, TAB HOLD SBP<110, DBP<60, HR<60 10/05/19 Rivastigmine Tartrate (RIVASTIGMINE) 1.5 Mg Capsule, 3 MG PEG BID for DEMENTIA, #60 CAP 10/05/19 Glimepiride (GLIMEPIRIDE) 2 Mg Tablet, 2 MG PEG DAILY for DM, TAB HOLD IF BS<80 10/05/19 Levetiracetam (LEVETIRACETAM) 500 Mg/5 Ml Solution, 750 MG PEG BID for SEIZURES 10/05/19 Scopolamine Hydrobromide (TRANSDERM-SCOP) 1 Each Patch.td72, 1.5 MG TD UD PRN for NAUSEA AND VOMITING for 3 Days, PATCH 10/05/19 Insulin Lispro (Admelog) 100 Unit/1 Ml Vial, 100 UNIT SQ PRN for BLOOD SUGAR INJECT SLIDING SCALE: IF 60-180= 0 UNITS; 181-250= 3 UNITS; 251-300= 6 UNITS; 301-350= 9 UNITS; 351-400= 12 UNITS >400, GIVE 15 UNITS, NOTIFY ; RECHECK BG IN 2 HRS. SUBCUTANEOUSLY BEFORE MEALS AND AT BEDTIME FOR DM. 10/05/19 Clonidine Hcl (CLONIDINE HCL) 0.1 Mg Tablet, 1 TAB PEG Q8HR PRN for ELEVATED BLOOD PRESSURE, #60 TAB SBP>164 OR DBP>94 10/05/19 DINAH RAY MD Oct 14, 2019 04:36
--- OUTSIDE RECORDS SUMMARY | 2019-10-14 04:37 | XMS REPORT | Continuity of Care Document ---
Author Author [facility] t Organization [facility] Address [facility] [place] [address] [place] [address] Phone Unavailable Care Team Providers Care Slab Grinder Name Role Phone MD HUMPHREY RUIZ PCP SEVERINO CAMERON Attphys Unavailable SEVERINO CAMERON Admphymohsen Unavailable Payers Payer Name Policy Type Policy Number Effective Date Expiration Date Mohsen Cabrales [id number] 2019 00:00:00 [facility] Problems Condition Name Condition Details Condition Category Status Onset Date Resolution Date Last Treatment Date Treating Clinician Comments Source Indwelling catheter present on admission Problem Active [facility] Urinary tract infection associated with catheterization of u rinary tract Problem Active [facility] Pneumonia Problem Active [facility] Fever Problem Active [facility] Contusion of head Problem Active [facility] Allergies, Adverse Reactions, Alerts Allergy Name Allergy Type Status Severity Reaction(s) Onset Date Inacti ve Date Treating Clinician Comments Source No Known Allergies DA Active U 2014-02-12 00:00:00 [facility] Social History Social Habit Start Date Stop Date Quantity Comments Source Sex Assigned At 1950 00:00[birth year]00 1950 00:00:[address] [facility] Medications Ordered Medication Name Filled Medication Name Start Date Stop Da te Current Medication? Ordering Clinician Indication Dosage Frequency Signature (SIG) Comments Components Source Acetaminophen Acetaminophen Yes 650 Every 4 Hours as needed for Mild Pain (1-3) Or Fever>100.8 [facility] Amlodipine Besylate Amlodipine Besylate Yes 2.[address] [facility] Carvedilol (Coreg) 12.5 Mg TAB Carvedilol (Coreg) 12.5 Mg TAB Yes 12.5 Twice A Day for Htn [facility] Clonidine Hcl Clonidine Hcl Yes 1 Every 8 Hours as needed for Elevated Blood Pressure [facility] Doxazosin Mesylate Doxazosin Mesylate Yes 4 Be dtime for Bph [facility] Glimepiride Glimepiride Yes [address] [facility] Hydralazine Hcl Hydralazine Hcl Yes 25 Every [address] [facility] Insulin Lispro (Admelog) 100 Unit/1 Ml VIAL Insulin Li spro (Admelog) 100 Unit/1 Ml VIAL Yes 100 as needed for Blood Sugar [facility] Ipratropium/Albuterol Sulfate (Iprat-Albut 0.5-3(2.5) Mg/3 Ml) 3 Ml AMPUL.NEB Ipratropium/Albuterol Sulfate (Iprat-Albut 0.5-3(2.5) Mg/3 Ml) 3 Ml AMPUL.NEB Yes 3 Every 4 Hours as needed for Shor tness Of Breath [facility] Levetiracetam Levetiracetam Yes 750 Twice A Day for Seizures [facility] Lorazepam Lorazepam Yes .5 Every 6 Hours as nee ded for Agitation [facility] Rivastigmine Tartrate (Rivastigmine) 1.5 Mg CAPSULE Ri vastigmine Tartrate (Rivastigmine) 1.5 Mg CAPSULE Yes 3 Twice A Day for Dementia [facility] Scopolamine Hydrobromide (Transderm-Scop) 1 Each PATCH .TD72 Scopolamine Hydrobromide (Transderm-Scop) 1 Each PATCH.TD72 Yes 1.5 Use As Directed as needed for Nausea And Vomiting [facility] Vital Signs Vital Name Observation Time Observation Value Comments Source Body Temperature 2019-10-11 11:32:00 97.8 [degF] [facility] Procedures Procedure Date / Time Performed Performing Clinician Sour e Computed tomography of brain without radiopaque contrast 2019-09 00:00:00 [facility] Computed tomography of cervical spine without contrast 2019-09-16 9 00:00:00 [facility] Results Test Description Test Time Test Comments Results Result Comments Source MODIFIED BA. SWALLOW 2019-10-12 12:00:00 [facility] [address] [address] Patient Name: DEYSI FRANCISCO MR #: [id number] : 1950 Age/Sex: 69/M Req #: [id number] Adm Physician: SEVERINO CAMERON MD Ordered by: DANNA DAVIS MD Report #: [id number] Location: [facility] Room/Bed: [facility] Procedure: [id number] DX/MODIFIED BA. SWALLOW Exam Date: 10/10/19 Exam Time: 1330 REPORT STATUS: Signed PROCEDURE: X-RAY MODIFIED BARIUM SWALLOW COMPARISON: None. INDICATION: Aspiration Radiation Details: Fluoroscopy time: 2.7 minutes Cumulative dose: 10.4 mGy DISCUSSION: Fluoroscopic examination was performed in conjunction with speech pathology during swallowing a variety of thin and thick liquid consistencies. Provided images demonstrate laryngeal penetration and aspiration. CONCLUSION: Modified barium swallow demonstrating laryngeal penetration and aspiration. Please refer to the speech pathology report for further details. Signed by: Que Marcelo MD on 10/12/2019 12:00 PM Dictated By: QUE MARCELO MD 1200 Transcribed By: AWILDA on 10/12/19 1200 COPY TO: DANNA DAVIS MD CHEST SINGLE (PORTABLE) 2019-10-11 08:42:00 [facility] [address] [address] Patient Name: DEYSI FRANCISCO MR #: [id number] : 1950 Age/Sex: 69/M Req #: [id number] Adm Physician: SEVERINO CAMERON MD Ordered by: DANNA DAVIS MD Report #: [id number] Location: MED/SURG2 Room/Bed: [facility] Procedure: [id number] DX/CHEST SINGLE (PORTABLE) Exam Date: 10/11/19 Exam Time: 0540 REPORT STATUS: Signed EXAMINATION: CHEST SINGLE (PORTABLE) INDICATION: Aspiration COMPARISON: Chest radiograph 10/10/2019 and 10/04/2019 FINDINGS: LINES/TUBES:Tracheostomy tube unchanged. EKG leads overlie the chest. LUNGS:The lungs are moderately inflated. Unchanged bilateral patchy opacities. PLEURA:No pleural effusion or pneumothorax. MEDIASTINUM:The cardiomediastinal silhouette appears unchanged in size and shape. BONES/SOFT TISSUES:No acute osseous injury. Residual oral contrast material in the stomach. ABDOMEN:No free air under the diaphragm. IMPRESSION: Unchanged patchy bilateral opacities may represent multifocal pneumonia in the proper clinical setting. Signed by: Que Marcelo MD on 10/11/2019 8:45 AM Dictated By: QUE MARCELO MD 4 Transcribed By: AWILDA on 10/11/19844 COPY TO: DANNA DAVIS MD Capillary blood glucose measurement by glucometer (mas s/volume) 2019-10-11 07:50:00 Test Item Bedside Glucose (test code = 99539-6) 110 70-120 Meter ID: [id number] Hospitals [facility] Texaserum or plasma sodium measurement (moles/volume)2019-10-10 06:30:00* Test Item Value Reference Range Interpretation Comments Sodium Level (test code = 2951-2) 145 136-145 [facility] or plasma potassium measurement (moles/volume)2019-10-10 06:30:00* Test Item Value Reference Range Interpretation Comments Potassium Level (test code = 2823-3) 3.5 3.5-5.1 [facility]um or plasma chloride measurement (moles/volume)2019-10-10 06:30:00* Test Item Value Reference Range Interpretation Comments Chloride Level (test code = 2075-0) 110 98-107 [facility] Texaserum or plasma carbon dioxide, total measurement (moles/volume)2019-10-10 06:30:00* Test Item Value Reference Range Interpretation Comments Carbon Dioxide Level (test code = 2028-9) 23 22-29 [facility] Texaserum or plasma anion mjw9141-03-65 06:30:00* Test Item Value Reference Range Interpretation Comments Anion Gap (test code = 47062-1) 15.5 8-16 [facility] or plasma urea nitrogen measurement (mass/volume)2019-10-10 06:30:00* Test Item Value Reference Range Interpretation Comments Blood Urea Nitrogen (test code = 3094-0) 15 7-26 [facility]um or plasma creatinine measurement (mass/volume)2019-10-10 06:30:00* Test Item Value Reference Range Interpretation Comments Creatinine (test code = 2160-0) 0.89 0.72-1.25 [facility] Texas[facility]um or plasma urea nitrogen/creatinine mass osfbm3824-03-14 06:30:00* Test Item Value Reference Range Interpretation Comments BUN/Creatinine Ratio (test code = 3097-3) 17 6-25 [facility] CenterEstimated glomerular filtration rate (GFR) wbhwwxpwwyluh8430-91-69 06:30:00* Test Item Value Reference Range Interpretation Comments Estimat Glomerular Filtration Rate (test code = 456149504) > 60 >60 Ranges were taken from the National Kidney Disease Education Program and the Andreia ional Kid[employer] Foundation literature.Reference ranges:60 or greater: Jgppys03-28 ( for 3 consecutive months): Chronic kidney disease 15 or less: Kidney failureSt. David's [facility] Medical CenterGlucose ewzxosuirhe1141-28-29 06:30:00* Test Item Value Reference Range Interpretation Comments Glucose Level (test code = HPX7714) 90 74-118 [facility] or plasma calcium measurement (mass/volume)2019-10-10 06:30:00* Test Item Value Reference Range Interpretation Comments Calcium Level (test code = 08615-7) 9.0 8.4-10.2 [facility] CenterPhosphorus ukuddrtdcqy7474-22-63 06:30:00 * Test Item Value Reference Range Interpretation Comments Phosphorus Level (test code = SUK5544) 2.5 2.3-4.7 [facility] Texas[facility]um or plasma magnesium measurement (mass/volume)2019-10-10 06:30:00* Test Item Value Reference Range Interpretation Comments Magnesium Level (test code = 93432-6) 1.8 1.3-2.1 [facility] CenterCHEST SINGLE (PORTABLE)2019-10-10 02:27:00 [facility] [address] [place] [address] Patient Name: DEYSI FRANCISCO MR #: [id number] : 1950 Age/Sex: 69/M Req #: [id number] Adm Physician: SEVERINO CAMERON MD Ordered by: ELKIN CAMERON DO Report #: [id number] Location: MED/SURG3 Room/Bed: [facility] Procedure: [id number] DX/CHEST SINGLE (PORTABLE) Exam Date: 10/10/19 Exam Time: 0125 REPORT STATUS: Signed EXAMINATION: CHEST SINGLE (PORTABLE) INDICATION: poss aspiration COMPARISON: Radiograph dated 10/04/2019. FINDINGS: Shallow inspiration limits mike luation. The chin projects over the lung apices limiting evaluation of the estefania g apices. Question new confluent opacity at the left base. Subtle reticulon odular opacities at the right costophrenic angle. Heart size is accentuat ed by shallow lung volumes. IMPRESSION: Limited exam due to patient p ositioning and shallow inspiration. Confluent opacity at the left base could r epresent any combination of pleural effusion, atelectasis, and/or pneumonia, i ncluding aspiration as an etiology. Subtle new reticulonodular opacities at th e right costophrenic angle could represent an additional focus of infection or atelectasis. Signed by: Severino Ramirez MD on 10/10/2019 2:51 AM Dict ated By: SEVERINO RAMIREZ MD 0251 COPY TO: ELKIN CAMERON Bacteria identification in sputum by respiratory wkgiiyl7834-50-82 01:25:00* Test Item Value Reference Range Interpretation Comments Sputum Culture (test code = 624-7) GRAM NEGATIVE GIANCARLO [facility] CenterBlnorthland medical center leukocytes automated count (number/volume)2019-10-09 06:15:00* Test Item Value Reference Range Interpretation Comments White Blood Count (test code = 6690-2) 10.31 4.8-10.8 [facility] CenterBlood erythrocytes automated count (number/volume)2019-10-09 06:15:00* Test Item Value Reference Range Interpretation Comments Red Blood Count (test code = 789-8) 2.72 4.3-5.7 [facility] CenterBlood hemoglobin measurement (moles/volume)2019-10-09 06:15:00* Test Item Value Reference Range Interpretation Comments Hemoglobin (test code = 32913-5) 7.8 14.0-18.0 [facility] CenterAutomated blood hematocrit (volume fraction)2019-10-09 06:15:00* Test Item Value Reference Range Interpretation Comments Hematocrit (test code = 4544-3) 25.2 38.2-49.6 [facility] CenterAutomated erythrocyte mean corpuscular uzrema5544-70-69 06:15:00* Test Item Value Reference Range Interpretation Comments Mean Corpuscular Volume (test code = 787-2) 92.6 81-99 [facility] CenterAutomated erythrocyte mean corpuscular hemoglobin (mass per erythrocyte)2019-10-09 06:15:00* Test Item Value Reference Range Interpretation Comments Mean Corpuscular Hemoglobin (test code = 785-6) 28.7 28-32 [facility] CenterAutomated erythrocyte mean corpuscular hemoglobin concentration measurement (mass/volume)2019-10-09 06:15:00* Test Item Value Reference Range Interpretation Comments Mean Corpuscular Hemoglobin Concent (test code = 786-4) 31.0 31-35 [facility] CenterRDW TjsGo-Sno1289-70-24 06:15:00* Test Item Value Reference Range Interpretation Comments Red Cell Distribution Width (test code = 95911-0) 14.6 11.7 -14.4 [facility] CenterAutformerly [facility], [facility]ed blood platelet count (count/volume)2019-10-09 06:15:00* Test Item Value Reference Range Interpretation Comments Platelet Count (test code = 777-3) 478 140-360 [facility] CenterAutformerly [facility], [facility]ed blood segmented neutrophil count as percentage of total kblixdxvsg6846-75-69 06:15:00* Test Item Value Reference Range Interpretation Comments Neutrophils (%) (Auto) (test code = 24522-8) 61.5 38.7-80.0 [facility] CenterAutomated blood lymphocyte count as percentage ot total mbtwsiyvlx1867-35-82 06:15:00* Test Item Value Reference Range Interpretation Comments Lymphocytes (%) (Auto) (test code = 736-9) 24.8 18.0-39.1 [facility] CenterAutomated blood monocyte count as percentage of total brjfeaohba3355-09-04 06:15:00* Test Item Value Reference Range Interpretation Comments Monocytes (%) (Auto) (test code = 5905-5) 6.9 4.4-11.3 [facility] CenterAutomated blood eosinophil count as percentage of total injttlrlcn4323-30-24 06:15:00* Test Item Value Reference Range Interpretation Comments Eosinophils (%) (Auto) (test code = 713-8) 3.9 0.0-6.0 [facility] CenterAutomated blood basophil count as percentage of total vwgavawlzt1842-06-44 06:15:00* Test Item Value Reference Range Interpretation Comments Basophils (%) (Auto) (test code = 706-2) 0.7 0.0-1.0 [facility] CenterFluoroscopic procedure less than one hour xnmnkqbg2692-14-50 06:15:00* Test Item Value Reference Range Interpretation Comments IM GRANULOCYTES % (test code = IM GRANULOCYTES %) 2.2 0.0- 1.0 [facility] CenterAutomated blood neutrophil count 2019-10-09 06:15:00* Test Item Value Reference Range Interpretation Comments Neutrophils # (Auto) (test code = 751-8) 6.3 2.1-6.9 [facility] CenterBlood lymphocytes count (number/volume) 2019-10-09 06:15:00* Test Item Value Reference Range Interpretation Comments Lymphocytes # (Auto) (test code = 73461-7) 2.6 1.0-3.2 [facility] CenterBlood monocytes automated count (number/volume)2019-10-09 06:15:00* Test Item Value Reference Range Interpretation Comments Monocytes # (Auto) (test code = 742-7) 0.7 0.2-0.8 [facility] CenterAutomated blood eosinophil count 2019-10-09 06:15:00* Test Item Value Reference Range Interpretation Comments Eosinophils # (Auto) (test code = 711-2) 0.4 0.0-0.4 [facility] CenterAutomated blood basophil count (count/volume)2019-10-09 06:15:00* Test Item Value Reference Range Interpretation Comments Basophils # (Auto) (test code = 704-7) 0.1 0.0-0.1 [facility] CenterFluoroscopic procedure less than one hour tavlhlwl9043-51-03 06:15:00* Test Item Value Reference Range Interpretation Comments Absolute Immature Granulocyte (auto (berta t code = Absolute Immature Granulocyte (auto) 0.23 0-0.1 [facility] Texaserum or plasma iron measurement (mass/volume)2019-10-09 06:15:00* Test Item Value Reference Range Interpretation Comments Iron Level (test code = 2498-4) 62 65-175 [facility] Texaserum or plasma iron binding capacity measurement (mass/volume)2019-10-09 06:15:00* Test Item Value Reference Range Interpretation Comments Total Iron Binding Capacity (test code = 2500-7) 179 261-4 78 [facility] Texaserum or plasma iron saturation measurement (mass fraction)2019-10-09 06:15:00* Test Item Value Reference Range Interpretation Comments Percent Iron Saturation (test code = 2502-3) 35 15-50 [facility] Texaserum or plasma transferrin measurement (mass/volume)2019-10-09 06:15:00* Test Item Value Reference Range Interpretation Comments Transferrin (test code = 3034-6) 128 174-364 [facility] Texaserum or plasma total bilirubin measurement (mass/volume)2019-10-09 06:15:00* Test Item Value Reference Range Interpretation Comments Total Bilirubin (test code = 1975-2) 0.3 0.2-1.2 [facility] CenterFluoroscopic procedure less than one hour xyerwtir8805-78-92 06:15:00* Test Item Value Reference Range Interpretation Comments Aspartate Amino Transf (AST/SGOT) (test code = Aspartate Amino Transf (AST/SGOT)) 16 5-34 [facility] Texaserum or plasma alanine aminotransferase measurement (enzymatic activity/volume)2019-10-09 06:15:00* Test Item Value Reference Range Interpretation Comments Alanine Aminotransferase (ALT/SGPT) (test code = 1742-6) 9 0-55 [facility] Texaserum or plasma protein measurement (mass/volume)2019-10-09 06:15:00* Test Item Value Reference Range Interpretation Comments Total Protein (test code = 2885-2) 7.4 6.5-8.1 [facility] Texaserum or plasma albumin measurement (mass/volume)2019-10-09 06:15:00* Test Item Value Reference Range Interpretation Comments Albumin (test code = 1751-7) 2.7 3.5-5.0 [facility] CenterPlasma globulin measurement (mass/volume) 2019-10-09 06:15:00* Test Item Value Reference Range Interpretation Comments Globulin (test code = 98226-9) 4.7 2.3-3.5 [facility] Texaserum or plasma albumin/globulin mass rgywm5725-68-36 06:15:00* Test Item Value Reference Range Interpretation Comments Albumin/Globulin Ratio (test code = 1759-0) 0.6 0.8-2.0 [facility] Texaserum or plasma alkaline phosphatase measurement (enzymatic activity/volume)2019-10-09 06:15:00* Test Item Value Reference Range Interpretation Comments Alkaline Phosphatase (test code = 6768-6) 92 40-150 [facility] CenterBlood cobalamin (vitamin B12) measurement (mass/volume)2019-10-09 06:15:00* Test Item Value Reference Range Interpretation Comments Vitamin B12 Level (test code = 25004-0) 1813 213816 [facility] or plasma folate measurement (mass/volume)2019-10-09 06:15:00* Test Item Value Reference Range Interpretation Comments Folate (test code = 2284-8) 13.8 >3.0 A serum folate concentration of less than 3.1 ng/mL isconsidered to represent cl inical deficiency.Performed at: - [facility] [address] [id number] Director: Art Nelson MD, Phone: [phone] Hospitals of Southeast Texaserum or plasma creatine kinase measurement (enzymatic activity/volume)2019-10-05 13:54:00* Test Item Value Reference Range Interpretation Comments Creatine Kinase (test code = 2157-6) 15 30-200 [facility] Texaserum or plasma creatine kinase MB measurement (mass/volume)2019-10-05 13:54:00* Test Item Value Reference Range Interpretation Comments Creatine Kinase MB (test code = 97386-6) 0.90 0-5.0 [facility] CenterTroponin I measurement by highly sensitive enzyme rsahiolxftc7413-94-49 13:54:00* Test Item Value Reference Range Interpretation Comments Troponin I (test code = 84520-3) 0.004 0-0.300 [facility] CenterFluoroscopic procedure less than one hour dxlvuicx8838-99-72 05:50:00* Test Item Value Reference Range Interpretation Comments Differential Total Cells Counted (test code = Britney bakergarry Total Cells Counted) 100 [facility] blood neutrophils/100 leukocytes 2019-10-05 05:50:00* Test Item Value Reference Range Interpretation Comments Neutrophils % (Manual) (test code = 50417-0) 72 40-74 [facility] blood lymphocytes/100 leukocytes 2019-10-05 05:50:00* Test Item Value Reference Range Interpretation Comments Lymphocytes % (Manual) (test code = 737-7) 14 19-48 [facility] blood monocytes/100 leukocytes 2019-10-05 05:50:00* Test Item Value Reference Range Interpretation Comments Monocytes % (Manual) (test code = 744-3) 13 3.4-9.0 [facility] blood eosinophil count as percentage of total yidmxarotf5920-95-95 05:50:00* Test Item Value Reference Range Interpretation Comments Eosinophils % (Manual) (test code = 714-6) 1 0-7 [facility] CenterBlood platelets count by estimate (number/volume)2019-10-05 05:50:00* Test Item Value Reference Range Interpretation Comments Platelet Estimate (test code = 99747-5) SLIGHTLY INCREASED [facility] CenterPlatelet ohoxhuyukc2719-73-96 05:50:00* Test Item Value Reference Range Interpretation Comments Platelet Morphology Comment (test code = 62354-3) NORMAL [facility] anisocytosis detection by light foovqliain8162-52-88 05:50:00* Test Item Value Reference Range Interpretation Comments Anisocytosis (test code = 702-1) SLIGHT [facility] csydthabrx3713-95-70 05:50:00* Test Item Value Reference Range Interpretation Comments Red Cell Morphology Comment (test code = 6742-1) NORMAL [facility] CenterFluoroscopic procedure less than one hour flvrwiwp3207-29-31 02:14:00* Test Item Value Reference Range Interpretation Comments Coronavirus (PCR) (test code = Coronavirus (PCR)) NOT DETECTED NOTD ETECTED SARS-COV2/RT-PCRNegative results do not preclude SARS-CoV-2 infection and should not be used as the sole basis for patient management decisions. Negative result s must be combined with clinical observations, patient history, and epidemiologi rajan information. A false negative result may occur if a specimen is improperly c ollected, transported or handled.The limit of detection for this assay is 250 co pies/mLThe SARS-CoV-2 test is a rapid, real-time RT-PCR test intended for the qu alitative detection of nucleic acid from SARS-CoV-2 in nasopharyngeal swab speci men collected from individuals suspected of COVID-19 by their healthcare provide r. This test has not been Food and Drug Administration (FDA) cleared or approved and has been authorized by FDA under an Emergency Use Authorization (EUA). This EUA will be effective until the declaration that circumstances exist justifying the authorization of the emergency use of in vitro diagnostic test for detectio n and or diagnosis of COVID-19 is terminated under section 564(b) of the Act, or the the EUA is revoked under 564(g) of the ACT.Testing performed by [id number] [place], [place] [address]CHES SINGLE (PORTABLE)2019-10-04 23:58:00 [address] [place] [address] Patient Name: DEYSI FRANCISCO MR #: [id number] : 1950 Age/Sex: 69/M Req #: [id number] Adm Physician: SEVERINO CAMERON MD Ordered by: DINAH RAY MD Report #: [id number] Location: MED/SURG2 Room/Bed: 202-1 Procedure: [id number] DX/CHES T SINGLE (PORTABLE) Exam Date: 10/05/19 Exam Time: 2 259 REPORT STATUS: Signed EXAMIN ATION: CHEST SINGLE (PORTABLE) INDICATION: Cough COMPARISON: N one FINDINGS: TUBES and LINES: Partially visualized gastrost dixon catheter retention balloon in the left upper abdomen.. LUNGS: Low le ft lung volume. Scattered patchy haziness in both lungs. PLEURA: No ple ural effusion or pneumothorax. HEART AND MEDIASTINUM: The cardiomediastina l silhouette is unremarkable. BONES AND SOFT TISSUES: No acute osseous lesion. Soft tissues are unremarkable. UPPER ABDOMEN: No free air under the diaphragm. IMPRESSION: Findings compatible with multifocal p neumonia. Signed by: Michael Tinoco DO on 10/04/2019 11:59 PM Dictat ed By: MICHAEL TINOCO DO 58 COPY TO: DINAH RAY MD Urine color [id number] 23:33:00* Test Item Value Reference Range Interpretation Comments Urine Color (test code = 5778-6) RED YELLOW [facility] vyotxxm7189-95-24 23:33:00* Test Item Value Reference Range Interpretation Comments Urine Clarity (test code = 79411-5) CLOUDY CLEAR [facility] Urine by Test strip 2019-10-04 23:33:00* Test Item Value Reference Range Interpretation Comments Urine Specific Meno (test code = 5811-5) 1.020 1.010-1.[address] [facility] pH measurement by automated test [id number] 23:33:00* Test Item Value Reference Range Interpretation Comments Urine pH (test code = 84097-7) >=9 5-7 [facility] CenterU[facility] leukocyte esterase detection by lkbrugtx4813-76-76 23:33:00* Test Item Value Reference Range Interpretation Comments Urine Leukocyte Esterase (test code = 5799-2) LARGE NEGATIVE [facility] CenterUrine nitrite jmtsckmwr7572-37-69 23:33:00* Test Item Value Reference Range Interpretation Comments Urine Nitrite (test code = 52570-0) POSITIVE NEGATIVE [facility] CenterU[facility] protein measurement by test strip (mass/volume)2019-10-04 23:33:00* Test Item Value Reference Range Interpretation Comments Urine Protein (test code = 5804-0) >=[address] [facility] CenterU[facility] glucose mptidvgqb6507-27-55 23:33:00* Test Item Value Reference Range Interpretation Comments Urine Glucose (UA) (test code = 2349-9) NEGATIVE NEGATIVE [facility] CenterUrine ketones detection by automated test ovhyp0391-83-49 23:33:00* Test Item Value Reference Range Interpretation Comments Urine Ketones (test code = 65055-0) NEGATIVE NEGATIVE [facility] CenterUrine urobilinogen measurement by test strip (mass/volume)2019-10-04 23:33:00* Test Item Value Reference Range Interpretation Comments Urine Urobilinogen (test code = 78921-0) 0.2 0.2-1 [facility] CenterU[facility] total bilirubin measurement (mass/volume)2019-10-04 23:33:00* Test Item Value Reference Range Interpretation Comments Urine Bilirubin (test code = 1978-6) SMALL NEGATIVE [facility] CenterUrine erythrocytes jugtcjucv7840-97-89 23:33:00* Test Item Value Reference Range Interpretation Comments Urine Blood (test code = 46732-0) LARGE NEGATIVE [facility] CenterAutomated urine sediment leukocyte count by microscopy (number/high power field)2019-10-04 23:33:00* Test Item Value Reference Range Interpretation Comments Urine WBC (test code = 5821-4) 21-50 0-5 [facility] CenterErythrocytes detection in urine sediment by light sbbdutobex7112-71-02 23:33:00* Test Item Value Reference Range Interpretation Comments Urine RBC (test code = 21101-0) >50 0-5 [facility] CenterBacteria detection in urine sediment by light mrbkztwqah4669-15-33 23:33:00* Test Item Value Reference Range Interpretation Comments Urine Bacteria (test code = 72492-5) MODERATE NONE [facility] CenterEpithelial cells detection in urine sediment by light wkzbtgbfyv6348-58-07 23:33:00* Test Item Value Reference Range Interpretation Comments Urine Epithelial Cells (test code = 43833-5) FEW NONE [facility] CenterFluoroscopic procedure less than one hour mpzxzbaj7990-42-71 23:08:00* Test Item Value Reference Range Interpretation Comments Lactic Acid Level (test code = Lactic Acid Level) 0.9 0.5- 2.0 [facility] CenterBlood hamidct7325-43-18 23:08:00* Test Item Value Reference Range Interpretation Comments Blood Culture (test code = 80478696) NO GROWTH AFTER 5 DAYS, FINAL REPORT [facility] CenterBacterial blood laaxhal8498-93-59 23:08:00* Test Item Value Reference Range Interpretation Comments Blood Culture (test code = 600-7) STAPHYLOCOCCUS SP COAG NEG [facility] CenterCT CERVICAL SPINE [id number] 22:49:00 [facility] [address] [address] Patient Name: DEYSI FRANCISCO MR #: [id number] : 1950 Age/Sex: 69/M Req #: [id number] Adm Physician: Ordered by: DINAH RAY MD Report #: [id number] Location: Room/Bed: Procedure: [id number] CT/CT C ERVICAL SPINE WO Exam Date: 10/04/19 Exam Time: 2124 REPORT STATUS: Signed History: Status post fall. Comparison studies: None Technique: Axial images were obtained through the cervical region.. Coronal and sagittal images recon structed from the axial data. Dose modulation, iterative reconstruction, and/o r weight based adjustment of the mA/kV was utilized to reduce the radiation do se to as low as reasonably achievable. Intravenous contrast: None Fi ndings: Fractures: None. Soft tissue injuries: None. Atlantoaxial ar ticulation: Intact. Alignment: Normal lordosis. No scoliosis. No subluxation. Cervicomedullary junction: No abnormalities. The foramen magnum is patent. S oft tissues: No abnormalities. Vertebrae: Nonspecific diffuse heterogen eous bone marrow density of the visualized spine may be related to osseous dem ineralization, underlying lymphoproliferative/myeloproliferative disorder or m etastasis in appropriate clinical setting. Degenerative changes: C3-C4 : Posterior disc osteophyte complex results in mild canal stenosis. C5-C6: Mil d degenerative disc disease. Posterior disc osteophyte complex results in mild canal stenosis. Mild right foraminal stenosis due to uncovertebral arthrosis. C6-C7: Mild right and moderate left foraminal stenosis due to facet and unc overtebral arthrosis. Incidental finding: Evolving subacute vascular insu lt in right cerebellar hemisphere in right PICA territory as detailed in prior CT head from same day. Partial opacification of left more than right mastoid air cells. Groundglass opacification in bilateral lung apices. Tracheostomy tube noted in position. IMPRESSION: 1. No acute cervical spine fractu re or dislocation. 2. Ligament, spinal cord and or vascular abnormalities cannot be excluded on the basis of this examination. 3. Multilevel cervi rajan spondylosis as detailed above. Signed by: Solis Ziegler on 10/04/2019 10:56 PM Dictated By: RAVINDRA ESCALANTE MD 55 Transcribed By: AWILDA on 10/03 COPY TO: DINAH RAY MD Prothrombin time (PT) in platelet poor plasma by coagulation vxzev3944-75-31 22:27:00* Test Item Value Reference Range Interpretation Comments Prothrombin Time (test code = 5902-2) 14.1 11.9-14.5 [facility] CenterINR in Platelet poor plasma by Coagulation nczeq6981-58-47 22:27:00* Test Item Value Reference Range Interpretation Comments Prothromb Time International Ratio (test code = 6301-6) 1.04 Oral Anticoagulant Therapy INR Values:1. Low Intensity Therapy 1.5 - 2.02 . Moderate Intensity Therapy 2.0 - 3.03. High Intensity Therapy(1) 2.5 - 3. 54. High Intensity Therapy(2) 3.0 - 4.05. Panic Value INR > 5.0 [facility] CenterActivated partial thromboplastin time (aPTT) in platelet poor plasma by coagulation rcmno4199-95-72 22:27:00* Test Item Value Reference Range Interpretation Comments Activated Partial Thromboplast Time (test code = 93238-3) 22.2 23.8-35.5 [facility] CenterCT BRAIN [id number] 22:04:[address] [address] Patient Name: DEYSI FRANCISCO MR #: [id number] : 1950 Age/Sex: 69/M Req #: [id number] Adm Physician: Ordered by: DINAH RAY MD Report #: [id number] Location: ER Room/Bed: Procedure: [id number] CT/CT B [place] WO Exam Date: 10/04/19 Exam Time: 2124 REPORT STATUS: Signed ADDEND UM #1 After review of patient's outside clinical report, it was br ought to my attention that it was already a known subacute right cerebellar va scular insult. Discussed with ER physician Dr. Ray by phone at 10:40 PM on 10/04/2019. Signed by: Dr. Ravindra Escalante M.D. on 10/04/2019 10:49 PM ORIGINAL REPORT EXAMINATION: Head CT without contrast. HISTORY:Status post fall. COMPARISON:None. TECHNIQUE: Multide tector axial images were obtained from the foramen magnum to the vertex withou t contrast. The images were reconstructed using brain and bone algorithms. Th in section brain images were reformatted into coronal and sagittal planes. D ose modulation, iterative reconstruction, and/or weight based adjustment of th e mA/kV was utilized to reduce the radiation dose to as low as reasonably achi evable. Intravenous contrast: None IMAGE QUALITY: Acceptable. F INDINGS: Skull/scalp: No lytic or blastic. lesions. No surgical changes. Parenchyma: Focal hypodensity in the dorsal and inferior aspect of right cerebellar hemisphere with regional mass effect is concerning for evolving ac bam/subacute vascular insult in right PICA territory. Nonspecific bilateral fr ontoparietal patchy white matter hypodensity are likely related to small vesse l ischemic changes. No acute hemorrhage or mass. Arteries: No density rico ggestive of thrombosis. Dural sinuses: No abnormal density suggestive o f thrombosis. Ventricles: Mild compensated dilatation due to volume loss. No hydrocephalus. Extra-axial spaces: No abnormal density. Brai n volume: Generalized age-related cerebral volume loss. Craniocervical miley ction: No mass, Chiari malformation, or basilar invagination. Sella: No mass. Paranasal/mastoid sinuses: Partial opacification of left mastoid ai r cells. Small polyp/retention cyst in the inferior aspect of right frontal si nus. IMPRESSION: 1. Focal hypodensity in the dorsal and inferior as pect of right cerebellar hemisphere raises concern for evolving acute/subacute vascular insult in right PICA territory. 2. Mild supratentorial white ma tter microvascular ischemic changes. 3. Generalized age-related cerebral vo lume loss. Recommendation: Neurology consultation. CTA of the head and neck for further assessment. Findings informed to ER physician Dr. Bahena on by phone at 10:10 PM on 10/04/2019. Signed by: Juan Ziegler on 10/04/2019 10:15 PM Dictated By: RAVINDRA ESCALANTE MD Electronically S igned By: RAVINDRA ESCALANTE MD on 10/04/192248 Transcribed By: AWILDA on 2214 COPY TO: DINAH RAY MD Bacterial urine culture 2019-10-04 11:33:00* Test Item Value Reference Range Interpretation Comments Urine Culture (test code = 630-4) YEAST SPECIES [facility] METABOLIC [id number] 16:20:00 * Test Item Value Reference Range Interpretation Comments [...] code = CA) 8.4 mg/dL 8.0-10.5 N [id number] 16:20:00* Test Item Value Reference Range Interpretation Comments PHOSPHOROUS (test code = PHOS) 3.2 MG/DL 2.5-4.9 N [id number] 16:20:00* Test Item Value Reference Range Interpretation Comments MAGNESIUM (test code = MAG) 1.60 mg/dL 1.8-2.4 L BASIC METABOLIC [id number] 16:17:00* Test Item Value Reference Range Interpretation [...] code = CA) 8.4 mg/dL 8.0-10.5 N [id number] 16:17:00* Test Item Value Reference Range Interpretation Comments PHOSPHOROUS (test code = PHOS) MG/DL 2.5-4.9 [id number] 16:17:00* Test Item Value Reference Range Interpretation Comments MAGNESIUM (test code = MAG) 1.60 mg/dL 1.8-2.4 L [id number] 12:29:00* Test Item Value Reference Range Interpretation Comments GLUBED (test code = GLUBED) 131 MG/DL 70-110 H Performed by certified mechanical press operator at [facility] [id number] 06:52:00* Test Item Value Reference Range Interpretation Comments GLUBED (test code = GLUBED) 84 MG/DL 70-110 N Performed by certified mechanical press operator at [facility] - XR CHEST 1 [id number] 06:35:00 FAX: Sherif Hickman MD [phone] [place]: St: ADM FAX: Izabel Fallon NP [phone] Name: DEYSI FRANCISCO [facility] : 1950 Age/S: 69/M [address] [place] [address] Unit #: [id number] Loc: [address] [place] [address] Phys: Izabel Fallon NP Acct: [id number] Dis Date: Status: ADM IN PHONE #: [phone] Exam Date: 08/18/2019 0550 FAX #: [phone] Reason: resp failure EXAMS: CPT CODE: [id number] XR CHEST 1 V 94919 EXAM: CR, XR chest one view: 08/18/2019, 0421 hours HISTORY: resp failure TECHNIQUE: 1 view of the chest. COMPARISON: 08/17/2019, 0409 hours FINDINGS: Tracheostomy tube, cardiomediastinal silhouette and osseous structures are stable. Pre viously seen catheter in the right apical chest is no longer visualized. There is no pneumothorax. Bilateral lung opacities, not signi ficantly changed since prior study.. Lucency overlying the left uppe r abdomen pelvis stomach distended with air. IMPRESSION: 1. Previously seen catheter overlying the right apical chest is no longer present. Tracheostomy tube is stable. 2. Bilateral lung opac ities, not significantly changed since prior study. SL: [JSYED-H] Electronically Signed by Mega Woo on at 0635 Reported and signed by: Juan Mckinney CC: Sherif Wren M.D.; Izabel Fallon NP Technol ogist: Derek Underwood RT(R) Trnscrd Date/Time/ By: 08/18/2019 (0635) : By: [email or web address] [facility] Print D/T: S: 08/18/2019 (0 998) PAGE 1 Signed Report COMPREHENSIVE METABOLIC [id number] 05:52:00* Test Item Value Reference Range Interpretation [...] code = ALKP) 97 IUnit/L 20-125 N [id number] 05:52:00* Test Item Value Reference Range Interpretation Comments PHOSPHOROUS (test code = PHOS) 3.3 MG/DL 2.5-4.9 N [id number] 05:52:00* Test Item Value Reference Range Interpretation Comments MAGNESIUM (test code = MAG) 1.40 mg/dL 1.8-2.4 L CALCIUM [id number] 05:52:00* Test Item Value Reference Range Interpretation Comments CALCIUM IONIZED (test code = SEAMUS) 1.20 MMOL/L 1.12-1.32 N COMPREHENSIVE METABOLIC [id number] 05:39:00* Test Item Value Reference Range Interpretation [...] TOTAL (test code = ALKP) IUnit/L 20-125 [id number] 05:39:00* Test Item Value Reference Range Interpretation Comments PHOSPHOROUS (test code = PHOS) MG/DL 2.5-4.9 [id number] 05:39:00* Test Item Value Reference Range Interpretation Comments MAGNESIUM (test code = MAG) mg/dL 1.8-2.4 CALCIUM [id number] 05:39:00* Test Item Value Reference Range Interpretation Comments CALCIUM IONIZED (test code = SEAMUS) 1.20 MMOL/L 1.12-1.32 N PROTHROMBIN [id number] 05:37:00* Test Item Value Reference Range Interpretation [...] Infarction (to prevent recurrent infarct). CBC W/AUTO [id number] 05:27:00* Test Item Value Reference Range Interpretation [...] (test code = MDIFF) NO ARTERIAL BLOOD [id number] 04:44:00* Test Item Value Reference Range Interpretation [...] = PSABG) 10 cmH2O Performed by certified mechanical press operator at [facility] ABG TEMPERATURE (test code = TEMPA) 98.5 F ABG SITE (test code = SITEA) L Rad PREDICTED AA GRADIENT (test code = AP) 59 PREDICTED PO2 (test code = OP) 171 a/A RATIO (test code = RATIO) 0.57 TCO2 ARTERIAL (test code = TCO2A) 33 A-A GRADIENT (test code = AAGRADE) 100 [id number] 22:48:00* Test Item Value Reference Range Interpretation Comments GLUBED (test code = GLUBED) 116 MG/DL 70-110 H Performed by certified mechanical press operator at [facility] [id number] 22:48:00* Test Item Value Reference Range Interpretation Comments GLUBED (test code = GLUBED) 82 MG/DL 70-110 N Performed by certified mechanical press operator at [facility] [id number] 22:48:00* Test Item Value Reference Range Interpretation Comments GLUBED (test code = GLUBED) 74 MG/DL 70-110 N Performed by certified mechanical press operator at [facility] [id number] 19:51:00* Test Item Value Reference Range Interpretation Comments GLUBED (test code = GLUBED) 66 MG/DL 70-110 L Performed by certified mechanical press operator at [facility] [id number] 15:44:00* Test Item Value Reference Range Interpretation Comments GLUBED (test code = GLUBED) 130 MG/DL 70-110 H Performed by certified mechanical press operator at [facility] - CT ABD PELVIS W/O [id number] 08:31:00 Name: DEYSI FRANCISCO [place] : 1950 Age/S: 69 / M [address] [place] [address] Bl Unit #: [id number] Loc: [place] [address] Phys: Samuel Bradshaw MD Acct: [id number] Dis Date: Status: ADM IN PHONE #: [phone] Exam Date: 08/17/2019527 FAX #: [phone] Reason: vomiting, r/o obstruction EXAMS: CPT CODE: [id number] CT ABD PELVIS W/O CONT 80396 CT abdomen pelvis without contrast: Multiplanar helical [...] Sign ed Report (CONTINUED) Name: DEYSI FRANCISCO [facility] [place] : 1950 Age/S: 69 / M [address] [place] [address] Unit #: [id number] Loc: [place] [address] Phys: Samuel Bradshaw MD Acct: [id number] Dis Date: Status: ADM IN PHONE #: [phone] Exam Date: 08/17/2019527 FAX #: [phone] Reason: vomiting, r/o obstruct ion EXAMS: CPT CODE: [id number] CT ABD PELVIS W/O CONT 24359 <Continued> lung base could be edema or pneumonia. SL: [id number] at 0831 Reported and signed by: Lebron Wharton M.D. CC: Sherif Wren M.D.; Samuel Bradshaw MD Technologist:Jethro De La Fuente, RT(R)(CT) CTDI: DLP: Trnscb Date/Time: 08/17/2019 (0831) [email or web address] Orig Print D/T: S: 08/17/2019 (0834) PAGE 2 Signed Report - XR CHEST 1 [id number] 08:06:00 FAX: Sherif Hickman MD [phone] [place]: St: [facility] FAX: Frances Lindsey NP [phone] Name: DEYSI FRANCISCO [facility] [place] : 1950 Age/S: 69/M [address] [place] [address] Unit #: [id number] Loc: [address] [place] [address] Phys: Frances Lindsey [employer] Acct: [id number] Dis Date: Status: ADM IN PHONE #: [phone] Exam Date: 08/17/2019545 FAX #: [phone] Reason: resp failure EXAMS: CPT CODE: [id number] XR CHEST 1 V 19327 PROCEDURE: CHEST SINGLE VIEW INDICATION: Respiratory failure [...] insertion site. 3. Stable pulmonary opacities. SL: [id number] at 0806 Reported and signed by: Burton Mccoy M.D. CC: Sherif Wren M.D.; Frances Lindsey NP Technologist: RT Heath(R) Trnscrd Date/Time/By: 08/17/2019 (805) : By: Ethan Orig Print D/T: S: 08/17/2019 (808) PAGE 1 Signed Report BASIC METABOLIC [id number] 05:10:00* Test Item Value Reference Range Interpretation [...] code = CA) 8.5 mg/dL 8.0-10.5 N [id number] 05:10:00* Test Item Value Reference Range Interpretation Comments PHOSPHOROUS (test code = PHOS) 4.1 MG/DL 2.5-4.9 N [id number] 05:10:00* Test Item Value Reference Range Interpretation Comments MAGNESIUM (test code = MAG) 1.40 mg/dL 1.8-2.4 L CALCIUM [id number] 05:10:00* Test Item Value Reference Range Interpretation Comments CALCIUM IONIZED (test code = SEAMUS) 1.18 MMOL/L 1.12-1.32 N LACTIC [id number] 05:01:00* Test Item Value Reference Range Interpretation Comments LACTIC ACID (test code = LACT) 0.6 mmol/L 0.4-1.9 N [id number] 04:54:00* Test Item Value Reference Range Interpretation Comments GLUBED (test code = GLUBED) 77 MG/DL 70-110 N Performed by certified mechanical press operator at [facility] BASIC METABOLIC [id number] 04:52:00* Test Item Value Reference Range Interpretation [...] CALCIUM (test code = CA) mg/dL 8.0-10.5 [id number] 04:52:00* Test Item Value Reference Range Interpretation Comments PHOSPHOROUS (test code = PHOS) MG/DL 2.5-4.9 [id number] 04:52:00* Test Item Value Reference Range Interpretation Comments MAGNESIUM (test code = MAG) mg/dL 1.8-2.4 CALCIUM [id number] 04:52:00* Test Item Value Reference Range Interpretation Comments CALCIUM IONIZED (test code = SEAMUS) 1.18 MMOL/L 1.12-1.32 N CBC W/AUTO [id number] 04:51:00* Test Item Value Reference Range Interpretation [...] (test code = MDIFF) NO ARTERIAL BLOOD [id number] 04:36:00* Test Item Value Reference Range Interpretation [...] = PEEPA) 5 cmH2O Performed by certified mechanical press operator at [facility] ABG TEMPERATURE (test code = TEMPA) 97.8 F ABG SITE (test code = SITEA) L Rad PREDICTED AA GRADIENT (test code = AP) 57 PREDICTED PO2 (test code = OP) 164 a/A RATIO (test code = RATIO) 0.67 TCO2 ARTERIAL (test code = TCO2A) 35 A-A GRADIENT (test code = AAGRADE) 73 [id number] 23:38:00* Test Item Value Reference Range Interpretation Comments GLUBED (test code = GLUBED) 112 MG/DL 70-110 H Performed by certified mechanical press operator at [facility] - XR CHEST 1 [id number] 19:31:00 FAX: Sherif Hickman MD [phone] [place]: St: ADM FAX: Frances Lindsey NP [phone] Name: DEYSI FRANCISCO [facility] : 1950 Age/S: 69/M [address] [place] [address] Unit #: [id number] Loc: [address] [place] [address] Phys: Frances Lindsey NP Acct: [id number] Dis Date: Status: ADM IN PHONE #: [phone] Exam Date: 08/16/20191919 FAX #: [phone] Reason: right subclavian line assessment EXAMS: CPT CODE: [id number] XR CHEST 1 V 03287 SINGLE VIEW RADIOGRAPH CHEST INDICATION: right subclavian [...] Stable small left pl eural effusion. at 193 Reported and signed by: Michael Lugo D.O. PAGE 1 Signed Report (CONTINUED) FAX: Sherif Hickman MD [phone] [place]: St: ADM FAX: Frances Lindsey NP [phone] Name: DEYSI FRANCISCO [facility] : 1950 Age/S: 69/M [address] [place] [address] Unit #: [id number] Loc: [address] [place] [address] Phys : Frances Lindsey NP Acct: [id number] Dis Date: Status: ADM IN PHONE #: [phone] Exam Date: 08/16/2019 1920 F AX #: [phone] Reason: right subclavian line assessment EXAMS: CPT CODE: [id number] XR CHEST 1 V 42807 <Continued> CC: Sherif Wren M.D.; Frances Lindsey NP Technologist: RT Porsha(R) Trnscchris Date/Time/By: 08/16/2019 (1930) : By: [email or web address] Orig Print D/T: S: 08/16/2019 (1933) PAGE 2 Signed Report [id number] 17:19:00* Test Item Value Reference Range Interpretation Comments GLUBED (test code = GLUBED) 81 MG/DL 70-110 N Performed by certified mechanical press operator at [facility] [id number] 12:01:00* Test Item Value Reference Range Interpretation Comments GLUBED (test code = GLUBED) 102 MG/DL 70-110 N Performed by certified mechanical press operator at [facility] [id number] 10:32:00* Test Item Value Reference Range Interpretation Comments GLUBED (test code = GLUBED) 125 MG/DL 70-110 H Performed by certified mechanical press operator at [facility] - XR CHEST 1 [id number] 08:31:00 FAX: Sherif Hickman MD [phone] [place]: St: ADM FAX: Frances Lindsey NP [phone] Name: DEYSI FRANCISCO [facility] : 1950 Age/S: 69/M [address] [place] [address] Unit #: [id number] Loc: [address] [place] [address] Phys: Frances Lindsey NP Acct: [id number] Dis Date: Status: ADM IN PHONE #: [phone] Exam Date: 08/16/2019 0554 FAX #: [phone] Reason: resp failure EXAMS: CPT CODE: [id number] XR CHEST 1 V 92125 Clinical Indication: Respiratory failure. Comparison: 08/15/2019. Impression: Chest, single view. Stable position of support apparatus. Bilateral airspace opacities, not significantly changed since prior. No new pleural effusion or pneumothorax. Heart size normal. Overall appearance is similar to prior. SL: [id number] at 0831 Reported and signed by: Marcy Ortiz M.D. CC: Sherif Wren M.D.; Frances Lindsey NP Technologist: CLARISA Delcid) Trnscrd Date/Time/By: 08/16/2019 (830) : By: [email or web address] Orig Print D/T: S: 08/16/2019 (34) PAGE 1 Signed Report GLUBED 2019-08-16 08:20:00* Test Item Value Reference Range Interpretation Comments GLUBED (test code = GLUBED) 96 MG/DL 70-110 N Performed by certified mechanical press operator at [facility] [id number] 07:23:00* Test Item Value Reference Range Interpretation Comments GLUBED (test code = GLUBED) 168 MG/DL 70-110 H Performed by certified mechanical press operator at [facility] [id number] 06:24:00* Test Item Value Reference Range Interpretation Comments AMMONIA (test code = AMM) 24 umol/L 0-35 N BASIC METABOLIC [id number] 05:50:00* Test Item Value Reference Range Interpretation [...] code = CA) 8.4 mg/dL 8.0-10.5 N [id number] 05:50:00* Test Item Value Reference Range Interpretation Comments PHOSPHOROUS (test code = PHOS) 4.5 MG/DL 2.5-4.9 N [id number] 05:50:00* Test Item Value Reference Range Interpretation Comments MAGNESIUM (test code = MAG) 1.60 mg/dL 1.8-2.4 L CALCIUM [id number] 05:50:00* Test Item Value Reference Range Interpretation Comments CALCIUM IONIZED (test code = SEAMUS) 1.19 MMOL/L 1.12-1.32 N CBC W/AUTO [id number] 05:40:00* Test Item Value Reference Range Interpretation [...] (test code = MDIFF) NO BASIC METABOLIC [id number] 05:39:00* Test Item Value Reference Range Interpretation [...] CALCIUM (test code = CA) mg/dL 8.0-10.5 [id number] 05:39:00* Test Item Value Reference Range Interpretation Comments PHOSPHOROUS (test code = PHOS) MG/DL 2.5-4.9 [id number] 05:39:00* Test Item Value Reference Range Interpretation Comments MAGNESIUM (test code = MAG) mg/dL 1.8-2.4 CALCIUM [id number] 05:39:00* Test Item Value Reference Range Interpretation Comments CALCIUM IONIZED (test code = SEAMUS) 1.19 MMOL/L 1.12-1.32 N ARTERIAL BLOOD [id number] 05:03:00* Test Item Value Reference Range Interpretation [...] = PEEPA) 5 cmH2O Performed by certified mechanical press operator at [facility] ABG TEMPERATURE (test code = TEMPA) 98.9 F ABG SITE (test code = SITEA) Art line PREDICTED AA GRADIENT (test code = AP) 57 PREDICTED PO2 (test code = OP) 164 a/A RATIO (test code = RATIO) 0.57 TCO2 ARTERIAL (test code = TCO2A) 32 A-A GRADIENT (test code = AAGRADE) 94 [id number] 17:42:00* Test Item Value Reference Range Interpretation Comments GLUBED (test code = GLUBED) 103 MG/DL 70-110 N Performed by certified mechanical press operator at [facility] [id number] 17:08:00* Test Item Value Reference Range Interpretation Comments HAPTOGLOBIN (test code = HAPT) 280 mg/dL 32-363 Performed At: [address] [id number] Francis MD [phone] [id number] 11:42:00* Test Item Value Reference Range Interpretation Comments GLUBED (test code = GLUBED) 143 MG/DL 70-110 H Performed by certified mechanical press operator at [facility] - XR CHEST 1 [id number] 08:33:00 FAX: Sherfi Hickman MD [phone] [place]: St: ADM FAX: Frances Lindsey NP [phone] [facility] 1950 Age/S: 69/M [address] [place] [address] Unit #: [id number] Loc: G.M[address] [place] [address] Phys: Frances Lindsey [employer] REPA[employer] MECH[employer]IC Acct: [id number] Dis Date: Status: ADM IN PHONE #: [phone] Exam Date: 08/15/2019613 FAX #: [phone] Reason: resp failure EXAMS: CPT CODE: [id number] XR CHEST 1 V 20412 PROCEDURE: CHEST SINGLE VIEW INDICATION: Respiratory failure [...] RDS, edema, infection in the differential. SL: [id number] at 0833 R eported and signed by: Burton Mccoy M.D. CC: Sherif Mayfield; Frances Lindsey NP Technologist: CLARISA Delcid) Trnscrd Date/Time/By: 08/15/2019 (0843) : By: Ethan Orig Print D/T: S: 08/15/2019 (9669) PAGE 1 Signed Report BASIC METABOLIC [id number] 06:30:00* Test Item Value Reference Range Interpretation [...] code = CA) 8.6 mg/dL 8.0-10.5 N [id number] 06:30:00* Test Item Value Reference Range Interpretation Comments PHOSPHOROUS (test code = PHOS) 3.8 MG/DL 2.5-4.9 N [id number] 06:30:00* Test Item Value Reference Range Interpretation Comments MAGNESIUM (test code = MAG) 1.70 mg/dL 1.8-2.4 L CALCIUM [id number] 06:30:00* Test Item Value Reference Range Interpretation Comments CALCIUM IONIZED (test code = SEAMUS) 1.21 MMOL/L 1.12-1.32 N ARTERIAL BLOOD [id number] 05:59:00* Test Item Value Reference Range Interpretation [...] = PEEPA) 5 cmH2O Performed by certified mechanical press operator at [facility] ABG TEMPERATURE (test code = TEMPA) 97.7 F ABG SITE (test code = SITEA) Art line PREDICTED AA GRADIENT (test code = AP) 58 PREDICTED PO2 (test code = OP) 166 a/A RATIO (test code = RATIO) 0.39 TCO2 ARTERIAL (test code = TCO2A) 34 A-A GRADIENT (test code = AAGRADE) 137 [id number] 05:31:00* Test Item Value Reference Range Interpretation Comments GLUBED (test code = GLUBED) 103 MG/DL 70-110 N Performed by certified mechanical press operator at [facility] BASIC METABOLIC [id number] 05:29:00* Test Item Value Reference Range Interpretation [...] code = CA) 8.6 mg/dL 8.0-10.5 N [id number] 05:29:00* Test Item Value Reference Range Interpretation Comments PHOSPHOROUS (test code = PHOS) 3.8 MG/DL 2.5-4.9 N [id number] 05:29:00* Test Item Value Reference Range Interpretation Comments MAGNESIUM (test code = MAG) 1.70 mg/dL 1.8-2.4 L CALCIUM [id number] 05:29:00* Test Item Value Reference Range Interpretation Comments CALCIUM IONIZED (test code = SEAMUS) MMOL/L 1.12-1.32 [id number] 05:28:00* Test Item Value Reference Range Interpretation Comments AMMONIA (test code = AMM) 20 umol/L 0-35 N CBC W/AUTO [id number] 04:55:00* Test Item Value Reference Range Interpretation [...] DIFF REQUIRED (test code = MDIFF) NO [id number] 23:30:00* Test Item Value Reference Range Interpretation Comments GLUBED (test code = GLUBED) 148 MG/DL 70-110 H Performed by certified mechanical press operator at [facility] [id number] 20:08:00* Test Item Value Reference Range Interpretation Comments GLUBED (test code = GLUBED) 123 MG/DL 70-110 H Performed by certified mechanical press operator at [facility] [id number] 12:52:00* Test Item Value Reference Range Interpretation Comments GLUBED (test code = GLUBED) 103 MG/DL 70-110 N Performed by certified mechanical press operator at [facility] - XR CHEST 1 [id number] 08:08:00 FAX: Sherif Hickman MD [phone] [place]: St: [facility] FAX: Frances Lindsey NP [phone] Name: DEYSI FRANCISCO [facility] : 1950 Age/S: 69/M [address] [place] [address] Unit #: [id number] Loc: G.[address] [place] [address] Phys: Frances Lindsey NP Acct: [id number] Dis Date: Status: ADM IN PHONE #: [phone] Exam Date: 08/14/2019 0746 FAX #: [phone] Reason: resp failure EXAMS: CPT CODE: [id number] XR CHEST 1 V 65992 Clinical Indication: Respiratory failure. Comparison: 08/13/2019. Impression: Chest, single view. Stable position of endotracheal tube. Right subclavian central venous catheter is in place with tip projecting to the superior vena cava. Bilateral airspace opacities, similar to prior. Small bilateral pleural effusions. No pneumothorax. Heart size is normal. No acute osseous abnormality. Overall appearance is stable from prior. SL: [id number] at 0808 Reported and signed by: Marcy Ortiz M.D. CC: Sherif Wren M.D.; Frances Lindsey NP Technologist: RT Keven(Alexandrea) Trnscrd Date/Time/By: 08/14/2019 (807) : By: [email or web address] Orig Print D/T: S: 08/14/2019 (810) PAGE 1 Signed Report ARTERIAL BLOOD GAS [...] = PEEPA) 5 cmH2O Performed by certified mechanical press operator at [facility] ABG TEMPERATURE (test code = TEMPA) 98.6 F ABG SITE (test code = SITEA) Art line PREDICTED AA GRADIENT (test code = AP) 56 PREDICTED PO2 (test code = OP) 160 a/A RATIO (test code = RATIO) 0.39 TCO2 ARTERIAL (test code = TCO2A) 33 A-A GRADIENT (test code = AAGRADE) 132 BASIC METABOLIC [id number] 04:06:00* Test Item Value Reference Range Interpretation [...] CA) 8.6 mg/dL 8.0-10.5 N HEPATIC FUNCTION [id number] 04:06:00* Test Item Value Reference Range Interpretation [...] code = ALKP) 170 IUnit/L 20-125 H [id number] 04:06:00* Test Item Value Reference Range Interpretation Comments PHOSPHOROUS (test code = PHOS) 4.7 MG/DL 2.5-4.9 N [id number] 04:06:00* Test Item Value Reference Range Interpretation Comments LIPASE (test code = LIP) 180 IUnit/L 73-393 N [id number] 04:06:00* Test Item Value Reference Range Interpretation Comments MAGNESIUM (test code = MAG) 1.70 mg/dL 1.8-2.4 L CALCIUM [id number] 04:06:00* Test Item Value Reference Range Interpretation Comments CALCIUM IONIZED (test code = SEAMUS) 1.24 MMOL/L 1.12-1.32 N [id number] 04:02:00* Test Item Value Reference Range Interpretation Comments AMMONIA (test code = AMM) 26 umol/L 0-35 N BASIC METABOLIC [id number] 03:53:00* Test Item Value Reference Range Interpretation [...] code = CA) mg/dL 8.0-10.5 HEPATIC FUNCTION [id number] 03:53:00* Test Item Value Reference Range Interpretation Comments TOTAL PROTEIN (test code = PROT) g/dL 6.4-8.2 ALBUMIN (test code = ALB) g/dL 3.4-5.0 BILIRUBIN TOTAL (test code = BILT) MG/DL <1.5 BILIRUBIN DIRECT (test code = BILD) MG/DL 0.0-0.30 SGOT/AST (test code = AST) IUnit/L 15-37 SGPT/ALT (test code = ALT) IUnit/L 15-65 ALKALINE PHOSPHATASE TOTAL (test code = ALKP) IUnit/L 20-125 [id number] 03:53:00* Test Item Value Reference Range Interpretation Comments PHOSPHOROUS (test code = PHOS) MG/DL 2.5-4.9 [id number] 03:53:00* Test Item Value Reference Range Interpretation Comments LIPASE (test code = LIP) IUnit/L 73-393 [id number] 03:53:00* Test Item Value Reference Range Interpretation Comments MAGNESIUM (test code = MAG) mg/dL 1.8-2.4 CALCIUM [id number] 03:53:00* Test Item Value Reference Range Interpretation Comments CALCIUM IONIZED (test code = SEAMUS) 1.24 MMOL/L 1.12-1.32 N CBC W/AUTO [id number] 03:48:00* Test Item Value Reference Range Interpretation [...] DIFF REQUIRED (test code = MDIFF) NO [id number] 01:17:00* Test Item Value Reference Range Interpretation Comments GLUBED (test code = GLUBED) 109 MG/DL 70-110 N Performed by certified mechanical press operator at [facility] [id number] 17:06:00* Test Item Value Reference Range Interpretation Comments GLUBED (test code = GLUBED) 100 MG/DL 70-110 N Performed by certified mechanical press operator at [facility] [id number] 11:13:00* Test Item Value Reference Range Interpretation Comments GLUBED (test code = GLUBED) 122 MG/DL 70-110 H Performed by certified mechanical press operator at [facility] [id number] 08:01:00* Test Item Value Reference Range Interpretation Comments GLUBED (test code = GLUBED) 72 MG/DL 70-110 N Performed by certified mechanical press operator at [facility] - XR CHEST 1 [id number] 07:18:00 FAX: Sherif Hickman MD [phone] [place]: St: [facility] FAX: Frances Lindsey NP [phone] Name: DEYSI FRANCISCO [facility] [place] : 1950 Age/S: 69/M [address] [place] [address] Unit #: [id number] Loc: [address] [place] [address] Phys: Frances Lindsey [employer]PA[employer] MECH[employer]IC Acct: [id number] Dis Date: Status: ADM IN PHONE #: [phone] Exam Date: 08/13/2019620 FAX #: [phone] Reason: resp failure EXAMS: CPT CODE: [id number] XR CHEST 1 V 73024 Chest view 08/13/2019 HISTORY: Respiratory failure Comparison is made to 08/12/2019 FINDINGS: The endotracheal tube and right jugular line are stable. Patchy airspace opacities and interstitial infiltrates throughout both lungs are not significantly changed, right greater than left. Bilateral pleural effusions are unchanged. IMPRESSION: Stable chest. SL: [id number] at 0718 Reported and signed by: Eric Orozco M.D. CC: Sherif Wren M.D.; Frances Lindsey NP Technologist: CLARISA Walton) Trnscrd Date/Time/By: 08/13/2019 (717) : By: [email or web address] Orig Print D/T: S: 08/13/2019 (75) PAGE 1 Signed Report BASIC METABOLIC [id number] 06:23:00* Test Item Value Reference Range Interpretation [...] code = CA) 8.5 mg/dL 8.0-10.5 N [id number] 06:23:00* Test Item Value Reference Range Interpretation Comments PHOSPHOROUS (test code = PHOS) 5.3 MG/DL 2.5-4.9 H [id number] 06:23:00* Test Item Value Reference Range Interpretation Comments MAGNESIUM (test code = MAG) 1.80 mg/dL 1.8-2.4 N CALCIUM [id number] 06:23:00* Test Item Value Reference Range Interpretation Comments CALCIUM IONIZED (test code = SEAMUS) 1.22 MMOL/L 1.12-1.32 N BASIC METABOLIC [id number] 06:13:00* Test Item Value Reference Range Interpretation [...] CALCIUM (test code = CA) mg/dL 8.0-10.5 [id number] 06:13:00* Test Item Value Reference Range Interpretation Comments PHOSPHOROUS (test code = PHOS) MG/DL 2.5-4.9 [id number] 06:13:00* Test Item Value Reference Range Interpretation Comments MAGNESIUM (test code = MAG) mg/dL 1.8-2.4 CALCIUM [id number] 06:13:00* Test Item Value Reference Range Interpretation Comments CALCIUM IONIZED (test code = SEAMUS) 1.22 MMOL/L 1.12-1.32 N CBC W/AUTO [id number] 06:01:00* Test Item Value Reference Range Interpretation [...] (test code = MDIFF) NO ARTERIAL BLOOD [id number] 05:19:00* Test Item Value Reference Range Interpretation [...] = PEEPA) 5 cmH2O Performed by certified mechanical press operator at [facility] ABG TEMPERATURE (test code = TEMPA) 97.5 F ABG SITE (test code = SITEA) Art line PREDICTED AA GRADIENT (test code = AP) 76 PREDICTED PO2 (test code = OP) 218 a/A RATIO (test code = RATIO) 0.48 TCO2 ARTERIAL (test code = TCO2A) 30 A-A GRADIENT (test code = AAGRADE) 153 [id number] 00:32:00* Test Item Value Reference Range Interpretation Comments GLUBED (test code = GLUBED) 94 MG/DL 70-110 N Performed by certified mechanical press operator at [facility] [id number] 18:42:00* Test Item Value Reference Range Interpretation Comments SODIUM (test code = NA) 150 mEq/L 134-147 H [id number] 18:26:00* Test Item Value Reference Range Interpretation Comments GLUBED (test code = GLUBED) 77 MG/DL 70-110 N Performed by certified mechanical press operator at [facility] PROCALCITONIN (PCT)2019-08-12 14:39:00* Test Item Value Reference [...] if any concentrations <2 ng/mL are obtained. [id number] 13:06:00* Test Item Value Reference Range Interpretation Comments SODIUM (test code = NA) 151 mEq/L 134-147 H [id number] 12:18:00* Test Item Value Reference Range Interpretation Comments GLUBED (test code = GLUBED) 94 MG/DL 70-110 N Performed by certified mechanical press operator at [facility] CBC W/AUTO [id number] 11:20:00* Test Item Value Reference Range Interpretation [...] REQUIRED (test code = MDIFF) YES WBC [id number] 11:20:00* Test Item Value Reference Range Interpretation [...] (test code = PLTMORPH) NORMAL CBC W/AUTO [id number] 11:15:00* Test Item Value Reference Range Interpretation [...] REQUIRED (test code = MDIFF) YES WBC [id number] 11:15:00* Test Item Value Reference Range Interpretation Comments ANISOCYTOSIS (test code = ANISO) PLATELET ESTIMATE (test code = PLTEST) THOUSAND ADEQUATE CBC W/AUTO [id number] 11:15:00* Test Item Value Reference Range Interpretation [...] REQUIRED (test code = MDIFF) YES WBC [id number] 11:15:00* Test Item Value Reference Range Interpretation [...] = LDL) 28 mg/dL 0-100 N <100 [id number] NEAR OPTIMAL/ABOVE [id number] [id number] HIGH>WG=851 VERY HIGH*Guidelines provided by the National Cholesterol EducationProgram Adult Treatment Panel III GAMMA GLUTAMYL [id number] 10:18:00* Test Item Value Reference Range Interpretation Comments GAMMA GLUTAMYL TRANSPEPTIDASE (test code = GGT) 13 UNITS/L 5-85 N Result is in INTERNATIONAL UNITS/LITER LACTIC DEHYDROGENASE(LDH)2019-08-12 10:18:00* Test Item Value Reference Range Interpretation Comments LACTIC DEHYDROGENASE(LDH) (test code = LDH) 191 IUnits/L 87-241 N T4 [id number] 10:18:00* Test Item Value Reference Range Interpretation Comments T4 FREE (test code = T4F) 0.9 ng/dL 0.77-1.61 N TSH REFLEX TO [id number] 10:18:00* Test Item Value Reference Range Interpretation [...] = LDL) 28 mg/dL 0-100 N <100 [id number] NEAR OPTIMAL/ABOVE [id number] YPJCITQLMA288-100 HIGH>LP=785 VERY HIGH*Guidelines provided by the National Cholesterol EducationProgram Adult Treatment Panel III GAMMA GLUTAMYL [id number] 09:59:00* Test Item Value Reference Range Interpretation Comments GAMMA GLUTAMYL TRANSPEPTIDASE (test code = GGT) 13 UNITS/L 5-85 N Result is in INTERNATIONAL UNITS/LITER LACTIC DEHYDROGENASE(LDH)2019-08-12 09:59:00* Test Item Value Reference Range Interpretation Comments LACTIC DEHYDROGENASE(LDH) (test code = LDH) 191 IUnits/L 87-241 N T4 [id number] 09:59:00* Test Item Value Reference Range Interpretation Comments T4 FREE (test code = T4F) ng/dL 0.77-1.61 TSH REFLEX TO [id number] 09:59:00* Test Item Value Reference Range Interpretation [...] % 0.3-2.3 N - XR CHEST 1 [id number] 08:06:00 FAX: Sherif Hickman MD [phone] [place]: St: ADM FAX: Izabel Fallon NP [phone] Name: DEYSI FRANCISCO [facility] : 1950 Age/S: 69/M [address] [place] [address] Unit #: [id number] Loc: G[address] [place] [address] Phys: Izabel Fallon [employer]CH[employer]IC Acct: [id number] Dis Date: Status: ADM IN PHONE #: [phone] Exam Date: 08/12/2019727 FAX #: [phone] Reason: RESP FAILURE/PNEUMONIA EXAMS: CPT CODE: [id number] XR CHEST 1 V 89684 Chest single view 08/12/2019 HISTORY: Respiratory failure. [...] pneumonia. 2. Removal of gastric tube. SL: [id number] Electronically Signed by Mega Orozco on 0 08/12/2019 at 0806 Reported and signed by: Jose Guadalupe Orozco M.D. CC: Sherif Wren M.D.; Izabel wright NP Technologist: Anali Thornton, RT(R); Radha Dunlap RT (R) Trnscrd Date/Time/By: 08/12/2019 (805) : By: [email or web address] Or ig Print D/T: S: 08/12/2019 (09) PAGE 1 Signed Report COMPREHENSIVE METABOLIC [id number] 06:20:00* Test Item Value Reference Range Interpretation [...] code = ALKP) 162 IUnit/L 20-125 H [id number] 06:20:00* Test Item Value Reference Range Interpretation Comments PHOSPHOROUS (test code = PHOS) 4.4 MG/DL 2.5-4.9 N [id number] 06:20:00* Test Item Value Reference Range Interpretation Comments MAGNESIUM (test code = MAG) 2.00 mg/dL 1.8-2.4 N CALCIUM [id number] 06:20:00* Test Item Value Reference Range Interpretation Comments CALCIUM IONIZED (test code = SEAMUS) 1.21 MMOL/L 1.12-1.32 N COMPREHENSIVE METABOLIC [id number] 06:11:00* Test Item Value Reference Range Interpretation [...] TOTAL (test code = ALKP) IUnit/L 20-125 [id number] 06:11:00* Test Item Value Reference Range Interpretation Comments PHOSPHOROUS (test code = PHOS) MG/DL 2.5-4.9 [id number] 06:11:00* Test Item Value Reference Range Interpretation Comments MAGNESIUM (test code = MAG) mg/dL 1.8-2.4 CALCIUM [id number] 06:11:00* Test Item Value Reference Range Interpretation Comments CALCIUM IONIZED (test code = SEAMUS) 1.21 MMOL/L 1.12-1.32 N PROTHROMBIN [id number] 06:11:00* Test Item Value Reference Range Interpretation [...] Infarction (to prevent recurrent infarct). CBC W/AUTO [id number] 06:03:00* Test Item Value Reference Range Interpretation [...] REQUIRED (test code = MDIFF) ARTERIAL BLOOD [id number] 05:52:00* Test Item Value Reference Range Interpretation [...] = PEEPA) 8 cmH2O Performed by certified mechanical press operator at [facility] ABG TEMPERATURE (test code = TEMPA) 98.6 F ABG SITE (test code = SITEA) Art line PREDICTED AA GRADIENT (test code = AP) 59 PREDICTED PO2 (test code = OP) 169 a/A RATIO (test code = RATIO) 0.42 TCO2 ARTERIAL (test code = TCO2A) 27 A-A GRADIENT (test code = AAGRADE) 134 [id number] 00:44:00* Test Item Value Reference Range Interpretation Comments GLUBED (test code = GLUBED) 115 MG/DL 70-110 H Performed by certified mechanical press operator at [facility] [id number] 23:37:00* Test Item Value Reference Range Interpretation Comments GLUBED (test code = GLUBED) 84 MG/DL 70-110 N Performed by certified mechanical press operator at [facility] [id number] 13:57:00* Test Item Value Reference Range Interpretation Comments SODIUM (test code = NA) 153 mEq/L 134-147 H HGB [id number] 13:50:00* Test Item Value Reference Range Interpretation Comments HEMOGLOBIN (test code = HGB) 7.3 g/dL 12.5-16.9 L HEMATOCRIT (test code = HCT) 23.4 % 37.5-50.7 L [id number] 11:32:00* Test Item Value Reference Range Interpretation Comments GLUBED (test code = GLUBED) 144 MG/DL 70-110 H Performed by certified mechanical press operator at [facility] CBC W/AUTO [id number] 08:13:00* Test Item Value Reference Range Interpretation [...] REVIEWED, CONSISTENT WITH AUTO DIFF. COMPREHENSIVE METABOLIC [id number] 06:43:00* Test Item Value Reference Range Interpretation [...] code = ALKP) 140 IUnit/L 20-125 H [id number] 06:43:00* Test Item Value Reference Range Interpretation Comments PHOSPHOROUS (test code = PHOS) 3.6 MG/DL 2.5-4.9 N [id number] 06:43:00* Test Item Value Reference Range Interpretation Comments MAGNESIUM (test code = MAG) 2.10 mg/dL 1.8-2.4 N CALCIUM [id number] 06:43:00* Test Item Value Reference Range Interpretation Comments CALCIUM IONIZED (test code = SEAMUS) 1.24 MMOL/L 1.12-1.32 N PROTHROMBIN [id number] 06:17:00* Test Item Value Reference Range Interpretation [...] Infarction (to prevent recurrent infarct). COMPREHENSIVE METABOLIC [id number] 06:11:00* Test Item Value Reference Range Interpretation [...] code = ALKP) 140 IUnit/L 20-125 H [id number] 06:11:00* Test Item Value Reference Range Interpretation Comments PHOSPHOROUS (test code = PHOS) 3.6 MG/DL 2.5-4.9 N [id number] 06:11:00* Test Item Value Reference Range Interpretation Comments MAGNESIUM (test code = MAG) 2.10 mg/dL 1.8-2.4 N CALCIUM [id number] 06:11:00* Test Item Value Reference Range Interpretation Comments CALCIUM IONIZED (test code = SEAMUS) MMOL/L 1.12-1.32 CBC W/AUTO [id number] 05:50:00* Test Item Value Reference Range Interpretation [...] MANUAL DIFF REQUIRED (test code = MDIFF) [id number] 05:48:00* Test Item Value Reference Range Interpretation Comments GLUBED (test code = GLUBED) 86 MG/DL 70-110 N Performed by certified mechanical press operator at [facility] - XR CHEST 1 [id number] 05:20:00 FAX: Sherif Hickman MD [phone] [place]: St: ADM FAX: Izabel Fallon NP [phone] Name: DEYSI FRANCISCO [facility] : 1950 Age/S: 69/M [address] [place] [address] Unit #: [id number] Loc: [address] [address] Phys: Izabel Fallon NP Acct: [id number] Dis Date: Status: ADM IN PHONE #: [phone] Exam Date: 08/11/2019512 FAX #: [phone] Reason: resp failure/aspiration pneumonia EXAMS: CPT CODE: [id number] XR CHEST 1 V 37219 Study: - XR CHEST 1 V 08/11/2019 5:00 AM Patient Name: DEYSI FRANCISCO MR: [id number] : 1950; Age: 69 years y/o Male [...] Repo rt (CONTINUED) FAX: Sherif Hickman MD [phone] [place]: St: ADM FAX: Izabel Fallon NP [phone] ------ Name: DEYSI FRANCISCO [facility] : [birth year] Age/S: 69/M [address] [place] [address] Unit #: [id number] Loc: G.[address] [place] [address] Phys: Izabel Fallon NP Acct: [id number] Dis Date: Status: ADM IN PHONE #: Exam Date: 08/11/2019512 FAX #: [phone] Reason: resp failure/aspiration pneumonia EXAMS: CPT CODE: [id number] XR CHEST 1 V 67166 <Continued> CC: Sherif Wren M.D.; Izabel Fallon NP Technologist: RT Heath(R) Trnscrd Date/Time/By: 08/11/2019 (0520) : By: [email or web address] Orig Print D/T: S: 08/11/2019 (0523) PAGE 2 Signed Report ARTERIAL BLOOD [id number] 04:39:00* Test Item Value Reference Range Interpretation [...] = PEEPA) 8 cmH2O Performed by certified mechanical press operator at [facility] ABG TEMPERATURE (test code = TEMPA) 97.9 F ABG SITE (test code = SITEA) Art line PREDICTED AA GRADIENT (test code = AP) 112 PREDICTED PO2 (test code = OP) 319 a/A RATIO (test code = RATIO) 0.45 TCO2 ARTERIAL (test code = TCO2A) 33 A-A GRADIENT (test code = AAGRADE) 235 Coronavirus 2018 nCoV [id number] 01:29:00* Test Item Value Reference Range Interpretation Comments Coronavirus 2019 nCoV Bedside (test code = COVNONPUIBED) Negative Negative Negative results should be treated as presumptive and, ifinconsistent with clinical signs and symptoms or necessaryfor patient management, should be tested with an alternativemolecular assay. Negative results do not preclude EJQC-IgA-7vekvodczo and should not be used as the sole basis forpatient management decisions. Negative results should beconsidered in the context of a patient's recent exposures,history, presence of clinical signs and symptoms consistentwith COVID-19. Acknowledged? YESCOMMENTS: DURAN ANG [id number] 00:40:00* Test Item Value Reference Range Interpretation Comments GLUBED (test code = GLUBED) 85 MG/DL 70-110 N Performed by certified mechanical press operator at [facility] [id number] 00:07:00* Test Item Value Reference Range Interpretation Comments GLUBED (test code = GLUBED) 130 MG/DL 70-110 H Performed by certified mechanical press operator at [facility] HGB [id number] 22:15:00* Test Item Value Reference Range Interpretation Comments HEMOGLOBIN (test code = HGB) 6.4 g/dL 12.5-16.9 LL HEMATOCRIT (test code = HCT) 22.1 % 37.5-50.7 L ARTERIAL BLOOD [id number] 12:58:00* Test Item Value Reference Range Interpretation [...] = PEEPA) 8 cmH2O Performed by certified mechanical press operator at [facility] ABG TEMPERATURE (test code = TEMPA) 98.6 F ABG SITE (test code = SITEA) Art line PREDICTED AA GRADIENT (test code = AP) 112 PREDICTED PO2 (test code = OP) 320 a/A RATIO (test code = RATIO) 0.25 TCO2 ARTERIAL (test code = TCO2A) 32 A-A GRADIENT (test code = AAGRADE) 325 [id number] 12:30:00* Test Item Value Reference Range Interpretation Comments GLUBED (test code = GLUBED) 135 MG/DL 70-110 H Performed by certified mechanical press operator at [facility] [id number] 08:19:00* Test Item Value Reference Range Interpretation Comments GLUBED (test code = GLUBED) 100 MG/DL 70-110 N Performed by certified mechanical press operator at [facility] COMPREHENSIVE METABOLIC [id number] 06:25:00* Test Item Value Reference Range Interpretation [...] code = ALKP) 202 IUnit/L 20-125 H [id number] 06:25:00* Test Item Value Reference Range Interpretation Comments PHOSPHOROUS (test code = PHOS) 3.7 MG/DL 2.5-4.9 [id number] 06:25:00* Test Item Value Reference Range Interpretation Comments MAGNESIUM (test code = MAG) 1.90 mg/dL 1.8-2.4 N CALCIUM [id number] 06:25:00* Test Item Value Reference Range Interpretation Comments CALCIUM IONIZED (test code = SEAMUS) 1.28 MMOL/L 1.12-1.32 N COMPREHENSIVE METABOLIC [id number] 06:07:00* Test Item Value Reference Range Interpretation [...] TOTAL (test code = ALKP) IUnit/L 20-125 [id number] 06:07:00* Test Item Value Reference Range Interpretation Comments PHOSPHOROUS (test code = PHOS) MG/DL 2.5-4.9 [id number] 06:07:00* Test Item Value Reference Range Interpretation Comments MAGNESIUM (test code = MAG) mg/dL 1.8-2.4 CALCIUM [id number] 06:07:00* Test Item Value Reference Range Interpretation Comments CALCIUM IONIZED (test code = SEAMUS) 1.28 MMOL/L 1.12-1.32 N CBC W/AUTO [id number] 06:03:00* Test Item Value Reference Range Interpretation [...] SLIDE REVIEWED, CONSISTENT WITH AUTO DIFF. PROTHROMBIN [id number] 05:48:00* Test Item Value Reference Range Interpretation [...] Infarction (to prevent recurrent infarct). CBC W/AUTO [id number] 05:47:00* Test Item Value Reference Range Interpretation [...] REQUIRED (test code = MDIFF) ARTERIAL BLOOD [id number] 05:42:00* Test Item Value Reference Range Interpretation [...] = PEEPA) 8 cmH2O Performed by certified mechanical press operator at [facility] ABG TEMPERATURE (test code = TEMPA) 97.2 F ABG SITE (test code = SITEA) Art line PREDICTED AA GRADIENT (test code = AP) 128 PREDICTED PO2 (test code = OP) 365 a/A RATIO (test code = RATIO) 0.27 TCO2 ARTERIAL (test code = TCO2A) 33 A-A GRADIENT (test code = AAGRADE) 362 - XR CHEST 1 [id number] 05:33:00 FAX: Sherif Hickman MD [phone] [place]: St: ADM FAX: Izabel Fallon NP [phone] Name: MARYAM,DEYSI [facility] : 1950 Age/S: 69/M [address] [place] [address] Unit #: [id number] Loc: G.[address] [place] [address] Phys: Izabel Fallon NP Acct: [id number] Dis Date: Status: ADM IN PHONE #: [phone] Exam Date: 08/10/2019 0519 FAX #: [phone] Reason: PNEUMONIA EXAMS: CPT CODE: [id number] XR CHEST 1 V 99222 Study: - XR CHEST 1 V 08/10/2019 5:00 AM Patient Name: DEYSI FRANCISCO MR: [id number] : 1950; Age: 69 years y/o Male [...] donovan Report (CONTINUED) FAX: Sherif Hickman MD [phone] [place]: St: ADM FAX: Izabel Fallon NP [phone] Name: DEYSI FRANCISCO [facility] OB: 1950 Age/S: 69/M [address] [place] [address] Unit #: [id number] Loc: .[address] [address] Phys: Izabel Fallon NP Acct: [id number] D is Date: Status: ADM IN PHONE #: Exam Date: 08/10/2019 05 FAX #: [phone] Reason: PNEUMONIA EXAMS: CPT CODE: [id number] XR CHEST 1 V 89129 <Continued> CC: Sherif Wren M.D.; Izabel Fallon NP Technologist: Julieth Rsut RT(R) Trnscrd Date/Time/By: 08/10/2019 (4581) : By: [email or web address] Orig Print D/T: S: 08/10/2019 (0691) PAGE 2 Signed Report ARTERIAL BLOOD [id number] 00:12:00* Test Item Value Reference Range Interpretation [...] = PEEPA) 8 cmH2O Performed by certified mechanical press operator at [facility] ABG TEMPERATURE (test code = TEMPA) 100.6 F ABG SITE (test code = SITEA) Art line PREDICTED AA GRADIENT (test code = AP) 128 PREDICTED PO2 (test code = OP) 366 a/A RATIO (test code = RATIO) 0.16 TCO2 ARTERIAL (test code = TCO2A) 32 A-A GRADIENT (test code = AAGRADE) 415 [id number] 23:03:00* Test Item Value Reference Range Interpretation Comments GLUBED (test code = GLUBED) 88 MG/DL 70-110 N Performed by certified mechanical press operator at [facility] BASIC METABOLIC [id number] 22:41:00* Test Item Value Reference Range Interpretation [...] CA) 7.6 mg/dL 8.0-10.5 L BASIC METABOLIC [id number] 22:37:00* Test Item Value Reference Range Interpretation [...] mg/dL 8.0-10.5 L - XR CHEST 1 [id number] 22:30:00 FAX: Sherif Hickman MD [phone] [place]: St: [facility] FAX: Adan Salazar [phone] Name: DEYSI FRANCISCO [facility] : 1950 Age/S: 69/M [address] [place] [address] Unit #: [id number] Loc: eMe14 [place] [address] Phys: Adan Maya MD Acct: [id number] Dis Date: Status: ADM IN PHONE #: [phone] Exam Date: 08/09/20192226 FAX #: [phone] Reason: CVL PLACEMENT EXAMS: CPT CODE: [id number] XR CHEST 1 V 11790 PROCEDURE: CHEST SINGLE VIEW 08/09/2019 2218 hours [...] Sherif Wren M.D.; Adan Maya MD Technologist: RT Heath(Alexandrea) Trnscrd Date/Time/By: 08/09/2019 (2229) : By: [email or web address] Orig Print D/T: S: 08/09/2019 (2232) PAGE 1 Signed Report ARTERIAL BLOOD [id number] 21:58:00* Test Item Value Reference Range Interpretation [...] = PEEPA) 8 cmH2O Performed by certified mechanical press operator at [facility] ABG TEMPERATURE (test code = TEMPA) 100.6 [...] concentrations <2 ng/mL are obtained. ARTERIAL BLOOD [id number] 19:42:00* Test Item Value Reference Range Interpretation [...] = PEEPA) 8 cmH2O Performed by certified mechanical press operator at [facility] ABG TEMPERATURE (test code = TEMPA) 100.6 F ABG SITE (test code = SITEA) R Rad PREDICTED AA GRADIENT (test code = AP) 130 PREDICTED PO2 (test code = OP) 371 a/A RATIO (test code = RATIO) 0.16 TCO2 ARTERIAL (test code = TCO2A) 33 A-A GRADIENT (test code = AAGRADE) 420 - XR CHEST 1 [id number] 18:54:00 FAX: Sherif Hickman MD [phone] [place]: St: ADM FAX: Izabel Fallon NP [phone] Name: DEYSI FRANCISCO [facility] : 1950 Age/S: 69/M [address] [place] [address] Unit #: [id number] Loc: [address] [place] [address] Phys: Izabel Fallon NP Acct: [id number] Dis Date: Status: ADM IN PHONE #: [phone] Exam Date: 08/09/2019 1846 FAX #: [phone] Reason: FEEDING TUBE PLACEMENT EXAMS: CPT CODE: [id number] XR CHEST 1 V 34749 Portable single view AP chest at 1829 [...] Christopher(Alexandrea)(M) Trnscrd Date/Time/By: 08/09/2019 (1853) : By: [email or web address] Orig Print D/T: S: 08/09/2019 (1856) PAGE 1 Signed Report [id number] 17:16:00* Test Item Value Reference Range Interpretation Comments GLUBED (test code = GLUBED) 126 MG/DL 70-110 H Performed by certified mechanical press operator at [facility] BASIC METABOLIC [id number] 16:03:00* Test Item Value Reference Range Interpretation [...] code = CA) 9.5 mg/dL 8.0-10.5 N [id number] 16:03:00* Test Item Value Reference Range Interpretation Comments PHOSPHOROUS (test code = PHOS) 2.6 MG/DL 2.5-4.9 N [id number] 16:03:00* Test Item Value Reference Range Interpretation Comments MAGNESIUM (test code = MAG) 2.10 mg/dL 1.8-2.4 N LACTIC [id number] 15:52:00* Test Item Value Reference Range Interpretation Comments LACTIC ACID (test code = LACT) 1.6 mmol/L 0.4-1.9 N ARTERIAL BLOOD [id number] 15:07:00* Test Item Value Reference Range Interpretation [...] = PEEPA) 5 cmH2O Performed by certified mechanical press operator at [facility] ABG TEMPERATURE (test code = TEMPA) 98.6 F ABG SITE (test code = SITEA) R Rad PREDICTED AA GRADIENT (test code = AP) 96 PREDICTED PO2 (test code = OP) 275 a/A RATIO (test code = RATIO) 0.13 TCO2 ARTERIAL (test code = TCO2A) 33 A-A GRADIENT (test code = AAGRADE) 322 [id number] 14:41:00* Test Item Value Reference Range Interpretation Comments PREALBUMIN (test code = PREALB) 10.9 mg/dL 16.0-40.0 L Indication for Test: Malabsorption/MalnutritioVITAMIN D 03-[id number] 14:41:00* Test Item Value Reference Range Interpretation Comments VITAMIN D 25-HYDROXY (test code = VITD25) 29.1 ng/mL 30-100 L Indication for Test: Malabsorption/Malnutritio- XR CHEST 1 [id number] 14:10:00 FAX: Sherif Hickman MD [phone] [place]: St: ADM FAX: Izabel Fallon NP [phone] Name: DEYSI FRANCISCO [facility] : 1950 Age/S: 69/M [address] [place] [address] Unit #: [id number] Loc: .14 [facility] [address] Phys: Izabel Fallon NP Acct: [id number] Dis Date: Status: ADM IN PHONE #: [phone] Exam Date: 08/09/2019 1409 FAX #: [phone] Reason: POST INTUBATION EXAMS: CPT CODE: [id number] XR CHEST 1 V 68029 Single view chest: HISTORY: Intubation. FINDINGS: Endotracheal [...] Progression of right lung base infiltrate SL: [id number] at 1410 Reported and signed b y: Lebron Wharton M.D. CC: Sherif Wren M.D.; Izabel Fallon NP Technologist: Leeanna Alva, RT(R), RTT; Darlingaimee Benitez, RT (R)(M) Trnscrd Date/Time/By: 08/09/2019 (4640) : By: Polly Orig Print D/T: S: 08/09/2019 (1207) PAGE 1 Signed Report [id number] 13:08:00* Test Item Value Reference Range Interpretation Comments GLUBED (test code = GLUBED) 146 MG/DL 70-110 H Performed by certified mechanical press operator at [facility] ARTERIAL BLOOD [id number] 12:53:00* Test Item Value Reference Range Interpretation [...] TCO2 ARTERIAL (test code = TCO2A) 33 [id number] 11:18:00* Test Item Value Reference Range Interpretation Comments GLUBED (test code = GLUBED) 151 MG/DL 70-110 H Performed by certified mechanical press operator at [facility] [id number] 10:42:00* Test Item Value Reference Range Interpretation Comments PREALBUMIN (test code = PREALB) 10.9 mg/dL 16.0-40.0 L Indication for Test: Malabsorption/MalnutritioVITAMIN D 61-[id number] 10:42:00* Test Item Value Reference Range Interpretation Comments VITAMIN D 25-HYDROXY (test code = VITD25) ng/mL 30-100 Indication for Test: Malabsorption/YahldflzlvsQAVLMQ7769-41-34 06:32:00* Test Item Value Reference Range Interpretation Comments GLUBED (test code = GLUBED) 143 MG/DL 70-110 H Performed by certified mechanical press operator at [facility] PROTHROMBIN [id number] 06:06:00* Test Item Value Reference Range Interpretation [...] Acute Myocardial Infarction (to prevent recurrent infarct). [id number] 02:04:00* Test Item Value Reference Range Interpretation Comments GLUBED (test code = GLUBED) 120 MG/DL 70-110 H Performed by certified mechanical press operator at [facility] Coronavirus 2019 nCoV [id number] 23:02:00* Test Item Value Reference Range Interpretation Comments Coronavirus 2019 nCoV Bedside (test code = COVNONPUIBED) Negative Negative Negative results should be treated as presumptive and, ifinconsistent with clinical signs and symptoms or necessaryfor patient management, should be tested with an alternativemolecular assay. Negative results do not preclude TUCE-MjT-2lgqtjuszb and should not be used as the sole basis forpatient management decisions. Negative results should beconsidered in the context of a patient's recent exposures,history, presence of clinical signs and symptoms consistentwith COVID-19. Acknowledged? YESCOMMENTS: APPROVED BY [id number] 21:39:00* Test Item Value Reference Range Interpretation Comments GLUBED (test code = GLUBED) 157 MG/DL 70-110 H Performed by certified mechanical press operator at [facility] [id number] 17:30:00* Test Item Value Reference Range Interpretation Comments GLUBED (test code = GLUBED) 140 MG/DL 70-110 H Performed by certified mechanical press operator at [facility] - XR CHEST 1 [id number] 15:47:00 FAX: Sherif Hickman MD [phone] [place]: St: ADM FAX: Kamran Pang MD [phone] FAX: Akhil Causey NP [phone] Name: DEYSI FRANCISCO [facility] : 1950 Age/S: 69/M [address] [place] [address] Unit #: [id number] Loc: [address] [place] [address] Phys: Akhil Causey NP Acct: [id number] Dis Date: Status: ADM IN ONE #: [phone] Exam Date: 08/08/2019 1534 FAX #: [phone] Reason: TUBE FEEDING PLACEMENT EXAMS: CPT CODE: [id number] XR CHEST 1 V 43996 EXAM: CR, XR chest one view: 08/08/2019, [...] Carlson MD; Akhil Causey NP Technolog ist: Keisha Nicolas RT(R) Trnscrd Date/Time/By : 08/08/2019 (1547) : By: [email or web address] Orig Print D/T: S: 08/08/2019 (155 0) PAGE 1 Signed Report [id number] 13:54:00* Test Item Value Reference Range Interpretation Comments GLUBED (test code = GLUBED) 126 MG/DL 70-110 H Performed by certified mechanical press operator at [facility] - XR CHEST 1 [id number] 09:48:00 FAX: Sherif Hickman MD [phone] [place]: St: ADM FAX: Kamran Pang MD [phone] FAX: Akhil Causey NP [phone] Name: DEYSI FRANCISCO [facility] : 1950 Age/S: 69/M [address] [place] [address] Unit #: [id number] Loc: [address] [address] Phys: Akhil Causey NP Acct: [id number] Dis Date: Status: ADM IN ONE #: [phone] Exam Date: 08/08/2019920 FAX #: [phone] Reason: CONGESTED EXAMS: CPT CODE: [id number] XR CHEST 1 V 23704 Chest single v iew 08/08/2019 HISTORY: Congestion. [...] 2. Otherwise unchanged moderate bilateral pneumonia. SL: [id number] at 0948 Reported and signed by: Eric Orozco M.D. CC: Sherif Wren M.D.; Kamran Carlson MD; Akhil Causey NP Technologist: RT Erasto(Alexandrea) Trnscrd Date/Time/By: 08/08/2019 (7498) : By: [email or web address] Orig Print D/T: S: 08/08/2019 (0035) PAGE 1 Signed Report BASIC METABOLIC [id number] 08:04:00* Test Item Value Reference Range Interpretation [...] CA) 9.3 mg/dL 8.0-10.5 N CBC W/AUTO [id number] 07:38:00* Test Item Value Reference Range Interpretation [...] DIFF REQUIRED (test code = MDIFF) NO [id number] 05:21:00* Test Item Value Reference Range Interpretation Comments GLUBED (test code = GLUBED) 129 MG/DL 70-110 H Performed by certified mechanical press operator at [facility] [id number] 02:07:00* Test Item Value Reference Range Interpretation Comments GLUBED (test code = GLUBED) 155 MG/DL 70-110 H Performed by certified mechanical press operator at [facility] - XR CHEST 1 [id number] 22:20:00 FAX: Sherif Hickman MD [phone] [place]: St: ADM FAX: Kamran Pang MD [phone] Name: DEYSI FRANCISCO [facility] : 1950 Age/S: 69/M [address] [place] [address] Unit #: [id number] Loc: [address] [address] Phys: Kamran Carlson MD Acct: [id number] Dis Date: Status: ADM IN PHONE #: [phone] Exam Date: 08/07/20192217 FAX #: [phone] Reason: FORCEFUL COUGH, THICK SECRETIONS EXAMS: CPT CODE: [id number] XR CHEST 1 V 57929 XR CHEST 1 VIEW HISTORY: FORCEFUL COUGH, [...] Wren M.D.; Kamran Carlson MD Technologist: Keisha Nicolas RT(R) Trnscrd Date/Time/By: 08/07/2019 (2219) : By: [email or web address] Orig Print D/T: S: 08/07/2019 (9833) PAGE 1 Signed Report [id number] 20:41:00* Test Item Value Reference Range Interpretation Comments GLUBED (test code = GLUBED) 141 MG/DL 70-110 H Performed by certified mechanical press operator at [facility] - MRI BRAIN WO/W [id number] 18:54:00 FAX: Sherif Hickmna MD [phone] [place]: St: ADM FAX: Kamran Pang MD [phone] FAX: Shavon Olsen [employer]PA[employer]CH[employer]IC Name: DEYSI FRANCISCO [facility] : 1950 Age/S: 69/M [address] [place] [address] Blvd Unit #: [id number] Loc: [address] [address] Phys: Shavon Olsen NP Acct: [id number] Dis Date: Status: ADM IN PH ONE #: [phone] Exam Date: 08/07/20191758 FAX #: [phone] Reason: with STEALTH protocol EXAMS: CPT CODE: [id number] MR I BRAIN WO/W CONT 91172 BRAIN MRI WITH AND WITHOUT CONTRAST (STEALTH [...] nce of dural venous sinus thrombosis. SL: [id number] G04 at 1854 Reported and signed by: Vish Adler M.D. CC: Sherif Wren M.D.; Kamran Carlson MD; Shavon Olsen NP Technologist: Severino Najera RT(R)(CT) Trnscrd Date/Time/By: 08/07/2019 (1853) : By: Montrell .[email or web address] Orig Print D/T: S: 08/07/2019 (1856) PAGE 1 Signed Report GLUBED 2019-08-07 17:54:00* Test Item Value Reference Range Interpretation Comments GLUBED (test code = GLUBED) 124 MG/DL 70-110 H Performed by certified mechanical press operator at [facility] [id number] 14:03:00* Test Item Value Reference Range Interpretation Comments GLUBED (test code = GLUBED) 112 MG/DL 70-110 H Performed by certified mechanical press operator at [facility] - CT HEAD/BRAIN W/O [id number] 13:54:00 Name: DEYSI FRANCISCO [facility] : 1950 Age/S: 69 / M [address] [place] [address] Blvd Unit #: [id number] [place]: [place] [address] Phys: Akhil aCusey [employer]PA[employer]CH[employer]IC Acct: [id number] Dis Date: Status: ADM IN PHONE #: [phone] Exam Date: 08/07/2019 1321 FAX #: [phone] Reason: confusion EXAMS: CPT CODE: [id number] CT HEAD/BRAIN W/O CONT 42775 STUDY: - CT HEAD/BRAIN W/O CONT 08/07/2019 9:32 AM Ordering Physician: Akhil Causey NP Patient Name: DEYSI FRANCISCO MR: [id number] : 1950; Age: 69 years y/o Male [...] 1 Signed Report (CONTINUED) Name: DEYSI FRANCISCO [facility] : 1950 Age/S: 69 / M [address] [place] [address] Unit #: [id number] Loc: [place] [address] Phys: Akhil Causey NP Acct: [id number] Dis Date: Status: ADM IN PHONE #: [phone] Exam Date: 1321 FAX #: [phone] Reason: confusion EXAMS: CPT CODE: [id number] CT HEAD/BRAIN W/O CONT 29813 <Continued> SKULL: No acute fracture or suspicious osseous lesion. IMPRESSION: 1. 2.5 x 3.3 x 4.2 cm hemorrhage in the right inferior medial cerebellar hemisphere, similar to prior exam given differences in technique. 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 MRI can be considered for further evaluation. 2. Mild effacement of the 4th ventricle, no hydrocephalus. SL: [id number] at 1354 Reported and signed by: Robert Guzman M.D. CC: Sherif Wren M.D.; Kamran Carlson MD; Akhil Causey NP Technologist:RT Dominick(R) CTDI: DLP: Trnscb Date/Time: 08/07/2019 (7872) [email or web address] Orig Print D/T: S: 08/07/2019 (4853) PAGE 2 Signed Report [id number] 09:49:00* Test Item Value Reference Range Interpretation Comments GLUBED (test code = GLUBED) 157 MG/DL 70-110 H Performed by certified mechanical press operator at [facility] COMPREHENSIVE METABOLIC [id number] 07:58:00* Test Item Value Reference Range Interpretation [...] ALKP) 143 IUnit/L 20-125 H CBC W/AUTO [id number] 07:50:00* Test Item Value Reference Range Interpretation [...] DIFF REQUIRED (test code = MDIFF) NO [id number] 06:57:00* Test Item Value Reference Range Interpretation Comments GLUBED (test code = GLUBED) 130 MG/DL 70-110 H Performed by certified mechanical press operator at [facility] [id number] 04:49:00* Test Item Value Reference Range Interpretation Comments GLUBED (test code = GLUBED) 119 MG/DL 70-110 H Performed by certified mechanical press operator at [facility] [id number] 00:37:00* Test Item Value Reference Range Interpretation Comments GLUBED (test code = GLUBED) 103 MG/DL 70-110 N Performed by certified mechanical press operator at [facility] [id number] 23:53:00* Test Item Value Reference Range Interpretation Comments GLUBED (test code = GLUBED) 113 MG/DL 70-110 H Performed by certified mechanical press operator at [facility] [id number] 13:32:00* Test Item Value Reference Range Interpretation Comments GLUBED (test code = GLUBED) 108 MG/DL 70-110 N Performed by certified mechanical press operator at [facility] - XR CHEST 1 [id number] 09:40:00 FAX: Roberto Landeros MD [place]: St: ADM FAX: Sherif Hickman MD [phone] FAX: Kamran Pang MD [phone] Name: DEYSI FRANCISCO [facility] : 1950 Age/S: 69/M [address] [place] [address] Unit #: [id number] Loc: [address] [place] [address] Phys: Roberto Landeros MD Acct: [id number] Dis Date: Status: ADM IN ONE #: [phone] Exam Date: 08/06/2019926 FAX #: [phone] Reason: FEEDING TUBE PLACEMENT EXAMS: CPT CODE: [id number] XR CHEST 1 V 01496 Study: - XR C HEST 1 V 08/06/2019 7:24 AM Patient Name: DEYSI FRANCISCO MR: [id number] : 1950; Age: 69 years y/o Male [...] representin g pulmonary edema and/or pneumonia SL: [id number] Electronically Signed by Mega Guzman on 07/17 at 0940 Reported and signed by: Juan Hi PAGE 1 Signed Report (DARIA NUDHIRAJ) FAX: Roberto Landeros MD [place]: St: ADM FAX : Sherif Hickman MD [phone] FAX: Kamran Pang MD [phone] Name: DEYSI FRANCISCO [facility] : 1950 Age/S: 69/M [address] [place] [address] Unit #: [id number] Loc: [address] [place] [address] Phys: Roberto Landeros MD Acct: [id number] Dis Date: Status: ADM IN PHONE #: [phone] Exam Date: 08/06/2019926 FAX #: [phone] Reason: FEEDING TUBE PLACEMENT EXAMS: CPT CODE: [id number] XR CHEST 1 V 65168 <Continued> CC: Roberto Landeros MD; Sherif Wren M.D.; Kamran Carlson MD Technologist: Carmen Boyer, RT(R); ERIN Burnett RT(R) Trnscrd Date/Time/By: 08/06/2019 (0940) : By: [email or web address] Orig Print D/T: S: 08/06/2019 (0914) PAGE 2 Signed Report [id number] 09:20:00* Test Item Value Reference Range Interpretation Comments GLUBED (test code = GLUBED) 121 MG/DL 70-110 H Performed by certified mechanical press operator at [facility] CBC W/AUTO [id number] 08:38:00* Test Item Value Reference Range Interpretation [...] (test code = MDIFF) NO COMPREHENSIVE METABOLIC [id number] 07:07:00* Test Item Value Reference Range Interpretation [...] code = ALKP) 145 IUnit/L 20-125 H [id number] 07:07:00* Test Item Value Reference Range Interpretation Comments PHOSPHOROUS (test code = PHOS) 4.0 MG/DL 2.5-4.9 [id number] 07:07:00* Test Item Value Reference Range Interpretation Comments MAGNESIUM (test code = MAG) 2.20 mg/dL 1.8-2.4 N CALCIUM [id number] 07:07:00* Test Item Value Reference Range Interpretation Comments CALCIUM IONIZED (test code = SEAMUS) 1.18 MMOL/L 1.12-1.32 N COMPREHENSIVE METABOLIC [id number] 07:06:00* Test Item Value Reference Range Interpretation [...] code = ALKP) 145 IUnit/L 20-125 H [id number] 07:06:00* Test Item Value Reference Range Interpretation Comments PHOSPHOROUS (test code = PHOS) 4.0 MG/DL 2.5-4.9 [id number] 07:06:00* Test Item Value Reference Range Interpretation Comments MAGNESIUM (test code = MAG) 2.20 mg/dL 1.8-2.4 N CALCIUM [id number] 07:06:00* Test Item Value Reference Range Interpretation Comments CALCIUM IONIZED (test code = SEAMUS) MMOL/L 1.12-1.32 - XR CHEST 1 [id number] 06:55:00 FAX: Roberto Landeros MD [place]: St: ADM FAX: Sherif Hickman MD [phone] FAX: Kamran Pang MD [phone] Name: DEYSI FRANCISCO [facility] : 1950 Age/S: 69/M [address] [place] [address] Unit #: [id number] Loc: [address] [address] Phys: Roberto Landeros MD Acct: [id number] Dis Date: Status: ADM IN ONE #: [phone] Exam Date: 08/06/2019 0649 FAX #: [phone] Reason: pneumonia EXAMS: CPT CODE: [id number] XR CHEST 1 V 96473 EXAM: Single view AP chest. EXAM DATE: [...] Technologist: Anali Thornton, RT(R); Radha Dunlap RT(R) Trnscrd Date/Time/By: 08/06/2019 (0655) : By: Lisa Orig Print D/T: S: 08/06/2019 (0658) PAGE 1 Signed Report PROTHROMBIN [id number] 06:46:00* Test Item Value Reference Range Interpretation [...] Acute Myocardial Infarction (to prevent recurrent infarct). [id number] 06:44:00* Test Item Value Reference Range Interpretation Comments GLUBED (test code = GLUBED) 127 MG/DL 70-110 H Performed by certified mechanical press operator at [facility] ARTERIAL BLOOD [id number] 05:24:00* Test Item Value Reference Range Interpretation [...] TCO2 ARTERIAL (test code = TCO2A) 28 [id number] 00:01:00* Test Item Value Reference Range Interpretation Comments GLUBED (test code = GLUBED) 96 MG/DL 70-110 N Performed by certified mechanical press operator at [facility] [id number] 19:32:00* Test Item Value Reference Range Interpretation Comments GLUBED (test code = GLUBED) 99 MG/DL 70-110 N Performed by certified mechanical press operator at [facility] [id number] 18:31:00* Test Item Value Reference Range Interpretation Comments GLUBED (test code = GLUBED) 100 MG/DL 70-110 N Performed by certified mechanical press operator at [facility] BASIC METABOLIC [id number] 17:50:00* Test Item Value Reference Range Interpretation [...] CA) 9.3 mg/dL 8.0-10.5 N CBC W/AUTO [id number] 17:38:00* Test Item Value Reference Range Interpretation [...] DIFF REQUIRED (test code = MDIFF) NO [id number] 14:18:00* Test Item Value Reference Range Interpretation Comments GLUBED (test code = GLUBED) 101 MG/DL 70-110 N Performed by certified mechanical press operator at [facility] [id number] 08:22:00* Test Item Value Reference Range Interpretation Comments GLUBED (test code = GLUBED) 98 MG/DL 70-110 N Performed by certified mechanical press operator at [facility] - XR CHEST 1 [id number] 06:52:00 FAX: Roberto Landeros MD [place]: St: ADM FAX: Sherif Hickman MD [phone] FAX: Kamran Pang MD [phone] Name: DEYSI FRANCISCO [facility] : 1950 Age/S: 69/M [address] [place] [address] Unit #: [id number] Loc: [address] [address] Phys: Roberto Landeros MD Acct: [id number] Dis Date: Status: ADM IN PH ONE #: [phone] Exam Date: 08/05/2019 06 FAX #: [phone] Reason: pneumonia EXAMS: CPT CODE: [id number] XR CHEST 1 V 26207 EXAM: CR, XR chest one view: 08/05/2019, [...] Carlson MD Technologist: Anali Hilton, RT(R); Radha Dunlap, RT(R) Trnscrd Date/Time/By: 08/05/2019 () : By: [email or web address] Orig Print D/T: S: 08/05/2019 (0681) PAGE 1 Signed Report COMPREHENSIVE METABOLIC [id number] 05:59:00* Test Item Value Reference Range Interpretation [...] code = ALKP) 126 IUnit/L 20-125 H [id number] 05:59:00* Test Item Value Reference Range Interpretation Comments PHOSPHOROUS (test code = PHOS) 6.1 MG/DL 2.5-4.9 H [id number] 05:59:00* Test Item Value Reference Range Interpretation Comments MAGNESIUM (test code = MAG) 2.10 mg/dL 1.8-2.4 N CALCIUM [id number] 05:59:00* Test Item Value Reference Range Interpretation Comments CALCIUM IONIZED (test code = SEAMUS) 1.16 MMOL/L 1.12-1.32 N COMPREHENSIVE METABOLIC [id number] 05:37:00* Test Item Value Reference Range Interpretation [...] TOTAL (test code = ALKP) IUnit/L 20-125 [id number] 05:37:00* Test Item Value Reference Range Interpretation Comments PHOSPHOROUS (test code = PHOS) MG/DL 2.5-4.9 [id number] 05:37:00* Test Item Value Reference Range Interpretation Comments MAGNESIUM (test code = MAG) mg/dL 1.8-2.4 CALCIUM [id number] 05:37:00* Test Item Value Reference Range Interpretation Comments CALCIUM IONIZED (test code = SEAMUS) 1.16 MMOL/L 1.12-1.32 N PROTHROMBIN [id number] 05:34:00* Test Item Value Reference Range Interpretation [...] Infarction (to prevent recurrent infarct). CBC W/AUTO [id number] 05:27:00* Test Item Value Reference Range Interpretation [...] (test code = MDIFF) NO ARTERIAL BLOOD [id number] 05:10:00* Test Item Value Reference Range Interpretation [...] = PEEPA) 5 cmH2O Performed by certified mechanical press operator at [facility] ABG TEMPERATURE (test code = TEMPA) 97.9 F ABG SITE (test code = SITEA) R Brach PREDICTED AA GRADIENT (test code = AP) 55 PREDICTED PO2 (test code = OP) 157 a/A RATIO (test code = RATIO) 0.49 TCO2 ARTERIAL (test code = TCO2A) 31 A-A GRADIENT (test code = AAGRADE) 109 [id number] 23:46:00* Test Item Value Reference Range Interpretation Comments GLUBED (test code = GLUBED) 103 MG/DL 70-110 N Performed by certified mechanical press operator at [facility] [id number] 20:20:00* Test Item Value Reference Range Interpretation Comments GLUBED (test code = GLUBED) 108 MG/DL 70-110 N Performed by certified mechanical press operator at [facility] COMPREHENSIVE METABOLIC [id number] 07:21:00* Test Item Value Reference Range Interpretation [...] code = ALKP) 149 IUnit/L 20-125 H [id number] 07:21:00* Test Item Value Reference Range Interpretation Comments PHOSPHOROUS (test code = PHOS) 3.6 MG/DL 2.5-4.9 N [id number] 07:21:00* Test Item Value Reference Range Interpretation Comments MAGNESIUM (test code = MAG) 1.90 mg/dL 1.8-2.4 N CALCIUM [id number] 07:21:00* Test Item Value Reference Range Interpretation Comments CALCIUM IONIZED (test code = SEAMUS) 1.21 MMOL/L 1.12-1.32 N COMPREHENSIVE METABOLIC [id number] 07:00:00* Test Item Value Reference Range Interpretation [...] TOTAL (test code = ALKP) IUnit/L 20-125 [id number] 07:00:00* Test Item Value Reference Range Interpretation Comments PHOSPHOROUS (test code = PHOS) MG/DL 2.5-4.9 [id number] 07:00:00* Test Item Value Reference Range Interpretation Comments MAGNESIUM (test code = MAG) mg/dL 1.8-2.4 CALCIUM [id number] 07:00:00* Test Item Value Reference Range Interpretation Comments CALCIUM IONIZED (test code = SEAMUS) 1.21 MMOL/L 1.12-1.32 N - XR CHEST 1 [id number] 06:47:00 FAX: Mark Rich MD [phone] [place]: St: ADM FAX: Sherif Hickman MD [phone] FAX: Kamran Pang MD [phone] Name: DEYSI FRANCISCO [facility] : 1950 Age/S: 69/M [address] [place] [address] Unit #: [id number] Loc: [address] [place] [address] Phys: Mark Walsh MD Acct: [id number] Dis Date: Status: ADM IN ONE #: [phone] Exam Date: 08/04/2019614 FAX #: [phone] Reason: S/P INTUBATION EXAMS: CPT CODE: [id number] XR CHEST 1 V 88624 EXAM: CR, XR chest one view: 08/04/2019, [...] Wren M.D.; Kamran Carlson MD Technologist: RT Judy(R) Trnscrd Date/Time/By: 08/04/2019 (06 47) : By: [email or web address] Orig Print D/T: S: 08/04/2019 (0662) PAGE 1 Signed Report PROTHROMBIN [id number] 06:42:00* Test Item Value Reference Range Interpretation [...] Infarction (to prevent recurrent infarct). CBC W/AUTO [id number] 06:35:00* Test Item Value Reference Range Interpretation [...] (test code = MDIFF) NO ARTERIAL BLOOD [id number] 06:32:00* Test Item Value Reference Range Interpretation [...] = PEEPA) 5 cmH2O Performed by certified mechanical press operator at [facility] ABG TEMPERATURE (test code = TEMPA) 98.8 F ABG SITE (test code = SITEA) R Brach PREDICTED AA GRADIENT (test code = AP) 166 PREDICTED PO2 (test code = OP) 474 a/A RATIO (test code = RATIO) 0.61 TCO2 ARTERIAL (test code = TCO2A) 34 A-A GRADIENT (test code = AAGRADE) 252 UA RFLX MICR CULT IF [id number] 01:02:00* Test Item Value Reference Range Interpretation [...] if any concentrations <2 ng/mL are obtained. [id number] 18:24:00* Test Item Value Reference Range Interpretation Comments GLUBED (test code = GLUBED) 139 MG/DL 70-110 H Performed by certified mechanical press operator at [facility] HGB [id number] 12:57:00* Test Item Value Reference Range Interpretation Comments HEMOGLOBIN (test code = HGB) 8.3 g/dL 12.5-16.9 L HEMATOCRIT (test code = HCT) 26.9 % 37.5-50.7 L [id number] 12:49:00* Test Item Value Reference Range Interpretation Comments GLUBED (test code = GLUBED) 119 MG/DL 70-110 H Performed by certified mechanical press operator at [facility] BASIC METABOLIC [id number] 06:46:00* Test Item Value Reference Range Interpretation [...] code = CA) 8.7 mg/dL 8.0-10.5 N [id number] 06:46:00* Test Item Value Reference Range Interpretation Comments MAGNESIUM (test code = MAG) 1.90 mg/dL 1.8-2.4 N - CT HEAD/BRAIN W/O [id number] 06:43:00 Name: DEYSI FRANCISCO [facility] : 1950 Age/S: 69 / M [address] [place], [place] [address]vd Unit #: [id number] Loc: [place] [address] Phys: Quiana Moore DO Acct: [id number] Dis Date: Status: ADM IN PHONE #: [phone] Exam Date: 08/03/2019 0416 FAX #: [phone] Reason: f/u hemorrhage EXAMS: CPT CODE: [id number] CT HEAD/BRAIN W/O CONT 96945 CT head without contrast 09/02/2019 HISTORY: Hemorrhagic [...] No new hemorrhage. No new infarct. SL: [id number] at 0643 Reported and signed by: Eric Orozco M.D. CC: Sherif Wren M.D.; Quiana Moore DO Technologist:Scarlett Esqueda, RT(R) CTDI: DLP: Trnscb Date/Time: 08/03/19 20 (0643) [email or web address] Orig Print D/T: S: 08/03/2019 (0690) PAGE 1 Signed Report CBC W/AUTO [id number] 06:21:00* Test Item Value Reference Range Interpretation [...] DIFF REQUIRED (test code = MDIFF) NO [id number] 23:08:00* Test Item Value Reference Range Interpretation Comments MAGNESIUM (test code = MAG) 1.80 mg/dL 1.8-2.4 N - XR CHEST 1 [id number] 23:01:00 FAX: Sherif Hickman MD [phone] [place]: St: ADM FAX: Saulo Buenrostro DO [phone] Name: DEYSI FRANCISCO [facility] : 1950 Age/S: 69/M [address] [place] [address] Unit #: [id number] Loc: [place] [address] Phys: Saulo Varma DO Acct: [id number] Dis Date: Status: ADM IN PHONE #: [phone] Exam Date: 08/02/20192141 FAX #: [phone] Reason: sepsis; COVID+ 07/25/2019 EXAMS: CPT CODE: [id number] XR CHEST 1 V 71923 Chest, single view dated 08/02/2019. HISTORY: Sepsis. [...] Varma DO Technologist: Keisha Nicolas, RT(R); Anali Tohrnton, RT(R) Trnscrd Date/Time/By: (230) : By: Tj Orig Print D/T: S: 08/02/2019 (0137) PAGE 1 Signed Report - CT HEAD/BRAIN W/O [id number] 22:48:00 Name: DEYSI FRANCISCO [facility] : 1950 Age/S: 69 / M [address] [place] [address] Unit #: [id number] Loc: [place] [address] Phys: Kojo Varmaeamon elliott DO Acct: [id number] Di s Date: Status: ADM IN PHONE #: Exam Date: 08/02/20192221 FAX #: [phone] Reason: hemorrhagic stroke seen on CT head at outside f EXAMS: CPT CODE: [id number] CT HEAD/BRAIN W/O CONT [address] HEAD INDICATION: hemorrhagic stroke seen on CT head at outside facility. TECHNIQUE: Unenhanced CT was performed from the skull vertex to the foramen magnum with axial, coronal and sagittal reconstructions. CT imaging performed at this location utilizes radiation dose optimization te [facility] which includes one or more of the [...] 1 Signed Report (CONTINUED) Name: DEYSI FRANCISCO [facility] : 1950 Age/S: 69 / M [address] [facility] Unit #: [id number] Loc: [place] [address] Phys: Saulo Varma DO Acct: [id number] Dis Date: Status: ADM IN PHONE #: [phone] Exam Date: 08/02/20192221 FAX #: [phone] Reason: hemorrhagic stroke seen on CT head at outside f EXAMS: CPT CODE: [id number] CT HEAD/BRAIN W/O CONT 43757 < Continued> exclude the possibility of an [...] The call was initiated at 08/02/2019 10:43PM MEDICAL DOSIMETRIST. at 8378 Reported and signed by: Michael Lugo D.O. CC: Sherif Wren M.D.; Saulo Varma DO Technologist:RT Michael(R) CTDI: DLP: Trnscb Date/Time: 08/02/2019 (2906) [email or web address] Orig Print D/T: S: 08/02/2019 (9562) PAGE 2 Signed Report CBC W/AUTO [id number] 22:16:00* Test Item Value Reference Range Interpretation [...] REVIEWED, CONSISTENT WITH AUTO DIFF. BASIC METABOLIC [id number] 22:08:00* Test Item Value Reference Range Interpretation [...] CA) 8.8 mg/dL 8.0-10.5 N HEPATIC FUNCTION [id number] 22:08:00* Test Item Value Reference Range Interpretation [...] code = ALKP) 175 IUnit/L 20-125 H [id number] 22:08:00* Test Item Value Reference Range Interpretation Comments TROPONIN-I (test code = TROPI) < 0.015 ng/mL 0.000-0.045 N Negative: <= 0.045 Positive: >= 0.046 Correlation with serial results, other cardiac markers andclinical findings is necessary to determine the clinicalsignificance of this result. Results using different methodologies should not be comparedto one another as quantitative results may vary by method. LACTIC [id number] 22:06:00* Test Item Value Reference Range Interpretation Comments LACTIC ACID (test code = LACT) 0.7 mmol/L 0.4-1.9 N Coronavirus 2019 nCoV [id number] 22:00:00* Test Item Value Reference Range Interpretation Comments Coronavirus 2019 nCoV Bedside (test code = [id number]) Negative Negative Negative results should be treated as presumptive and, ifinconsistent with clinical signs and symptoms or necessaryfor patient management, should be tested with an alternativemolecular assay. Negative results do not preclude QVPZ-NnG-4wcnndeyxa and should not be used as the sole basis forpatient management decisions. Negative results should beconsidered in the context of a patient's recent exposures,history, presence of clinical signs and symptoms consistentwith COVID-19. Acknowledged? YESPROTHROMBIN [id number] 21:56:00* Test Item Value Reference Range Interpretation [...] Infarction (to prevent recurrent infarct). CBC W/AUTO [id number] 21:51:00* Test Item Value Reference Range Interpretation [...]
--- NOTE | 2019-10-14 04:52 | NUR ---
Wound cleansing performed at this time. Patient tolerated well. Dried blood cleaned from hair at this time.
--- NOTE | 2019-10-14 05:26 | Diagnostic Imaging Report ---
EXAMINATION: Head CT without contrast. HISTORY:Fall. COMPARISON:CT brain from 10/04/2019. TECHNIQUE: Multidetector axial images were obtained from the foramen magnum to the vertex without contrast. The images were reconstructed using brain and bone algorithms. Thin section brain images were reformatted into coronal and sagittal planes. Dose modulation, iterative reconstruction, and/or weight based adjustment of the mA/kV was utilized to reduce the radiation dose to as low as reasonably achievable. Intravenous contrast: None IMAGE QUALITY: Acceptable. FINDINGS: Skull/scalp: Mild right frontal scalp soft tissue edema/hematoma and laceration. No radiopaque foreign body or soft tissue emphysema. No acute depressed or displaced calvarial fracture. No lytic or blastic. lesions. No surgical changes. Parenchyma: Evolving focal hypodensity in the right dorsal and inferior aspect of the cerebellar hemisphere represents known vascular insult in right pica territory. Nonspecific bilateral frontoparietal patchy white matter hypodensity are likely related to small vessel ischemic changes. No acute hemorrhage or mass. No acute hemorrhage, mass or acute major vascular territorial infarct. Arteries: No density suggestive of thrombosis. Dural sinuses: No abnormal density suggestive of thrombosis. Ventricles: Mild compensated dilatation due to volume loss. No hydrocephalus. Extra-axial spaces: No abnormal density. Brain volume: Generalized age-related cerebral volume loss. Craniocervical junction: No mass, Chiari malformation, or basilar invagination. Sella: No mass. Paranasal/mastoid sinuses: Partial opacification of left mastoid air cells. Small polyp/retention cyst in right frontal sinus. IMPRESSION: 1. Mild right frontal scalp soft tissue edema/hematoma and laceration. No acute fracture. 2. No acute posttraumatic intracranial abnormality. 3. Evolving subacute vascular insult in right cerebellar hemisphere in right PICA territory. 4. Mild supratentorial white matter microvascular ischemic changes. 5. Generalized age-related cerebral volume loss. Signed by: Dr. Tatyana Escalante M.D. on 10/14/2019 5:22 AM
--- NOTE | 2019-10-14 05:31 | Diagnostic Imaging Report ---
History: Fall. Comparison studies: CT cervical spine from 10/04/2019. Technique: Axial images were obtained through the cervical region.. Coronal and sagittal images reconstructed from the axial data. Dose modulation, iterative reconstruction, and/or weight based adjustment of the mA/kV was utilized to reduce the radiation dose to as low as reasonably achievable. Intravenous contrast: None Findings: Fractures: None. Soft tissue injuries: None. Atlantoaxial articulation: Intact. Alignment: Normal lordosis. No scoliosis. No subluxation. Cervicomedullary junction: No abnormalities. The foramen magnum is patent. Soft tissues: No abnormalities. Vertebrae: Nonspecific diffuse heterogeneous bone marrow density of the visualized spine may be related to osseous demineralization, underlying lymphoproliferative/myeloproliferative disorder or metastasis in appropriate clinical setting. Degenerative changes: C3-C4: Posterior disc osteophyte complex results in mild canal stenosis. C5-C6: Mild degenerative disc disease. Posterior disc osteophyte complex results in mild canal stenosis. Mild right foraminal stenosis due to uncovertebral arthrosis. C6-C7: Mild right and moderate left foraminal stenosis due to facet and uncovertebral arthrosis. Incidental finding: Evolving subacute vascular insult in right cerebellar hemisphere in PICA territory. Partial opacification of left more than right mastoid air cells. Groundglass opacification in bilateral lung apices. Tracheostomy tube noted in position. IMPRESSION: 1. No acute cervical spine abnormalities. 2. Ligament, spinal cord and or vascular abnormalities cannot be excluded on the basis of this examination. 3. Multilevel cervical spondylosis as detailed above. Signed by: Dr. Tatyana Escalante M.D. on 10/14/2019 5:27 AM
--- NOTE | 2019-10-14 05:35 | NUR ---
[facility] called at this time for transport.
[2019-10-14 05:48] VITALS: BP 131/96
--- NOTE | 2019-10-14 06:20 | NUR ---
[facility] states 30-45 minutes at this time. [facility] cancelled at this time. [facility] called at this time.
--- NOTE | 2019-10-14 06:24 | NUR ---
[facility] ETA 30-45 minutes
--- NOTE | 2019-10-14 06:36 | NUR ---
Report to SERGIO Mullins
== END 2019-10-14 08:10 | disposition home or self-care (01) ==
LOC: ER 04:23
DX: S01.81XA Laceration without foreign body of other part of head, initial encounter (principal); W06.XXXA Fall from bed, initial encounter; Y93.84 Activity, sleeping; Y92.128 Other place in nursing home as the place of occurrence of the external cause; F03.90 Unspecified dementia, unspecified severity, without behavioral disturbance, psychotic disturbance, mood disturbance, and anxiety; I10 Essential (primary) hypertension; E11.9 Type 2 diabetes mellitus without complications; Z86.73 Personal history of transient ischemic attack (TIA), and cerebral infarction without residual deficits
CPT/HCPCS: 70450; 72125; 99284

== ENCOUNTER 2020-01-27 14:05 | Inpatient (IN) | payer MEDICARE ==
[~2020-01-27] VITALS: Ht 175.3 cm; Wt 68.1 kg
[2020-01-27] MEDS ORDERED: SODIUM CHLORIDE 0.9% 1000ML 1,000 ML IV STA (14:17)
[2020-01-27 14:54] LABS: BASOPHILS # (AUTO) 0.1 (0.0-0.1); BASOPHILS % 0.5 % (0.0-1.0); EOSINOPHILS # (AUTO) 0.1 (0.0-0.4); EOSINOPHILS % 0.4 % (0.0-6.0); HEMATOCRIT 43.9 % (38.2-49.6); HEMOGLOBIN 14.6 g/dL (14.0-18.0); LYMPHOCYTES # (AUTO) 2.4 (1.0-3.2); LYMPHOCYTES % 10.3 % (18.0-39.1); MEAN CORPUSCULAR HEMOGLOBIN 29.5 pg (28-32); MEAN CORPUSCULAR HGB CONC 33.3 g/dL (31-35); MEAN CORPUSCULAR VOLUME 88.7 fL (81-99); MONOCYTES # (AUTO) 1.3 (0.2-0.8); MONOCYTES % 5.7 % (4.4-11.3); NEUTROPHILS # (AUTO) 19.1 (2.1-6.9); NEUTROPHILS % 82.5 % (38.7-80.0); PLATELET COUNT 290 x10e3/uL (140-360); RED BLOOD COUNT 4.95 x10e6/uL (4.3-5.7); RED CELL DISTRIBUTION WIDTH 14.5 % (11.7-14.4)
[2020-01-27] MEDS ORDERED: PIPER-TAZ 3.375 GM 50 ML IV ONE (15:00)
[2020-01-27 15:01] LABS: OCCULT BLOOD STOOL POSITIVE (NEGATIVE); WBC,FECAL (FECAL LACTOFERRIN) POSITIVE (NEGATIVE)
[2020-01-27 15:04] LABS: INR 0.95; PARTIAL THROMBOPLASTIN TIME 22.6 seconds (23.8-35.5); PROTHROMBIN TIME 13.2 seconds (11.9-14.5)
[2020-01-27 15:14] LABS: ALANINE AMINOTRANSFERASE 12 IU/L (0-55); ALBUMIN 3.7 g/dL (3.5-5.0); ALBUMIN/GLOBULIN RATIO 0.8 (0.8-2.0); ALKALINE PHOSPHATASE 149 IU/L (40-150); BLOOD UREA NITROGEN 18 mg/dL (7-26); BUN/CREATININE RATIO 15 (6-25); CALCIUM 10.1 mg/dL (8.4-10.2); CARBON DIOXIDE 28 mmol/L (22-29); CREATINE KINASE 26 IU/L (30-200); CREATININE, SERUM 1.21 mg/dL (0.72-1.25); EST GLOMERULAR FILTRATION RATE 59 ML/MIN (60-); GLUCOSE 148 mg/dL (74-118); MAGNESIUM 1.9 MG/DL (1.3-2.1)
[2020-01-27 15:31] LABS: CLARITY,URINE CLOUDY (CLEAR); COLOR,URINE AMBER (YELLOW); LEUKOCYTE ESTERASE ,URINE 1+ (NEGATIVE); NITRITE,URINE NEGATIVE (NEGATIVE)
[2020-01-27 15:32] LABS: KETONES,URINE NEGATIVE (NEGATIVE); PROTEIN,URINE DIPSTICK >=300 (NEGATIVE); URINE UROBILINOGEN 1 mg/dL (0.2 - 1)
[2020-01-27 15:38] LABS: BACTERIA,URINE MANY /HPF; EPITHELIAL CELLS,URINE FEW /LPF; RBC,URINE >50 /HPF (0-5); WBC,URINE (MAN) 21-50 /HPF (0-5)
[2020-01-27] MEDS ORDERED: SODIUM CHLORIDE 0.9% 50ML 50 ML ONE (16:10)
[2020-01-27] MEDS ORDERED: IOPAMIDOL 370 MG/ML 200 ML INFUS..BTL INJ ONE (16:11)
[2020-01-27] MEDS: METRONIDAZOLE 500MG/NS 100ML 100 ML IV SCH (17:40)
[2020-01-27] MEDS ORDERED: ONDANSETRON HCL INJ 2MG/ML 2ML 2 MG/ML VIAL IV PRN (18:30)
[2020-01-27] MEDS ORDERED: MORPHINE SULFATE INJ 4 MG/ML INJ 1ML IV PRN (18:30)
[2020-01-27 20:57] LABS: CHLORIDE 99 mmol/L (98-107); SODIUM 140 mmol/L (136-145)
[2020-01-27 21:13] LABS: AMYLASE 128 U/L (25-125); LIPASE 12 U/L (8-78)
[2020-01-27] MEDS: PIPER-TAZ 3.375 GM 50 ML IV SCH (21:14)
[2020-01-27] MEDS: SODIUM CHLORIDE 0.9% 1000ML 1,000 ML IV SCH (21:14)
[2020-01-27 22:20] VITALS: BP 147/91
[2020-01-28] VITALS (9 sets, daily range): BP systolic 143–189; BP diastolic 85–101
[2020-01-28] MEDS: METRONIDAZOLE 500MG/NS 100ML 100 ML IV SCH ×3 (00:01→05:06)
[2020-01-28] MEDS ORDERED: FERROUS SULFAT325 MG PEG (00:49)
[2020-01-28] MEDS ORDERED: ASCORBIC ACID500 M2 PO (00:49)
[2020-01-28] MEDS ORDERED: RIVASTIGMINE PATCH TD (00:49)
[2020-01-28] MEDS ORDERED: LISINOPRIL2.5 MG PO (00:49)
[2020-01-28] MEDS: PIPER-TAZ 3.375 GM 50 ML IV SCH ×5 (01:16→23:40)
[2020-01-28] MEDS: SODIUM CHLORIDE 0.9% 1000ML 1,000 ML IV SCH ×2 (05:06→11:00)
[2020-01-28 06:43] LABS: BASOPHILS # (AUTO) 0.1 (0.0-0.1); BASOPHILS % 0.6 % (0.0-1.0); EOSINOPHILS # (AUTO) 0.2 (0.0-0.4); EOSINOPHILS % 1.5 % (0.0-6.0); HEMATOCRIT 37.1 % (38.2-49.6); HEMOGLOBIN 12.1 g/dL (14.0-18.0); LYMPHOCYTES # (AUTO) 3.1 (1.0-3.2); LYMPHOCYTES % 20.4 % (18.0-39.1); MEAN CORPUSCULAR HEMOGLOBIN 30.1 pg (28-32); MEAN CORPUSCULAR HGB CONC 32.6 g/dL (31-35); MEAN CORPUSCULAR VOLUME 92.3 fL (81-99); MONOCYTES # (AUTO) 1.2 (0.2-0.8); MONOCYTES % 7.8 % (4.4-11.3); NEUTROPHILS # (AUTO) 10.5 (2.1-6.9); NEUTROPHILS % 69.2 % (38.7-80.0); PLATELET COUNT 292 x10e3/uL (140-360); RED BLOOD COUNT 4.02 x10e6/uL (4.3-5.7); RED CELL DISTRIBUTION WIDTH 14.5 % (11.7-14.4)
[2020-01-28 07:06] LABS: ALANINE AMINOTRANSFERASE 10 IU/L (0-55); ALBUMIN 2.9 g/dL (3.5-5.0); ALBUMIN/GLOBULIN RATIO 0.8 (0.8-2.0); ALKALINE PHOSPHATASE 97 IU/L (40-150); ANION GAP 13.1 mmol/L (8-16); BLOOD UREA NITROGEN 17 mg/dL (7-26); BUN/CREATININE RATIO 15 (6-25); CALCIUM 9.1 mg/dL (8.4-10.2); CARBON DIOXIDE 28 mmol/L (22-29); CHLORIDE 105 mmol/L (98-107); CREATININE, SERUM 1.13 mg/dL (0.72-1.25); EST GLOMERULAR FILTRATION RATE > 60 ML/MIN (60-); GLUCOSE 93 mg/dL (74-118); POTASSIUM 3.1 mmol/L (3.5-5.1); SODIUM 143 mmol/L (136-145)
[2020-01-28 07:44] LABS: CREATINE KINASE MB 0.6 ng/mL (0-5.0)
[2020-01-28] MEDS ORDERED: ACETAMINOPHEN 325 MG TAB PEG PRN (13:30)
[2020-01-28] MEDS ORDERED: CLONIDINE HCL 0.1 MG TAB PEG PRN (13:30)
[2020-01-28] MEDS ORDERED: SCOPOLAMINE 1.5 MG PATCH TD PRN (13:30)
[2020-01-28] MEDS ORDERED: POTASSIUM CHLORIDE 20 MEQ TAB CR PO NR (13:30)
[2020-01-28] MEDS ORDERED: LORAZEPAM INJ 2 MG/ML VIAL IM PRN (13:30)
[2020-01-28] MEDS ORDERED: ALBUTEROL/IPRATROPIUM 3 ML NEB INH PRN (13:30)
[2020-01-28] MEDS: HYDRALAZINE HCL 25 MG TAB PEG SCH (14:00)
[2020-01-28 14:48] LABS: C DIFFICILE TOXIN A&B AMP PROB NEGATIVE (NEGATIVE)
[2020-01-28 16:50] LABS: CREATINE KINASE 34 IU/L (30-200)
[2020-01-28] MEDS ORDERED: RIVASTIGMINE TARTRATE 1.5 MG CAP PEG SCH (17:00)
[2020-01-28] MEDS: LEVETIRACETAM ORAL SOLUTION 500 MG/5 ML SOLN PEG SCH (17:00)
[2020-01-28] MEDS: CARVEDILOL 12.5 MG TAB PEG SCH (17:38)
[2020-01-28] MEDS: ASCORBIC ACID 500 MG TAB PO SCH (17:38)
[2020-01-28] MEDS ORDERED: POTASSIUM CHLORIDE 20 MEQ TAB CR PO ONE (19:15)
[2020-01-28] MEDS ORDERED: HYDRALAZINE HCL 20 MG/ML VIAL IV PRN (19:30)
[2020-01-28] MEDS ORDERED: DEXTROSE 50% SYRINGE 50 ML IV PRN (19:30)
[2020-01-28] MEDS: AMLODIPINE BESYLATE 5 MG TAB PEG SCH (20:34)
[2020-01-28] MEDS: DOXAZOSIN MESYLATE 2 MG TAB PEG SCH (20:34)
[2020-01-29] VITALS (8 sets, daily range): BP systolic 149–180; BP diastolic 89–99
[2020-01-29] MEDS: HYDRALAZINE HCL 25 MG TAB PEG SCH ×4 (00:23→21:48)
[2020-01-29] MEDS: PIPER-TAZ 3.375 GM 50 ML IV SCH (05:52)
[2020-01-29 06:00] LABS: BASOPHILS # (AUTO) 0.1 (0.0-0.1); BASOPHILS % 1.1 % (0.0-1.0); EOSINOPHILS # (AUTO) 0.3 (0.0-0.4); HEMATOCRIT 35.6 % (38.2-49.6); HEMOGLOBIN 11.7 g/dL (14.0-18.0); LYMPHOCYTES # (AUTO) 2.8 (1.0-3.2); LYMPHOCYTES % 24.9 % (18.0-39.1); MEAN CORPUSCULAR HEMOGLOBIN 29.5 pg (28-32); MEAN CORPUSCULAR HGB CONC 32.9 g/dL (31-35); MEAN CORPUSCULAR VOLUME 89.9 fL (81-99); MONOCYTES % 8.8 % (4.4-11.3); NEUTROPHILS # (AUTO) 6.9 (2.1-6.9); NEUTROPHILS % 61.8 % (38.7-80.0); PLATELET COUNT 300 x10e3/uL (140-360); RED BLOOD COUNT 3.96 x10e6/uL (4.3-5.7); RED CELL DISTRIBUTION WIDTH 14.5 % (11.7-14.4)
[2020-01-29] MEDS: INSULIN LISPRO 100 UNIT/1 ML 3ML VIAL SQ SCH ×4 (06:00→16:35)
[2020-01-29 06:29] LABS: ANION GAP 13.4 mmol/L (8-16); BLOOD UREA NITROGEN 12 mg/dL (7-26); BUN/CREATININE RATIO 13 (6-25); CALCIUM 8.9 mg/dL (8.4-10.2); CARBON DIOXIDE 29 mmol/L (22-29); CHLORIDE 105 mmol/L (98-107); CREATININE, SERUM 0.92 mg/dL (0.72-1.25); EST GLOMERULAR FILTRATION RATE > 60 ML/MIN (60-); GLUCOSE 82 mg/dL (74-118); SODIUM 145 mmol/L (136-145)
[2020-01-29 06:31] LABS: POTASSIUM 2.4 mmol/L (3.5-5.1)
[2020-01-29] MEDS ORDERED: POTASSIUM CHLORIDE 20 MEQ TAB CR PO ONE (07:05)
[2020-01-29] MEDS ORDERED: GLIMEPIRIDE 2 MG TAB PEG SCH (08:00)
[2020-01-29] MEDS: CARVEDILOL 12.5 MG TAB PEG SCH ×2 (08:24→16:37)
[2020-01-29] MEDS: FERROUS SULFATE 325 MG TAB PEG SCH (08:24)
[2020-01-29] MEDS: RIVASTIGMINE PATCH 4.6MG/24 HOURS PATCH TD SCH (08:25)
[2020-01-29] MEDS: LEVETIRACETAM ORAL SOLUTION 500 MG/5 ML SOLN PEG SCH ×2 (08:25→16:37)
[2020-01-29] MEDS: LISINOPRIL 2.5 MG TAB PO SCH (08:25)
[2020-01-29] MEDS: ASCORBIC ACID 500 MG TAB PO SCH ×2 (08:25→16:37)
[2020-01-29] MEDS: MEROPENEM 1GM 100 ML IV SCH (12:37)
[2020-01-29] MEDS: ALBUTEROL/IPRATROPIUM 3 ML NEB INH SCH (19:45)
[2020-01-29] MEDS: AMLODIPINE BESYLATE 5 MG TAB PEG SCH (20:57)
[2020-01-29] MEDS: DOXAZOSIN MESYLATE 2 MG TAB PEG SCH (20:57)
[2020-01-30] VITALS (8 sets, daily range): BP systolic 142–172; BP diastolic 82–94
[2020-01-30] MEDS: ALBUTEROL/IPRATROPIUM 3 ML NEB INH SCH ×4 (01:20→20:05)
[2020-01-30] MEDS: HYDRALAZINE HCL 25 MG TAB PEG SCH ×3 (06:00→21:49)
[2020-01-30] MEDS: INSULIN LISPRO 100 UNIT/1 ML 3ML VIAL SQ SCH ×4 (06:00→17:37)
[2020-01-30 06:41] LABS: BASOPHILS # (AUTO) 0.1 (0.0-0.1); EOSINOPHILS # (AUTO) 0.3 (0.0-0.4); EOSINOPHILS % 3.1 % (0.0-6.0); HEMATOCRIT 36.3 % (38.2-49.6); HEMOGLOBIN 11.9 g/dL (14.0-18.0); LYMPHOCYTES # (AUTO) 2.6 (1.0-3.2); LYMPHOCYTES % 25.5 % (18.0-39.1); MEAN CORPUSCULAR HEMOGLOBIN 29.5 pg (28-32); MEAN CORPUSCULAR HGB CONC 32.8 g/dL (31-35); MEAN CORPUSCULAR VOLUME 90.1 fL (81-99); MONOCYTES # (AUTO) 0.9 (0.2-0.8); MONOCYTES % 8.5 % (4.4-11.3); NEUTROPHILS # (AUTO) 6.3 (2.1-6.9); NEUTROPHILS % 61.5 % (38.7-80.0); PLATELET COUNT 318 x10e3/uL (140-360); RED BLOOD COUNT 4.03 x10e6/uL (4.3-5.7); RED CELL DISTRIBUTION WIDTH 14.3 % (11.7-14.4)
[2020-01-30 07:24] LABS: ANION GAP 16.7 mmol/L (8-16); BLOOD UREA NITROGEN 13 mg/dL (7-26); BUN/CREATININE RATIO 13 (6-25); CALCIUM 9.3 mg/dL (8.4-10.2); CARBON DIOXIDE 26 mmol/L (22-29); CHLORIDE 105 mmol/L (98-107); CREATININE, SERUM 0.97 mg/dL (0.72-1.25); EST GLOMERULAR FILTRATION RATE > 60 ML/MIN (60-); GLUCOSE 91 mg/dL (74-118); SODIUM 145 mmol/L (136-145)
[2020-01-30 07:27] LABS: POTASSIUM 2.7 mmol/L (3.5-5.1)
[2020-01-30] MEDS ORDERED: POTASSIUM CHLORIDE 20MEQ/100ML 100 ML IV ONE (07:45)
[2020-01-30] MEDS ORDERED: POTASSIUM CHLORIDE 10MEQ EA PEG NR (07:45)
[2020-01-30] MEDS ORDERED: SODIUM CHLORIDE 0.9% 250ML 250 ML ONE (08:05)
[2020-01-30] MEDS: CARVEDILOL 12.5 MG TAB PEG SCH ×2 (08:29→19:06)
[2020-01-30] MEDS: LISINOPRIL 2.5 MG TAB PO SCH (08:29)
[2020-01-30] MEDS: FERROUS SULFATE 325 MG TAB PEG SCH (08:29)
[2020-01-30] MEDS: BALSAM PERU/CASTOR OIL 60 GM OINT...G. TP SCH (08:30)
[2020-01-30] MEDS: ASCORBIC ACID 500 MG TAB PO SCH ×2 (08:30→17:00)
[2020-01-30] MEDS: RIVASTIGMINE PATCH 4.6MG/24 HOURS PATCH TD SCH (08:30)
[2020-01-30] MEDS: LEVETIRACETAM ORAL SOLUTION 500 MG/5 ML SOLN PEG SCH ×2 (10:00→17:00)
[2020-01-30] MEDS: MEROPENEM 1GM 100 ML IV SCH ×2 (12:00)
[2020-01-30] MEDS: DOXAZOSIN MESYLATE 2 MG TAB PEG SCH (20:50)
[2020-01-30] MEDS: AMLODIPINE BESYLATE 5 MG TAB PEG SCH (20:50)
[2020-01-31] VITALS (9 sets, daily range): BP systolic 153–179; BP diastolic 85–99
[2020-01-31] MEDS: ALBUTEROL/IPRATROPIUM 3 ML NEB INH SCH ×4 (01:00→19:25)
[2020-01-31] MEDS: HYDRALAZINE HCL 25 MG TAB PEG SCH ×3 (05:47→21:39)
[2020-01-31 05:57] LABS: BASOPHILS # (AUTO) 0.1 (0.0-0.1); BASOPHILS % 0.9 % (0.0-1.0); EOSINOPHILS # (AUTO) 0.5 (0.0-0.4); EOSINOPHILS % 5.1 % (0.0-6.0); HEMATOCRIT 34.9 % (38.2-49.6); HEMOGLOBIN 11.3 g/dL (14.0-18.0); LYMPHOCYTES # (AUTO) 3.2 (1.0-3.2); LYMPHOCYTES % 34.4 % (18.0-39.1); MEAN CORPUSCULAR HEMOGLOBIN 29.1 pg (28-32); MEAN CORPUSCULAR HGB CONC 32.4 g/dL (31-35); MEAN CORPUSCULAR VOLUME 89.9 fL (81-99); MONOCYTES % 11.1 % (4.4-11.3); NEUTROPHILS # (AUTO) 4.5 (2.1-6.9); NEUTROPHILS % 48.2 % (38.7-80.0); PLATELET COUNT 308 x10e3/uL (140-360); RED BLOOD COUNT 3.88 x10e6/uL (4.3-5.7); RED CELL DISTRIBUTION WIDTH 14.3 % (11.7-14.4)
[2020-01-31] MEDS: INSULIN LISPRO 100 UNIT/1 ML 3ML VIAL SQ SCH ×4 (06:00→18:28)
[2020-01-31 06:16] LABS: MAGNESIUM 1.8 MG/DL (1.3-2.1); PHOSPHORUS 2.4 MG/DL (2.3-4.7)
[2020-01-31 06:42] LABS: BLOOD UREA NITROGEN 14 mg/dL (7-26); BUN/CREATININE RATIO 15 (6-25); CALCIUM 9.3 mg/dL (8.4-10.2); CARBON DIOXIDE 29 mmol/L (22-29); CHLORIDE 108 mmol/L (98-107); CREATININE, SERUM 0.93 mg/dL (0.72-1.25); EST GLOMERULAR FILTRATION RATE > 60 ML/MIN (60-); GLUCOSE 106 mg/dL (74-118); SODIUM 147 mmol/L (136-145)
[2020-01-31] MEDS: LEVETIRACETAM ORAL SOLUTION 500 MG/5 ML SOLN PEG SCH ×2 (09:00→16:35)
[2020-01-31] MEDS: BALSAM PERU/CASTOR OIL 60 GM OINT...G. TP SCH (09:07)
[2020-01-31] MEDS: ASCORBIC ACID 500 MG TAB PO SCH ×2 (09:07→16:35)
[2020-01-31] MEDS: LISINOPRIL 2.5 MG TAB PO SCH (09:07)
[2020-01-31] MEDS: RIVASTIGMINE PATCH 4.6MG/24 HOURS PATCH TD SCH (09:07)
[2020-01-31] MEDS: FERROUS SULFATE 325 MG TAB PEG SCH (09:07)
[2020-01-31] MEDS: CARVEDILOL 12.5 MG TAB PEG SCH ×2 (09:07→17:05)
[2020-01-31] MEDS ORDERED: POTASSIUM CHLORIDE 20 MEQ TAB CR PO ONE (09:40)
[2020-01-31] MEDS: MEROPENEM 1GM 100 ML IV SCH ×3 (12:06→23:41)
[2020-01-31] MEDS: DOXAZOSIN MESYLATE 2 MG TAB PEG SCH (21:38)
[2020-01-31] MEDS: AMLODIPINE BESYLATE 5 MG TAB PEG SCH (21:38)
[2020-02-01] VITALS (8 sets, daily range): BP systolic 147–173; BP diastolic 88–97
[2020-02-01] MEDS: ALBUTEROL/IPRATROPIUM 3 ML NEB INH SCH ×4 (02:40→20:00)
[2020-02-01] MEDS: HYDRALAZINE HCL 25 MG TAB PEG SCH ×3 (05:08→21:14)
[2020-02-01] MEDS: INSULIN LISPRO 100 UNIT/1 ML 3ML VIAL SQ SCH ×4 (05:51→17:22)
[2020-02-01] MEDS: LEVETIRACETAM ORAL SOLUTION 500 MG/5 ML SOLN PEG SCH ×2 (08:37→17:31)
[2020-02-01] MEDS: CARVEDILOL 12.5 MG TAB PEG SCH ×2 (08:37→17:32)
[2020-02-01] MEDS: FERROUS SULFATE 325 MG TAB PEG SCH (08:37)
[2020-02-01] MEDS: RIVASTIGMINE PATCH 4.6MG/24 HOURS PATCH TD SCH (08:37)
[2020-02-01] MEDS: ASCORBIC ACID 500 MG TAB PO SCH ×2 (08:37→17:31)
[2020-02-01] MEDS: LISINOPRIL 2.5 MG TAB PO SCH (08:37)
[2020-02-01] MEDS ORDERED: MAGNESIUM SULFATE 2GM/50ML IV ONE (09:00)
[2020-02-01] MEDS ORDERED: MAGNESIUM SULFATE 2GM/50ML 50 ML IV ONE (09:15)
[2020-02-01] MEDS ORDERED: POTASSIUM CHLORIDE 10MEQ EA PO ONE (09:30)
[2020-02-01] MEDS: BALSAM PERU/CASTOR OIL 60 GM OINT...G. TP SCH (11:03)
[2020-02-01] MEDS: MEROPENEM 1GM 100 ML IV SCH (12:11)
[2020-02-01] MEDS ORDERED: POTASSIUM PHOSPHATE 20 MM in SODIUM CHLORIDE 0.9% 250ML 250 ML IV ONE (13:00)
[2020-02-01] MEDS ORDERED: AMLODIPINE BESYLATE 10 MG TAB PEG SCH (21:00)
[2020-02-01] MEDS: DOXAZOSIN MESYLATE 2 MG TAB PEG SCH (21:14)
[2020-02-01] MEDS ORDERED: SODIUM CHLORIDE 0.9% 250ML 250 ML ONE (22:55)
[2020-02-02] MEDS: MEROPENEM 1GM 100 ML IV SCH ×2 (00:07→12:51)
[2020-02-02] MEDS: ALBUTEROL/IPRATROPIUM 3 ML NEB INH SCH ×3 (03:30→13:28)
[2020-02-02 04:20] VITALS: BP 144/90
[2020-02-02] MEDS: HYDRALAZINE HCL 25 MG TAB PEG SCH ×2 (05:30→13:01)
[2020-02-02] MEDS: INSULIN LISPRO 100 UNIT/1 ML 3ML VIAL SQ SCH ×4 (05:48→18:00)
[2020-02-02 06:25] LABS: PHOSPHORUS 2.9 MG/DL (2.3-4.7)
[2020-02-02 06:56] LABS: ANION GAP 13.5 mmol/L (8-16); BLOOD UREA NITROGEN 15 mg/dL (7-26); BUN/CREATININE RATIO 19 (6-25); CALCIUM 8.8 mg/dL (8.4-10.2); CARBON DIOXIDE 28 mmol/L (22-29); CHLORIDE 106 mmol/L (98-107); EST GLOMERULAR FILTRATION RATE > 60 ML/MIN (60-); GLUCOSE 102 mg/dL (74-118); POTASSIUM 3.5 mmol/L (3.5-5.1); SODIUM 144 mmol/L (136-145)
[2020-02-02 08:55] VITALS: BP 164/95
[2020-02-02] MEDS: LISINOPRIL 2.5 MG TAB PO SCH (09:08)
[2020-02-02] MEDS: FERROUS SULFATE 325 MG TAB PEG SCH (09:08)
[2020-02-02] MEDS: CARVEDILOL 12.5 MG TAB PEG SCH ×2 (09:08→17:13)
[2020-02-02] MEDS: RIVASTIGMINE PATCH 4.6MG/24 HOURS PATCH TD SCH (09:09)
[2020-02-02] MEDS: ASCORBIC ACID 500 MG TAB PO SCH ×2 (09:09→17:13)
[2020-02-02] MEDS: LEVETIRACETAM ORAL SOLUTION 500 MG/5 ML SOLN PEG SCH ×2 (09:09→17:13)
[2020-02-02] MEDS: BALSAM PERU/CASTOR OIL 60 GM OINT...G. TP SCH (10:00)
[2020-02-02 10:17] VITALS: BP 165/95
[2020-02-02 13:43] VITALS: BP 155/88
[2020-02-02] MEDS ORDERED: ONDANSETRON HCL 4 MG ORAL DISINTEGRATING TAB PO PRN (13:45)
[2020-02-02 17:22] VITALS: BP 158/89
== END 2020-02-02 19:47 | DRG 698 ==
LOC: ER 14:08 → ERHOLD 19:15 → MED/SURG3 22:18
PROVIDERS: ADMIT Internal Medicine; ATTEND Internal Medicine
DX: T83.511A Infection and inflammatory reaction due to indwelling urethral catheter, initial encounter (principal); A41.9 Sepsis, unspecified organism; J15.9 Unspecified bacterial pneumonia; E43 Unspecified severe protein-calorie malnutrition; J69.0 Pneumonitis due to inhalation of food and vomit; N12 Tubulo-interstitial nephritis, not specified as acute or chronic; R64 Cachexia; Z16.24 Resistance to multiple antibiotics; N39.0 Urinary tract infection, site not specified; Z20.828 Contact with and (suspected) exposure to other viral communicable diseases; G40.909 Epilepsy, unspecified, not intractable, without status epilepticus; F03.90 Unspecified dementia, unspecified severity, without behavioral disturbance, psychotic disturbance, mood disturbance, and anxiety; Z91.81 History of falling; E87.8 Other disorders of electrolyte and fluid balance, not elsewhere classified; Z68.22 Body mass index [BMI] 22.0-22.9, adult; Z86.73 Personal history of transient ischemic attack (TIA), and cerebral infarction without residual deficits; Z93.0 Tracheostomy status; J84.10 Pulmonary fibrosis, unspecified; Z93.1 Gastrostomy status
CPT/HCPCS: 36415; 71045; 71260; 74177; 74230; 80048; 80053; 81001; 82150; 82270; 82550; 82553; 82607; 82746; 82948; 83540; 83605; 83630; 83690; 83735; 83880; 84100; 84152; 84466; 84484; 85025; 85610; 85730; 87040; 87086; 87186; 87493; 93005; 94640; 97139; 99251; 99284; J0360; J2270; J2543; J3475; J3480; J7030; J7050; Q9967; U0002

== ENCOUNTER 2020-02-03 01:15 | Inpatient (IN) | payer MEDICARE ==
[~2020-02-03] VITALS: Ht 175.3 cm; Wt 68.0 kg
[~2020-02-03 01:15] MED LIST changes: +ASCORBIC ACID500 M2 PO; +FERROUS SULFAT325 MG PEG; +LISINOPRIL2.5 MG PO; +RIVASTIGMINE PATCH TD
[2020-02-03 01:36] LABS: BASOPHILS # (AUTO) 0.1 (0.0-0.1); BASOPHILS % 0.8 % (0.0-1.0); EOSINOPHILS # (AUTO) 0.5 (0.0-0.4); HEMATOCRIT 34.5 % (38.2-49.6); HEMOGLOBIN 11.3 g/dL (14.0-18.0); LYMPHOCYTES # (AUTO) 4.1 (1.0-3.2); MEAN CORPUSCULAR HEMOGLOBIN 29.3 pg (28-32); MEAN CORPUSCULAR HGB CONC 32.8 g/dL (31-35); MEAN CORPUSCULAR VOLUME 89.4 fL (81-99); MONOCYTES # (AUTO) 1.1 (0.2-0.8); MONOCYTES % 7.9 % (4.4-11.3); NEUTROPHILS # (AUTO) 7.4 (2.1-6.9); NEUTROPHILS % 55.7 % (38.7-80.0); PLATELET COUNT 307 x10e3/uL (140-360); RED BLOOD COUNT 3.86 x10e6/uL (4.3-5.7); RED CELL DISTRIBUTION WIDTH 14.3 % (11.7-14.4)
[2020-02-03] MEDS ORDERED: PANTOPRAZOLE 40 MG 10ML VIAL IV STA (01:44)
[2020-02-03 01:45] LABS: INR 0.98; PROTHROMBIN TIME 13.5 seconds (11.9-14.5)
[2020-02-03 01:46] LABS: PARTIAL THROMBOPLASTIN TIME 31.5 seconds (23.8-35.5)
[2020-02-03 01:52] LABS: ALANINE AMINOTRANSFERASE 8 IU/L (0-55); ALBUMIN 3.2 g/dL (3.5-5.0); ALBUMIN/GLOBULIN RATIO 0.8 (0.8-2.0); ALKALINE PHOSPHATASE 86 IU/L (40-150); ANION GAP 14.7 mmol/L (8-16); BLOOD UREA NITROGEN 17 mg/dL (7-26); BUN/CREATININE RATIO 19 (6-25); CALCIUM 8.8 mg/dL (8.4-10.2); CARBON DIOXIDE 29 mmol/L (22-29); CHLORIDE 103 mmol/L (98-107); EST GLOMERULAR FILTRATION RATE > 60 ML/MIN (60-); GLUCOSE 108 mg/dL (74-118); POTASSIUM 4.7 mmol/L (3.5-5.1); SODIUM 142 mmol/L (136-145)
[2020-02-03 01:53] LABS: AMYLASE 59 U/L (25-125); LIPASE 28 U/L (8-78)
[2020-02-03] MEDS ORDERED: ONDANSETRON HCL INJ 2MG/ML 2ML 2 MG/ML VIAL IV PRN (02:30)
[2020-02-03] MEDS ORDERED: SODIUM CHLORIDE 0.9% 1000ML 1,000 ML ONE (02:43)
[2020-02-03] MEDS: SODIUM CHLORIDE 0.9% 1000ML 1,000 ML IV SCH ×2 (02:47→15:30)
[2020-02-03] MEDS: MEROPENEM 1GM 100 ML IV SCH ×3 (05:03→22:16)
[2020-02-03] MEDS: PANTOPRAZOLE 40 MG 10ML VIAL IV SCH (08:52)
[2020-02-03 09:14] LABS: BASOPHILS # (AUTO) 0.1 (0.0-0.1); BASOPHILS % 0.9 % (0.0-1.0); EOSINOPHILS # (AUTO) 0.5 (0.0-0.4); EOSINOPHILS % 5.2 % (0.0-6.0); HEMATOCRIT 32.9 % (38.2-49.6); HEMOGLOBIN 10.7 g/dL (14.0-18.0); LYMPHOCYTES # (AUTO) 3.5 (1.0-3.2); LYMPHOCYTES % 33.8 % (18.0-39.1); MEAN CORPUSCULAR HEMOGLOBIN 29.7 pg (28-32); MEAN CORPUSCULAR HGB CONC 32.5 g/dL (31-35); MEAN CORPUSCULAR VOLUME 91.4 fL (81-99); MONOCYTES # (AUTO) 0.9 (0.2-0.8); MONOCYTES % 8.8 % (4.4-11.3); NEUTROPHILS # (AUTO) 5.3 (2.1-6.9); NEUTROPHILS % 50.7 % (38.7-80.0); PLATELET COUNT 279 x10e3/uL (140-360); RED CELL DISTRIBUTION WIDTH 14.2 % (11.7-14.4)
[2020-02-03 13:01] VITALS: BP 183/101
[2020-02-03] MEDS ORDERED: BENZONATATE 100 MG CAP PO PRN (14:00)
[2020-02-03] MEDS ORDERED: POLYETHYLENE GLYCOL 3350 17 GM PACK PO PRN (14:00)
[2020-02-03] MEDS ORDERED: DOCUSATE SODIUM 100 MG CAP PO PRN (14:00)
[2020-02-03] MEDS ORDERED: HYDRALAZINE HCL 20 MG/ML VIAL IV PRN (14:00)
[2020-02-03] MEDS ORDERED: LIDOCAINE 4% PATCH TP PRN (14:00)
[2020-02-03] MEDS ORDERED: ALBUTEROL/IPRATROPIUM 3 ML NEB NEB PRN (14:00)
[2020-02-03] MEDS ORDERED: ACETAMINOPHEN 325 MG TAB PO PRN (14:00)
[2020-02-03] MEDS ORDERED: HYDROCODONE/APAP 5MG-325MG TAB PO PRN (14:00)
[2020-02-03] MEDS ORDERED: DIPHENHYDRAMINE HCL 25 MG CAP PO PRN (14:00)
[2020-02-03] MEDS ORDERED: MELATONIN 5 MG TABLET PO PRN (14:00)
[2020-02-03] MEDS ORDERED: POTASSIUM CHLORIDE 20 MEQ TAB CR PO PRN (14:00)
[2020-02-03] MEDS ORDERED: SIMETHICONE 80 MG CHEW PO PRN (14:00)
[2020-02-03] MEDS ORDERED: DEXTROSE 50% SYRINGE 50 ML IV PRN (14:00)
[2020-02-03] MEDS ORDERED: CHLORASEPTIC SPRAY 177 ML BTL MM PRN (14:00)
[2020-02-03] MEDS ORDERED: SCOPOLAMINE 1.5 MG PATCH TD PRN (14:15)
[2020-02-03 16:00] VITALS: BP 173/90
[2020-02-03] MEDS: RIVASTIGMINE TARTRATE 1.5 MG CAP PEG SCH (18:03)
[2020-02-03] MEDS: CARVEDILOL 12.5 MG TAB PEG SCH (18:03)
[2020-02-03 18:10] VITALS: BP 173/90
[2020-02-03] MEDS: DOXAZOSIN MESYLATE 2 MG TAB PEG SCH (20:15)
[2020-02-03] MEDS: AMLODIPINE BESYLATE 5 MG TAB PEG SCH (20:15)
[2020-02-03 20:22] VITALS: BP 152/99
[2020-02-03 21:00] VITALS: BP 152/99
[2020-02-03] MEDS: HYDRALAZINE HCL 25 MG TAB PEG SCH (22:16)
[2020-02-04] VITALS (7 sets, daily range): BP systolic 129–156; BP diastolic 68–95
[2020-02-04] MEDS: SODIUM CHLORIDE 0.9% 1000ML 1,000 ML IV SCH ×2 (05:10→12:30)
[2020-02-04] MEDS: HYDRALAZINE HCL 25 MG TAB PEG SCH ×3 (05:42→21:21)
[2020-02-04] MEDS: MEROPENEM 1GM 100 ML IV SCH ×3 (05:42→21:20)
[2020-02-04 06:07] LABS: BASOPHILS # (AUTO) 0.1 (0.0-0.1); BASOPHILS % 0.7 % (0.0-1.0); EOSINOPHILS # (AUTO) 0.5 (0.0-0.4); EOSINOPHILS % 4.5 % (0.0-6.0); HEMATOCRIT 32.2 % (38.2-49.6); HEMOGLOBIN 10.4 g/dL (14.0-18.0); LYMPHOCYTES # (AUTO) 3.7 (1.0-3.2); LYMPHOCYTES % 34.1 % (18.0-39.1); MEAN CORPUSCULAR HEMOGLOBIN 29.3 pg (28-32); MEAN CORPUSCULAR HGB CONC 32.3 g/dL (31-35); MEAN CORPUSCULAR VOLUME 90.7 fL (81-99); MONOCYTES # (AUTO) 1.1 (0.2-0.8); MONOCYTES % 10.2 % (4.4-11.3); NEUTROPHILS # (AUTO) 5.4 (2.1-6.9); NEUTROPHILS % 49.9 % (38.7-80.0); PLATELET COUNT 304 x10e3/uL (140-360); RED BLOOD COUNT 3.55 x10e6/uL (4.3-5.7); RED CELL DISTRIBUTION WIDTH 14.3 % (11.7-14.4)
[2020-02-04 06:33] LABS: ANION GAP 11.2 mmol/L (8-16); BLOOD UREA NITROGEN 16 mg/dL (7-26); BUN/CREATININE RATIO 21 (6-25); CALCIUM 8.6 mg/dL (8.4-10.2); CARBON DIOXIDE 29 mmol/L (22-29); CHLORIDE 106 mmol/L (98-107); CREATININE, SERUM 0.78 mg/dL (0.72-1.25); EST GLOMERULAR FILTRATION RATE > 60 ML/MIN (60-); GLUCOSE 86 mg/dL (74-118); POTASSIUM 3.2 mmol/L (3.5-5.1); SODIUM 143 mmol/L (136-145)
[2020-02-04] MEDS: CARVEDILOL 12.5 MG TAB PEG SCH ×2 (09:25→17:43)
[2020-02-04] MEDS: PANTOPRAZOLE SOD 40 MG TABEC PO SCH (09:25)
[2020-02-04] MEDS: RIVASTIGMINE TARTRATE 1.5 MG CAP PEG SCH ×2 (09:25→17:43)
[2020-02-04] MEDS: PANTOPRAZOLE 40 MG 10ML VIAL IV SCH (09:25)
[2020-02-04] MEDS: FERROUS SULFATE 325 MG TAB PEG SCH (13:50)
[2020-02-04] MEDS: LISINOPRIL 2.5 MG TAB PO SCH (13:51)
[2020-02-04] MEDS: DOXAZOSIN MESYLATE 2 MG TAB PEG SCH (21:20)
[2020-02-04] MEDS: AMLODIPINE BESYLATE 5 MG TAB PEG SCH (21:20)
[2020-02-05] VITALS (7 sets, daily range): BP systolic 134–171; BP diastolic 80–95
[2020-02-05] MEDS: SODIUM CHLORIDE 0.9% 1000ML 1,000 ML IV SCH ×3 (02:10→21:10)
[2020-02-05] MEDS: HYDRALAZINE HCL 25 MG TAB PEG SCH ×3 (05:26→21:45)
[2020-02-05] MEDS: MEROPENEM 1GM 100 ML IV SCH ×3 (05:26→21:45)
[2020-02-05 05:30] LABS: BASOPHILS # (AUTO) 0.1 (0.0-0.1); BASOPHILS % 0.8 % (0.0-1.0); EOSINOPHILS # (AUTO) 0.4 (0.0-0.4); EOSINOPHILS % 4.3 % (0.0-6.0); HEMATOCRIT 32.6 % (38.2-49.6); HEMOGLOBIN 10.9 g/dL (14.0-18.0); LYMPHOCYTES # (AUTO) 3.8 (1.0-3.2); LYMPHOCYTES % 36.7 % (18.0-39.1); MEAN CORPUSCULAR HEMOGLOBIN 29.9 pg (28-32); MEAN CORPUSCULAR HGB CONC 33.4 g/dL (31-35); MEAN CORPUSCULAR VOLUME 89.6 fL (81-99); MONOCYTES # (AUTO) 1.1 (0.2-0.8); MONOCYTES % 10.3 % (4.4-11.3); NEUTROPHILS # (AUTO) 4.9 (2.1-6.9); NEUTROPHILS % 47.5 % (38.7-80.0); PLATELET COUNT 306 x10e3/uL (140-360); RED BLOOD COUNT 3.64 x10e6/uL (4.3-5.7)
[2020-02-05 05:58] LABS: ANION GAP 11.9 mmol/L (8-16); BLOOD UREA NITROGEN 13 mg/dL (7-26); BUN/CREATININE RATIO 17 (6-25); CALCIUM 8.5 mg/dL (8.4-10.2); CARBON DIOXIDE 27 mmol/L (22-29); CHLORIDE 105 mmol/L (98-107); CREATININE, SERUM 0.76 mg/dL (0.72-1.25); EST GLOMERULAR FILTRATION RATE > 60 ML/MIN (60-); GLUCOSE 89 mg/dL (74-118); SODIUM 141 mmol/L (136-145)
[2020-02-05 06:00] LABS: POTASSIUM 2.9 mmol/L (3.5-5.1)
[2020-02-05] MEDS: PANTOPRAZOLE 40 MG 10ML VIAL IV SCH (07:30)
[2020-02-05] MEDS: PANTOPRAZOLE SOD 40 MG TABEC PO SCH (07:30)
[2020-02-05] MEDS: CARVEDILOL 12.5 MG TAB PEG SCH ×2 (08:00→17:29)
[2020-02-05] MEDS ORDERED: POTASSIUM CHLORIDE 20 MEQ TAB CR PO ONE (09:00)
[2020-02-05] MEDS: FERROUS SULFATE 325 MG TAB PEG SCH (09:00)
[2020-02-05] MEDS: RIVASTIGMINE TARTRATE 1.5 MG CAP PEG SCH ×2 (09:00→17:00)
[2020-02-05] MEDS: LISINOPRIL 2.5 MG TAB PO SCH (09:00)
[2020-02-05] MEDS: DOXAZOSIN MESYLATE 2 MG TAB PEG SCH (21:45)
[2020-02-05] MEDS: AMLODIPINE BESYLATE 5 MG TAB PEG SCH (21:45)
[2020-02-06] VITALS (8 sets, daily range): BP systolic 136–168; BP diastolic 89–96
[2020-02-06] MEDS: SODIUM CHLORIDE 0.9% 1000ML 1,000 ML IV SCH ×2 (01:30→09:57)
[2020-02-06] MEDS: MEROPENEM 1GM 100 ML IV SCH ×3 (05:59→21:30)
[2020-02-06] MEDS: HYDRALAZINE HCL 25 MG TAB PEG SCH ×3 (06:26→21:30)
[2020-02-06] MEDS: PANTOPRAZOLE SOD 40 MG TABEC PO SCH (08:34)
[2020-02-06] MEDS: PANTOPRAZOLE 40 MG 10ML VIAL IV SCH (08:34)
[2020-02-06] MEDS: FERROUS SULFATE 325 MG TAB PEG SCH (08:35)
[2020-02-06] MEDS: RIVASTIGMINE TARTRATE 1.5 MG CAP PEG SCH ×2 (08:35→18:54)
[2020-02-06] MEDS: LISINOPRIL 2.5 MG TAB PO SCH (08:35)
[2020-02-06] MEDS: CARVEDILOL 12.5 MG TAB PEG SCH ×2 (08:35→18:54)
[2020-02-06] MEDS ORDERED: FOSFOMYCIN TROMETHAMINE 3 GM PACKET PO ONE (08:45)
[2020-02-06 09:22] LABS: BLOOD UREA NITROGEN 11 mg/dL (7-26); BUN/CREATININE RATIO 14 (6-25); CALCIUM 8.6 mg/dL (8.4-10.2); CARBON DIOXIDE 27 mmol/L (22-29); CHLORIDE 103 mmol/L (98-107); CREATININE, SERUM 0.77 mg/dL (0.72-1.25); EST GLOMERULAR FILTRATION RATE > 60 ML/MIN (60-); GLUCOSE 124 mg/dL (74-118); SODIUM 138 mmol/L (136-145)
[2020-02-06] MEDS ORDERED: POTASSIUM CHLORIDE 20 MEQ TAB CR PO ONE (15:30)
[2020-02-06] MEDS: ONDANSETRON HCL INJ 2MG/ML 2ML 2 MG/ML VIAL IV PRN (21:30)
[2020-02-06] MEDS: DOXAZOSIN MESYLATE 2 MG TAB PEG SCH (21:30)
[2020-02-06] MEDS: AMLODIPINE BESYLATE 5 MG TAB PEG SCH (21:30)
[2020-02-07] VITALS (7 sets, daily range): BP systolic 144–158; BP diastolic 90–97
[2020-02-07] MEDS: HYDRALAZINE HCL 25 MG TAB PEG SCH ×4 (06:27→22:57)
[2020-02-07] MEDS: MEROPENEM 1GM 100 ML IV SCH ×3 (06:27→22:00)
[2020-02-07] MEDS: PANTOPRAZOLE 40 MG 10ML VIAL IV SCH (08:00)
[2020-02-07] MEDS: PANTOPRAZOLE SOD 40 MG TABEC PO SCH (08:00)
[2020-02-07] MEDS: CARVEDILOL 12.5 MG TAB PEG SCH ×2 (08:00→17:00)
[2020-02-07] MEDS: RIVASTIGMINE TARTRATE 1.5 MG CAP PEG SCH ×2 (08:01→17:00)
[2020-02-07] MEDS: FERROUS SULFATE 325 MG TAB PEG SCH (08:01)
[2020-02-07] MEDS: LISINOPRIL 2.5 MG TAB PO SCH (08:02)
[2020-02-07] MEDS: ONDANSETRON HCL INJ 2MG/ML 2ML 2 MG/ML VIAL IV PRN (14:02)
[2020-02-07] MEDS: AMLODIPINE BESYLATE 5 MG TAB PEG SCH (22:57)
[2020-02-07] MEDS: DOXAZOSIN MESYLATE 2 MG TAB PEG SCH (22:57)
[2020-02-08 01:40] VITALS: BP 147/87
[2020-02-08] MEDS: SODIUM CHLORIDE 0.9% 1000ML 1,000 ML IV SCH (02:30)
[2020-02-08] MEDS: MEROPENEM 1GM 100 ML IV SCH ×2 (05:09→14:00)
[2020-02-08 05:25] VITALS: BP 144/91
[2020-02-08] MEDS: HYDRALAZINE HCL 25 MG TAB PEG SCH ×2 (05:42→14:42)
[2020-02-08] MEDS: PANTOPRAZOLE 40 MG 10ML VIAL IV SCH (07:30)
[2020-02-08] MEDS: PANTOPRAZOLE SOD 40 MG TABEC PO SCH ×2 (07:30→09:28)
[2020-02-08 08:32] VITALS: BP 160/101
[2020-02-08 08:34] VITALS: BP 160/101
[2020-02-08] MEDS ORDERED: ONDANSETRON HCL 4 MG ORAL DISINTEGRATING TAB PO PRN (09:00)
[2020-02-08] MEDS: RIVASTIGMINE TARTRATE 1.5 MG CAP PEG SCH (09:29)
[2020-02-08] MEDS: FERROUS SULFATE 325 MG TAB PEG SCH (09:29)
[2020-02-08] MEDS: LISINOPRIL 2.5 MG TAB PO SCH (09:29)
[2020-02-08] MEDS: CARVEDILOL 12.5 MG TAB PEG SCH (09:29)
[2020-02-08 12:21] VITALS: BP 148/88
[2020-02-08 16:24] VITALS: BP 188/102
== END 2020-02-08 16:29 | disposition home or self-care (01) | DRG 391 ==
LOC: ER 01:35 → ERHOLD 02:31 → MED/SURG2 12:15 → OBSVTOIN 02-06 18:30
PROVIDERS: ADMIT Internal Medicine; ATTEND Internal Medicine
DX: R11.2 Nausea with vomiting, unspecified (principal); J18.9 Pneumonia, unspecified organism; T83.592A Infection and inflammatory reaction due to indwelling ureteral stent, initial encounter; J96.10 Chronic respiratory failure, unspecified whether with hypoxia or hypercapnia; N39.0 Urinary tract infection, site not specified; Z16.24 Resistance to multiple antibiotics; Z16.12 Extended spectrum beta lactamase (ESBL) resistance; Z93.0 Tracheostomy status; I10 Essential (primary) hypertension; E11.9 Type 2 diabetes mellitus without complications; R53.81 Other malaise; Z20.828 Contact with and (suspected) exposure to other viral communicable diseases; Z83.3 Family history of diabetes mellitus; Z82.49 Family history of ischemic heart disease and other diseases of the circulatory system; Z74.01 Bed confinement status; B96.20 Unspecified Escherichia coli [E. coli] as the cause of diseases classified elsewhere; Z86.73 Personal history of transient ischemic attack (TIA), and cerebral infarction without residual deficits; Z86.19 Personal history of other infectious and parasitic diseases; Z93.1 Gastrostomy status
CPT/HCPCS: 36415; 71045; 71260; 74177; 74230; 80048; 80053; 81001; 82150; 82270; 82550; 82553; 82607; 82746; 82948; 83540; 83605; 83630; 83690; 83735; 83880; 84100; 84152; 84466; 84484; 85025; 85610; 85730; 86850; 86900; 87040; 87086; 87186; 87493; 93005; 94640; 97139; 99251; 99284; 99285; G0378; J0360; J2270; J2405; J2543; J3475; J3480; J7030; J7050; Q9967; U0002

== ENCOUNTER → 2020-05-16 | Day surgery (SDC) | payer OTHER ==
[2020-05-14 09:21] LABS: BASOPHILS # (AUTO) 0.1 (0.0-0.1); EOSINOPHILS # (AUTO) 0.3 (0.0-0.4); EOSINOPHILS % 2.9 % (0.0-6.0); HEMATOCRIT 36.8 % (38.2-49.6); HEMOGLOBIN 12.2 g/dL (14.0-18.0); LYMPHOCYTES # (AUTO) 3.1 (1.0-3.2); LYMPHOCYTES % 32.3 % (18.0-39.1); MEAN CORPUSCULAR HGB CONC 33.2 g/dL (31-35); MEAN CORPUSCULAR VOLUME 90.6 fL (81-99); MONOCYTES # (AUTO) 0.8 (0.2-0.8); MONOCYTES % 8.4 % (4.4-11.3); NEUTROPHILS # (AUTO) 5.3 (2.1-6.9); PLATELET COUNT 290 x10e3/uL (140-360); RED BLOOD COUNT 4.06 x10e6/uL (4.3-5.7); RED CELL DISTRIBUTION WIDTH 13.1 % (11.7-14.4)
[~2020-05-16] MED LIST changes: +AMLODIPINE-OLM1 EAC1 PO; +COREG12.5 MG PO; +DOXAZOSIN MESYLA2 MG PO; +FERROUS SULFAT325 MG PO; +FLOMAX0.4 MG PO; +HYDRALAZINE HCL50 MG PO; +KEPPRA500 MG PO; +LIDOCAINE HCL 2% LOCAL INJ 5 ML SDV VIAL INJ ONE; +PANTOPRAZOLE SO40 MG PO; +PROPOFOL IV EMULSION 10 MG/ML 20 ML VIAL ONE; +REGLAN5 MG PO; +RIVASTIGMINE1.5 MG PO; +VIT C PO
[2020-05-16 10:48] VITALS: BP 117/68
== END | disposition home or self-care (01) ==
LOC: OR 06:45
PROVIDERS: ATTEND Internal Medicine Gastroenterology
DX: R13.10 Dysphagia, unspecified (principal); K29.50 Unspecified chronic gastritis without bleeding; Z43.1 Encounter for attention to gastrostomy; K44.9 Diaphragmatic hernia without obstruction or gangrene; E11.9 Type 2 diabetes mellitus without complications; I10 Essential (primary) hypertension; R56.9 Unspecified convulsions; I45.10 Unspecified right bundle-branch block; R53.1 Weakness; Z01.810 Encounter for preprocedural cardiovascular examination; Z01.812 Encounter for preprocedural laboratory examination; Z20.822 Contact with and (suspected) exposure to COVID-19; Z86.73 Personal history of transient ischemic attack (TIA), and cerebral infarction without residual deficits; Z86.16 Personal history of COVID-19
CPT/HCPCS: 36415; 43239; 82948; 85025; 93005; J2001; U0002